=== PATIENT | female | born 1965 | race Caucasian/White ===

== ENCOUNTER → 2017-01-20 | Outpatient (CLI) | payer OTHER ==
--- NOTE | 2017-01-20 14:22 | XR ---
Limited cervical spine HISTORY: Neck pain 3 views of the cervical spine No comparisons Anterolisthesis grade 1 C3-4. Retrolisthesis grade 1 C4-5 and C5-6. There is multilevel spondylosis. Loss of disc height present at C4-5, C5-6 and C6-7 with associated endplate sclerosis. Prevertebral s oft tissues are normal. Cervical vertebral bodies show preserved height. IMPRESSION: Degenerative disc disease, consider cervical MRI
== END | disposition home or self-care (01) ==
LOC: RADXRMAIN 11:46
PROVIDERS: ATTEND Internal Medicine
DX: M50.321 Other cervical disc degeneration at C4-C5 level (principal)
CPT/HCPCS: 72040

== ENCOUNTER 2021-01-13 03:28 | Emergency (ER) | payer OTHER ==
[2021-01-13] MEDS ORDERED: MORPHINE SULFATE 4 MG/ML SYRINGE IV STA (03:30)
[2021-01-13] MEDS ORDERED: SODIUM CHLORIDE 0.9% 1,000 ML IV STA ×2 (03:30)
[2021-01-13] MEDS ORDERED: ONDANSETRON 4 MG/2 ML VIAL IVP STA (03:30)
[2021-01-13 03:34] VITALS: TEMP 98.2
--- NOTE | 2021-01-13 03:49 | ED ---
Abdominal Pain HPI - General Stated Complaint: Abdominal Pain Time Seen by Provider: 01/13/21 03:30 Source: patient, EMS Mode of arrival: EMS Limitations: no limitations - Related Data Home Medications Medication Instructions Recorded Confirmed Cholecalciferol [Vitamin D3 (10 400 unit PO DAILY 09/29/15 09/29/15 Mcg = 400 Iu)] Multivitamins, Thera [Multivitamin 1 tab PO DAILY 09/29/15 09/29/15 (formulary)] Pentazocine HCl/Naloxone HCl 1 tab PO BID 09/29/15 09/29/15 [Pentazocine-Naloxone Tablet] Topiramate 100 mg PO BID 09/29/15 09/29/15 Previous Rx's Medication Instructions Recorded Omeprazole [PriLOSEC] 20 mg PO AC-BRKFST #30 cap 09/30/15 Allergies Allergy/AdvReac Type Severity Reaction Status Date / Time acetaminophen [From [place]] AdvReac Itching Verified 01/13/21 03:34 hydrocodone [From [place]] AdvReac Itching Verified 01/13/21 03:34 Review of Systems ROS Statement: Those systems with pertinent positive or pertinent negative responses have been documented in the HPI. ROS Other: All systems not noted in ROS Statement are negative. Past Medical History Past Medical History: GERD/Reflux Additional Past Medical History / Comment(s): 09/29/15 Pt presented to [facility] ER with L sided chest pressure with some L arm tingling and associated SOB and diaphoresis. Symptoms began at 0900 today. She is being admitted with clinical impression of chest pain. Other HX: Gastric ulcer-currently being treated. History of Any Multi-Drug Resistant Organisms: None Reported Past Surgical History: Hernia Repair Additional Past Surgical History / Comment(s): gastric [id number] 1994, abdominal hernia with mesh and surgical site had to be drained 3 times post op. Past Anesthesia/Blood Transfusion Reactions: No Reported Reaction Additional Past Anesthesia/Blood Transfusion Reaction / Comment(s): Pt has never received blood. Past Psychological History: Bipolar Past Alcohol Use History: Occasional Past Drug Use History: Marijuana - Past Family History Father Family Medical History: Cancer Additional Family Medical History / Comment(s): Father of pancreatic cancer at age 65yrs. Mother Family Medical History: Cancer Additional Family Medical History / Comment(s): Mother of uterine cancer in her 60's. General Exam Limitations: no limitations Course Vital Signs 01/13/21 01/13/21 03:29 05:09 Temperature 98.2 F Pulse Rate 72 83 Respiratory 16 18 Rate Blood Pressure 144/95 146/84 O2 Sat by Pulse 100 99 Oximetry Medical Decision Making - Lab Data Result diagrams: 01/13/21 03:43 01/13/21 03:43 Lab Results 01/13/21 01/13/21 01/13/21 Range/Units 03:43 03:43 03:43 WBC 4.6 (3.8-10.6) k/uL RBC 4.66 (3.80-5.40) m/uL Hgb 13.8 (11.4-16.0) gm/dL Hct 43.8 (34.0-46.0) % MCV 94.1 (80.0-100.0) fL MCH 29.7 (25.0-35.0) pg MCHC 31.6 (31.0-37.0) g/dL RDW 14.9 (11.5-15.5) % Plt Count 326 (150-450) k/uL MPV 7.2 Neutrophils % 71 % Lymphocytes % 21 % Monocytes % 5 % Eosinophils % 1 % Basophils % 1 % Neutrophils # 3.3 (1.3-7.7) k/uL Lymphocytes # 1.0 (1.0-4.8) k/uL Monocytes # 0.2 (0-1.0) k/uL Eosinophils # 0.0 (0-0.7) k/uL Basophils # 0.0 (0-0.2) k/uL Sodium 137 (137-145) mmol/L Potassium 3.8 (3.5-5.1) mmol/L Chloride 100 (98-107) mmol/L Carbon Dioxide 21 L (22-30) mmol/L Anion Gap 16 mmol/L BUN 10 (7-17) mg/dL Creatinine 0.62 (0.52-1.04) mg/dL Est GFR (CKD-EPI)AfAm >90 (>60 ml/min/1.73 sqM) Est GFR (CKD-EPI)NonAf >90 (>60 ml/min/1.73 sqM) Glucose 107 H (74-99) mg/dL Plasma Lactic Acid Que 1.2 (0.7-2.0) mmol/L Calcium 9.9 (8.4-10.2) mg/dL Total Bilirubin 1.2 (0.2-1.3) mg/dL AST 42 H (14-36) U/L ALT 16 (4-34) U/L Alkaline Phosphatase 102 (38-126) U/L Creatine Kinase 214 H (30-135) U/L C-Reactive Protein 7.8 (<10.0) mg/L Total Protein 7.6 (6.3-8.2) g/dL Albumin 4.5 (3.5-5.0) g/dL Amylase 35 (30-110) U/L Lipase 75 (23-300) U/L Disposition Clinical Impression: Cecal bascule, Abdominal pain Disposition: HOME SELF-CARE Condition: Good Instructions (If sedation given, give patient instructions): Acute Abdominal Pain (ED) Is patient prescribed a controlled substance at d/c from ED?: No Referrals: Taran Davies MD [STAFF PHYSICIAN] - 1-2 days
[2021-01-13 04:26] LABS: Basophils % (A) 1 %; Eosinophils % (A) 1 %; HCT 43.8 % (34.0-46.0); HGB 13.8 gm/dL (11.4-16.0); Lymphocytes % (A) 21 %; MCH 29.7 pg (25.0-35.0); MCHC 31.6 g/dL (31.0-37.0); MCV 94.1 fL (80.0-100.0); Mean Platelet Volume 7.2; Monocytes # (A) 0.2 k/uL (0-1.0); Monocytes % (A) 5 %; Neutrophils # (A) 3.3 k/uL (1.3-7.7); Neutrophils % (A) 71 %; Platelet Count 326 k/uL (150-450); RBC 4.66 m/uL (3.80-5.40); RDW 14.9 % (11.5-15.5); WBC 4.6 k/uL (3.8-10.6)
[2021-01-13] MEDS ORDERED: HYDROmorphone 1 MG/ML 1 ML SYRINGE IVP STA (04:33)
[2021-01-13] MEDS ORDERED: HYDROmorphone 1 MG/ML 1 ML SYRINGE IVP PRN (04:33)
[2021-01-13 04:36] LABS: ALT 16 U/L (4-34); African American GFR (CKD) >90 (>60 ml/min/1.73 sqM); Albumin 4.5 g/dL (3.5-5.0); Amylase 35 U/L (30-110); Anion Gap 16 mmol/L; Blood Urea Nitrogen 10 mg/dL (7-17); C Reactive Protein 7.8 mg/L (<10.0); Calcium 9.9 mg/dL (8.4-10.2); Carbon Dioxide 21 mmol/L (22-30); Chloride 100 mmol/L (98-107); Creatine Kinase 214 U/L (30-135); Glucose 107 mg/dL (74-99); Lipase 75 U/L (23-300); Non-African American GFR(CKD) >90 (>60 ml/min/1.73 sqM); Sodium 137 mmol/L (137-145); Total Bilirubin 1.2 mg/dL (0.2-1.3); Total Protein 7.6 g/dL (6.3-8.2)
[2021-01-13 05:22] LABS: AST 42 U/L (14-36); Alkaline Phosphatase 102 U/L (38-126); Potassium 3.8 mmol/L (3.5-5.1)
--- NOTE | 2021-01-13 05:53 | CT ---
EXAM: CT Abdomen and Pelvis With Intravenous Contrast CLINICAL HISTORY: RUQ pain with epigastric pain. Previous hernia and gastric surgery. TECHNIQUE: Axial computed tomography images of the abdomen and pelvis with intravenous contrast. CTDI is 31.07 mGy and DLP is 1354.2 mGy-cm. This CT exam was performed using one or more of the following dose reduction techniques: automated exposure control, adjustment of the mA and/or kV according to patient size, and/or use of iterative reconstruction technique. Coronal and sagittal reconstructions are performed. COMPARISON: No relevant prior studies available. FINDINGS: Lung bases: Unremarkable. No mass. No consolidation. ABDOMEN: Liver: Unremarkable. No mass. Gallbladder and bile ducts: Unremarkable. No calcified stones. No ductal dilation. Pancreas: Unremarkable. No mass. No ductal dilation. Spleen: Unremarkable. No splenomegaly. Adrenals: Unremarkable. No mass. Kidneys and ureters: Unremarkable. No solid mass. No hydronephrosis. Stomach and bowel: Mild circumferential wall thickening of ascending and proximal transverse colon, measuring up to 5 mm, likely due to underdistention. Partial gastrectomy sutures, Harley-en-Y configuration. The cecum is mildly dilated to 7 cm in maximum diameter, located anteriorly in central upper abdomen, best seen on series 202 images 39 and 35, suggest cecal bascule. PELVIS: Appendix: No findings to suggest acute appendicitis. Bladder: Unremarkable. No mass. Reproductive: Unremarkable as visualized. ABDOMEN and PELVIS: Intraperitoneal space: Unremarkable. No free air. No significant fluid collection. Bones/joints: Osteopenia suspected. Moderate degenerative changes. Mild lower lumbar scoliosis convexed to the right. Soft tissues: Ventral hernia repair mesh. Midline abdominal scar Vasculature: Unremarkable. No abdominal aortic aneurysm. Lymph nodes: Unremarkable. No enlarged lymph nodes. IMPRESSION: The cecum is mildly dilated to 7 cm in maximum diameter, located anteriorly in central upper abdomen, suggest cecal bascule. Mild circumferential wall thickening of ascending and proximal transverse colon, measuring up to 5 mm, likely due to underdistention. Colitis is less likely but should also be considered. <MYCVCSECTION> Communications: 01/13/21 05:58 Verify Receipt Verified receipt with [facility] in ER for Dr. Reyez on 01/13 05:58 (-04:00)
[2021-01-13] MEDS ORDERED: ACET/COD 300 MG/30 MG STARTER PACK 6 TAB BTL PO STA (06:26)
[2021-01-13 06:31] VITALS: BP 116/61; PULSE 81; RESP 16
== END 2021-01-13 06:42 | disposition home or self-care (01) ==
LOC: EC 03:28
DX: K56.2 Volvulus (principal); Z79.899 Other long term (current) drug therapy; Z88.5 Allergy status to narcotic agent; Z88.6 Allergy status to analgesic agent; Z98.84 Bariatric surgery status
CPT/HCPCS: 36415; 80053; 82150; 82550; 83605; 83690; 85025; 86140; 74177; 99284; 96374; 96375 ×2; 96361 ×3; J2270; J2405; J1170; Q9967

== ENCOUNTER 2021-01-13 18:32 | Observation (INO) | payer OTHER ==
--- NOTE | 2021-01-13 18:46 | ED ---
General Adult HPI - General Source: patient Mode of arrival: wheelchair Limitations: no limitations <Elier Patterson - Last Filed: 01/13/21 18:44> <Evans Martines - Last Filed: 01/13/21 22:41> - General Stated complaint: abd pain-revisit Time Seen by Provider: 01/13/21 18:40 - History of Present Illness Initial comments: This a 54-year-old female presents emergency Department chief severe abdominal pain. Patient states that she was seen her earlier this morning and was diagnosed with a cecal bascule patient states that she was instructed to follow- up with Dr. Betancurania states that she was to follow clear liquid diet. She states that she felt okay until the pain has returned and 10 times worse. She states her severe pain. (Elier Patterson) - Related Data Home Medications Medication Instructions Recorded Confirmed No Known Home Medications 01/13/21 01/13/21 Allergies Allergy/AdvReac Type Severity Reaction Status Date / Time acetaminophen [From [place]] AdvReac Itching Verified 01/13/21 21:21 hydrocodone [From [place]] AdvReac Itching Verified 01/13/21 21:21 Review of Systems ROS Other: All systems not noted in ROS Statement are negative. <Elier Patterson - Last Filed: 01/13/21 18:44> ROS Other: All systems not noted in ROS Statement are negative. <Evans Martines - Last Filed: 01/13/21 22:41> ROS Statement: Those systems with pertinent positive or pertinent negative responses have been documented in the HPI. Past Medical History Past Medical History: GERD/Reflux Additional Past Medical History / Comment(s): 09/29/15 Pt presented to [facility] ER with L sided chest pressure with some L arm tingling and associated SOB and diaphoresis. Symptoms began at 0900 today. She is being admitted with clinical impression of chest pain. Other HX: Gastric ulcer-currently being treated. History of Any Multi-Drug Resistant Organisms: None Reported Past Surgical History: Hernia Repair Additional Past Surgical History / Comment(s): gastric [id number] 1994, abdominal hernia with mesh and surgical site had to be drained 3 times post op. Past Anesthesia/Blood Transfusion Reactions: No Reported Reaction Additional Past Anesthesia/Blood Transfusion Reaction / Comment(s): Pt has never received blood. Past Psychological History: Bipolar Smoking Status: Never smoker Past Alcohol Use History: Occasional Past Drug Use History: Marijuana - Past Family History Father Family Medical History: Cancer Additional Family Medical History / Comment(s): Father of pancreatic cancer at age 65yrs. Mother Family Medical History: Cancer Additional Family Medical History / Comment(s): Mother of uterine cancer in her 60's. <Elier Patterson M - Last Filed: 01/13/21 18:44> General Exam Limitations: no limitations <Elier Patterson - Last Filed: 01/13/21 18:44> General appearance: alert, in no apparent distress Head exam: Present: atraumatic, normocephalic, normal inspection Eye exam: Present: normal appearance, PERRL, EOMI. Absent: scleral icterus, conjunctival injection, periorbital swelling ENT exam: Present: normal exam, mucous membranes moist Neck exam: Present: normal inspection. Absent: tenderness, meningismus, lymphadenopathy Respiratory exam: Present: normal lung sounds bilaterally. Absent: respiratory distress, wheezes, rales, rhonchi, stridor Cardiovascular Exam: Present: regular rate, normal rhythm, normal heart sounds. Absent: systolic murmur, diastolic murmur, rubs, gallop, clicks GI/Abdominal exam: Present: soft, tenderness (Tenderness noted to suprapubic area as well as left upper quadrant without guarding or rebound), normal bowel sounds. Absent: distended, guarding, rebound, rigid <Evans Martines P - Last Filed: 01/13/21 22:41> Course Vital Signs 01/13/21 01/13/21 01/13/21 18:39 20:54 22:34 Temperature 97.6 F 98.0 F Pulse Rate 76 66 77 Respiratory 20 18 18 Rate Blood Pressure 110/70 123/97 126/60 O2 Sat by Pulse 100 99 97 Oximetry Medical Decision Making - Lab Data Result diagrams: 01/13/21 19:10 01/13/21 19:10 <Evans Martines P - Last Filed: 01/13/21 22:41> - Medical Decision Making This is a 54-year-old female with a past medical history of GERD, gastric bypass christina en Y in 1994, presents to the emergency room for chief: Of abdominal pain. Patient states she had abdominal pain starting yesterday. She is seen in the emergency room and cecal bascule was diagnosed. Outpatient follow-up was secured for patient tomorrow. However pain worsened today after patient ate a popsicle. States pain is severe. States it is already radiating to her upper abdomen. CT was reviewed from yesterday which shows a cecal bascule. CBC CMP unremarkable. X-ray does show evidence for intestinal ileus or possible thumbprinting and mucosal thickening of the descending colon. Dr Eugene discussed case with Dr. Clayton, does request admission to medicine with surgery consultation. Patient will be kept nothing by mouth on IV fluids. (Evans Martines) - Lab Data Lab Results 01/13/21 01/13/21 01/13/21 Range/Units 19:10 19:10 19:10 WBC 3.5 L (3.8-10.6) k/uL RBC 4.36 (3.80-5.40) m/uL Hgb 13.6 (11.4-16.0) gm/dL Hct 40.5 (34.0-46.0) % MCV 92.8 (80.0-100.0) fL MCH 31.1 (25.0-35.0) pg MCHC 33.5 (31.0-37.0) g/dL RDW 14.4 (11.5-15.5) % Plt Count 311 (150-450) k/uL MPV 7.2 Neutrophils % 58 % Lymphocytes % 30 % Monocytes % 8 % Eosinophils % 1 % Basophils % 1 % Neutrophils # 2.0 (1.3-7.7) k/uL Lymphocytes # 1.0 (1.0-4.8) k/uL Monocytes # 0.3 (0-1.0) k/uL Eosinophils # 0.0 (0-0.7) k/uL Basophils # 0.0 (0-0.2) k/uL PT 10.7 (9.0-12.0) sec INR 1.0 (<1.2) APTT 23.1 (22.0-30.0) sec Sodium 136 L (137-145) mmol/L Potassium 3.7 (3.5-5.1) mmol/L Chloride 100 (98-107) mmol/L Carbon Dioxide 26 (22-30) mmol/L Anion Gap 10 mmol/L BUN 5 L (7-17) mg/dL Creatinine 0.66 (0.52-1.04) mg/dL Est GFR (CKD-EPI)AfAm >90 (>60 ml/min/1.73 sqM) Est GFR (CKD-EPI)NonAf >90 (>60 ml/min/1.73 sqM) Glucose 111 H (74-99) mg/dL Plasma Lactic Acid Que (0.7-2.0) mmol/L Calcium 9.9 (8.4-10.2) mg/dL Total Bilirubin 1.2 (0.2-1.3) mg/dL AST 43 H (14-36) U/L ALT 18 (4-34) U/L Alkaline Phosphatase 81 (38-126) U/L Total Protein 7.1 (6.3-8.2) g/dL Albumin 4.2 (3.5-5.0) g/dL Lipase 48 (23-300) U/L 01/13/21 Range/Units 19:10 WBC (3.8-10.6) k/uL RBC (3.80-5.40) m/uL Hgb (11.4-16.0) gm/dL Hct (34.0-46.0) % MCV (80.0-100.0) fL MCH (25.0-35.0) pg MCHC (31.0-37.0) g/dL RDW (11.5-15.5) % Plt Count (150-450) k/uL MPV Neutrophils % % Lymphocytes % % Monocytes % % Eosinophils % % Basophils % % Neutrophils # (1.3-7.7) k/uL Lymphocytes # (1.0-4.8) k/uL Monocytes # (0-1.0) k/uL Eosinophils # (0-0.7) k/uL Basophils # (0-0.2) k/uL PT (9.0-12.0) sec INR (<1.2) APTT (22.0-30.0) sec Sodium (137-145) mmol/L Potassium (3.5-5.1) mmol/L Chloride (98-107) mmol/L Carbon Dioxide (22-30) mmol/L Anion Gap mmol/L BUN (7-17) mg/dL Creatinine (0.52-1.04) mg/dL Est GFR (CKD-EPI)AfAm (>60 ml/min/1.73 sqM) Est GFR (CKD-EPI)NonAf (>60 ml/min/1.73 sqM) Glucose (74-99) mg/dL Plasma Lactic Acid Que 0.7 (0.7-2.0) mmol/L Calcium (8.4-10.2) mg/dL Total Bilirubin (0.2-1.3) mg/dL AST (14-36) U/L ALT (4-34) U/L Alkaline Phosphatase (38-126) U/L Total Protein (6.3-8.2) g/dL Albumin (3.5-5.0) g/dL Lipase (23-300) U/L Disposition <Elier Patterson M - Last Filed: 01/13/21 18:44> Is patient prescribed a controlled substance at d/c from ED?: No Time of Disposition: 22:41 <Evans Martines P - Last Filed: 01/13/21 22:41> Clinical Impression: Cecal bascule, Abdominal pain Disposition: ADMITTED IP TO THIS HOSP Condition: Fair Referrals: None,Stated [Primary Care Provider] - 1-2 days
[2021-01-13 19:26] LABS: Basophils % (A) 1 %; Eosinophils % (A) 1 %; HCT 40.5 % (34.0-46.0); HGB 13.6 gm/dL (11.4-16.0); Lymphocytes % (A) 30 %; MCH 31.1 pg (25.0-35.0); MCHC 33.5 g/dL (31.0-37.0); MCV 92.8 fL (80.0-100.0); Mean Platelet Volume 7.2; Monocytes # (A) 0.3 k/uL (0-1.0); Monocytes % (A) 8 %; Neutrophils % (A) 58 %; Platelet Count 311 k/uL (150-450); RBC 4.36 m/uL (3.80-5.40); RDW 14.4 % (11.5-15.5); WBC 3.5 k/uL (3.8-10.6)
[2021-01-13 19:33] LABS: ALT 18 U/L (4-34); AST 43 U/L (14-36); African American GFR (CKD) >90 (>60 ml/min/1.73 sqM); Albumin 4.2 g/dL (3.5-5.0); Alkaline Phosphatase 81 U/L (38-126); Anion Gap 10 mmol/L; Blood Urea Nitrogen 5 mg/dL (7-17); Calcium 9.9 mg/dL (8.4-10.2); Carbon Dioxide 26 mmol/L (22-30); Chloride 100 mmol/L (98-107); Glucose 111 mg/dL (74-99); Lipase 48 U/L (23-300); Non-African American GFR(CKD) >90 (>60 ml/min/1.73 sqM); Potassium 3.7 mmol/L (3.5-5.1); Sodium 136 mmol/L (137-145); Total Bilirubin 1.2 mg/dL (0.2-1.3); Total Protein 7.1 g/dL (6.3-8.2)
[2021-01-13 19:37] LABS: Partial Thromboplastin Time 23.1 sec (22.0-30.0); Prothrombin Time 10.7 sec (9.0-12.0)
--- NOTE | 2021-01-13 20:24 | XR ---
EXAMINATION TYPE: XR KUB DATE OF EXAM: 01/13/2021 COMPARISON: NONE HISTORY: Abdominal pain TECHNIQUE: 2 views upright FINDINGS: Lung bases are clear. There is no pleural effusion. There are some gas-filled distended lar ge bowel loops in the left upper quadrant. There is no evidence of free air. There are no pathologic calcifications over the kidneys. There is possible thumbprinting of the descending colon. IMPRESSION: There is evidence for some intestinal ileus or possible thumbprinting and mucosal thicken ing of the descending colon. No free air.
[2021-01-13] MEDS ORDERED: MORPHINE SULFATE 4 MG/ML SYRINGE IM STA (20:28)
[2021-01-13] MEDS ORDERED: MORPHINE SULFATE 4 MG/ML SYRINGE IVP STA (20:38)
[2021-01-13] MEDS: SODIUM CHLORIDE 0.9% 1,000 ML IV SCH (22:34)
[2021-01-13] MEDS ORDERED: NALOXONE 0.4 MG/ML 1 ML VIAL IV PRN (22:41)
[2021-01-13] MEDS ORDERED: ONDANSETRON 4 MG/2 ML VIAL IVP PRN (22:41)
[2021-01-14] MEDS: HYDROmorphone 0.5 MG/0.5 ML SYRINGE IVP PRN ×5 (07:50→20:13)
--- NOTE | 2021-01-14 08:02 | US ---
EXAMINATION TYPE: US gallbladder DATE OF EXAM: 01/14/2021 COMPARISON: CT CLINICAL HISTORY: cholecystitis. Pelvic pain and cramping per patient EXAM MEASUREMENTS: Liver Length: 18.5 cm, underestimated as compared to CT Gallbladder Wall: 0.2 cm CBD: 0.3 cm Right Kidney: 11.1 x 5.9 x 4.7 cm Pancreas: mid and tail obscured by overlying bowel gas Liver: right posterior lobe attenuated posteriorly; enlarged as is greater than 18.0cm. The liver s hows a coarse echotexture, no focal mass Gallbladder: wnl Evidence for sonographic Bentley's sign: no CBD: wnl Right Kidney: lower pole cyst noted = 0.8 x 1.0 x 0.9cm; upper lateral cortical cyst seen = 0.8 x 0. 7 x 0.7cm IMPRESSION: Findings suggest hepatic steatosis. There is hepatomegaly. Small cysts right kidney.
--- NOTE | 2021-01-14 09:08 | P.GSHP ---
History of Present Illness H&P Date: 01/14/21 CHIEF COMPLAINT: Right upper quadrant abdominal pain HISTORY OF PRESENT ILLNESS: The patient is a 55-year-old female with pre- existing history of a gastric bypass over 30 years ago in 1994 who presents with right quadrant abdominal pain. At the time of her surgery, her highest weight was 310 pounds. She reports developing new lactose intolerance in the last 5-8 years. She also reports intermittent dysphagia along the epigastrium where she cannot tolerate breads or potatoes including kyrgy[place] fries. She has intolerance to fatty foods. She has a strong family history of gallbladder disease in her father, sister, multiple relatives requiring gallbladder removal. She reports her pain of her right upper quadrant started as crampy and pulling in nature over 1-2 days ago. She's had intermittent abdominal pain of similar type in the last several days. She reports her pain is 7 out of 10. 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 General surgery is consulted regarding right upper quadrant abdominal pain. Overall, patient reports she has been lost to bariatric follow-up in over 10+ years. Additionally, she has maintained 60 pound weight loss. She's never had a colonoscopy. She denies any current diarrhea. PAST MEDICAL HISTORY: See list and reviewed PAST SURGICAL HISTORY: See list and reviewed MEDICATIONS: See list and reviewed ALLERGIES: See list and reviewed SOCIAL HISTORY: See list and reviewed FAMILY HISTORY: See list and reviewed REVIEW OF ORGAN SYSTEMS: CONSTITUTIONAL: No fevers or chills. No recent weight loss. EYES: Denies any trouble with vision. No glasses. HEENT: No difficulties with hearing. No nosebleeds. Has difficulty swallowing. RESPIRATORY: Denies pneumonia. Denies any troubles with breathing or dyspnea on exertion. CARDIOVASCULAR: Denies any chest pain, palpitations, or recent heart attacks. GASTROINTESTINAL: Has change in bowel habits. His lactose intolerant. Reports dysphagia. Has food intolerance. GENITOURINARY: Denies any blood in urine or increased urinary frequency. NEUROLOGICAL: Denies any numbness or tingling along the distal extremities. No seizure disorders or headaches. MUSCULOSKELETAL: Has back pain, stiffness or joint arthritis. SKIN: No current skin cancer. Has panniculitis. PSYCHIATRIC: Denies current depression or suicidal thoughts. ENDOCRINE: Denies current thyroid disorders. Denies any blood sugar glucose intolerance. HEME/LYMPHATIC: Denies any lumps and bumps around the neck. No recent deep venous thrombosis. ALLERGY/IMMUNOLOGY: No immunoglobulin therapy. No immune deficiencies. BREAST: Denies current breast lumps, pain or nipple discharge. PHYSICAL EXAM: VITALS: Reviewed CONSTITUTIONAL: Well developed and in no acute distress. EYES: Conjuctivae without sclera icterus. Extraocular movements grossly intact. HEAD, EARS, NOSE, THROAT: Moist buccal mucosa. Head is atraumatic, normocephalic. Hears conversational speech. No nasal drainage. NECK: Supple. No JV distention. No thyroidomegaly. RESPIRATORY: Non-labored respirations and equal bilateral excursions. No gross wheezes. CARDIOVASCULAR: Extremities without moderate edema. Palpable 2+ radial pulses. ABDOMEN: Soft. Tender along the right upper quadrant. Moderate skin elastosis. LYMPH: No neck lymphadenopathy. MUSCULOSKELETAL: Range of motion bilateral upper extremities within normal limits. Nail and fingers with good capillary refill. SKIN: Warm and well perfused with good skin turgor. Has moderate pannus, grade 4. Has hyperpigmentation and erythema of the pannus with panniculitis NEUROLOGIC: Cranial nerves II through XII grossly intact. Sensation upper and extremities intact. No focal or lateralizing signs. PSYCH: Appropriate affect. Alert and oriented to person, place and time. Displays appropriate insight. CLINCAL LABS: Reviewed. WBC within normal limits. AST ALT within normal limits. IMAGING: Independently reviewed CT of the abdomen and pelvis demonstrated moderately dilated gallbladder with folding. No features of colitis identified. No features of internal hernia or bowel obstruction. This is my independent i nterpretation. RADIOLOGY: Report reviewed CT of the abdomen of questionable cecal bascule. RECORDS: previous old records reviewed EKG and echo from 2015 demonstrating bradycardia. Ultrasound of gallbladder 2015 without large gallstones. HIDA scan from 2015 imagings hypercontractile gallbladder over 83%. ASSESSMENT: 1. 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 Right upper quadrant abdominal pain 3. Strong family history of gallbladder disease 4. History of gastric bypass, maintaining 60 pound weight loss 5. Panniculitis PLAN: 1. I ordered immediate ultrasound of the right upper quadrant for further assessment of her gallbladder. Findings demonstrates no common bile duct dilation. 2. Immediate EKG was also ordered demonstrating sinus bradycardia. Echo with cardiac risk assessment advised 3. Recommend a full bariatric labs that she's been lost to follow-up for over 10 years with high risk of nutritional deficiencies. 4. Patient is elevated risk for surgery with history of gastric bypass, nutritional deficiencies, pre-existing peritoneal adhesions. Robotic cholecystectomy described with lysis of adhesions pending cardiac risk assessment. Past Medical History Past Medical History: GERD/Reflux Additional Past Medical History / Comment(s): 09/29/15 Pt presented to [facility] ER with L sided chest pressure with some L arm tingling and associated SOB and diaphoresis. Symptoms began at 0900 today. She is being admitted with clinical impression of chest pain. Other HX: Gastric ulcer-currently being treated. History of Any Multi-Drug Resistant Organisms: None Reported Past Surgical History: Hernia Repair Additional Past Surgical History / Comment(s): gastric [id number] 1994, abdominal hernia with mesh and surgical site had to be drained 3 times post op. Past Anesthesia/Blood Transfusion Reactions: No Reported Reaction Additional Past Anesthesia/Blood Transfusion Reaction / Comment(s): Pt has never received blood. Past Psychological History: Bipolar Additional Psychological History / Comment(s): Pt states she is looking to establish with a more local psychiatrist for her bipolar treatment. She lives [place] in an apt. She is independent. She uses no assistive device. She drives. Smoking Status: Current some day smoker Past Alcohol Use History: Occasional Past Drug Use History: Marijuana - Past Family History Father Family Medical History: Cancer Additional Family Medical History / Comment(s): Father of pancreatic cancer at age 65yrs. Mother Family Medical History: Cancer Additional Family Medical History / Comment(s): Mother of uterine cancer in her 60's. Medications and Allergies Home Medications Medication Instructions Recorded Confirmed Type No Known Home Medications 01/13/21 01/13/21 History Allergies Allergy/AdvReac Type Severity Reaction Status Date / Time acetaminophen [From [place]] AdvReac Itching Verified 01/13/21 21:21 hydrocodone [From [place]] AdvReac Itching Verified 01/13/21 21:21 Surgical - Exam Vital Signs Temp Pulse Resp BP Pulse Ox 97.6 F 76 20 110/70 100 01/13/21 18:39 01/13/21 18:39 01/13/21 18:39 01/13/21 18:39 01/13/21 18:39 Results - Labs 01/13/21 19:10 01/13/21 19:10 Abnormal Lab Results - Last 24 Hours (Table) 01/13/21 01/13/21 Range/Units 19:10 19:10 WBC 3.5 L (3.8-10.6) k/uL Sodium 136 L (137-145) mmol/L BUN 5 L (7-17) mg/dL Glucose 111 H (74-99) mg/dL AST 43 H (14-36) U/L Diabetes panel 01/13/21 Range/Units 19:10 Sodium 136 L (137-145) mmol/L Potassium 3.7 (3.5-5.1) mmol/L Chloride 100 (98-107) mmol/L Carbon Dioxide 26 (22-30) mmol/L BUN 5 L (7-17) mg/dL Creatinine 0.66 (0.52-1.04) mg/dL Glucose 111 H (74-99) mg/dL Calcium 9.9 (8.4-10.2) mg/dL AST 43 H (14-36) U/L ALT 18 (4-34) U/L Alkaline Phosphatase 81 (38-126) U/L Total Protein 7.1 (6.3-8.2) g/dL Albumin 4.2 (3.5-5.0) g/dL Calcium panel 01/13/21 Range/Units 19:10 Calcium 9.9 (8.4-10.2) mg/dL Albumin 4.2 (3.5-5.0) g/dL Pituitary panel 01/13/21 Range/Units 19:10 Sodium 136 L (137-145) mmol/L Potassium 3.7 (3.5-5.1) mmol/L Chloride 100 (98-107) mmol/L Carbon Dioxide 26 (22-30) mmol/L BUN 5 L (7-17) mg/dL Creatinine 0.66 (0.52-1.04) mg/dL Glucose 111 H (74-99) mg/dL Calcium 9.9 (8.4-10.2) mg/dL Adrenal panel 01/13/21 Range/Units 19:10 Sodium 136 L (137-145) mmol/L Potassium 3.7 (3.5-5.1) mmol/L Chloride 100 (98-107) mmol/L Carbon Dioxide 26 (22-30) mmol/L BUN 5 L (7-17) mg/dL Creatinine 0.66 (0.52-1.04) mg/dL Glucose 111 H (74-99) mg/dL Calcium 9.9 (8.4-10.2) mg/dL Total Bilirubin 1.2 (0.2-1.3) mg/dL AST 43 H (14-36) U/L ALT 18 (4-34) U/L Alkaline Phosphatase 81 (38-126) U/L Total Protein 7.1 (6.3-8.2) g/dL Albumin 4.2 (3.5-5.0) g/dL Assessment and Plan (1) Right upper quadrant abdominal pain Current Visit: Yes Status: Acute Code(s): R10.11 - RIGHT UPPER QUADRANT PAIN SNOMED Code(s): 766850671 (2) Cholecystitis Current Visit: Yes Status: Acute Code(s): K81.9 - CHOLECYSTITIS, UNSPECIFIED SNOMED Code(s): 17931387 (3) Family history of gallbladder disease Current Visit: Yes Status: Acute Code(s): Z83.79 - FAMILY HISTORY OF OTHER DISEASES OF THE DIGESTIVE SYSTEM SNOMED Code(s): 796780903 (4) Gastric bypass status for obesity Current Visit: Yes Status: Acute Code(s): Z98.84 - BARIATRIC SURGERY STATUS SNOMED Code(s): 760074479 (5) Dysphagia Current Visit: Yes Status: Acute Code(s): R13.10 - DYSPHAGIA, UNSPECIFIED SNOMED Code(s): 41900681 (6) Sinus bradycardia Current Visit: Yes Status: Acute Code(s): R00.1 - BRADYCARDIA, UNSPECIFIED SNOMED Code(s): 08291262
--- NOTE | 2021-01-14 10:41 | P.HPIM ---
History of Present Illness H&P Date: 01/14/21 Chief Complaint: Abdominal pain Patient is a 55-year-old female with a known history of GERD, history of gastric ulcer and history of gastric [id number] 1994, abdominal hernia with mesh repair, bipolar disorder presents to ER with complaints of severe abdominal pain. Patient says that her pain started on 01/10/2021 and since has been getting worse. Patient was seen in the ER yesterday morning and had CT of the abdomen pelvis with contrast showed cecum is mildly dilated to 7 cm in maximum diameter located anteriorly in the central upper abdomen increased cecal b ascule. Mild circumferential wall thickening of the ascending and proximal transverse colon measuring up to 5 likely due to under distention.: She is less likely but should be considered. Patient was given pain medications and improve symptomatically. Patient was sent home but patient has been having worsening symptoms and came back to the hospital within 12 hours. Patient states that pain started with abdominal cramps mainly in the right lower quadrant and midabdominal followed by pain under the right lower ribs with burning sensation. No complaints of fever or chills. Patient does have nausea and some vomiting. Patient does have chronic diarrhea and no change in bowel habits recently. No recent illnesses or sick contacts.. Gallbladder ultrasound showed findings suggest hepatic steatosis. There is hepatomegaly. Small cysts right kidney. CBD within normal limits. No sonographic evidence of Bentley's sign. Laboratory data showed WBC 3.5 hemoglobin 13.6 and platelets 311 Sodium 136 potassium 3.7 chloride 100, BUN 5 and 0.6 BG 111, AST 43 ALT 18 WAS 81 and bilirubin 1.2 Lipase 48 and COVID 19 nondetected. Review of Systems Constitutional: Patient denies any fever or chills . No generalized weakness or weight loss. Abdomen: Patient does complain of abdominal pain right side associated with nausea. No vomiting.. Cardiovascular: Patient denies any chest pain or short of breath no palpitations. Respiratory: patient denied any cough is from production. No shortness of breath Neurologic: Patient denied any numbness or tingling headache. Musculoskeletal: Patient denies any complaints of joint swelling or deformity. Skin: Negative Psychiatric: Negative Endocrine: No heat or cold intolerance. No recent weight gain. Genitourinary: No dysuria or hematuria. All other 14 point ROS negative except the above Past Medical History Past Medical History: GERD/Reflux Additional Past Medical History / Comment(s): 09/29/15 Pt presented to [facility] ER with L sided chest pressure with some L arm tingling and associated SOB and diaphoresis. Symptoms began at 0900 today. She is being admitted with clinical impression of chest pain. Other HX: Gastric ulcer-currently being treated. History of Any Multi-Drug Resistant Organisms: None Reported Past Surgical History: Hernia Repair Additional Past Surgical History / Comment(s): gastric [id number] 1994, abdominal hernia with mesh and surgical site had to be drained 3 times post op. Past Anesthesia/Blood Transfusion Reactions: No Reported Reaction Additional Past Anesthesia/Blood Transfusion Reaction / Comment(s): Pt has never received blood. Past Psychological History: Bipolar Additional Psychological History / Comment(s): Pt states she is looking to establish with a more local psychiatrist for her bipolar treatment. She lives [place] in an apt. She is independent. She uses no assistive device. She drives. Smoking Status: Current some day smoker Past Alcohol Use History: Occasional Past Drug Use History: Marijuana - Past Family History Father Family Medical History: Cancer Additional Family Medical History / Comment(s): Father of pancreatic cancer at age 65yrs. Mother Family Medical History: Cancer Additional Family Medical History / Comment(s): Mother of uterine cancer in her 60's. Medications and Allergies Home Medications Medication Instructions Recorded Confirmed Type No Known Home Medications 01/13/21 01/13/21 History Allergies Allergy/AdvReac Type Severity Reaction Status Date / Time acetaminophen [From [place]] AdvReac Itching Verified 01/13/21 21:21 hydrocodone [From [place]] AdvReac Itching Verified 01/13/21 21:21 Physical Exam Vitals: Vital Signs Temp Pulse Pulse Resp BP BP Pulse Ox 01/14/21 09:09 98.5 F 67 121/79 01/14/21 05:01 97.8 F 67 16 98/61 98 01/14/21 00:28 98.2 F 72 120/73 95 01/13/21 22:34 98.0 F 77 18 126/60 97 01/13/21 20:54 66 18 123/97 99 01/13/21 18:39 97.6 F 76 20 110/70 100 Intake and Output 01/13/21 01/14/21 01/14/21 22:59 06:59 14:59 Intake Total 600 Balance 600 Intake: IV 600 Sodium Chloride 0.9% 1, 600 000 ml @ 75 mls/hr IV . [id number] [facility] Rx#:[id number] Other: Voiding Method Toilet # Voids 1 Weight 113.398 kg PHYSICAL EXAMINATION: Patient is lying in the bed comfortably, no acute distress, awake alert and oriented.. HEENT: Normocephalic. Neck is supple. Pupils reactive. Nostrils clear. Oral cavity is moist. Ears reveal no drainage. Neck reveals no JVD, carotid bruits, or thyromegaly. CHEST EXAMINATION: Trachea is central. Symmetrical expansion. Lung pulido clear to auscultation and percussion. CARDIAC: Normal S1, S2 with no gallops. No murmurs ABDOMEN: Soft. Tenderness over the right lateral abdomen and upper quadrant. No guarding or rigidity. Bowel sounds normal. No organomegaly. No abdominal bruits. Extremities: reveal no edema. No clubbing or cyanosis Neurologically awake, alert, oriented x3 with well-coordinated movements. No focal deficits noted Skin: No rash or skin lesions. Psychiatric: Coperative. Nonsuicidal Musculoskeletal: No joint swelling or deformity. Normal range of motion. Results CBC & Chem 7: 01/13/21 19:10 01/13/21 19:10 Labs: Abnormal Lab Results - Last 24 Hours (Table) 01/13/21 01/13/21 Range/Units 19:10 19:10 WBC 3.5 L (3.8-10.6) k/uL Sodium 136 L (137-145) mmol/L BUN 5 L (7-17) mg/dL Glucose 111 H (74-99) mg/dL AST 43 H (14-36) U/L Thrombosis Risk Factor Assmnt - DVT/VTE Prophylaxis DVT/VTE Prophylaxis: Pharmacologic Prophylaxis ordered - Choose All That Apply Any of the Below Risk Factors Present?: Yes Each Factor Represents 1 point: Age 41-60 years Thrombosis Risk Factor Assessment Total Risk Factor Score: 1 Thrombosis Risk Factor Assessment Level: Low Risk Assessment and Plan Assessment: Right upper quadrant abdominal pain. with thickening of the ascending and transverse colon. 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 History of gastric bypass surgery [facility] Chronic diarrhea GERD and history of gastric ulcers Bipolar disorder Currently some day smoker Occasional marijuana Plan: patient will be continued on IV hydration and pain management with Dilaudid. Patient had gallbladder ultrasound suggestive of hepatic steatosis. Gallbladder within normal limits and no sonographic Bentley's sign. CBD not dilated. Patient does have right upper quadrant abdominal pain. AST ALT, alk phos and bilirubin levels within normal limits. General surgery is planning for cholecystectomy and lysis of adhesions. Cardiology was consulted for clearance and sinus bradycardia. The patient had stress echocardiogram done in September 2015 was normal. Continue with telemetry monitoring. Troponin 1 negative. Further recommendations based on the clinical course. Time with Patient: Greater than 30
--- NOTE | 2021-01-14 10:49 | ECHOF ---
Referral Reason:cardiac clearance abnormal EKG MEASUREMENTS -------- HEIGHT: 175.3 cm WEIGHT: 68.0 kg BP: 98/61 RVIDd: 3.5 cm (< 3.3) IVSd: 0.8 cm (0.6 - 1.1) LVIDd: 4.6 cm (3.9 - 5.3) LVPWd: 0.9 cm (0.6 - 1.1) IVSs: 1.1 cm LVIDs: 2.8 cm LVPWs: 1.8 cm LA Diam: 3.8 cm (2.7 - 3.8) LAESV Index (A-L): 39.63 ml/m Ao Diam: 2.8 cm (2.0 - 3.7) AV Cusp: 1.7 cm (1.5 - 2.6) LA Diam: 4.2 cm (2.7 - 3.8) MV EXCURSION: 19.848 mm (> 18.000) MV EF SLOPE: 116 mm/s (70 - 150) EPSS: 0.3 cm MV E Calin: 0.92 m/s MV DecT: 169 ms MV A Calin: 0.77 m/s MV E/A Ratio: 1.19 RAP: 5.00 mmHg RVSP: 33.46 mmHg FINDINGS -------- Sinus rhythm. This was a technically good study. LV size, wall thickness and systolic function are normal, with an EF greater than 55%. The left qiana tricular size is normal. The right ventricle is normal in size. LA is moderately dilated 34-39 ml/m2 The right atrial size is normal. Trace to mild aortic regurgitation. Mild mitral annular calcification present. Mild mitral regurgitation is present. Mild tricuspid regurgitation present. Right ventricular systolic pressure is normal at < 35 mmHg. There is no pulmonic regurgitation present. The aortic root size is normal. There is no pericardial effusion. CONCLUSIONS -------- 1. LV size, wall thickness and systolic function are normal, with an EF greater than 55%. 2. The left ventricular size is normal. 3. The right ventricle is normal in size. 4. LA is moderately dilated 34-39 ml/m2 5. The right atrial size is normal. 6. Trace to mild aortic regurgitation. 7. Mild mitral annular calcification present. 8. Mild mitral regurgitation is present. 9. Mild tricuspid regurgitation present. 10. There is no pulmonic regurgitation present. 11. The aortic root size is normal. 12. There is no pericardial effusion. TEAM GUIDE: Danni Smith RDCS
--- NOTE | 2021-01-14 11:51 | P.CRDCN ---
History of Present Illness Consult date: 01/14/21 History of present illness: HISTORY OF PRESENT ILLNESS: This is a 55-year-old female with a past medical history significant for bariatric surgery, GERD, and occasional marijuana use. 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 We have been asked to see the patient in consultation for cardiac clearance. Patient examined at the bedside. Patient is scheduled for robotic cholecystectomy today with Dr. Clayton. Patient denies chest pain or pressure. She denies shortness of breath. Patient states she is able to lay flat without any dyspnea. She states she is able to walk up a flight of stairs at home without any trouble breathing. She denies palpitations. Denies fever or cough. EKG reveals sinus bradycardia with no signs of acute ischemia Laboratory data: WBCs 3.5. Hemoglobin 13.6. Platelet count 311. Sodium 136. Potassium 3.7. BUN 5. Creatinine 0.66. Lactic acid 0.7 Current home cardiac medications include none Most recent echocardiogram obtained revealed ejection fraction greater than 55%, mild mitral regurgitation, and mild tricuspid regurgitation REVIEW OF SYSTEMS: At the time of my exam: CONSTITUTIONAL: Denies fever or chills. HEENT: Denies blurred vision, vision changes, or eye pain. Denies hemoptysis CARDIOVASCULAR: Denies chest pain. Denies orthopnea. Denies PND. Denies palpitations RESPIRATORY: Denies shortness of breath. GASTROINTESTINAL: Reports mild abdominal pain. HEMATOLOGIC: Denies bleeding disorders. GENITOURINARY: Denies any blood in urine. SKIN: Denies pruitis. Denies rash. PHYSICAL EXAM: VITAL SIGNS: Reviewed. GENERAL: Well-developed in no acute distress. HEENT: Head is normocephalic. Pupils are equal, round. Sclerae anicteric. Mucous membranes of the mouth are moist. Neck supple. No JVD or thyromegaly LUNGS: Respirations even and unlabored. Lungs essentially clear to auscultation bilaterally. HEART: Regular rate and rhythm. S1 and S2 heard. ABDOMEN: Soft. Nondistended. Positive bowel sounds. EXTREMITIES: Normal range of motion. No clubbing or cyanosis. Peripheral pulses intact. No lower extremity edema NEUROLOGIC: Awake and alert. Oriented x 3. ASSESSMENT: Right upper quadrant abdominal pain History of gastric bypass Sinus bradycardia per EKG, currently heart rate in the 60s PLAN: EKG and echo reviewed Patient has no complaints of chest pain and is not in heart failure There are no absolute contraindications to undergo surgery from a cardiac standpoint Nurse practitioner note has been reviewed by physician. Signing provider agrees with the documented findings, assessment, and plan of care. Past Medical History Past Medical History: GERD/Reflux Additional Past Medical History / Comment(s): 09/29/[address] [facility] ER with L sided chest pressure with some L arm tingling and associated SOB and diaphoresis. Symptoms began at 0900 today. She is being admitted with clinical impression of chest pain. Other HX: Gastric ulcer-currently being treated. History of Any Multi-Drug Resistant Organisms: None Reported Past Surgical History: Hernia Repair Additional Past Surgical History / Comment(s): gastric [id number] 1994, abdominal hernia with mesh and surgical site had to be drained 3 times post op. Past Anesthesia/Blood Transfusion Reactions: No Reported Reaction Additional Past Anesthesia/Blood Transfusion Reaction / Comment(s): Pt has never received blood. Past Psychological History: Bipolar Additional Psychological History / Comment(s): Pt states she is looking to establish with a more local psychiatrist for her bipolar treatment. She lives [place] in an apt. She is independent. She uses no assistive device. She drives. Smoking Status: Current some day smoker Past Alcohol Use History: Occasional Past Drug Use History: Marijuana - Past Family History Father Family Medical History: Cancer Additional Family Medical History / Comment(s): Father of pancreatic cancer at age 65yrs. Mother Family Medical History: Cancer Additional Family Medical History / Comment(s): Mother of uterine cancer in her 60's. Medications and Allergies Home Medications Medication Instructions Recorded Confirmed Type No Known Home Medications 01/13/21 01/13/21 History Allergies Allergy/AdvReac Type Severity Reaction Status Date / Time acetaminophen [From [place]] AdvReac Itching Verified 01/13/21 21:21 hydrocodone [From [place]] AdvReac Itching Verified 01/13/21 21:21 Physical Exam Vitals: Vital Signs Temp Pulse Pulse Resp BP BP Pulse Ox 01/14/21 09:09 98.5 F 67 121/79 01/14/21 05:01 97.8 F 67 16 98/61 98 01/14/21 00:28 98.2 F 72 120/73 95 01/13/21 22:34 98.0 F 77 18 126/60 97 01/13/21 20:54 66 18 123/97 99 01/13/21 18:39 97.6 F 76 20 110/70 100 Intake and Output 01/13/21 01/14/21 01/14/21 22:59 06:59 14:59 Intake Total 600 Balance 600 Intake: IV 600 Sodium Chloride 0.9% 1, 600 000 ml @ 75 mls/hr IV . [id number] [facility] Rx#:[id number] Other: Voiding Method Toilet # Voids 1 Weight 113.398 kg Results 01/13/21 19:10 01/13/21 19:10 Cardiac Enzymes 01/13/21 Range/Units 19:10 AST 43 H (14-36) U/L Coagulation 01/13/21 Range/Units 19:10 PT 10.7 (9.0-12.0) sec APTT 23.1 (22.0-30.0) sec CBC 01/13/21 Range/Units 19:10 WBC 3.5 L (3.8-10.6) k/uL RBC 4.36 (3.80-5.40) m/uL Hgb 13.6 (11.4-16.0) gm/dL Hct 40.5 (34.0-46.0) % Plt Count 311 (150-450) k/uL Comprehensive Metabolic Panel 01/13/21 Range/Units 19:10 Sodium 136 L (137-145) mmol/L Potassium 3.7 (3.5-5.1) mmol/L Chloride 100 (98-107) mmol/L Carbon Dioxide 26 (22-30) mmol/L BUN 5 L (7-17) mg/dL Creatinine 0.66 (0.52-1.04) mg/dL Glucose 111 H (74-99) mg/dL Calcium 9.9 (8.4-10.2) mg/dL AST 43 H (14-36) U/L ALT 18 (4-34) U/L Alkaline Phosphatase 81 (38-126) U/L Total Protein 7.1 (6.3-8.2) g/dL Albumin 4.2 (3.5-5.0) g/dL Current Medications Generic Name Dose Route Start Last Admin Trade Name Freq PRN Reason Stop Dose Admin Heparin Sodium (Porcine) 5,000 unit 01/14/21 21:00 Heparin Sodium,Porcine/Pf 5,000 Unit/0.5 Ml Syringe SQ Q12HR LEA Hydromorphone HCl 0.5 mg 01/13/21 22:41 01/14/21 07:50 Hydromorphone 0.5 Mg/0.5 Ml Syringe IVP 0.5 mg Q3HR PRN Administration Moderate Pain Sodium Chloride 1,000 mls @ 75 mls/hr 01/13/21 22:15 01/13/21 22:34 Saline 0.9% IV 75 mls/hr .[id number] LEA Administration Naloxone HCl 0.2 mg 01/13/21 22:41 Naloxone 0.4 Mg/Ml 1 Ml Vial IV Q2M PRN Opioid Reversal Ondansetron HCl 4 mg 01/13/21 22:41 Ondansetron 4 Mg/2 Ml Vial IVP Q8HR PRN Nausea And Vomiting Intake and Output 01/13/21 01/14/21 01/14/21 22:59 06:59 14:59 Intake Total 600 Balance 600 Intake: IV 600 Sodium Chloride 0.9% 1, 600 000 ml @ 75 mls/hr IV . [id number] [facility] Rx#:[id number] Other: Voiding Method Toilet # Voids 1 Weight 113.398 kg 01/13/21 19:10 01/13/21 19:10
[2021-01-14 13:25] VITALS: BMI 36.9
[2021-01-14] MEDS: SODIUM CHLORIDE 0.9% 1,000 ML IV SCH ×2 (13:53→17:57)
[2021-01-14 14:17] LABS: Glucose,Whole Blood 77 mg/dL (75-99)
[2021-01-14] MEDS ORDERED: IV FLUID CONTINUATION 900 ML IV ONE (14:18)
[2021-01-14] MEDS ORDERED: LIDOCAINE 1% (10MG/ML) FOR IV START INTRADERMA ONE (14:18)
[2021-01-14] MEDS ORDERED: ONDANSETRON 4 MG/2 ML VIAL IVP ONE (14:19)
[2021-01-14] MEDS ORDERED: DEXAMETHASONE SOD PHOSPHATE 4 MG/ML 1 ML VIAL IV ONE (14:19)
[2021-01-14] MEDS: HEPARIN SODIUM,PORCINE/PF 5,000 UNIT/0.5 ML SYRINGE SQ SCH (14:20)
[2021-01-14] MEDS ORDERED: INDOCYANINE GREEN 25 MG VIAL IV STA (14:50)
[2021-01-14] MEDS ORDERED: PROPOFOL 10 MG/ML 20 ML VIAL IV ONE (15:08)
[2021-01-14] MEDS ORDERED: HYDROmorphone (PF) 1 MG/ML ONE (15:08)
[2021-01-14] MEDS ORDERED: MIDAZOLAM 2 MG/2 ML VIAL ONE (15:08)
[2021-01-14] MEDS ORDERED: ROCURONIUM 10 MG/ML (5 ML VIAL) IV ONE (15:08)
[2021-01-14] MEDS ORDERED: fentaNYL (PF) 50 MCG/ML 2 ML AMP ONE (15:08)
[2021-01-14] MEDS ORDERED: ePHEDrine SULFATE/0.9% NACL/PF 50 MG/5 ML SYRINGE IV ONE (15:08)
[2021-01-14] MEDS ORDERED: SUCCINYLCHOLINE CHLORIDE 100 MG/5 ML SYR IV ONE (15:08)
[2021-01-14] MEDS ORDERED: NEOSTIGMINE 1 MG/ML 10 ML VIAL ONE (15:08)
[2021-01-14] MEDS ORDERED: GLYCOPYRROLATE 0.2 MG/ML 2 ML VIAL ONE (15:08)
[2021-01-14] MEDS ORDERED: LIDOCAINE 1% INJ 10MG/ML (20 ML MDV) ONE (15:08)
[2021-01-14] MEDS ORDERED: LIDOCAINE 1%-EPI 1:100,000 20 ML VIAL SQ ONE (15:32)
[2021-01-14] MEDS ORDERED: SODIUM CHLORIDE 0.9% 1,000 ML IV ONE (16:03)
--- NOTE | 2021-01-14 16:52 | P.OP ---
Date of Procedure: 01/14/21 Description of Procedure: SURGEON: JOHN STEWART MD PREOPERATIVE DIAGNOSES: 1. Right upper quadrant abdominal pain 2. Abnormal computed tomography scan for cecal bascule 3. Chronic cholecystitis 4. Family history gallbladder disease 5. History of gastric bypass 6. Morbid obesity due to excess calories, BMI 36.9. POSTOPERATIVE DIAGNOSES: 1. Right upper quadrant abdominal pain 2. Severe right upper quadrant epigastric peritoneal adhesions 3. Chronic cholecystitis 4. Family history gallbladder disease 5. History of gastric bypass 6. Morbid obesity due to excess calories, BMI 36.9. 7. Hydrops gallbladder OPERATION: 1. Robotic-assisted da Maddy Xi laparoscopic lysis of adhesions 30 minutes 2. Robotic-assisted da Maddy Xi laparoscopic cholecystectomy, multiport with FIREFLY ESTIMATED BLOOD LOSS: 5 mL. SPECIMENS REMOVED: Gallbladder. COMPLICATIONS: None. OPERATIVE FINDINGS: 1. No evidence for cecal bascule or colonic ischemia 2. Severe epigastric right upper quadrant and left upper quadrant adhesions from prior surgery 3. Hydrops gallbladder INDICATIONS: The patient is a 55 year-old female who presented with right upper quadrant abdominal pain and abnormal computed tomography scan for cecal bascule. Clinical history was consistent with cholecystitis. Prior to surgery, immediate cardiac assessment was obtained. Diagnostic laparoscopy with robotic cholecystectomy was described. Benefits and risks of the procedure including but not limited to bleeding, infection, injury to the biliary tree was reviewed. Informed consent was obtained. DESCRIPTION OF PROCEDURE: Patient was brought to the operating room, placed in supine position. After general induction, the abdomen had been prepped and draped in standard sterile fashion. The robotic da Maddy XI system was primed. After a timeout protocol was performed, the patient had been prepped and draped in standard sterile fashion. The patient was injected with indocyanine green. A 5 mm 0 degrees laparoscopic trocar entry was performed along the left upper quadrant. The abdomen insufflated to 15 mmHg pressure which was tolerated well. Diagnostic laparoscopy demonstrated no injury to bowel viscera or mesentery. The liver surface was unremarkable. A moderately distended gallbladder was identified adding complexity to the case. Severe epigastric including right upper quadrant and peritoneal adhesions were identified with the transverse colon involved. Next, two 8 mm robotic ports were placed along the right upper abdomen. The camera 8-mm port was maintained along the epigastrium. Another 8 mm port was placed along the left upper abdominal wall after exchanging the 5 mm port. Please note that the ports were placed at least 10 to 15 cm away from the target anatomy of the gallbladder. The robot was docked along the left lateral abdomen. The patient was repositioned in reverse Trendelenburg position with the right side up. Using a grasper for arm 3, a grasper for arm 4, including hook cautery for arm 1, the robotic system was docked and primed as described. Instruments were interchanged by the medical support assistant including hook cautery, Bovie cautery and clip appliers. I had sat at the console. Severe adhesions were addressed using vessel sealer of greater omentum to the abdominal wall including to the gallbladder. The gallbladder was hydropic. As a result of hydropic gallbladder dome down technique was proposed. Using a sponge, the liver was reflected towards the diaphragm and starting at the gallbladder fundus, hook cautery was used to find the avascular plane between the liver and the gallbladder. As the gallbladder was dissected from the hepatic fossa, hemostasis was checked using vessel sealer. Next, indocyanine green was used to confirm the common bile duct as well as cystic duct. The infundibulum was retracted laterally to expose the cystic duct away from the common bile duct. The cystic duct was dissected free from its surrounding tissue. FIREFLY was used to identify the cystic structures. A critical view of safety was obtained. Large PLASTIC clips were used throughout the entire case. Using a clip geodetic technician, a clip was placed at the junction of the infundibulum and cystic duct. The cystic duct was divided using vessel sealer. Next, the cystic artery was divided using vessel sealer. Electro-Bovie cautery and vessel sealer was used to remove the gallbladder without decompression. Hemostasis was checked and found to be adequate. The robot was undocked. I re-scrubbed into the case. A 10 mm Endo Catch bag was used to remove the gallbladder in total via the left upper quadrant incision after widening the incision. The specimen was removed from the abdominal cavity. The fascial defect was less than 8 mm in size. All pneumoperitoneum instruments were evacuated from the abdominal cavity. The incisions were cleansed using dilute hydrogen peroxide. The incisions were reapproximated using 4-0 Monocryl in an interrupted subcuticular fashion. Please note along the trocar sites, local anesthetic was placed as a field block prior to insertion of all instruments. Liquid glue was applied to the skin. At the end of the procedure needle, sponge, and instrument count had been verified correct by the surgical instrument mechanic. The patient was transferred to postanesthesia care unit in stable condition.
[2021-01-14 17:03] LABS: Glucose,Whole Blood 78 mg/dL (75-99)
[2021-01-14] MEDS ORDERED: ACETAMINOPHEN IV (For NPO) 1,000 MG in EMPTY BAG 1 BAG IVPB ONE (17:15)
[2021-01-14] MEDS: SIMETHICONE 40 MG/0.6 ML DROPS 2,000 MG/30 ML BOTTLE PO SCH ×2 (18:13→20:09)
[2021-01-14] MEDS: ACETAMINOPHEN IV (For NPO) 1,000 MG in EMPTY BAG 1 BAG IVPB SCH (23:23)
[2021-01-15] MEDS: ACETAMINOPHEN IV (For NPO) 1,000 MG in EMPTY BAG 1 BAG IVPB SCH ×2 (05:02→11:44)
[2021-01-15] MEDS: HYDROmorphone 0.5 MG/0.5 ML SYRINGE IVP PRN ×2 (05:08→09:17)
[2021-01-15 05:41] LABS: Basophils % (A) 0 %; Eosinophils % (A) 1 %; HCT 37.4 % (34.0-46.0); HGB 12.2 gm/dL (11.4-16.0); Hypochromasia Slight; Lymphocytes % (A) 21 %; MCH 31.2 pg (25.0-35.0); MCHC 32.7 g/dL (31.0-37.0); MCV 95.5 fL (80.0-100.0); Mean Platelet Volume 7.2; Monocytes # (A) 0.3 k/uL (0-1.0); Monocytes % (A) 6 %; Neutrophils # (A) 3.5 k/uL (1.3-7.7); Neutrophils % (A) 71 %; Platelet Count 276 k/uL (150-450); RBC 3.91 m/uL (3.80-5.40); RDW 14.3 % (11.5-15.5); WBC 4.9 k/uL (3.8-10.6)
[2021-01-15] MEDS: SODIUM CHLORIDE 0.9% 1,000 ML IV SCH (07:32)
[2021-01-15 07:46] VITALS: BP 113/70; PULSE 66; RESP 17; TEMP 98.2
[2021-01-15] MEDS: SIMETHICONE 40 MG/0.6 ML DROPS 2,000 MG/30 ML BOTTLE PO SCH (09:04)
[2021-01-15] MEDS: HEPARIN SODIUM,PORCINE/PF 5,000 UNIT/0.5 ML SYRINGE SQ SCH (09:05)
[2021-01-15 10:02] LABS: African American GFR (CKD) 118.9 (60.0-200.0); Albumin 3.8 g/dL (3.80-4.90); Albumin/Globulin Ratio 1.9 (1.60-3.17); Anion Gap 10.2 mmol/L (4.00-12.00); BUN/Creat Ratio 11.67 Ratio (12.00-20.00); Carbon Dioxide 25.8 mmol/L (21.6-31.8); Non-African American GFR(CKD) 102.6 (60.0-200.0); Potassium 4.3 mmol/L (3.5-5.5); Total Bilirubin 0.6 mg/dL (0.2-1.2); Total Protein 5.8 g/dL (6.2-8.2)
--- NOTE | 2021-01-15 10:32 | P.DS ---
Providers Date of admission: 01/13/21 22:08 Expected date of discharge: 01/15/21 Attending physician: Nancy Kevin Consults: 01/13/21 22:42 Consult Physician Routine Consulting Provider: Dariela Clayton Consult Reason/Comments: cecal bascule Do you want consulting provider notified?: Already Contacted Primary care physician: Stated None - Discharge Diagnosis(es) (1) Right upper quadrant abdominal pain Current Visit: Yes Status: Acute (2) Cholecystitis Current Visit: Yes Status: Acute (3) Family history of gallbladder disease Current Visit: Yes Status: Acute (4) Gastric bypass status for obesity Current Visit: Yes Status: Acute (5) Dysphagia Current Visit: Yes Status: Acute (6) Sinus bradycardia Current Visit: Yes Status: Acute (7) Peritoneal adhesions Current Visit: Yes Status: Acute Hospital Course: POSTOPERATIVE DIAGNOSES: 1. Right upper quadrant abdominal pain 2. Severe right upper quadrant epigastric peritoneal adhesions 3. Chronic cholecystitis 4. Family history gallbladder disease 5. History of gastric bypass 6. Morbid obesity due to excess calories, BMI 36.9. 7. Hydrops gallbladder 8. Sinus bradycardia COURSE: The patient is a 55 year-old female who presented with right upper quadrant abdominal pain and abnormal computed tomography scan for cecal bascule. Clinical history was consistent with cholecystitis. She also had bradycardia for which cardiac consultation was obtained. She underwent robotic lysis of adhesions including cholecystectomy. No evidence of cecal bascule or bowel ischemia or obstruction was identified. Postoperatively, she was tolerating diet. Her pre-existing right upper quadrant abdominal pain had resolved. Prior to discharge, she was stable. She was tolerating diet. Discharge instructions reviewed including dietary restrictions. Patient will follow-up in the office with referral to the bariatric center upon complete recovery. Vital Signs 01/13/21 01/13/21 01/13/21 18:39 20:54 22:34 Temperature 97.6 F 98.0 F Pulse Rate 76 66 77 Pulse Rate [ Pulse Oximetery ] Respiratory 20 18 18 Rate Blood Pressure 110/70 123/97 126/60 Blood Pressure [Right Arm] O2 Sat by Pulse 100 99 97 Oximetry 01/14/21 01/14/21 01/14/21 00:28 05:01 09:09 Temperature 98.2 F 97.8 F 98.5 F Pulse Rate Pulse Rate [ 72 67 67 Pulse Oximetery ] Respiratory 16 Rate Blood Pressure Blood Pressure 120/73 98/61 121/79 [Right Arm] O2 Sat by Pulse 95 98 Oximetry 01/14/21 01/14/21 01/14/21 12:52 13:05 14:15 Temperature 98.3 F 99.4 F Pulse Rate Pulse Rate [ 88 88 58 L Pulse Oximetery ] Respiratory 16 16 16 Rate Blood Pressure Blood Pressure 138/78 132/63 [Right Arm] O2 Sat by Pulse 96 Oximetry 01/14/21 01/14/21 01/14/21 16:35 16:50 17:05 Temperature 97.8 F Pulse Rate Pulse Rate [ 103 H 82 61 Pulse Oximetery ] Respiratory 14 16 16 Rate Blood Pressure Blood Pressure 149/80 141/72 113/56 [Right Arm] O2 Sat by Pulse 100 100 96 Oximetry 01/14/21 01/14/21 01/14/21 17:25 18:03 20:10 Temperature Pulse Rate Pulse Rate [ 62 66 78 Pulse Oximetery ] Respiratory 16 16 Rate Blood Pressure Blood Pressure 110/57 125/76 [Right Arm] O2 Sat by Pulse 94 L 95 Oximetry 01/14/21 01/15/21 01/15/21 20:17 05:00 07:45 Temperature 97.9 F 97.9 F 98.2 F Pulse Rate Pulse Rate [ 78 80 66 Pulse Oximetery ] Respiratory 16 16 17 Rate Blood Pressure Blood Pressure 112/71 128/77 113/70 [Right Arm] O2 Sat by Pulse 98 95 97 Oximetry Laboratory Last Values WBC 4.9 k/uL (3.8-10.6) 01/15/21 04:56 RBC 3.91 m/uL (3.80-5.40) 01/15/21 04:56 Hgb 12.2 gm/dL (11.4-16.0) 01/15/21 04:56 Hct 37.4 % (34.0-46.0) 01/15/21 04:56 MCV 95.5 fL (80.0-100.0) 01/15/21 04:56 MCH 31.2 pg (25.0-35.0) 01/15/21 04:56 MCHC 32.7 g/dL (31.0-37.0) 01/15/21 04:56 RDW 14.3 % (11.5-15.5) 01/15/21 04:56 Plt Count 276 k/uL (150-450) 01/15/21 04:56 MPV 7.2 01/15/21 04:56 Neutrophils % 71 % 01/15/21 04:56 Lymphocytes % 21 % 01/15/21 04:56 Monocytes % 6 % 01/15/21 04:56 Eosinophils % 1 % 01/15/21 04:56 Basophils % 0 % 01/15/21 04:56 Neutrophils # 3.5 k/uL (1.3-7.7) 01/15/21 04:56 Lymphocytes # 1.0 k/uL (1.0-4.8) 01/15/21 04:56 Monocytes # 0.3 k/uL (0-1.0) 01/15/21 04:56 Eosinophils # 0.0 k/uL (0-0.7) 01/15/21 04:56 Basophils # 0.0 k/uL (0-0.2) 01/15/21 04:56 Hypochromasia Slight 01/15/21 04:56 PT 10.7 sec (9.0-12.0) 01/13/21 19:10 INR 1.0 (<1.2) 01/13/21 19:10 APTT 23.1 sec (22.0-30.0) 01/13/21 19:10 Sodium 140 mmol/L (135-145) 01/15/21 04:56 Potassium 4.3 mmol/L (3.5-5.5) 01/15/21 04:56 Chloride 104 mmol/L (96-109) 01/15/21 04:56 Carbon Dioxide 25.8 mmol/L (21.6-31.8) 01/15/21 04:56 Anion Gap 10.20 mmol/L (4.00-12.00) 01/15/21 04:56 BUN 7.0 mg/dL (9.0-27.0) L 01/15/21 04:56 Creatinine 0.6 mg/dL (0.6-1.5) 01/15/21 04:56 Est GFR (CKD-EPI)AfAm 118.9 (60.0-200.0) 01/15/21 04:56 Est GFR (CKD-EPI)NonAf 102.6 (60.0-200.0) 01/15/21 04:56 BUN/Creatinine Ratio 11.67 Ratio (12.00-20.00) L 01/15/21 04:56 Glucose 84 mg/dL (70-110) 01/15/21 04:56 POC Glucose (mg/dL) 78 mg/dL (75-99) 01/14/21 17:01 POC Glu Bilingual [employer] Vivienne Ortiz 01/14/21 17:01 Plasma Lactic Acid Que 0.7 mmol/L (0.7-2.0) 01/13/21 19:10 Calcium 9.0 mg/dL (8.7-10.3) 01/15/21 04:56 Total Bilirubin 0.6 mg/dL (0.2-1.2) 01/15/21 04:56 AST 34 U/L (13-35) 01/15/21 04:56 ALT 21 U/L (8-44) 01/15/21 04:56 Alkaline Phosphatase 76 U/L (41-126) 01/15/21 04:56 Total Protein 5.8 g/dL (6.2-8.2) L 01/15/21 04:56 Albumin 3.80 g/dL (3.80-4.90) 01/15/21 04:56 Globulin 2.0 g/dL (1.6-3.3) 01/15/21 04:56 Albumin/Globulin Ratio 1.90 g/dL (1.60-3.17) 01/15/21 04:56 Lipase 48 U/L (23-300) 01/13/21 19:10 Coronavirus (PCR) Not Detected (Not Detectd) 01/13/21 22:35 Procedures: OPERATION: 1. Robotic-assisted da Maddy Xi laparoscopic lysis of adhesions 30 minutes 2. Robotic-assisted da Maddy Xi laparoscopic cholecystectomy, multiport with FIREFLY ESTIMATED BLOOD LOSS: 5 mL. SPECIMENS REMOVED: Gallbladder. COMPLICATIONS: None. OPERATIVE FINDINGS: 1. No evidence for cecal bascule or colonic ischemia 2. Severe epigastric right upper quadrant and left upper quadrant adhesions from prior surgery 3. Hydrops gallbladder Patient Condition at Discharge: Stable Plan - Discharge Summary New Discharge Prescriptions: New Acetaminophen Tab [Tylenol Tab] 1,000 mg PO Q6HR PRN #30 tablet PRN Reason: Pain Simethicone [Gas-X] 125 mg PO AC-TID PRN #20 capsule PRN Reason: Abdominal Distention Discharge Medication List Acetaminophen Tab [Tylenol Tab] 1,000 mg PO Q6HR PRN #30 tablet 01/15/21 [Rx] Simethicone [Gas-X] 125 mg PO AC-TID PRN #20 capsule 01/15/21 [Rx] Follow up Appointment(s)/Referral(s): None,Stated [Primary Care Provider] - 1-2 days Dariela Clayton MD [STAFF PHYSICIAN] - 01/19/21 Patient Instructions/Handouts: *Surgery [facility] - Laparoscopic Cholecystectomy Discharge Instructions, Low Fat Diet (DC) Activity/Diet/Wound Care/Special Instructions: Recommend low-fat diet for the next 2 days. No lifting over 10 pounds in 2 weeks until January 29. January shower. No bath tub soaks for two weeks until January 29 Diet as tolerated. Use simethicone, tylenol scheduled for the next 24-48 hours for best pain relief. Use ice along incisions for today to prevent swelling. Discharge Disposition: HOME SELF-CARE
[2021-01-15] MEDS ORDERED: SENNOSIDES 8.6 MG TAB PO STA (11:38)
== END 2021-01-15 13:21 | disposition home or self-care (01) ==
LOC: EC 18:32 → 5NMEDONC 22:08 → INTOOBSV 22:08 → UNDODISIN 01-15 13:21
PROVIDERS: ADMIT Hospitalist; ATTEND Hospitalist
DX: K81.1 Chronic cholecystitis (principal); K66.0 Peritoneal adhesions (postprocedural) (postinfection); E66.01 Morbid (severe) obesity due to excess calories; K82.1 Hydrops of gallbladder; R00.1 Bradycardia, unspecified; K21.9 Gastro-esophageal reflux disease without esophagitis; M79.3 Panniculitis, unspecified; K56.7 Ileus, unspecified; R13.10 Dysphagia, unspecified; F12.90 Cannabis use, unspecified, uncomplicated; F31.9 Bipolar disorder, unspecified; Z68.36 Body mass index [BMI] 36.0-36.9, adult; F17.200 Nicotine dependence, unspecified, uncomplicated; Z88.5 Allergy status to narcotic agent; Z87.11 Personal history of peptic ulcer disease; Z98.84 Bariatric surgery status; Z20.822 Contact with and (suspected) exposure to COVID-19; Z80.0 Family history of malignant neoplasm of digestive organs; Z80.49 Family history of malignant neoplasm of other genital organs
CPT/HCPCS: 47563; S2900; 36415; 74018; 76705; 80053; 83605; 83690; 85025; 85610; 85730; 87635; 88304; 93005; 93306; 96374; 99285

== ENCOUNTER → 2021-01-22 | Outpatient (CLI) | payer OTHER ==
[2021-01-22 14:17] LABS: INR 0.97 (0.90-1.11); Prothrombin Time 10.6 sec (9.9-11.9)
[2021-01-22 16:56] LABS: HCT 40.4 % (37.2-46.3); HGB 12.5 g/dL (12.0-15.0); MCHC 30.9 g/dL (32.0-37.0); MCV 97.1 fL (80.0-97.0); Mean Platelet Volume 10.5 fL (9.5-12.2); Platelet Count 351 X 10*3/uL (140-440); RBC 4.16 X 10*6/uL (4.10-5.20); RDW 15.9 % (11.5-14.5); WBC 4.58 X 10*3/uL (4.50-10.00)
[2021-01-22 18:53] LABS: Hemoglobin A1C 5.6 % (4.0-6.0)
[2021-01-23 01:34] LABS: Ferritin 20.1 ng/mL (10.0-291.0); Folate, Serum 6.6 ng/mL
[2021-01-23 01:50] LABS: % Iron Saturation 30.7 (12.00-45.00); African American GFR (CKD) 96.2 (60.0-200.0); Albumin 4.4 g/dL (3.80-4.90); Albumin/Globulin Ratio 1.91 (1.60-3.17); Anion Gap 14.1 mmol/L (4.00-12.00); Calcium 9.8 mg/dL (8.7-10.3); Carbon Dioxide 22.9 mmol/L (21.6-31.8); Chol/HDL Ratio 2.83; Globulin 2.3 g/dL (1.6-3.3); LDL Cholesterol,Calculated 100.6 mg/dL (0.0-131.0); Magnesium 1.8 mg/dL (1.5-2.4); Phosphorus 4.3 mg/dL (2.4-5.1); Potassium 4.4 mmol/L (3.5-5.5); Total Bilirubin 0.8 mg/dL (0.3-1.2); Total Protein 6.7 g/dL (6.2-8.2); VLDL Calculation 16.4 mg/dL (5.00-40.00)
[2021-01-25 14:40] LABS: Zinc, Serum 70 ug/dL (60-130)
[2021-01-26 16:22] LABS: Vitamin A 23 ug/dL (38-106)
[2021-01-27 07:36] LABS: Vit B1(Thiamine) 47 ug/L (38-122)
[2021-01-30 11:57] LABS: Selenium 97 mcg/L (63-160)
== END | disposition home or self-care (01) ==
LOC: LABWHC1 08:04
PROVIDERS: ATTEND Surgery Plastic and Reconstructive Surgery
DX: E66.01 Morbid (severe) obesity due to excess calories (principal); E21.1 Secondary hyperparathyroidism, not elsewhere classified; E89.1 Postprocedural hypoinsulinemia; D50.8 Other iron deficiency anemias; K90.89 Other intestinal malabsorption; E55.9 Vitamin D deficiency, unspecified; K74.1 Hepatic sclerosis; N19 Unspecified kidney failure; K50.90 Crohn's disease, unspecified, without complications; Z98.84 Bariatric surgery status
CPT/HCPCS: 36415; 80053; 80061; 82306; 82525; 82607; 82728; 82746; 83036; 83540; 83550; 83735; 83970; 84100; 84134; 84255; 84425; 84443; 84590; 84630; 85027; 85610; 85730

== ENCOUNTER 2021-01-25 06:37 | Day surgery (SDC) | payer OTHER ==
[2021-01-21 10:29] VITALS: BMI 33.4
[~2021-01-25 06:37] MED LIST: LACTATED RINGERS 1,000 ML IV SCH; LIDOCAINE 1% (10MG/ML) FOR IV START INTRADERMA PRN
[2021-01-25 07:15] VITALS: TEMP 98.1
[2021-01-25] MEDS ORDERED: fentaNYL (PF) 50 MCG/ML 2 ML AMP ONE (07:39)
[2021-01-25] MEDS ORDERED: LIDOCAINE 1% INJ 10MG/ML (20 ML MDV) ONE (07:39)
[2021-01-25] MEDS ORDERED: PROPOFOL 10 MG/ML 20 ML VIAL IV ONE (07:39)
[2021-01-25] MEDS ORDERED: MIDAZOLAM 2 MG/2 ML VIAL ONE (07:39)
--- NOTE | 2021-01-25 07:41 | P.GSHP ---
History of Present Illness H&P Date: 01/25/21 CHIEF COMPLAINT: GERD HISTORY OF PRESENT ILLNESS: The patient is a 55-year-old female who presents reports gastroesophageal reflux disease. Upper endoscopy was offered for further evaluation and management. PAST MEDICAL HISTORY: Please see list. PAST SURGICAL HISTORY: Please see list. MEDICATIONS: Please see list. ALLERGIES: Please see list. SOCIAL HISTORY: No illicit drug use FAMILY HISTORY: No reports of Crohn disease or ulcerative colitis. REVIEW OF ORGAN SYSTEMS: CONSTITUTIONAL: No reports of fevers or chills. GI: Denies any blood in stools or constipation. PHYSICAL EXAM: VITAL SIGNS: Stable GENERAL: Well-developed and pleasant in no acute distress. HEENT: No scleral icterus. Extraocular movements grossly intact. Moist buccal mucosa. NECK: Supple without lymphadenopathy. CHEST: Unlabored respirations. Equal bilateral excursions. CARDIOVASCULAR: Regular rate and rhythm. Distal 2+ pulses. ABDOMEN: Soft, nondistended. MUSCULOSKELETAL: No clubbing, cyanosis, or edema. ASSESSMENT: 1. Gastroesophageal reflux disease PLAN: 1. Recommend proceeding with an upper endoscopy Past Medical History Past Medical History: GERD/Reflux Additional Past Medical History / Comment(s): 09/29/15 Pt presented to [facility] ER with L sided chest pressure with some L arm tingling and associated SOB and diaphoresis. Symptoms began at 0900 today. She is being admitted with clinical impression of chest pain. Other HX: Gastric ulcer-currently being treated. History of Any Multi-Drug Resistant Organisms: None Reported Past Surgical History: Hernia Repair Additional Past Surgical History / Comment(s): gastric [id number] 1994, abdominal hernia with mesh and surgical site had to be drained 3 times post op. Past Anesthesia/Blood Transfusion Reactions: No Reported Reaction Additional Past Anesthesia/Blood Transfusion Reaction / Comment(s): Pt has never received blood. Past Psychological History: Bipolar Past Alcohol Use History: Occasional Past Drug Use History: Marijuana - Past Family History Father Family Medical History: Cancer Additional Family Medical History / Comment(s): Father of pancreatic cancer at age 65yrs. Mother Family Medical History: Cancer Additional Family Medical History / Comment(s): Mother of uterine cancer in her 60's. Medications and Allergies Home Medications Medication Instructions Recorded Confirmed Type Acetaminophen Tab [Tylenol Tab] 1,000 mg PO Q6HR PRN #30 tablet 01/15/21 01/25/21 Rx Simethicone [Gas-X] 125 mg PO AC-TID PRN #20 capsule 01/15/21 01/25/21 Rx Nystatin 100,000 Unit/gm Powd 1 applic TOPICAL BID #60 powder 01/19/21 01/25/21 Rx [Mycostatin Powder] Allergies Allergy/AdvReac Type Severity Reaction Status Date / Time hydrocodone [From [place]] AdvReac Itching Verified 01/25/21 07:13 Surgical - Exam Vital Signs Temp Pulse Resp BP Pulse Ox 98.1 F 71 17 125/68 98 01/25/21 07:13 01/25/21 07:13 01/25/21 07:13 01/25/21 07:13 01/25/21 07:13
--- NOTE | 2021-01-25 07:56 | P.PCN ---
Date of Procedure: 01/25/21 Description of Procedure: PREOPERATIVE DIAGNOSIS: Dysphagia. Epigastric abdominal pain Gastroesophageal reflux disease Nausea with vomiting. POSTOPERATIVE DIAGNOSIS: Dysphagia. Epigastric abdominal pain Gastroesophageal reflux disease Nausea with vomiting. Esophageal stricture Gastrojejunal stricture without chronic ulcer without perforation Presbyesophagus OPERATION: Esophagogastrojejunoscopy with balloon dilatation from 15 to 20 mm. SURGEON: Dariela Clayton MD ANESTHESIA: MAC. INDICATIONS: The patient is a 55-year-old female who presents with a history of dysphagia, gastroesophageal reflux disease. Benefits and risks of the procedure were described. Informed consent was obtained. DESCRIPTION: The patient was brought into the endoscopy suite and laid in the left lateral decubitus position. After a timeout was confirmed, the procedure was initiated. An Olympus gastroscope was passed along the posterior oropharynx down to the distal esophagus where the squamocolumnar junction was unremarkable. The gastric pouch was entered. A gastrojejunal stricture of 15 mm was found as the adult gastroscope was 9.5 mm in size. A Declara balloon dilator was placed through the scope. Presence of tertiary contractions consistent with presbyesophagus was found. Final insufflation up to 20 mm was performed with a total of 2 minutes to address esophageal distal stricture and anastomosis. The scope was advanced up to 60 cm from the incisors into the Harley limb. The mucosa of the gastrojejunal anastomosis was intact. No chronic gastrojejunal marginal ulcer was encountered. No full-thickness injury was encountered. The GI tract was desufflated. The patient tolerated the procedure well. FINDINGS: Squamocolumnar junction unremarkable at 38 cm. Stricture of approximately 15 mm encountered. No chronic gastrojejunal ulceration encountered. Successful balloon dilatation to 20 mm. Gastric pouch 2 cm. Tertiary contractions consistent with presbyesophagus RECOMMENDATIONS: May need rigid dilation in the future Plan - Discharge Summary Discharge Rx Participant: No New Discharge Prescriptions: Continue Simethicone [Gas-X] 125 mg PO AC-TID PRN #20 capsule PRN Reason: Abdominal Distention Nystatin 100,000 Unit/gm Powd [Mycostatin Powder] 1 applic TOPICAL BID #60 powder Discontinued Acetaminophen Tab [Tylenol Tab] 1,000 mg PO Q6HR PRN #30 tablet PRN Reason: Pain Discharge Medication List Simethicone [Gas-X] 125 mg PO AC-TID PRN #20 capsule 01/15/21 [Rx] Nystatin 100,000 Unit/gm Powd [Mycostatin Powder] 1 applic TOPICAL BID #60 powd er 01/19/21 [Rx] [place] [facility]ment[facility]Ref[place] [facility] [place] - [place] Patient Instructions/Handouts: Esophageal Dilation (DC) Activity/Diet/Wound Care/Special Instructions: Diet as tolerated. Discharge Disposition: HOME SELF-CARE
[2021-01-25 08:01] VITALS: PULSE 70; RESP 16
[2021-01-25 08:15] VITALS: BP 109/72
[2021-01-25] MEDS ORDERED: ONDANSETRON 4 MG/2 ML VIAL ONE (08:25)
[2021-01-25] MEDS ORDERED: ONDANSETRON 4 MG/2 ML VIAL IVP ONE (08:27)
== END 2021-01-25 08:52 | disposition home or self-care (01) ==
LOC: ORWHC2ENDO 06:37
PROVIDERS: ATTEND Surgery Plastic and Reconstructive Surgery
DX: K22.2 Esophageal obstruction (principal); K22.8 Other specified diseases of esophagus; K56.699 Other intestinal obstruction unspecified as to partial versus complete obstruction; K25.9 Gastric ulcer, unspecified as acute or chronic, without hemorrhage or perforation; K31.89 Other diseases of stomach and duodenum; K21.9 Gastro-esophageal reflux disease without esophagitis; F31.9 Bipolar disorder, unspecified; Z98.84 Bariatric surgery status; Z88.5 Allergy status to narcotic agent; Z98.890 Other specified postprocedural states; Z80.8 Family history of malignant neoplasm of other organs or systems
CPT/HCPCS: 43249; J2250; J2405; J2001; J3010; J2704; C1726

== ENCOUNTER → 2021-01-27 | Outpatient (CLI) | payer OTHER ==
[2021-01-27 13:47] VITALS: BP 120/83; PULSE 66; RESP 18; TEMP 98.1; BMI 33.7
--- NOTE | 2021-01-27 14:32 | P.HPBAR ---
Bariatric H&P - History & Physicial H&P Date: 01/27/21 History & Physicial: Visit/CC: initial visit Patient initial contact: Initial weight: Initial weight in pounds: Height: 5 ft 5 in Initial BMI: Last weight: Current weight: 92.079 kg Current weight in pounds: 203.00 Current BMI: 33.7 [place] body weight (based on NIH guidelines): 56.699 kg Excess body weight loss: The patient is a 55 year-old F who presents for Bariatric Assessment. DATE OF SERVICE: 01/27/2021 REASON FOR CONSULTATION: Panniculitis HISTORY OF PRESENT ILLNESS: Luz Brand is a 55-year-old female who comes with lifelong morbid obesity. She had a gastric bypass in 1994 where her highest weight was 297 pounds. She developed abdominal wall hernia with hernia repair and complications of seroma. Her lowest weight was 203 pounds. She reports moderate panniculitis. She has not completed a prior colonoscopy. She reports trouble with her lower back from her pannus. She has trouble with grooming. She reports troubles with her pannus including excess skin of the thighs. She has troubles with grooming, hygiene and wearing clothes from her pannus. She presents in consultation for management of her pannus. At height of 5 feet 5 inches, her ideal body weight is 149 pounds. Her highest weight was 297 pounds, BMI 49.5. She comes in 203 pounds, BMI 33.8. Lifetime weight loss is 94 pounds. She is 54 pounds overweight. PAST MEDICAL HISTORY: 1. Morbid obesity due to excess calories 2. Body mass index 49.5, initial 3. Gastroesophageal reflux disease 4. Gastric ulcers 5. Bipolar disorder 6. Panniculitis PAST SURGICAL HISTORY: 1. Gastric bypass, 1994 2. Ventral hernia repair with seroma 3. Cholecystectomy HOME MEDICATIONS: Home Medications Medication Instructions Recorded Confirmed Multivitamins, Thera [Multivitamin 1 tab PO DAILY 01/27/21 01/27/21 (formulary)] Previous Rx's Medication Instructions Recorded Simethicone [Gas-X] 125 mg PO AC-TID PRN #20 capsule 01/15/21 Nystatin 100,000 Unit/gm Powd 1 applic TOPICAL BID #60 powder 01/19/21 [Mycostatin Powder] Calcium Carbonate/Vitamin D3 2 each PO DAILY #60 tab.chew 01/27/21 [Calcium 500 mg Chewable Tablet] Cyanocobalamin (Vitamin B-12) 5,000 mcg PO DAILY #30 tab.rapdis 01/27/21 [Vitamin B12] Ergocalciferol [Vitamin D2 (1250 1,250 mcg PO WEEKLY #20 cap 01/27/21 Mcg = 34007 Iu)] Vitamin A 8,000 unit PO DAILY #30 capsule 01/27/21 ALLERGIES: Allergies Allergy/AdvReac Type Severity Reaction Status Date / Time hydrocodone [From [place]] AdvReac Itching Verified 01/27/21 13:40 SOCIAL HISTORY: Takes marijuana FAMILY HISTORY: No family history of ulcerative colitis disease or Crohn's disease. Family history of morbid obesity. No lupus in the family. No reports of stomach or esophageal cancer. Pancreatic and uterine cancer. REVIEW OF ORGAN SYSTEMS: CONSTITUTIONAL: At height of 5 feet 5 inches, her ideal body weight is 149 pounds. Her highest weight was 297 pounds, BMI 49.5. She comes in 203 pounds, BMI 33.8. Lifetime weight loss is 94 pounds. She is 54 pounds overweight. HEENT: Denies any active troubles with vision or hearing. ENDOCRINE: Denies diabetes. No hypothyroidism. CARDIOVASCULAR: Denies past reports of palpitations or heart attacks or chest pain. Denies hypertensive heart disease. RESPIRATORY: Denies daytime somnolence. Denies asthma. Denies chronic obstructive pulmonary disease. GASTROINTESTINAL: Denies any bright red blood per rectum. No diarrhea. No constipation. Denies gastroesophageal reflux disease. GENITOURINARY: Denies bladder urgency. No recent blood in urine MUSCULOSKELETAL: Has lower back pain and joint pain. NEURO: No headaches. No seizure disorders. Has neuropathy. PSYCH: Denies depression. No suicidal ideation. RHEUMATOLOGIC: No lupus. No rheumatoid arthritis. HEMATOLOGIC: Denies any abnormal bleeding or bruising. SKIN: Has rash. No skin cancer. PHYSICAL EXAM: VITAL SIGNS: Height 5 foot 5 inches, weight 203 pounds. BMI 33.8 Vital Signs Temp 98.1 F 01/27/21 13:39 Pulse 66 01/27/21 13:39 Resp 18 01/27/21 13:39 BP 120/83 01/27/21 13:39 Pulse Ox GENERAL: Well-developed in no acute distress. HEENT: No scleral icterus. Extraocular movements grossly intact. Hears conversational speech. No nasal drainage. NECK: Supple without lymphadenopathy. CHEST: Nonlabored respirations with equal bilateral excursions. CARDIOVASCULAR: Regular rate and regular rhythm. Distal 2+ pulses. ABDOMEN: Obese, soft, nontender, nondistended. Grade 3 panniculus. Pannus of 15 to 20 pounds with panniculitis MUSCULOSKELETAL: No clubbing, cyanosis. Redundant skin of the thighs. NEURO: No focal or lateralizing signs. Cranial nerves 2 through 12 grossly within normal limits. PSYCH: Appropriate affect. Alert and oriented to person, place and time. SKIN: Good skin turgor. Well perfused. LABS: Prealbumin is low, Vitamin A is low, Vitamin D is low, PTH is elevated EGD FINDINGS: Squamocolumnar junction unremarkable at 38 cm. Stricture of approximately 15 mm encountered. No chronic gastrojejunal ulceration encountered. Successful balloon dilatation to 20 mm. Gastric pouch 2 cm. Tertiary contractions consistent with presbyesophagus ASSESSMENT: 1. Morbid obesity due to excess calories 2. Body mass index 49.5, initial to 33.8 3. Gastroesophageal reflux disease 4. Gastric ulcers 5. Bipolar disorder 6. Panniculitis 7. Vitamin A deficiency 8. Vitamin D deficiency 9. Secondary hyperparathyroidism 10. Presbyesophagus 11. Colon screen PLAN: 1. Recommend panniculectomy for chronic panniculitis with concomittant severe lower back pain. Recommend prescription treatment with Nystatin powder. 2. Anticipated resection over 10+ pounds described. Panniculectomy should correct her functional deficits. 3. Recommend 2 week protein diet for optimal recovery 4. Risks of bleeding, needs for drains, flap failure, infection, need for further surgery were described. She is high risk for rachel-operative complications with anticipated 10+ skin resection. 5. DVT prophylaxis. 6 Antibiotic prophylaxis 7. Will need correction of all vitamin deficiencies prior to panniculectomy. 8. Strict nicotine avoidance including secondhand exposure perioperative including postoperative described to decrease risk of wound infection and complications. 9. Extended recovery more than 6-8 weeks described including placement of drains more than 2 weeks reviewed. 10. She has not completed a colonoscopy. Recommend colonoscopy. 11. Referral to finding fastener for panniculitis. 12. Will need pictures for panniculitis. 13. Panniculectomy folder given. Thank you for this consultation. Past Medical History Past Medical History: GERD/Reflux Additional Past Medical History / Comment(s): 09/29/15 Pt presented to [facility] ER with L sided chest pressure with some L arm tingling and associated SOB and diaphoresis. Symptoms began at 0900 today. She is being admitted with clinical impression of chest pain. Other HX: Gastric ulcer-currently being treated. History of Any Multi-Drug Resistant Organisms: None Reported Past Surgical History: Hernia Repair Additional Past Surgical History / Comment(s): gastric [id number] 1994, abdominal hernia with mesh and surgical site had to be drained 3 times post op. Past Anesthesia/Blood Transfusion Reactions: No Reported Reaction Additional Past Anesthesia/Blood Transfusion Reaction / Comm: Pt has never received blood. Past Psychological History: Bipolar Additional Psychological History / Comment(s): NO RX AT THIS TIME Smoking Status: Never smoker Past Alcohol Use History: Occasional Past Drug Use History: Marijuana Additional Drug Use History / Comment(s): VAPS [id number] TO REFRAIN FROM USE FOR AT LEAST 24 HOURS PRIOR TO PROCEDURE - Past Family History Father Family Medical History: Cancer Additional Family Medical History / Comment(s): Father of pancreatic cancer at age 65yrs. Mother Family Medical History: Cancer Additional Family Medical History / Comment(s): Mother of uterine cancer in her 60's. Surgical - Exam Vital Signs Temp Pulse Resp BP 98.1 F 66 18 120/83 01/27/21 13:39 01/27/21 13:39 01/27/21 13:39 01/27/21 13:39 Bariatric Checklist Checklist: Plan: Checklist: EGD: 1. Hiatal hernia: 2. H. Pylori: HgbA1c: Vitamin D: Smoking: Never smoker Primary care physician referral: Dr Hoyos Psychiatry clearance: Cardiology clearance: Sleep study: Diet journal: VTE risk score: VTE risk level: Rehab needs at discharge:
== END | disposition home or self-care (01) ==
LOC: BARWHC3 12:54
PROVIDERS: ATTEND Surgery Plastic and Reconstructive Surgery
DX: E66.01 Morbid (severe) obesity due to excess calories (principal); K21.9 Gastro-esophageal reflux disease without esophagitis; K25.9 Gastric ulcer, unspecified as acute or chronic, without hemorrhage or perforation; F31.9 Bipolar disorder, unspecified; M79.3 Panniculitis, unspecified; E50.9 Vitamin A deficiency, unspecified; E55.9 Vitamin D deficiency, unspecified; E21.1 Secondary hyperparathyroidism, not elsewhere classified; K22.8 Other specified diseases of esophagus; Z12.11 Encounter for screening for malignant neoplasm of colon; Z88.5 Allergy status to narcotic agent; Z68.33 Body mass index [BMI] 33.0-33.9, adult
CPT/HCPCS: 99211

== ENCOUNTER 2021-04-12 03:18 | Emergency (ER) | payer OTHER ==
[2021-04-12] MEDS ORDERED: SODIUM CHLORIDE 0.9% 1,000 ML IV STA ×2 (03:22→04:19)
[2021-04-12] MEDS ORDERED: KETOROLAC 15 MG/ML 1 ML VIAL IVP STA (03:22)
[2021-04-12] MEDS ORDERED: ONDANSETRON 4 MG/2 ML VIAL IVP STA (03:22)
[2021-04-12] MEDS ORDERED: MORPHINE SULFATE 4 MG/ML SYRINGE IV STA (03:22)
[2021-04-12 03:24] VITALS: TEMP 97
[2021-04-12] MEDS ORDERED: diphenhydrAMINE 50 MG/ML 1 ML VIAL IVP STA (03:25)
[2021-04-12] MEDS ORDERED: DICYCLOMINE 10 MG/ML 2 ML AMP IM STA (03:25)
[2021-04-12] MEDS ORDERED: METOCLOPRAMIDE 5 MG/ML 2 ML VIAL IVP STA (03:25)
--- NOTE | 2021-04-12 03:27 | ED ---
Abdominal Pain HPI - General Chief Complaint: Abdominal Pain Stated Complaint: Abd Pain Time Seen by Provider: 04/12/21 03:21 Source: patient, EMS, RN notes reviewed, old records reviewed Mode of arrival: EMS Limitations: no limitations - History of Present Illness Initial Comments: This is a 55-year-old female DF for evaluation she presents today for severe bowel pain severe nausea difficulty breathing. She feels that she can't catch her breath, pain is the main problem. Patient is going to a bowel prep for colonoscopy crapping she expected but the pain she did not MD Complaint: abdominal pain -: hour(s) Location: diffuse, epigastric, suprapubic Radiation: epigastric, suprapubic Migration to: no migration Severity: severe Severity scale (1-10): 10 Quality: stabbing, aching Consistency: constant Improves With: nothing Worsens With: nothing Associated Symptoms: nausea, diarrhea - Related Data Home Medications Medication Instructions Recorded Confirmed Multivitamins, Thera [Multivitamin 1 tab PO DAILY 01/27/21 04/08/21 (formulary)] Baclofen 10 mg PO TID PRN 04/08/21 04/08/21 Previous Rx's Medication Instructions Recorded Nystatin 100,000 Unit/gm Powd 1 applic TOPICAL BID #60 powder 01/19/21 [Mycostatin Powder] Calcium Carbonate/Vitamin D3 2 each PO DAILY #60 tab.chew 01/27/21 [Calcium 500 mg Chewable Tablet] Cyanocobalamin (Vitamin B-12) 5,000 mcg PO DAILY #30 tab.rapdis 01/27/21 [Vitamin B12] Vitamin A 8,000 unit PO DAILY #30 capsule 01/27/21 Allergies Allergy/AdvReac Type Severity Reaction Status Date / Time hydrocodone [From [place]] AdvReac Itching,hiv Verified 04/08/21 17:31 es Review of Systems ROS Statement: Those systems with pertinent positive or pertinent negative responses have been documented in the HPI. ROS Other: All systems not noted in ROS Statement are negative. Past Medical History Past Medical History: GERD/Reflux Additional Past Medical History / Comment(s): HX Gastric ulcer History of Any Multi-Drug Resistant Organisms: None Reported Past Surgical History: Hernia Repair Additional Past Surgical History / Comment(s): gastric [id number] 1994, abdominal hernia with mesh and surgical site had to be drained 3 times post op. Past Anesthesia/Blood Transfusion Reactions: No Reported Reaction, Motion Sickness Additional Past Anesthesia/Blood Transfusion Reaction / Comment(s): Pt has never received blood. Past Psychological History: Bipolar Smoking Status: Never smoker Past Alcohol Use History: Occasional Past Drug Use History: Marijuana - Past Family History Father Family Medical History: Cancer Additional Family Medical History / Comment(s): Father of pancreatic cancer at age 65yrs. Mother Family Medical History: Cancer Additional Family Medical History / Comment(s): Mother of uterine cancer in her 60's. General Exam Limitations: no limitations General appearance: alert, in no apparent distress, anxious Head exam: Present: atraumatic, normocephalic, normal inspection Eye exam: Present: normal appearance, PERRL, EOMI. Absent: scleral icterus, conjunctival injection, periorbital swelling ENT exam: Present: normal exam, mucous membranes moist Neck exam: Present: normal inspection. Absent: tenderness, meningismus, lymphadenopathy Respiratory exam: Present: normal lung sounds bilaterally. Absent: respiratory distress, wheezes, rales, rhonchi, stridor Cardiovascular Exam: Present: regular rate, normal rhythm, normal heart sounds. Absent: systolic murmur, diastolic murmur, rubs, gallop, clicks GI/Abdominal exam: Present: soft, normal bowel sounds. Absent: distended, tenderness, guarding, rebound, rigid Extremities exam: Present: normal inspection, full ROM, normal capillary refill. Absent: tenderness, pedal edema, joint swelling, calf tenderness Back exam: Present: normal inspection Neurological exam: Present: alert, oriented X3, CN II-XII intact Psychiatric exam: Present: normal affect, normal mood Skin exam: Present: warm, dry, intact, normal color. Absent: rash Course Vital Signs 04/12/21 04/12/21 03:19 04:28 Temperature 97 F L Pulse Rate 61 57 L Respiratory 20 16 Rate Blood Pressure 144/66 143/68 O2 Sat by Pulse 100 100 Oximetry - Reevaluation(s) Reevaluation #1: 04/12/21 03:27 Medical records reviewed Reevaluation #2: 04/12/21 04:46 Patient reevaluated feeling much better Reevaluation #3: 04/12/21 04:46 Patient explained that she probably not make colonoscopy this morning she will c all Dr. German Medical Decision Making - Medical Decision Making 55 female to the ER for evaluation patient presents today for evaluation of pe rsistent nausea vomiting and diarrhea. This is occurring with bowel prep for colonoscopy. Patient's pain became severe dehydration became great she was unable to complete the prep. She feels better here in the ER is rehydrated and can be discharged home - Lab Data Result diagrams: 04/12/21 03:28 04/12/21 03:28 Lab Results 04/12/21 04/12/21 04/12/21 Range/Units 03:28 03:28 03:28 WBC 4.8 (3.8-10.6) k/uL RBC 4.57 (3.80-5.40) m/uL Hgb 14.2 (11.4-16.0) gm/dL Hct 43.4 (34.0-46.0) % MCV 95.1 (80.0-100.0) fL MCH 31.0 (25.0-35.0) pg MCHC 32.6 (31.0-37.0) g/dL RDW 14.5 (11.5-15.5) % Plt Count 299 (150-450) k/uL MPV 7.5 Neutrophils % 79 % Lymphocytes % 16 % Monocytes % 3 % Eosinophils % 1 % Basophils % 0 % Neutrophils # 3.8 (1.3-7.7) k/uL Lymphocytes # 0.8 L (1.0-4.8) k/uL Monocytes # 0.1 (0-1.0) k/uL Eosinophils # 0.1 (0-0.7) k/uL Basophils # 0.0 (0-0.2) k/uL VBG pH (7.31-7.41) VBG pCO2 (37-51) mmHg VBG HCO3 (24-28) mmol/L Sodium 141 (137-145) mmol/L Potassium 4.2 (3.5-5.1) mmol/L Chloride 105 (98-107) mmol/L Carbon Dioxide 17 L (22-30) mmol/L Anion Gap 19 mmol/L BUN 11 (7-17) mg/dL Creatinine 0.51 L (0.52-1.04) mg/dL Est GFR (CKD-EPI)AfAm >90 (>60 ml/min/1.73 sqM) Est GFR (CKD-EPI)NonAf >90 (>60 ml/min/1.73 sqM) Glucose 124 H (74-99) mg/dL Plasma Lactic Acid Que 2.4 H* (0.7-2.0) mmol/L Calcium 10.3 H (8.4-10.2) mg/dL Phosphorus 2.4 L (2.5-4.5) mg/dL Magnesium 1.9 (1.6-2.3) mg/dL Total Bilirubin 1.6 H (0.2-1.3) mg/dL AST 47 H (14-36) U/L ALT 17 (4-34) U/L Alkaline Phosphatase 136 H (38-126) U/L Total Protein 8.2 (6.3-8.2) g/dL Albumin 5.1 H (3.5-5.0) g/dL Amylase 50 (30-110) U/L Lipase 61 (23-300) U/L 04/12/21 Range/Units 03:28 WBC (3.8-10.6) k/uL RBC (3.80-5.40) m/uL Hgb (11.4-16.0) gm/dL Hct (34.0-46.0) % MCV (80.0-100.0) fL MCH (25.0-35.0) pg MCHC (31.0-37.0) g/dL RDW (11.5-15.5) % Plt Count (150-450) k/uL MPV Neutrophils % % Lymphocytes % % Monocytes % % Eosinophils % % Basophils % % Neutrophils # (1.3-7.7) k/uL Lymphocytes # (1.0-4.8) k/uL Monocytes # (0-1.0) k/uL Eosinophils # (0-0.7) k/uL Basophils # (0-0.2) k/uL VBG pH 7.47 H (7.31-7.41) VBG pCO2 25 L (37-51) mmHg VBG HCO3 18 L (24-28) mmol/L Sodium (137-145) mmol/L Potassium (3.5-5.1) mmol/L Chloride (98-107) mmol/L Carbon Dioxide (22-30) mmol/L Anion Gap mmol/L BUN (7-17) mg/dL Creatinine (0.52-1.04) mg/dL Est GFR (CKD-EPI)AfAm (>60 ml/min/1.73 sqM) Est GFR (CKD-EPI)NonAf (>60 ml/min/1.73 sqM) Glucose (74-99) mg/dL Plasma Lactic Acid Que (0.7-2.0) mmol/L Calcium (8.4-10.2) mg/dL Phosphorus (2.5-4.5) mg/dL Magnesium (1.6-2.3) mg/dL Total Bilirubin (0.2-1.3) mg/dL AST (14-36) U/L ALT (4-34) U/L Alkaline Phosphatase (38-126) U/L Total Protein (6.3-8.2) g/dL Albumin (3.5-5.0) g/dL Amylase (30-110) U/L Lipase (23-300) U/L Disposition Clinical Impression: Dehydration Disposition: HOME SELF-CARE Condition: Good Instructions (If sedation given, give patient instructions): Dehydration (ED) Is patient prescribed a controlled substance at d/c from ED?: No Referrals: Nonstaff,Physician [REFERRING] - 1-2 days
[2021-04-12 03:48] LABS: Basophils % (A) 0 %; Eosinophils # (A) 0.1 k/uL (0-0.7); Eosinophils % (A) 1 %; HCT 43.4 % (34.0-46.0); HGB 14.2 gm/dL (11.4-16.0); Lymphocytes # (A) 0.8 k/uL (1.0-4.8); Lymphocytes % (A) 16 %; MCHC 32.6 g/dL (31.0-37.0); MCV 95.1 fL (80.0-100.0); Mean Platelet Volume 7.5; Monocytes # (A) 0.1 k/uL (0-1.0); Monocytes % (A) 3 %; Neutrophils # (A) 3.8 k/uL (1.3-7.7); Neutrophils % (A) 79 %; Platelet Count 299 k/uL (150-450); RBC 4.57 m/uL (3.80-5.40); RDW 14.5 % (11.5-15.5); WBC 4.8 k/uL (3.8-10.6)
[2021-04-12 03:49] LABS: VBG PH 7.47 (7.31-7.41)
[2021-04-12 04:11] LABS: ALT 17 U/L (4-34); African American GFR (CKD) >90 (>60 ml/min/1.73 sqM); Amylase 50 U/L (30-110); Anion Gap 19 mmol/L; Blood Urea Nitrogen 11 mg/dL (7-17); Calcium 10.3 mg/dL (8.4-10.2); Carbon Dioxide 17 mmol/L (22-30); Chloride 105 mmol/L (98-107); Glucose 124 mg/dL (74-99); Lipase 61 U/L (23-300); Non-African American GFR(CKD) >90 (>60 ml/min/1.73 sqM); Sodium 141 mmol/L (137-145); Total Bilirubin 1.6 mg/dL (0.2-1.3)
[2021-04-12 04:18] LABS: AST 47 U/L (14-36); Albumin 5.1 g/dL (3.5-5.0); Alkaline Phosphatase 136 U/L (38-126); Magnesium 1.9 mg/dL (1.6-2.3); Phosphorus 2.4 mg/dL (2.5-4.5); Potassium 4.2 mmol/L (3.5-5.1); Total Protein 8.2 g/dL (6.3-8.2)
[2021-04-12] MEDS ORDERED: SODIUM CHLORIDE 0.9% 500 ML 500 ML IV STA (04:19)
[2021-04-12 04:30] VITALS: RESP 16
[2021-04-12 06:21] VITALS: BP 126/77; PULSE 58
== END 2021-04-12 06:00 | disposition home or self-care (01) ==
LOC: EC 03:18
DX: E86.0 Dehydration (principal); K21.9 Gastro-esophageal reflux disease without esophagitis; F12.90 Cannabis use, unspecified, uncomplicated; Z98.84 Bariatric surgery status
CPT/HCPCS: 36415; 80053; 82150; 82803; 83605; 83690; 83735; 84100; 85025; 99284; 96374; 96375 ×4; 96372; 96361 ×2; J2270; J1200; J0500; J2765; J2405; J1885

== ENCOUNTER 2021-08-02 12:34 | Inpatient (IN) | payer OTHER ==
[2021-08-02] MEDS ORDERED: SODIUM CHLORIDE 0.9% 1,000 ML IV STA (14:19)
[2021-08-02] MEDS ORDERED: ONDANSETRON 4 MG/2 ML VIAL IVP STA (14:19)
[2021-08-02] MEDS ORDERED: MORPHINE SULFATE 4 MG/ML SYRINGE IV STA (14:19)
[2021-08-02 14:48] LABS: Basophils % (A) 0 %; Eosinophils % (A) 0 %; HCT 43.5 % (34.0-46.0); HGB 14.2 gm/dL (11.4-16.0); Lymphocytes # (A) 0.6 k/uL (1.0-4.8); Lymphocytes % (A) 11 %; MCH 31.4 pg (25.0-35.0); MCHC 32.7 g/dL (31.0-37.0); Mean Platelet Volume 7.7; Monocytes # (A) 0.5 k/uL (0-1.0); Monocytes % (A) 8 %; Neutrophils # (A) 4.9 k/uL (1.3-7.7); Neutrophils % (A) 80 %; Platelet Count 347 k/uL (150-450); RBC 4.53 m/uL (3.80-5.40); RDW 15.2 % (11.5-15.5); WBC 6.1 k/uL (3.8-10.6)
[2021-08-02 15:01] LABS: ALT 18 U/L (4-34); AST 29 U/L (14-36); African American GFR (CKD) >90 (>60 ml/min/1.73 sqM); Albumin 4.8 g/dL (3.5-5.0); Alkaline Phosphatase 104 U/L (38-126); Amylase 45 U/L (30-110); Anion Gap 14 mmol/L; Blood Urea Nitrogen 11 mg/dL (7-17); Calcium 10.2 mg/dL (8.4-10.2); Carbon Dioxide 20 mmol/L (22-30); Chloride 105 mmol/L (98-107); Glucose 148 mg/dL (74-99); Lipase 42 U/L (23-300); Non-African American GFR(CKD) >90 (>60 ml/min/1.73 sqM); Potassium 3.4 mmol/L (3.5-5.1); Sodium 139 mmol/L (137-145); Total Bilirubin 1.1 mg/dL (0.2-1.3); Total Protein 8.3 g/dL (6.3-8.2)
--- NOTE | 2021-08-02 15:42 | XR ---
EXAMINATION TYPE: XR chest 2V DATE OF EXAM: 08/02/2021 COMPARISON: 09/29/2015 TECHNIQUE: PA and lateral views submitted. HISTORY: Pain FINDINGS: The lungs are clear and there is no pneumothorax, pleural effusion, or focal pneumonia. Size normal . Hyperinflation COPD. Hypertrophic and degenerative changes by. Surgical clips in the epigastrium. D iffuse osteopenia. IMPRESSION: 1. No acute process.
--- NOTE | 2021-08-02 15:48 | CT ---
EXAMINATION TYPE: CT abdomen pelvis w con DATE OF EXAM: 08/02/2021 COMPARISON: 01/13/2021 HISTORY: 56-year-old female Abdominal cramping and pain. TECHNIQUE: Contiguous axial scanning of the abdomen and pelvis following administration of 100 ml Iso shannon 300 IV contrast. Delayed images through the kidneys and coronal/sagittal reconstructions perform ed. CT DLP: 1189.6 mGycm Automated exposure control for dose reduction was used. FINDINGS: Heart normal size without pericardial effusion. Lung bases clear without pleural effusion. Postsurgical change relating to Belen-en-Y gastric bypass. Mesh repair along the ventral supraumbilical midline. Redemonstrated abnormal positioning of the cecum at the upper abdomen towards the midline and to the left of midline. There is now dilatation up to 10.5 cm, coronal image 28 versus 6.1 cm, previously. N o abnormal wall thickening or pneumatosis is identified. No abnormal twisting of the mesentery is delmi ntified. No dilated small bowel, free fluid, or free air. However, some prominent fluid filled small bowel loo ps are present in the lower abdomen and pelvis. A short segment 3 cm long small bowel small bowel intussusception in the left lower quadrant, coronal image 42 and axial image 67 likely transient. No discrete mass is seen here. Bladder partially distended. Pelvic phleboliths. Suggestion of a small anteverted postmenopausal uter us. Clinically correlate. Suspect visualization of the bilateral ovaries. No abnormal fluid collectio n in the pelvis or pelvic lymphadenopathy. Bones: Mild degenerative changes at the hips. Moderate degenerative disc disease throughout the lumba r spine along with hypertrophic facet arthropathy. IMPRESSION: 1. REDEMONSTRATED CECAL BASCULE/WANDERING CECUM WITH THE CECUM LOCATED IN THE MIDLINE UPPER ABDOMEN A ND LEFT UPPER QUADRANT. WHILE THERE IS NO ABNORMAL TWISTING OF THE MESENTERY TO SUGGEST A CECAL VOLVU AMARIS, THE CECUM IS NOW DILATED UP TO 10.5 CM. FOLLOW-UP IS RECOMMENDED THIS PLACES THE PATIENT AT R ISK FOR CECAL PERFORATION. NO ABNORMAL WALL THICKENING OR PNEUMATOSIS IS SEEN. 2. SOME PROMINENT FLUID-FILLED SMALL BOWEL LOOPS IN THE LOWER ABDOMEN AND PELVIS COULD REPRESENT ENTE RITIS. INCIDENTAL TRANSIENT ENTEROENTERIC INTUSSUSCEPTION IN THE LEFT LOWER QUADRANT. 3. STATUS POST BELEN-EN-Y GASTRIC BYPASS. 4. PREVIOUS VENTRAL ABDOMINAL WALL MESH REPAIR.
[2021-08-02] MEDS ORDERED: MORPHINE SULFATE 4 MG/ML SYRINGE IVP STA (16:02)
--- NOTE | 2021-08-02 16:16 | ED ---
Abdominal Pain HPI - General Chief Complaint: Abdominal Pain Stated Complaint: ABD Pain Time Seen by Provider: 08/02/21 14:08 Source: patient, RN notes reviewed, old records reviewed Mode of arrival: ambulatory Limitations: no limitations - History of Present Illness Initial Comments: Patient is a 56-year-old female presenting to the emergency Department with complaints of abdominal pain over the past couple days. She states the pain has been intermittent it when it comes on it is very intense, currently she rates a 6/10 but it does shoot up to a 9/10. She does admit to mild nausea but that is okay right now. She has been having vomiting. She states the pain is mostly in the middle of her abdomen but it does go on the left and right side as well, she also shoots upwards towards her stomach and up in the middle of her chest. She states it feels like a burning sensation in middle of her chest. She does have history of GERD and a gastric ulcer. She has history of gastric bypass and abdominal hernia repair. No other abdominal surgeries. She denies any fevers or chills, no cough or congestion. She denies any shortness of breath. Patient has no further complaints. Her vitals are stable upon arrival. - Related Data Home Medications Medication Instructions Recorded Confirmed Multivitamins, Thera [Multivitamin 1 tab PO DAILY 01/27/21 04/08/21 (formulary)] Baclofen 10 mg PO TID PRN 04/08/21 04/08/21 Previous Rx's Medication Instructions Recorded Nystatin 100,000 Unit/gm Powd 1 applic TOPICAL BID #60 powder 01/19/21 [Mycostatin Powder] Calcium Carbonate/Vitamin D3 2 each PO DAILY #60 tab.chew 01/27/21 [Calcium 500 mg Chewable Tablet] Cyanocobalamin (Vitamin B-12) 5,000 mcg PO DAILY #30 tab.rapdis 01/27/21 [Vitamin B12] Vitamin A [Vitamin A (8,000 Units 8,000 unit PO DAILY #30 capsule 01/27/21 = 2,400 MCG)] Allergies Allergy/AdvReac Type Severity Reaction Status Date / Time hydrocodone [From [place]] AdvReac Itching,hiv Verified 08/02/21 13:34 es Review of Systems ROS Statement: Those systems with pertinent positive or pertinent negative responses have been documented in the HPI. ROS Other: All systems not noted in ROS Statement are negative. Past Medical History Past Medical History: GERD/Reflux Additional Past Medical History / Comment(s): HX Gastric ulcer History of Any Multi-Drug Resistant Organisms: None Reported Past Surgical History: Hernia Repair Additional Past Surgical History / Comment(s): gastric [id number] 1994, abdominal hernia with mesh and surgical site had to be drained 3 times post op. Past Anesthesia/Blood Transfusion Reactions: No Reported Reaction, Motion Sickness Additional Past Anesthesia/Blood Transfusion Reaction / Comment(s): Pt has never received blood. Past Psychological History: Bipolar Smoking Status: Never smoker Past Alcohol Use History: Occasional Past Drug Use History: Marijuana - Past Family History Father Family Medical History: Cancer Additional Family Medical History / Comment(s): Father of pancreatic cancer at age 65yrs. Mother Family Medical History: Cancer Additional Family Medical History / Comment(s): Mother of uterine cancer in her 60's. General Exam - General Exam Comments Initial Comments: GENERAL: Patient is well-developed and well-nourished. Patient is nontoxic and in mild distress. HEAD: Atraumatic, normocephalic. EYES: Pupils equal round and reactive to light, extraocular movements intact, sclera anicteric, conjunctiva are normal. Eyelids were unremarkable. ENT: Nares patent, oropharynx clear without exudates. Moist mucous membranes. NECK: Normal range of motion, supple without lymphadenopathy or JVD. LUNGS: Unlabored respirations. Breath sounds clear to auscultation bilaterally and equal. No wheezes rales or rhonchi. HEART: Regular rate and rhythm without murmurs, rubs or gallops. ABDOMEN: Soft, tender to palpation of the mid abdomen, lower right side as well as epigastric region, normoactive bowel sounds. No guarding, no rebound. No masses appreciated. MUSCULOSKELETAL: Normal extremities with adequate strength and normal range of motion, no pitting or edema. No clubbing or cyanosis. NEUROLOGICAL: Patient is alert and oriented x 3. Symmetrical smile. Normal speech, normal gait. PSYCH: Normal mood, normal affect. SKIN: Warm, Dry, normal turgor, no rashes or lesions noted. Limitations: no limitations Course Vital Signs 08/02/21 13:32 Temperature 98.9 F Pulse Rate 65 Respiratory 20 Rate Blood Pressure 129/74 O2 Sat by Pulse 100 Oximetry Medical Decision Making - Medical Decision Making Patient is a 56-year-old female here with abdominal pain started the past few days. She has history of gastric bypass, history of gastric ulcer as well. She did have some mild radiation of epigastric pain and burning sensation in middle of her chest. Her labs show no acute findings at this time. Urine shows 4+ ketones. Chest x-ray shows no acute findings. CT of the abdomen shows a read demonstrated cecal bascule with the cecum located in the midline upper abdomen and left upper quadrant. There is no abnormal twisting, the cecum is now dilat ed up to 10.5 cm from a 6.1cm in December. There is some prominent fluid-filled small bowel loops in the lower abdomen that could represent enteritis. Patient has been in significant pain here in the ER, 2 doses of morphine. She is still complaining of 4 out of 10 pain. I will continue her on pain management, fluids. She will be nothing by mouth. Patient has seen Dr. Clayton in the past, did speak with Dr. Davies who is covering for her, he is acceptable of the admission, we'll consult medicine for medical management. Case discussed with Dr. tyson. - Lab Data Result diagrams: 08/02/21 14:42 08/02/21 14:42 Lab Results 08/02/21 08/02/21 08/02/21 Range/Units 14:42 14:42 14:42 WBC 6.1 (3.8-10.6) k/uL RBC 4.53 (3.80-5.40) m/uL Hgb 14.2 (11.4-16.0) gm/dL Hct 43.5 (34.0-46.0) % MCV 96.0 (80.0-100.0) fL MCH 31.4 (25.0-35.0) pg MCHC 32.7 (31.0-37.0) g/dL RDW 15.2 (11.5-15.5) % Plt Count 347 (150-450) k/uL MPV 7.7 Neutrophils % 80 % Lymphocytes % 11 % Monocytes % 8 % Eosinophils % 0 % Basophils % 0 % Neutrophils # 4.9 (1.3-7.7) k/uL Lymphocytes # 0.6 L (1.0-4.8) k/uL Monocytes # 0.5 (0-1.0) k/uL Eosinophils # 0.0 (0-0.7) k/uL Basophils # 0.0 (0-0.2) k/uL PT 11.0 (9.0-12.0) sec INR 1.0 (<1.2) APTT 23.0 (22.0-30.0) sec Sodium 139 (137-145) mmol/L Potassium 3.4 L (3.5-5.1) mmol/L Chloride 105 (98-107) mmol/L Carbon Dioxide 20 L (22-30) mmol/L Anion Gap 14 mmol/L BUN 11 (7-17) mg/dL Creatinine 0.57 (0.52-1.04) mg/dL Est GFR (CKD-EPI)AfAm >90 (>60 ml/min/1.73 sqM) Est GFR (CKD-EPI)NonAf >90 (>60 ml/min/1.73 sqM) Glucose 148 H (74-99) mg/dL Plasma Lactic Acid Que (0.7-2.0) mmol/L Calcium 10.2 (8.4-10.2) mg/dL Total Bilirubin 1.1 (0.2-1.3) mg/dL AST 29 (14-36) U/L ALT 18 (4-34) U/L Alkaline Phosphatase 104 (38-126) U/L Troponin I (0.000-0.034) ng/mL Total Protein 8.3 H (6.3-8.2) g/dL Albumin 4.8 (3.5-5.0) g/dL Amylase 45 (30-110) U/L Lipase 42 (23-300) U/L Urine Color Urine Appearance (Clear) Urine pH (5.0-8.0) Ur Specific [place] (1.001-1.035) Urine Protein (Negative) Urine Glucose (UA) (Negative) Urine Ketones (Negative) Urine Blood (Negative) Urine Nitrite (Negative) Urine Bilirubin (Negative) Urine Urobilinogen (<2.0) mg/dL Ur Leukocyte Esterase (Negative) Urine RBC (0-5) /hpf Urine WBC (0-5) /hpf Ur Squamous Epith Cells (0-4) /hpf Urine Mucus (None) /hpf 08/02/21 08/02/21 08/02/21 Range/Units 14:42 14:42 17:07 WBC (3.8-10.6) k/uL RBC (3.80-5.40) m/uL Hgb (11.4-16.0) gm/dL Hct (34.0-46.0) % MCV (80.0-100.0) fL MCH (25.0-35.0) pg MCHC (31.0-37.0) g/dL RDW (11.5-15.5) % Plt Count (150-450) k/uL MPV Neutrophils % % Lymphocytes % % Monocytes % % Eosinophils % % Basophils % % Neutrophils # (1.3-7.7) k/uL Lymphocytes # (1.0-4.8) k/uL Monocytes # (0-1.0) k/uL Eosinophils # (0-0.7) k/uL Basophils # (0-0.2) k/uL PT (9.0-12.0) sec INR (<1.2) APTT (22.0-30.0) sec Sodium (137-145) mmol/L Potassium (3.5-5.1) mmol/L Chloride (98-107) mmol/L Carbon Dioxide (22-30) mmol/L Anion Gap mmol/L BUN (7-17) mg/dL Creatinine (0.52-1.04) mg/dL Est GFR (CKD-EPI)AfAm (>60 ml/min/1.73 sqM) Est GFR (CKD-EPI)NonAf (>60 ml/min/1.73 sqM) Glucose (74-99) mg/dL Plasma Lactic Acid Que 1.0 (0.7-2.0) mmol/L Calcium (8.4-10.2) mg/dL Total Bilirubin (0.2-1.3) mg/dL AST (14-36) U/L ALT (4-34) U/L Alkaline Phosphatase (38-126) U/L Troponin I <0.012 (0.000-0.034) ng/mL Total Protein (6.3-8.2) g/dL Albumin (3.5-5.0) g/dL Amylase (30-110) U/L Lipase (23-300) U/L Urine Color Yellow Urine Appearance Clear (Clear) Urine pH 6.5 (5.0-8.0) Ur Specific [place] >1.050 H (1.001-1.035) Urine Protein 1+ H (Negative) Urine Glucose (UA) Negative (Negative) Urine Ketones 4+ H (Negative) Urine Blood Negative (Negative) Urine Nitrite Negative (Negative) Urine Bilirubin Negative (Negative) Urine Urobilinogen 2.0 (<2.0) mg/dL Ur Leukocyte Esterase Negative (Negative) Urine RBC 1 (0-5) /hpf Urine WBC 1 (0-5) /hpf Ur Squamous Epith Cells 1 (0-4) /hpf Urine Mucus Rare H (None) /hpf - EKG Data EKG Comments: Sinus rhythm with occasional PVCs, ST and T-wave abnormalities, no signs of acute ST segment elevation. Ventricular rate 84, OR interval 136, QT 378. Disposition Clinical Impression: Cecal bascule, Dehydration, Intractable abdominal pain Disposition: ADMITTED IP TO THIS [facility] Condition: Stable Referrals: Dania Heard MD [Primary Care Provider] - 1-2 days Decision Date: 08/02/21 Decision Time: 17:56
[2021-08-02 17:29] LABS: Appearance,Urine Clear (Clear); Bilirubin,Urine Negative (Negative); Blood,Urine Negative (Negative); Color,Urine Yellow; Glucose,Urine (UA) Negative (Negative); Ketones,Urine 4+ (Negative); Leukocyte Esterase,Urine Negative (Negative); Mucus,Urine Rare /hpf; Nitrite,Urine Negative (Negative); PH, Urine 6.5 (5.0-8.0); Protein,Urine 1+ (Negative); RBC,Urine 1 /hpf (0-5); Squamous Epithelial Cell,Urine 1 /hpf (0-4); WBC,Urine 1 /hpf (0-5)
[2021-08-02 17:30] LABS: Specific Gravity,Urine >1.050 (1.001-1.035)
[2021-08-02] MEDS ORDERED: HYDROmorphone 1 MG/ML 1 ML SYRINGE IVP PRN (17:51)
[2021-08-02] MEDS ORDERED: NALOXONE 0.4 MG/ML 1 ML VIAL IV PRN (17:51)
[2021-08-02] MEDS ORDERED: Potassium Replacement Protocol 1 EACH MISC MISCELLANE PRN (21:33)
[2021-08-02] MEDS: SODIUM CHLORIDE 0.9% 1,000 ML IV SCH (21:57)
[2021-08-02] MEDS: POTASSIUM CHLORIDE 20 MEQ in WATER FOR INJECTION 1 100ML.BAG IVPB SCH (21:57)
[2021-08-03] MEDS: POTASSIUM CHLORIDE 20 MEQ in WATER FOR INJECTION 1 100ML.BAG IVPB SCH ×2 (00:18→02:24)
--- NOTE | 2021-08-03 01:27 | P.CONS ---
History of Present Illness - Reason for Consult Consult date: 08/02/21 - History of Present Illness The patient is a 56-year-old female with a PMH of bariatric surgery Har[place]-en-Y in 1994, GERD, and history of gastric ulcer who presented to the emergency room with abdominal pain. Patient reports that she has had multiple hospitalizations for this similar pain, which she describes an aching and sharp pain, 10 out of 10 on maximal intensity, radiating throughout, with no clear alleviating or exacerbating features. The patient reports that her pain at the time of interview had significantly improved, currently at a 1 out of 10. She denied any additional complaints. She reports taking some [id number] supplementation at home including multivitamins, calcium, and Tylenol. She also reports taking baclofen for chronic lower back pain and spasms. CT abdomen and pelvis in the emergency room revealed a distended cecum with findings consistent for risk of perforation along with fluid-filled small bowel loops consistent with possible intussusception. Laboratory evaluation was remarkable for potassium of 3.4, glucose 148, CO2 20, UA unremarkable. The patient denied fever, chills, cough, nausea, vomiting, diarrhea. Review of systems: Pertinent positives and negatives as discussed in HPI, a complete review of systems was performed and all other systems are negative. Physical examination: General: non toxic, no distress, appears at stated age, obese Derm: no unusual rashes/lesions no unusual ecchymoses, warm, dry Head: atraumatic, normocephalic, symmetric Eyes: EOMI, no lid lag, anicteric sclera, pupils equal round reactive to light ENT: Nose and ears atraumatic, no thrush, no pharyngeal erythema Neck: No thyromegaly, no cervical lymphadenopathy, trachea midline, supple Mouth: no lip lesion, mucus membranes moist Cardiovascular: S1S2 reg, no murmur, positive posterior tibial pulse bilateral, no edema, capillary refill less than 2 seconds Lungs: CTA bilateral, no rhonchi, no rales , no accessory muscle use Abdominal: soft, mild diffuse tenderness, mild guarding, no appreciable organomegaly, normal bowel sounds Ext: no gross muscle atrophy, muscle strength 5 out of 5 in all 4 extremities grossly, no contractures, Neuro: CN II-XI grossly intact, light touch intact all 4 extremities, finger to nose within normal limits, Psych: Alert, oriented, appropriate affect Assessment/plan Hypokalemia -IV replacement at this time as patient is NPO Cecal dilatation and possible intussusception -Defer management to the surgical service We appreciate this opportunity to be involved in this patient's care. We will follow the patient with you. For any further questions, please not hesitate to contact the [facility] inpatient team. Past Medical History Past Medical History: GERD/Reflux Additional Past Medical History / Comment(s): HX Gastric ulcer History of Any Multi-Drug Resistant Organisms: None Reported Past Surgical History: Hernia Repair Additional Past Surgical History / Comment(s): gastric [id number] 1994, abdominal hernia with mesh and surgical site had to be drained 3 times post op. Past Anesthesia/Blood Transfusion Reactions: No Reported Reaction, Motion Sickness Additional Past Anesthesia/Blood Transfusion Reaction / Comm: Pt has never received blood. Past Psychological History: Bipolar Additional Psychological History / Comment(s): NO RX AT THIS TIME Smoking Status: Never smoker Past Alcohol Use History: Occasional Past Drug Use History: Marijuana Additional Drug Use History / Comment(s): VAPS [id number] TO REFRAIN FROM USE FOR AT LEAST 24 HOURS PRIOR TO PROCEDURE - Past Family History Father Family Medical History: Cancer Additional Family Medical History / Comment(s): Father of pancreatic cancer at age 65yrs. Mother Family Medical History: Cancer Additional Family Medical History / Comment(s): Mother of uterine cancer in her 60's. Medications and Allergies Home Medications Medication Instructions Recorded Confirmed Type Multivitamins, Thera [Multivitamin 1 tab PO DAILY 01/27/21 08/02/21 History (formulary)] RX: Baclofen 10 mg PO TID PRN 04/08/21 08/02/21 History Acetaminophen Tab [Tylenol] 325 mg PO Q4-6H PRN 08/02/21 08/02/21 History Ibuprofen [Motrin Ib] 200 mg PO Q4-6H PRN 08/02/21 08/02/21 History RX: Calcium Carb/Vitamin D3/Vit K1 1 tab PO DAILY 08/02/21 08/02/21 History [Calcium-Vit D3-K1 650 mg Chew] Allergies Allergy/AdvReac Type Severity Reaction Status Date / Time hydrocodone [From [place]] AdvReac Itching,hiv Verified 08/02/21 18:45 es Physical Exam Vitals: Vital Signs Temp Pulse Pulse Resp BP BP Pulse Ox 08/02/21 22:11 98.2 F 90 19 125/75 97 08/02/21 19:34 65 18 124/78 99 08/02/21 13:32 98.9 F 65 20 129/74 100 Intake and Output 08/02/21 08/02/21 08/03/21 14:59 22:59 06:59 Other: Voiding Method Toilet Weight 85.275 kg 85.275 kg Results CBC & Chem 7: 08/02/21 14:42 08/02/21 14:42 Labs: Abnormal Lab Results - Last 24 Hours (Table) 08/02/21 08/02/21 08/02/21 Range/Units 14:42 14:42 17:07 Lymphocytes # 0.6 L (1.0-4.8) k/uL Potassium 3.4 L (3.5-5.1) mmol/L Carbon Dioxide 20 L (22-30) mmol/L Glucose 148 H (74-99) mg/dL Total Protein 8.3 H (6.3-8.2) g/dL Ur Specific [place] >1.050 H (1.001-1.035) Urine Protein 1+ H (Negative) Urine Ketones 4+ H (Negative) Urine Mucus Rare H (None) /hpf
[2021-08-03] MEDS: SODIUM CHLORIDE 0.9% 1,000 ML IV SCH ×3 (03:37→16:52)
[2021-08-03 06:14] LABS: African American GFR (CKD) >90 (>60 ml/min/1.73 sqM); Anion Gap 8 mmol/L; Blood Urea Nitrogen 13 mg/dL (7-17); Calcium 9.4 mg/dL (8.4-10.2); Carbon Dioxide 23 mmol/L (22-30); Chloride 109 mmol/L (98-107); Glucose 91 mg/dL (74-99); Non-African American GFR(CKD) >90 (>60 ml/min/1.73 sqM); Potassium 3.9 mmol/L (3.5-5.1); Sodium 140 mmol/L (137-145)
--- NOTE | 2021-08-03 09:23 | P.CRDCN ---
History of Present Illness History of present illness: This is a 56-year-old female with a past medical history significant for bariatric surgery, GERD, gastric ulcer and occasional marijuana use. Patient does not follow with a hiv nurse. We have been asked to see the patient in consultation for cardiac clearance. Patient examined at the bedside. Patient is scheduled for robotic right colectomy with Dr. Clayton. Patient presented to the emergency department with abdominal pain, 10 out of 10, radiating to epigastric region. Describes as aching and sharp. Patient denies chest pain or pressure. She denies shortness of breath. Patient states she is able to lay flat without any dyspnea. She states she is able to walk up 2 flight of stairs at home without any trouble breathing. She denies palpitations. Denies fever or cough. She denies any history of [place], coronary artery disease, stroke, diabetes, hypertension. She denies a family history of heart disease. CT abdomen and pelvis revealed cecal basucle/wandering cecum with cecum located in the midline upper abdomen and left upper quadrant. The cecum was not dilated up to 10.5 cm. Some prominent fluid-filled small bowel loops in the lower abdomen and pelvis could represent enteritis. DIAGNOSTICS EKG reveals sinus mechanism heart rate 84, T wave inversions in lead V2, V3, new from prior EKG, PVC Laboratory data: CBC unremarkable, sodium 140, potassium 3.9, BUN 13, serum creatinine 0.6, troponin negative 1, liver enzymes within normal limits, COVID- 19 PCR negative. Current home medications include ibuprofen PRN, Tylenol, vitamin D3, multivitamin, baclofen Most recent echocardiogram obtained 12/2020 revealed ejection fraction greater than 55%, mild mitral regurgitation, and mild tricuspid regurgitation REVIEW OF SYSTEMS: At the time of my exam: CONSTITUTIONAL: Denies fever or chills. HEENT: Denies blurred vision, vision changes, or eye pain. Denies hemoptysis CARDIOVASCULAR: Denies chest pain. Denies orthopnea. Denies PND. Denies palpitations RESPIRATORY: Denies shortness of breath. GASTROINTESTINAL: Reports mild abdominal pain. HEMATOLOGIC: Denies bleeding disorders. GENITOURINARY: Denies any blood in urine. SKIN: Denies pruitis. Denies rash. PHYSICAL EXAM: VITAL SIGNS: Reviewed. GENERAL: Well-developed in no acute distress. HEENT: Head is normocephalic. Pupils are equal, round. Sclerae anicteric. Mucous membranes of the mouth are moist. Neck supple. No JVD or thyromegaly LUNGS: Respirations even and unlabored. Lungs essentially clear to auscultation bilaterally. HEART: Regular rate and rhythm. S1 and S2 heard. ABDOMEN: Soft. Nondistended. Positive bowel sounds. EXTREMITIES: Normal range of motion. No clubbing or cyanosis. Peripheral pulses intact. No lower extremity edema NEUROLOGIC: Awake and alert. Oriented x 3. ASSESSMENT: Abdominal pain Cecal dilatation History of gastric bypass PLAN: EKG reviewed, echocardiogram ordered, will follow up on results Patient is hemodynamically stable. Patient is able to perform >4 METs levels of activity and does not have any acute cardiac conditions. Patient has no complaints of chest pain and is not in heart failure There are no absolute contraindications to undergo surgery from a cardiac standpoint Patient may undergo stress test as an outpatient, no need to perform prior to surgery at this time. Nurse practitioner note has been reviewed by physician. Signing provider agrees with the documented findings, assessment, and plan of care. Past Medical History Past Medical History: GERD/Reflux Additional Past Medical History / Comment(s): HX Gastric ulcer History of Any Multi-Drug Resistant Organisms: None Reported Past Surgical History: Hernia Repair Additional Past Surgical History / Comment(s): gastric [id number] 1994, abdominal hernia with mesh and surgical site had to be drained 3 times post op. Past Anesthesia/Blood Transfusion Reactions: No Reported Reaction, Motion Sickness Additional Past Anesthesia/Blood Transfusion Reaction / Comment(s): Pt has never received blood. Past Psychological History: Bipolar Additional Psychological History / Comment(s): NO RX AT THIS TIME Smoking Status: Never smoker Past Alcohol Use History: Occasional Past Drug Use History: Marijuana Additional Drug Use History / Comment(s): VAPS [id number] TO REFRAIN FROM USE FOR AT LEAST 24 HOURS PRIOR TO PROCEDURE - Past Family History Father Family Medical History: Cancer Additional Family Medical History / Comment(s): Father of pancreatic cancer at age 65yrs. Mother Family Medical History: Cancer Additional Family Medical History / Comment(s): Mother of uterine cancer in her 60's. Medications and Allergies Home Medications Medication Instructions Recorded Confirmed Type Multivitamins, Thera [Multivitamin 1 tab PO DAILY 01/27/21 08/02/21 History (formulary)] Baclofen 10 mg PO TID PRN 04/08/21 08/02/21 History Acetaminophen Tab [Tylenol] 325 mg PO Q4-6H PRN 08/02/21 08/02/21 History Calcium Carb/Vitamin D3/Vit K1 1 tab PO DAILY 08/02/21 08/02/21 History [Calcium-Vit D3-K1 650 mg Chew] Ibuprofen [Motrin Ib] 200 mg PO Q4-6H PRN 08/02/21 08/02/21 History Allergies Allergy/AdvReac Type Severity Reaction Status Date / Time hydrocodone [From [place]] AdvReac Itching,hiv Verified 08/02/21 18:45 es Physical Exam Vitals: Vital Signs Temp Pulse Pulse Resp BP BP Pulse Ox 08/03/21 02:24 98.2 F 76 16 117/68 95 08/02/21 22:11 98.2 F 90 19 125/75 97 08/02/21 19:34 65 18 124/78 99 08/02/21 13:32 98.9 F 65 20 129/74 100 Intake and Output 08/02/21 08/03/21 08/03/21 22:59 06:59 14:59 Other: Voiding Method Toilet # Voids 3 Weight 85.275 kg Results 08/02/21 14:42 08/03/21 05:14 Cardiac Enzymes 08/02/21 08/02/21 Range/Units 14:42 14:42 AST 29 (14-36) U/L Troponin I <0.012 (0.000-0.034) ng/mL Coagulation 08/02/21 Range/Units 14:42 PT 11.0 (9.0-12.0) sec APTT 23.0 (22.0-30.0) sec CBC 08/02/21 Range/Units 14:42 WBC 6.1 (3.8-10.6) k/uL RBC 4.53 (3.80-5.40) m/uL Hgb 14.2 (11.4-16.0) gm/dL Hct 43.5 (34.0-46.0) % Plt Count 347 (150-450) k/uL Comprehensive Metabolic Panel 08/02/21 08/03/21 Range/Units 14:42 05:14 Sodium 139 140 (137-145) mmol/L Potassium 3.4 L 3.9 (3.5-5.1) mmol/L Chloride 105 109 H (98-107) mmol/L Carbon Dioxide 20 L 23 (22-30) mmol/L BUN 11 13 (7-17) mg/dL Creatinine 0.57 0.61 (0.52-1.04) mg/dL Glucose 148 H 91 (74-99) mg/dL Calcium 10.2 9.4 (8.4-10.2) mg/dL AST 29 (14-36) U/L ALT 18 (4-34) U/L Alkaline Phosphatase 104 (38-126) U/L Total Protein 8.3 H (6.3-8.2) g/dL Albumin 4.8 (3.5-5.0) g/dL Current Medications Generic Name Dose Route Start Last Admin Trade Name Freq PRN Reason Stop Dose Admin Hydromorphone HCl 1 mg 08/02/21 17:51 Hydromorphone 1 Mg/Ml 1 Ml Syringe IVP Q3HR PRN Severe Pain Sodium Chloride 1,000 mls @ 130 mls/hr 08/02/21 18:00 08/03/21 03:37 Saline 0.9% IV Not Given .[id number] [facility] Miscellaneous Information 1 each 08/02/21 21:33 Potassium Replacement Protocol 1 Each Misc MISCELLANE DAILY PRN Per Protocol Protocol Morphine Sulfate 4 mg 08/02/21 17:51 Morphine Sulfate 4 Mg/Ml Syringe IV Q4HR PRN Moderate Pain Naloxone HCl 0.2 mg 08/02/21 17:51 Naloxone 0.4 Mg/Ml 1 Ml Vial IV Q2M PRN Opioid Reversal Ondansetron HCl 4 mg 08/02/21 17:51 Ondansetron 4 Mg/2 Ml Vial IVP Q8HR PRN Nausea And Vomiting Intake and Output 08/02/21 08/03/21 08/03/21 22:59 06:59 14:59 Other: Voiding Method Toilet # Voids 3 Weight 85.275 kg 08/02/21 14:42 08/03/21 05:14
--- NOTE | 2021-08-03 10:42 | ECHOF ---
Referral Reason:Abnormal EKG MEASUREMENTS -------- HEIGHT: 167.6 cm WEIGHT: 85.3 kg BP: 117/68 RVIDd: 3.1 cm (< 3.3) IVSd: 0.7 cm (0.6 - 1.1) LVIDd: 4.9 cm (3.9 - 5.3) LVPWd: 0.9 cm (0.6 - 1.1) IVSs: 1.3 cm LVIDs: 3.0 cm LVPWs: 1.5 cm LA Diam: 3.7 cm (2.7 - 3.8) LAESV Index (A-L): 35.17 ml/m Ao Diam: 2.6 cm (2.0 - 3.7) AV Cusp: 1.9 cm (1.5 - 2.6) MV EXCURSION: 17.918 mm (> 18.000) MV EF SLOPE: 129 mm/s (70 - 150) EPSS: 0.2 cm MV E Calin: 1.18 m/s MV DecT: 232 ms MV A Calin: 0.97 m/s MV E/A Ratio: 1.21 AV maxP.26 mmHg AV meanP.11 mmHg RAP: 5.00 mmHg RVSP: 29.49 mmHg FINDINGS -------- Sinus rhythm. This was a technically good study. The left ventricular size is normal. Left ventricular wall thickness is normal. Overall left vent ricular systolic function is normal with, an EF between 60 - 65 %. The right ventricle is normal in size. LA is moderately dilated 34-39 ml/m2 The right atrium is normal in size. Interatrial and interventricular septum intact. Trace amount of aortic regurgitation. There is trace to mild mitral regurgitation. Moderate tricuspid regurgitation present. Right ventricular systolic pressure is normal at < 35 mmH g. There is no pulmonic regurgitation present. The aortic root size is normal. Normal inferior vena cava with normal inspiratory collapse consistent with estimated right atrial pre ssure of 5 mmHg. There is no pericardial effusion. CONCLUSIONS -------- 1. The left ventricular size is normal. 2. Left ventricular wall thickness is normal. 3. Overall left ventricular systolic function is normal with, an EF between 60 - 65 %. 4. LA is moderately dilated 34-39 ml/m2 5. Trace amount of aortic regurgitation. 6. There is trace to mild mitral regurgitation. 7. Moderate tricuspid regurgitation present. 8. There is no pericardial effusion. SALES INTERN: Kate Broussard RDCS
--- NOTE | 2021-08-03 13:08 | P.GSHP ---
History of Present Illness H&P Date: 08/03/21 CHIEF COMPLAINT: Abdominal pain HISTORY OF PRESENT ILLNESS: This is a 56-year-old female who presented to the emergency room with complaints of intermittent lower abdominal tenderness 3 days. Patient was having nausea and dry heaves. She has had similar episodes in December. Patient reports that the pain was very severe and presented to the ER for further evaluation. She had a computed tomography scan completed showing redemonstrated cecal bascule, wandering cecum with the cecum located in the midline upper abdomen and left upper quadrant. While there is no abnormal twisting of the mesentery to suggest a cecal volvulus, the cecum was dilated up to 10.5 cm. Patient does report that her abdominal pain is better than on admission. She denies any fever, chills or sweats. Denies cardiac history. Does have a prior surgical history of a Harley-en-Y, cholecystectomy and abdominal hernia repair. PAST MEDICAL HISTORY: See list. PAST SURGICAL HISTORY: See list. MEDICATIONS: See list. ALLERGIES: See list. SOCIAL HISTORY: No illicit drug use. REVIEW OF SYSTEMS: CONSTITUTIONAL: Denies fever or chills. HEENT: Denies blurred vision, vision changes, or eye pain. Denies hemoptysis ENDOCRINE: Denies heat or cold intolerance. CARDIOVASCULAR: Denies chest pain or pressure. RESPIRATORY: No shortness of breath. GASTROINTESTINAL: Please refer to HPI NEURO: Denies history of seizures. PSYCH: No depression or suicidal ideation HEMATOLOGIC: Denies bleeding disorders. LYMPHATIC: The patient denies any lumps and bumps around the neck. GENITOURINARY: Denies any blood in urine or increased urinary frequency. MUSCULOSKELETAL: Denies myalgias. Denies joint swelling. Denies decreased range of motion beyond patients baseline. SKIN: Denies pruitis. Denies rash. PHYSICAL EXAM: VITAL SIGNS: Reviewed GENERAL: Well-developed in no acute distress. HEENT: No sclera icterus. Extraocular movements grossly intact. Moist buccal mucosa. Head is atraumatic, normocephalic. Hears conversational speech. No nasal drainage. NECK: Supple without lymphadenopathy. CHEST: Non-labored respirations and equal bilateral excursions. CARDIOVASCULAR: Palpable 2+ radial pulses. ABDOMEN: Soft. Nondistended. Tenderness with palpation of the lower abdomen and mid abdomen MUSCULOSKELETAL: No clubbing or cyanosis. NEUROLOGIC: No focal or lateralizing signs. Cranial nerves II through XII grossly intact. PSYCH: Appropriate affect. Alert and oriented to person, place and time. SKIN: Well perfused. Good skin turgor. LABORATORY DATA: WBC is 6.1 Hgb 14.2 platelets 347 INR 1.0 Sodium 140 potassium 3.9 BUN 13 creatinine 0.61 LFTs normal lipase normal UA negative for infection COVID-19 not detected IMAGING: Computed tomography scan abdomen and pelvis redemonstrated cecal bascule/ wandering cecum with the cecum located in the midline upper abdomen and left upper quadrant. Whether is no abnormal twisting of the mesentery to suggest a cecal volvulus, the cecum is now dilated up to 10.5 cm. Follow-up is recommended as this places the patient at risk for cecal perforation. No abnormal wall thickening or pneumatosis is seen. Some prominent fluid-filled small bowel loops in the lower abdomen and pelvis could represent enteritis. Incidental transient enteroenteric intussusception in the left lower quadrant. Status post Harley-en-Y gastric bypass. Previous ventral abdominal wall mesh repair Echo shows an EF of 60-65% trace amount of aortic regurgitation, trace to mild m itral regurgitation and moderate tricuspid regurgitation ASSESSMENT: 1. Abdominal pain 2. Cecal bascule 3. Hypokalemia resolved 4. Abnormal EKG evaluated by cardiology 5. History of Harley-en-Y gastric bypass PLAN: -Patient scheduled for robotic right colectomy tomorrow, 08/04/[address] Jam brownlee -Patient to undergo cardiac risk assessment prior to surgery -Patient can have clear liquid diet today -Nothing by mouth after midnight -Continue IV fluids -Continue pain medication as needed -Add scopolamine patch for nausea Physician Wire Roller note has been reviewed by physician. Signing provider agrees with the documented findings, assessment, and plan of care. Past Medical History Past Medical History: GERD/Reflux Additional Past Medical History / Comment(s): HX Gastric ulcer History of Any Multi-Drug Resistant Organisms: None Reported Past Surgical History: Hernia Repair Additional Past Surgical History / Comment(s): gastric [id number] 1994, abdominal hernia with mesh and surgical site had to be drained 3 times post op. Past Anesthesia/Blood Transfusion Reactions: No Reported Reaction, Motion Sickness Additional Past Anesthesia/Blood Transfusion Reaction / Comment(s): Pt has never received blood. Past Psychological History: Bipolar Additional Psychological History / Comment(s): NO RX AT THIS TIME Smoking Status: Never smoker Past Alcohol Use History: Occasional Past Drug Use History: Marijuana Additional Drug Use History / Comment(s): VAPS [id number] TO REFRAIN FROM USE FOR AT LEAST 24 HOURS PRIOR TO PROCEDURE - Past Family History Father Family Medical History: Cancer Additional Family Medical History / Comment(s): Father of pancreatic cancer at age 65yrs. Mother Family Medical History: Cancer Additional Family Medical History / Comment(s): Mother of uterine cancer in her 60's. Medications and Allergies Home Medications Medication Instructions Recorded Confirmed Type Multivitamins, Thera [Multivitamin 1 tab PO DAILY 01/27/21 08/02/21 History (formulary)] Baclofen 10 mg PO TID PRN 04/08/21 08/02/21 History Acetaminophen Tab [Tylenol] 325 mg PO Q4-6H PRN 08/02/21 08/02/21 History Calcium Carb/Vitamin D3/Vit K1 1 tab PO DAILY 08/02/21 08/02/21 History [Calcium-Vit D3-K1 650 mg Chew] Ibuprofen [Motrin Ib] 200 mg PO Q4-6H PRN 08/02/21 08/02/21 History Allergies Allergy/AdvReac Type Severity Reaction Status Date / Time hydrocodone [From [place]] AdvReac Itching,hiv Verified 08/02/21 18:45 es Surgical - Exam Vital Signs Temp Pulse Resp BP Pulse Ox 98.9 F 65 20 129/74 100 08/02/21 13:32 08/02/21 13:32 08/02/21 13:32 08/02/21 13:32 08/02/21 13:32 Results - Labs 08/02/21 14:42 08/03/21 05:14 Abnormal Lab Results - Last 24 Hours (Table) 08/02/21 08/02/21 08/02/21 Range/Units 14:42 14:42 17:07 Lymphocytes # 0.6 L (1.0-4.8) k/uL Potassium 3.4 L (3.5-5.1) mmol/L Chloride (98-107) mmol/L Carbon Dioxide 20 L (22-30) mmol/L Glucose 148 H (74-99) mg/dL Total Protein 8.3 H (6.3-8.2) g/dL Ur Specific [place] >1.050 H (1.001-1.035) Urine Protein 1+ H (Negative) Urine Ketones 4+ H (Negative) Urine Mucus Rare H (None) /hpf 08/03/21 Range/Units 05:14 Lymphocytes # (1.0-4.8) k/uL Potassium (3.5-5.1) mmol/L Chloride 109 H (98-107) mmol/L Carbon Dioxide (22-30) mmol/L Glucose (74-99) mg/dL Total Protein (6.3-8.2) g/dL Ur Specific [place] (1.001-1.035) Urine Protein (Negative) Urine Ketones (Negative) Urine Mucus (None) /hpf Diabetes panel 08/02/21 08/03/21 Range/Units 14:42 05:14 Sodium 139 140 (137-145) mmol/L Potassium 3.4 L 3.9 (3.5-5.1) mmol/L Chloride 105 109 H (98-107) mmol/L Carbon Dioxide 20 L 23 (22-30) mmol/L BUN 11 13 (7-17) mg/dL Creatinine 0.57 0.61 (0.52-1.04) mg/dL Glucose 148 H 91 (74-99) mg/dL Calcium 10.2 9.4 (8.4-10.2) mg/dL AST 29 (14-36) U/L ALT 18 (4-34) U/L Alkaline Phosphatase 104 (38-126) U/L Total Protein 8.3 H (6.3-8.2) g/dL Albumin 4.8 (3.5-5.0) g/dL Calcium panel 08/02/21 08/03/21 Range/Units 14:42 05:14 Calcium 10.2 9.4 (8.4-10.2) mg/dL Albumin 4.8 (3.5-5.0) g/dL Pituitary panel 08/02/21 08/03/21 Range/Units 14:42 05:14 Sodium 139 140 (137-145) mmol/L Potassium 3.4 L 3.9 (3.5-5.1) mmol/L Chloride 105 109 H (98-107) mmol/L Carbon Dioxide 20 L 23 (22-30) mmol/L BUN 11 13 (7-17) mg/dL Creatinine 0.57 0.61 (0.52-1.04) mg/dL Glucose 148 H 91 (74-99) mg/dL Calcium 10.2 9.4 (8.4-10.2) mg/dL Adrenal panel 08/02/21 08/03/21 Range/Units 14:42 05:14 Sodium 139 140 (137-145) mmol/L Potassium 3.4 L 3.9 (3.5-5.1) mmol/L Chloride 105 109 H (98-107) mmol/L Carbon Dioxide 20 L 23 (22-30) mmol/L BUN 11 13 (7-17) mg/dL Creatinine 0.57 0.61 (0.52-1.04) mg/dL Glucose 148 H 91 (74-99) mg/dL Calcium 10.2 9.4 (8.4-10.2) mg/dL Total Bilirubin 1.1 (0.2-1.3) mg/dL AST 29 (14-36) U/L ALT 18 (4-34) U/L Alkaline Phosphatase 104 (38-126) U/L Total Protein 8.3 H (6.3-8.2) g/dL Albumin 4.8 (3.5-5.0) g/dL
[2021-08-03] MEDS ORDERED: HEPARIN SODIUM,PORCINE/PF 5,000 UNIT/0.5 ML SYRINGE SQ STA (13:55)
[2021-08-03] MEDS ORDERED: POLYETHYLENE GLYCOL LYTES SOLN 4,000 ML SOLN.RECON PO ONE (13:55)
[2021-08-03] MEDS ORDERED: Antibiotics per Pharmacy 1 EACH MISC MISCELLANE PRN (13:55)
[2021-08-03] MEDS ORDERED: SCOPOLAMINE 1.5MG/72HR PATCH TRANSDERM SCH (14:00)
[2021-08-03] MEDS: NEOMYCIN 500 MG TAB PO SCH ×3 (14:31→22:13)
[2021-08-03] MEDS: metroNIDAZOLE 500 MG TAB PO SCH ×3 (14:44→22:13)
--- NOTE | 2021-08-03 16:07 | P.PN ---
Subjective Progress Note Date: 08/03/21 Hospital course: Patient is a 56-year-old female with a PMH of chronic back pain, bariatric surgery Harley-en-Y in 1994, GERD, and history of gastric ulcer who presented to the emergency room with abdominal pain. Patient reported that she has had multiple hospitalizations for this similar pain, which she describes an aching and sharp pain, 10 out of 10 on maximal intensity, radiating throughout, with no clear alleviating or exacerbating features. she was seen and fully evaluated in the emergency department. Vitals were unremarkable and labs unremarkable w ith the exception of mild hypokalemia with potassium of 3.4. Urinalysis was negative for blood or infection and Covid [address] abdomen and pelvis revealed a distended cecum with findings consistent for risk of perforation along with fluid-filled small bowel loops consistent with possible intussusception. patient was admitted under Gen. surgery team and we have been consulted to follow along for continued medical management throughout hospitalization. Cardiology was also consulted for cardiac clearance. echocardiogram revealing normal EF between 60 and 65% with moderate mitral and t ricuspid regurgitation.EKG showing normal sinus rhythm at 84 bpm with periodic PVCs and T-wave inversion in leads V3 through V6 with noted ST depression in lead V3. Physical exam: Patient was seen and fully evaluated at the bedside this morning. She reports currently a complete resolution of abdominal pain and denies any nausea or vomiting at this time. Patient's diet increased to clear liquids and to be placed back to NPO at midnight with general surgery plans for robotic right colectomy tomorrow afternoon with Dr. Clayton. Patient denies any other complaints or concerns at this time including headache, lightheadedness, dizziness, chest pain, palpitations, shortness of breath, or experiencing any nausea, vomiting, or numbness/tingling/weakness in her extremities. Vital signs reviewed and stable. General: Nontoxic, no distress and appears stated age. Derm: Skin warm and dry, normal coloration for ethnicity. Head: Atraumatic, normocephalic and symmetric. Eyes: EOMs intact, no lid lag, and anicteric sclera Mouth: no lip lesions, mucus membranes moist Cardiovascular: regular rate and rhythm with normal S1S2, no murmur, positive po sterior tibial pulses bilaterally, and cap refill < 2 seconds. Lungs: Respirations even, regular, and unlabored on room air. Lungs CTA bilaterally, no rhonchi, no rales, no wheezing, and no accessory muscle usage. Abdominal: Soft, nontender to palpation, no guarding, no appreciable organomegaly Ext: ROM intact. No gross muscle atrophy, no edema, no contractures Neuro: Speech clear, face symmetrical and CN II-XII grossly intact with no noted focal neuro deficits Psych: Alert and oriented to person, place, time, and situation. Appropriate and pleasant affect. Assessment and Plan of Care: Cecal dilatation and possible intussusception Abdominal pain with history of bariatric surgery -Management per primary admitting general surgery team. -Patient is scheduled to undergo robotic right colectomy tomorrow afternoon with Dr. Clayton. -Patient cleared from cardiology standpoint to undergo surgery at this time. -Patient is medically optimized for surgery at this time with no need for further testing. Hypokalemia, resolved -We will continue to monitor closely with repeat a.m. labs. GERD -GI prophylaxis with Protonix 40 mg IVP daily. Thank you for allowing us to participate in the care of this pleasant patient. Do not hesitate to contact us with questions. Someone can be reached from the [facility] hospitalist group all hours of the day at [phone] or via [employer]. Objective - Vital Signs Vital signs: Vital Signs Temp 98.7 F 08/03/21 07:46 Pulse 69 08/03/21 07:46 Resp 18 08/03/21 07:46 BP 117/68 08/03/21 07:46 Pulse Ox 99 08/03/21 07:46 Intake & Output 08/02/21 08/03/21 08/03/21 18:59 06:59 18:59 Weight 85.275 kg 85.275 kg Other: Voiding Method Toilet # Voids 3 - Labs CBC & Chem 7: 08/02/21 14:42 08/03/21 05:14 Labs: Abnormal Lab Results - Last 24 Hours (Table) 08/02/21 08/02/21 08/02/21 Range/Units 14:42 14:42 17:07 Lymphocytes # 0.6 L (1.0-4.8) k/uL Potassium 3.4 L (3.5-5.1) mmol/L Chloride (98-107) mmol/L Carbon Dioxide 20 L (22-30) mmol/L Glucose 148 H (74-99) mg/dL Total Protein 8.3 H (6.3-8.2) g/dL Ur Specific [place] >1.050 H (1.001-1.035) Urine Protein 1+ H (Negative) Urine Ketones 4+ H (Negative) Urine Mucus Rare H (None) /hpf 08/03/21 Range/Units 05:14 Lymphocytes # (1.0-4.8) k/uL Potassium (3.5-5.1) mmol/L Chloride 109 H (98-107) mmol/L Carbon Dioxide (22-30) mmol/L Glucose (74-99) mg/dL Total Protein (6.3-8.2) g/dL Ur Specific [place] (1.001-1.035) Urine Protein (Negative) Urine Ketones (Negative) Urine Mucus (None) /hpf
[2021-08-03] MEDS: PANTOPRAZOLE 40 MG/10 ML VIAL IVP SCH (16:11)
[2021-08-03] MEDS: ONDANSETRON 4 MG/2 ML VIAL IVP PRN (18:10)
[2021-08-03] MEDS ORDERED: METOCLOPRAMIDE 5 MG/ML 2 ML VIAL IVP STA (19:52)
[2021-08-03] MEDS ORDERED: TEMAZEPAM 15 MG CAP PO ONE (21:00)
[2021-08-03 21:59] LABS: Glucose,Whole Blood 117 mg/dL (75-99)
[2021-08-04 03:02] VITALS: RESP 16
[2021-08-04] MEDS: SODIUM CHLORIDE 0.9% 1,000 ML IV SCH ×4 (03:19→21:08)
[2021-08-04] MEDS ORDERED: metroNIDAZOLE-NS PMX 500 MG in SALINE 1 100ML.BAG IVPB PRN (05:00)
[2021-08-04] MEDS: MORPHINE SULFATE 4 MG/ML SYRINGE IV PRN ×2 (05:53→21:07)
[2021-08-04] MEDS ORDERED: ACETAMINOPHEN TAB 500 MG TAB PO PRN (07:00)
[2021-08-04] MEDS ORDERED: ALVIMOPAN 12 MG CAPSULE PO PRN (07:00)
[2021-08-04] MEDS: PANTOPRAZOLE 40 MG/10 ML VIAL IVP SCH (08:45)
[2021-08-04 09:40] LABS: HCT 37.3 % (37.2-46.3); MCH 30.9 pg (27.0-32.0); MCHC 32.2 g/dL (32.0-37.0); MCV 96.1 fL (80.0-97.0); Mean Platelet Volume 10.3 fL (9.5-12.2); Platelet Count 294 X 10*3/uL (140-440); RBC 3.88 X 10*6/uL (4.10-5.20); RDW 15.8 % (11.5-14.5); WBC 5.44 X 10*3/uL (4.50-10.00)
[2021-08-04 10:59] LABS: African American GFR (CKD) 118.1 (60.0-200.0); Anion Gap 11.1 mmol/L (4.00-12.00); BUN/Creat Ratio 12.83 Ratio (12.00-20.00); Blood Urea Nitrogen 7.7 mg/dL (9.0-27.0); Calcium 8.8 mg/dL (8.7-10.3); Carbon Dioxide 21.9 mmol/L (21.6-31.8); Magnesium 1.6 mg/dL (1.5-2.4); Non-African American GFR(CKD) 101.9 (60.0-200.0); Potassium 3.4 mmol/L (3.5-5.5)
[2021-08-04] MEDS ORDERED: HEPARIN SODIUM,PORCINE/PF 5,000 UNIT/0.5 ML SYRINGE SQ PRN (12:17)
[2021-08-04] MEDS ORDERED: HYDROmorphone 0.5 MG/0.5 ML SYRINGE IVP PRN (12:17)
[2021-08-04] MEDS ORDERED: ONDANSETRON 4 MG/2 ML VIAL IVP PRN (12:17)
[2021-08-04] MEDS ORDERED: LIDOCAINE 1% (10MG/ML) FOR IV START INTRADERMA PRN (12:17)
--- NOTE | 2021-08-04 13:13 | P.PN ---
Subjective Progress Note Date: 08/04/21 CHIEF COMPLAINT: Cecal volvulus HISTORY OF PRESENT ILLNESS: The patient is a 56-year-old female who comes in with epigastric abdominal pain and CT findings consistent with cecal dilation of cecal volvulus. She has completed a bowel prep. ROS:No fevers or chills. No new chest pain. No productive sputum PHYSICAL EXAM: VITAL SIGNS: Reviewed CONSTITUTIONAL: Well developed and in no acute distress. EYES: Conjuctivae without sclera icterus. Extraocular movements grossly intact. HEAD, EARS, NOSE, THROAT: Moist buccal mucosa. Head is atraumatic, normocephalic. Hears conversational speech. No nasal drainage. NECK: No gross thyroidomegaly. No jugular venous distention. RESPIRATORY: Non-labored respirations and equal bilateral excursions. CARDIOVASCULAR: Palpable 2+ radial pulses. Regular rate. Regular rhythm. ABDOMEN: Tender epigastrium. MUSCULOSKELETAL: No gross deformity of the lower extremities noted. No clubbing. No cyanosis. SKIN: Good skin turgor. Well perfused. NEUROLOGIC: Cranial nerves II through XII grossly intact. No focal or lateralizing signs. PSYCH: Appropriate affect. Alert and oriented to person, place and time. CLINICAL LABS: White blood cell count normal ASSESSMENT: 1. Large bowel obstruction due to cecal bascule/volvulus PLAN: 1. Robotic right colectomy described for recurrent cecal bascule/volvulus. 2. Benefits and risks including possible ostomy creation reviewed. Objective - Vital Signs Vital signs: Vital Signs Temp 98.2 F 08/04/21 07:44 Pulse 75 08/04/21 07:44 Resp 16 08/04/21 07:44 BP 108/68 08/04/21 07:44 Pulse Ox 95 08/04/21 07:44 Intake & Output 08/03/21 08/04/21 08/04/21 18:59 06:59 18:59 Other: Voiding Method Toilet Toilet # Voids 3 2 # Bowel Movements 4 - Labs CBC & Chem 7: 08/04/21 06:26 08/04/21 06:26 Labs: Abnormal Lab Results - Last 24 Hours (Table) 08/03/21 08/04/21 08/04/21 Range/Units 21:58 06:26 06:26 RBC 3.88 L (4.10-5.20) X 10*6/uL RDW 15.8 H (11.5-14.5) % Potassium 3.4 L (3.5-5.5) mmol/L BUN 7.7 L (9.0-27.0) mg/dL Glucose 116 H (70-110) mg/dL POC Glucose (mg/dL) 117 H (75-99) mg/dL
[2021-08-04] MEDS ORDERED: IV FLUID CONTINUATION 900 ML IV ONE (13:44)
[2021-08-04] MEDS ORDERED: DEXAMETHASONE SOD PHOSPHATE 4 MG/ML 1 ML VIAL IV ONE (14:00)
[2021-08-04] MEDS ORDERED: fentaNYL (PF) 50 MCG/ML 2 ML AMP IV ONE (14:11)
[2021-08-04] MEDS ORDERED: MIDAZOLAM 2 MG/2 ML VIAL IV ONE (14:11)
--- NOTE | 2021-08-04 14:30 | P.ANPRN ---
Procedure Note - Anesthesia - Nerve Block Performed Bilateral Erector Spinae Single Time Out Performed: Yes Date of Procedure: 08/04/21 Procedure Start Time: 14:10 Procedure Stop Time: 14:20 Location of Patient: PreOp Indication: Requested by Surgeon Specifically requested for management of pain by DrYaakov: Dariela Clayton Sedation Type: Sedate with meaningful contact maintained Preparation: Sterile Prep Position: Prone Needle Types: Pajunk Needle Gauge: 21 Ultrasound used to visualize needle placement: Yes Ultrasound used to observe medication spread: Yes Injectate: 0.5% Ropivacaine (see comment for volume) (15 ml +14 ml NS 0.9 % + 4 mg Dexamethasone per side) Blood Aspirated: No Pain Paresthesia on Injection Noted: No Resistance on Injection: Normal Image Stored and Saved: Yes Events: Uneventful and Well Tolerated
[2021-08-04] MEDS ORDERED: NEOSTIGMINE 1 MG/ML 10 ML VIAL ONE (16:07)
[2021-08-04] MEDS ORDERED: fentaNYL (PF) 50 MCG/ML 2 ML AMP ONE (16:07)
[2021-08-04] MEDS ORDERED: ROPIVACAINE 5 MG/ML 30 ML VIAL ONE (16:07)
[2021-08-04] MEDS ORDERED: LIDOCAINE 1% INJ 10MG/ML (20 ML MDV) ONE (16:07)
[2021-08-04] MEDS ORDERED: GLYCOPYRROLATE 0.2 MG/ML 2 ML VIAL ONE (16:07)
[2021-08-04] MEDS ORDERED: SODIUM CHLORIDE 0.9% (PF) 10 ML VIAL ONE (16:07)
[2021-08-04] MEDS ORDERED: PROPOFOL 10 MG/ML 20 ML VIAL IV ONE (16:07)
[2021-08-04] MEDS ORDERED: DEXAMETHASONE SOD PHOSPHATE 4 MG/ML 1 ML VIAL ONE (16:07)
[2021-08-04] MEDS ORDERED: ROCURONIUM 10 MG/ML (5 ML VIAL) IV ONE (16:07)
[2021-08-04] MEDS ORDERED: SUCCINYLCHOLINE CHLORIDE 100 MG/5 ML SYR IV ONE (16:07)
[2021-08-04] MEDS ORDERED: MIDAZOLAM 2 MG/2 ML VIAL ONE (16:07)
[2021-08-04] MEDS ORDERED: LACTATED RINGERS 1,000 ML IV ONE ×3 (16:39→18:22)
[2021-08-04] MEDS ORDERED: LIDOCAINE 1%-EPI 1:100,000 20 ML VIAL SQ ONE (16:45)
--- NOTE | 2021-08-04 18:18 | P.PN ---
<Mehul Floyd - Last Filed: 08/04/21 18:12> Subjective Progress Note Date: 08/04/21 Hospital course: Patient is a 56-year-old female with a PMH of chronic back pain, bariatric chapo barbara Harley-en-Y in 1994, GERD, and history of gastric ulcer who presented to the emergency room with abdominal pain. Patient reported that she has had multiple hospitalizations for this similar pain, which she describes an aching and sharp pain, 10 out of 10 on maximal intensity, radiating throughout, with no clear alleviating or exacerbating features. she was seen and fully evaluated in the emergency department. Vitals were unremarkable and labs unremarkable with the exception of mild hypokalemia with potassium of 3.4. Urinalysis was negative for blood or infection and Covid [address] abdomen and pelvis revealed a distended cecum with findings consistent for risk of perforation along with fluid-filled small bowel loops consistent with possible intussusception. patient was admitted under Gen. surgery team and we have been consulted to follow along for continued medical management throughout hospitalization. Cardiology was also consulted for cardiac clearance. echocardiogram revealing normal EF between 60 and 65% with moderate mitral and tricuspid regurgitation.EKG showing normal sinus rhythm at 84 bpm with periodic PVCs and T-wave inversion in leads V3 through V6 with noted ST depression in lead V3. Physical exam: Patient was seen and fully evaluated at the bedside this morning. She reports abdominal pain waxing and waning, reports having one episode earlier this morning that has now resolved after pain medication was administered. She is currently NPO and scheduled to undergo robotic right colectomy later this aft ernoon with Dr. Clayton. Morning labs pending. Patient denies any other complaints or concerns at this time including headache, lightheadedness, dizziness, chest pain, palpitations, shortness of breath, or experiencing any nausea, vomiting, or numbness/tingling/weakness in her extremities. Vital signs reviewed and stable. General: Nontoxic, no distress and appears stated age. Derm: Skin warm and dry, normal coloration for ethnicity. Head: Atraumatic, normocephalic and symmetric. Eyes: EOMs intact, no lid lag, and anicteric sclera Mouth: no lip lesions, mucus membranes moist Cardiovascular: regular rate and rhythm with normal S1S2, no murmur, positive posterior tibial pulses bilaterally, and cap refill < 2 seconds. Lungs: Respirations even, regular, and unlabored on room air. Lungs CTA bilaterally, no rhonchi, no rales, no wheezing, and no accessory muscle usage. Abdominal: Soft, nontender to palpation, no guarding, no appreciable organomegaly Ext: ROM intact. No gross muscle atrophy, no edema, no contractures Neuro: Speech clear, face symmetrical and CN II-XII grossly intact with no noted focal neuro deficits Psych: Alert and oriented to person, place, time, and situation. Appropriate and pleasant affect. Assessment and Plan of Care: Cecal dilatation and possible intussusception Abdominal pain with history of bariatric surgery -Management per primary admitting general surgery team. -Patient is scheduled to undergo robotic right colectomy this afternoon with Dr. Clayton. -Patient was cleared from cardiology standpoint to undergo surgery at this time. -Patient is medically optimized for surgery at this time with no need for further testing. Hypokalemia, replaced -We will continue to monitor closely with repeat a.m. labs. -Potassium replacement protocol to be followed. GERD -GI prophylaxis with Protonix 40 mg IVP daily. Thank you for allowing us to participate in the care of this pleasant patient. Do not hesitate to contact us with questions. Someone can be reached from the [facility] hospitalist group all hours of the day at [phone] or via [employer]. Objective - Vital Signs Vital signs: Vital Signs Temp 98.2 F 08/04/21 07:44 Pulse 75 08/04/21 07:44 Resp 16 08/04/21 07:44 BP 108/68 08/04/21 07:44 Pulse Ox 95 08/04/21 07:44 Intake & Output 08/03/21 08/04/21 08/04/21 18:59 06:59 18:59 Other: Voiding Method Toilet # Voids 3 2 # Bowel Movements 4 - Labs CBC & Chem 7: 08/04/21 06:26 08/04/21 06:26 Labs: Abnormal Lab Results - Last 24 Hours (Table) 08/03/21 Range/Units 21:58 POC Glucose (mg/dL) 117 H (75-99) mg/dL <Shruti Villegas - Last Filed: 08/04/21 22:36> Subjective Mehul Floyd NP rendered care for this patient independently, reviewed the findings and plan as documented in the note above. I did not physically speak with or examine the patient on this date. Objective - Vital Signs Vital signs: Vital Signs Temp 98.8 F 08/04/21 19:06 Pulse 60 08/04/21 20:00 Resp 16 08/04/21 20:00 BP 142/76 08/04/21 19:45 Pulse Ox 96 08/04/21 19:45 Intake & Output 08/04/21 08/04/21 08/05/21 06:59 18:59 06:59 Intake Total 3350 150 Output Total 810 550 Balance 2540 -400 Intake: IV 3350 150 Output: Urine 800 550 Estimated Blood Loss 10 Other: Voiding Method Toilet Toilet # Voids 2 # Bowel Movements 4 - Labs CBC & Chem 7: 08/04/21 06:26 08/04/21 06:26 Labs: Abnormal Lab Results - Last 24 Hours (Table) 08/04/21 08/04/21 Range/Units 06:26 06:26 RBC 3.88 L (4.10-5.20) X 10*6/uL RDW 15.8 H (11.5-14.5) % Potassium 3.4 L (3.5-5.5) mmol/L BUN 7.7 L (9.0-27.0) mg/dL Glucose 116 H (70-110) mg/dL
[2021-08-04] MEDS ORDERED: METOCLOPRAMIDE 5 MG/ML 2 ML VIAL IVP PRN (19:05)
[2021-08-04] MEDS ORDERED: BACLOFEN 10 MG TAB PO PRN (19:05)
--- NOTE | 2021-08-04 19:21 | P.OP ---
Date of Procedure: 08/04/21 Description of Procedure: SURGEON: JOHN STEWART MD Preoperative Diagnosis: 1. Cecal volvulus with obstruction 2. Epigastric and right upper quadrant abdominal pain 3. History of gastric bypass Postoperative Diagnosis: 1. Cecal volvulus with obstruction 2. Epigastric and right upper quadrant abdominal pain 3. History of gastric bypass 4. Epigastric peritoneal adhesions from prior incisional hernia repair with mesh Procedure(s) Performed: 1. Robot-assisted daVinci Xi laparoscopic lysis of adhesions 2. Robot-assisted daVinci Xi laparoscopic ileocolectomy with right hemicolectomy Anesthesia: GETA, local Estimated Blood Loss (ml): 10 Pathology: other (Right colon) Condition: stable SPECIMENS REMOVED: terminal ileum, appendix, and right colon en bloc. COMPLICATIONS: None. Disposition: floor Operative Findings: 1. Cecal volvulus with cecal distention without perforation 2. Severe epigastric right omentum to abdominal wall adhesions from Davenport-Varinder mesh surgery 3. Transverse colon omentum adherent to epigastric abdominal wall from mesh surgery INDICATIONS: The patient is a 56-year-old female who presents with recurrent epigastric abdominal pain due to cecal volvulus. She presents with large bowel obstruction. Surgical intervention with colon resection was described in detail. Benefits and risks, including infection, open surgery possibility for additional surgery was discussed at length. Informed consent was obtained. All questions of the patient were answered. DESCRIPTION: Earlier the patient had undergone a bowel prep using the enhanced colon recovery program. The patient was transferred to the operating room and placed in supine position. After general anesthetic, a darden catheter was placed. The abdomen was then prepped and draped in standard sterile fashion as Ioban was placed along the abdomen to minimize any contamination of skin floor. After a timeout protocol was performed, attention was then brought to the left upper quadrant whereby a 0 degree 5 mm laparoscopic trocar entry was performed. The abdominal cavity was entered and insufflated to 15 mmHg pressure, which was tolerated well. Diagnostic laparoscopy demonstrated no injury to bowel, viscera or mesentery. Moderate adhesions greater omentum to abdominal wall was found incorporating the upper, left and right abdomen. Ports were placed along the left lateral abdominal wall. Two robotic 8-mm trocars were placed along the left lower lateral abdominal wall. A 12 mm port wa s placed along the left upper quadrant. Ports were placed 8 cm apart from each other including 15-20 cm away from the target anatomy of the right pelvis. The 5-mm port was exchanged for a 12 mm robotic port. The patient was then placed in Trendelenburg position, at least 7. The robotic da Maddy XI system was primed and docked from the left side of the patient. Using atraumatic graspers and vessel sealer, the robotic system was docked and primed as described. Instruments were interchanged by the assistant sales center manager including scissors, needle belly dump driver, robotic stapler and vessel sealer. Next, attention was brought to identify the cecum. An active cecal volvulus was identified with the cecum at the left upper quadrant. The cecum was detorsed. No large bowel perforation was identified. A stay suture using 3-0 silk was placed along the anterior serosa of the ascending colon including along the terminal ileum. The appendix was identified and used as a handle during the case. The terminal ileum and ascending colon mesentery was mobilized using a vessel sealer whereby the colon was marked and tagged. Using robot stapler 45 mm blue load, the distal ileum was divided 5 cm proximal to the ileocecal valve. The mesentery of the ascending colon was mobilized towards the midline using a vessel sealer. Next, the ascending colon was divided using the robotic stapler 45 mm blue loads. The rest of the colon mesentery was mobilized using vessel sealer including using blunt dissection. The vascular pedicle of the ileocolic artery was controlled usingvessel sealer. The proximal colon and distal ileum was brought in a side to side anastomotic fashion after placing interrupted sutures along the proposed curtis-lumen using 3-0 silk. A colotomy and enterotomy was prepared along both limbs along the antimesenteric border. Next, 45 mm blue stapler loads were fired to create the curtis-lumen. The curtis-lumen was reapproximated using 3-0 silk followed by 45 mm green and blue loads for closure of the enterostomy. All needles were removed from the abdominal cavity. The robot was undocked. I re-scrubbed into the case. Via the 12 mm port of the left upper quadrant, the right colon was removed using a 15-mm Endo Catch bag after widening the skin incision to 3-cm. All sponges were removed from the abdominal cavity. No contamination had occurred throughout this portion of the case. The fascial defect was oversewn using 0 Vicryl and Blayne Angelo. Next all pneumoperitoneum was evacuated from the abdominal cavity. The 8-mm trocar sites were reapproximated using 4-0 Monocryl in an interrupted subcuticular fashion. Local anesthetic was infiltrated to all wounds for postop analgesia. All incisions were also cleansed with diluted hydrogen peroxide. An Optifoam surgical dressing was placed over the left upper quadrant incision of the colon extraction site. Exofin was applied to the rest of the skin incisions. The patient had tolerated the procedure well. The patient was extubated successfully.
[2021-08-04] MEDS: LACTATED RINGERS 1,000 ML IV SCH (20:25)
[2021-08-04] MEDS: ALVIMOPAN 12 MG CAPSULE PO SCH (21:08)
[2021-08-04] MEDS: ONDANSETRON 4 MG/2 ML VIAL IVP PRN (21:09)
[2021-08-05] MEDS: MORPHINE SULFATE 4 MG/ML SYRINGE IV PRN (07:14)
[2021-08-05] MEDS: PANTOPRAZOLE 40 MG/10 ML VIAL IVP SCH (07:14)
[2021-08-05] MEDS: ALVIMOPAN 12 MG CAPSULE PO SCH (07:15)
[2021-08-05 08:10] LABS: Basophils % (A) 0 %; Eosinophils % (A) 0 %; HCT 38.7 % (34.0-46.0); HGB 12.7 gm/dL (11.4-16.0); Lymphocytes # (A) 2.2 k/uL (1.0-4.8); Lymphocytes % (A) 31 %; MCH 31.9 pg (25.0-35.0); MCHC 32.8 g/dL (31.0-37.0); MCV 97.4 fL (80.0-100.0); Mean Platelet Volume 7.6; Monocytes # (A) 0.4 k/uL (0-1.0); Monocytes % (A) 6 %; Neutrophils # (A) 4.3 k/uL (1.3-7.7); Neutrophils % (A) 61 %; Platelet Count 262 k/uL (150-450); RBC 3.97 m/uL (3.80-5.40); RDW 14.9 % (11.5-15.5); WBC 7.2 k/uL (3.8-10.6)
[2021-08-05 08:31] VITALS: BP 138/81; PULSE 68; TEMP 98.8
[2021-08-05 08:31] LABS: African American GFR (CKD) >90 (>60 ml/min/1.73 sqM); Anion Gap 4 mmol/L; Blood Urea Nitrogen 8 mg/dL (7-17); Carbon Dioxide 29 mmol/L (22-30); Chloride 106 mmol/L (98-107); Glucose 84 mg/dL (74-99); Magnesium 1.5 mg/dL (1.6-2.3); Non-African American GFR(CKD) >90 (>60 ml/min/1.73 sqM); Potassium 3.7 mmol/L (3.5-5.1); Sodium 139 mmol/L (137-145)
[2021-08-05] MEDS ORDERED: ENOXAPARIN 30 MG/0.3 ML SYRINGE SQ SCH (09:00)
[2021-08-05] MEDS: MAGNESIUM SULFATE-D5W PMX 1 GM in DEXTROSE/WATER 1 100ML.BAG IVPB SCH ×2 (12:09→14:42)
[2021-08-05] MEDS ORDERED: ACETAMINOPHEN TAB 500 MG TAB PO SCH (12:45)
--- NOTE | 2021-08-05 14:23 | P.PN ---
Subjective Progress Note Date: 08/05/21 CHIEF COMPLAINT: Abdominal pain HISTORY OF PRESENT ILLNESS: The patient is a 56-year-old female who presents with recurrent epigastric abdominal pain due to cecal volvulus. She presents with large bowel obstruction. Patient is status post Robot-assisted daVinci Xi laparoscopic lysis of adhesions and Robot-assisted daVinci Xi laparoscopic ileocolectomy with right hemicolectomy. Postop day #1. Her pain is controlled. Denies any nausea or vomiting. She is tolerating a clear liquid diet. Denies any flatus or BM. Afebrile. WBC 7.2 hemoglobin 12.7 platelets 262 sodium 139 potassium is 3.7 creatinine 0.58 magnesium 1.5 PHYSICAL EXAM: VITAL SIGNS: Reviewed GENERAL: Well-developed in no acute distress. HEENT: No sclera icterus. Extraocular movements grossly intact. Moist buccal mucosa. Head is atraumatic, normocephalic. Hears conversational speech. No nasal drainage. NECK: Supple without lymphadenopathy. CHEST: Non-labored respirations and equal bilateral excursions. CARDIOVASCULAR: Palpable 2+ radial pulses. ABDOMEN: Soft. Nondistended. MUSCULOSKELETAL: No clubbing or cyanosis. NEUROLOGIC: No focal or lateralizing signs. Cranial nerves II through XII grossly intact. PSYCH: Appropriate affect. Alert and oriented to person, place and time. SKIN: Well perfused. Good skin turgor. ASSESSMENT: 1. Cecal volvulus with obstruction 2. Epigastric and right upper quadrant abdominal pain 3. History of gastric bypass 4. Epigastric peritoneal adhesions from prior incisional hernia repair with mesh 5. Hypokalemia improved 6. Hypomagnesemia PLAN: -Add oral Tylenol scheduled for pain -Replace magnesium -Encourage patient to ambulate -Encourage patient to use incentive spirometer -Further recommendations forthcoming per surgeon Physician Wall Scraper note has been reviewed by physician. Signing provider agrees with the documented findings, assessment, and plan of care. Objective - Vital Signs Vital signs: Vital Signs Temp 98.8 F 08/05/21 08:30 Pulse 68 08/05/21 08:30 Resp 16 08/05/21 08:30 BP 138/81 08/05/21 08:30 Pulse Ox 98 08/05/21 08:30 Intake & Output 08/04/21 08/05/21 08/05/21 18:59 06:59 18:59 Intake Total 3350 150 Output Total 810 1750 250 Balance 2540 -1600 -250 Intake: IV 3350 150 Output: Urine 800 1750 250 Uretheral (Angel) 250 Estimated Blood Loss 10 Other: Voiding Method Toilet Toilet Indwelling Catheter - Labs CBC & Chem 7: 08/05/21 06:51 08/05/21 06:51 Labs: Abnormal Lab Results - Last 24 Hours (Table) 08/05/21 Range/Units 06:51 Magnesium 1.5 L (1.6-2.3) mg/dL
[2021-08-05] MEDS: LACTATED RINGERS 1,000 ML IV SCH (14:28)
--- NOTE | 2021-08-05 15:17 | P.DS ---
Providers Date of admission: 08/04/21 08:27 Expected date of discharge: 08/05/21 Attending physician: Dariela Clayton Consults: 08/02/21 17:52 Consult Physician Urgent Consulting Provider: Jennifer Nguyen Consult Reason/Comments: medical management Do you want consulting provider notified?: Yes 08/02/21 19:37 Consult Physician Routine Consulting Provider: Kelton John Consult Reason/Comments: Cardiac clearance, new abnormal EKG Do you want consulting provider notified?: Yes, Notify in am Primary care physician: Dania Heard MD Hospital Course: Discharge diagnosis 1. Cecal volvulus with obstruction 2. Epigastric and right upper quadrant abdominal pain 3. History of gastric bypass 4. Epigastric peritoneal adhesions from prior incisional hernia repair with mesh 5. Hypokalemia improved 6. Hypomagnesemia received supplement prior to discharge Hospital course This is a 56-year-old female who presents with recurrent epigastric abdominal pain due to cecal volvulus. She presents with large bowel obstruction. Patient is status post Robot-assisted daVinci Xi laparoscopic lysis of adhesions and Robot-assisted daVinci Xi laparoscopic ileocolectomy with right hemicolectomy. Patient tolerated surgery well. Her pain is controlled. She is tolerating a clear liquid diet. She is having flatus. She is urinating without difficulty. She is afebrile. She is up and ambulating. She is stable for discharge. Physician Bottle Washer note has been reviewed by physician. Signing provider agrees with the documented findings, assessment, and plan of care. Patient Condition at Discharge: Stable Plan - Discharge Summary Discharge Rx Participant: Yes New Discharge Prescriptions: New Acetaminophen [Tylenol Extra Strength] 1,000 mg PO Q6HR PRN #30 tablet PRN Reason: Pain Continue Baclofen 10 mg PO TID PRN PRN Reason: Pain Multivitamins, Thera [Multivitamin (formulary)] 1 tab PO DAILY Calcium Carb/Vitamin D3/Vit K1 [Calcium-Vit D3-K1 650 mg Chew] 1 tab PO DAILY Discontinued Acetaminophen Tab [Tylenol] 325 mg PO Q4-6H PRN PRN Reason: Pain Ibuprofen [Motrin Ib] 200 mg PO Q4-6H PRN PRN Reason: Pain Discharge Medication List Multivitamins, Thera [Multivitamin (formulary)] 1 tab PO DAILY 01/27/21 [History] Baclofen 10 mg PO TID PRN 04/08/21 [History] Calcium Carb/Vitamin D3/Vit K1 [Calcium-Vit D3-K1 650 mg Chew] 1 tab PO DAILY 08/02/21 [History] Acetaminophen [Tylenol Extra Strength] 1,000 mg PO Q6HR PRN #30 tablet 08/05/21 [Rx] Follow up Appointment(s)/Referral(s): William Parker MD [STAFF PHYSICIAN] - 3 Weeks Dania Heard MD [Primary Care Provider] - 1-2 days Dariela Clayton MD [STAFF PHYSICIAN] - 08/10/21 Activity/Diet/Wound Care/Special Instructions: Wear abdominal binder at all times for comfort. No lifting over 4 pounds in 4 weeks until Sep 01. You may shower. No bath tub soaks for two weeks until Aug 18 Use Tylenol scheduled for the next 24-48 hours for best pain relief. Use ice along incisions for the today to prevent swelling. Continue a full liquid diet over the next 24 hours and then advance as tolerated to a low fiber diet Discharge Disposition: HOME SELF-CARE
--- NOTE | 2021-08-05 18:16 | P.PN ---
<Mehul Floyd - Last Filed: 08/05/21 18:07> Subjective Progress Note Date: 08/05/21 Hospital course: Patient is a 56-year-old female with a PMH of chronic back pain, bariatric chapo barbara Harley-en-Y in 1994, GERD, and history of gastric ulcer who presented to the emergency room with abdominal pain. Patient reported that she has had multiple hospitalizations for this similar pain, which she describes an aching and sharp pain, 10 out of 10 on maximal intensity, radiating throughout, with no clear alleviating or exacerbating features. she was seen and fully evaluated in the emergency department. Vitals were unremarkable and labs unremarkable with the exception of mild hypokalemia with potassium of 3.4. Urinalysis was negative for blood or infection and Covid [address] abdomen and pelvis revealed a distended cecum with findings consistent for risk of perforation along with fluid-filled small bowel loops consistent with possible intussusception. patient was admitted under Gen. surgery team and we have been consulted to follow along for continued medical management throughout hospitalization. Cardiology was also consulted for cardiac clearance. echocardiogram revealing normal EF between 60 and 65% with moderate mitral and tricuspid regurgitation. EKG showing normal sinus rhythm at 84 bpm with periodic PVCs and T-wave inversion in leads V3 through V6 with noted ST depression in lead V3. Physical exam: Patient was seen and fully evaluated at the bedside this morning. She is postoperative day 1 status post ileocolectomy with right hemicolectomy. Patient reports she is doing well, tolerating clear liquid diet and denies any nausea, vomiting, or any other complaints. Morning labs reveal hypomagnesemia and replacement has been ordered. Hemoglobin stable. Vital signs stable. Patient denies passing flatus or having a bowel movement since surgery. Patient denies any other complaints or concerns at this time including headache, lightheadedness, dizziness, chest pain, palpitations, shortness of breath, or experiencing any nausea, vomiting, or numbness/tingling/weakness in her extremities. Vital signs reviewed and stable. General: Nontoxic, no distress and appears stated age. Derm: Skin warm and dry, normal coloration for ethnicity. Laparoscopic Surgical incisions to left lower quadrant intact with no surrounding erythema or drainage. Postsurgical dressing left upper quadrant is clean dry and intact. Head: Atraumatic, normocephalic and symmetric. Eyes: EOMs intact, no lid lag, and anicteric sclera Mouth: no lip lesions, mucus membranes moist Cardiovascular: regular rate and rhythm with normal S1S2, no murmur, positive posterior tibial pulses bilaterally, and cap refill < 2 seconds. Lungs: Respirations even, regular, and unlabored on room air. Lungs CTA bilaterally, no rhonchi, no rales, no wheezing, and no accessory muscle usage. Abdominal: Soft, nontender to palpation, no guarding, no appreciable organomegaly Ext: ROM intact. No gross muscle atrophy, no edema, no contractures Neuro: Speech clear, face symmetrical and CN II-XII grossly intact with no noted focal neuro deficits Psych: Alert and oriented to person, place, time, and situation. Appropriate and pleasant affect. Assessment and Plan of Care: Cecal dilatation and possible intussusception Abdominal pain with history of bariatric surgery -Management per primary admitting general surgery team. -Patient is postoperative day 1 status post ileocolectomy with right hemicolectomy completed by Dr. Clayton. -Pain management, DVT prophylaxis, PT/OT to be managed by primary admitting general surgery team. Hypomagnesemia, replaced -We will continue to monitor closely with repeat a.m. labs. Hypokalemia, resolved -We will continue to monitor closely with repeat a.m. labs. -Potassium replacement protocol to be followed. GERD -GI prophylaxis with Protonix 40 mg IVP daily. Thank you for allowing us to participate in the care of this pleasant patient. Do not hesitate to contact us with questions. Someone can be reached from the [facility] hospitalist group all hours of the day at [phone] or via perfect serve. Objective - Vital Signs Vital signs: Vital Signs Temp 98.8 F 08/05/21 08:30 Pulse 68 08/05/21 08:30 Resp 16 08/05/21 08:30 BP 138/81 08/05/21 08:30 Pulse Ox 98 08/05/21 08:30 Intake & Output 08/04/21 08/05/21 08/05/21 18:59 06:59 18:59 Intake Total 3350 150 472 Output Total 810 1750 250 Balance 2540 -1600 222 Intake: IV 3350 150 Oral 472 Output: Urine 800 1750 250 Uretheral (Angel) 250 Estimated Blood Loss 10 Other: Voiding Method Toilet Toilet Indwelling Catheter - Labs CBC & Chem 7: 08/05/21 06:51 08/05/21 06:51 Labs: Abnormal Lab Results - Last 24 Hours (Table) 08/05/21 Range/Units 06:51 Magnesium 1.5 L (1.6-2.3) mg/dL <NellyShruti Dalia - Last Filed: 08/05/21 21:54> Subjective Mehul Floyd NP rendered care for this patient independently, reviewed the findings and plan as documented in the note above. I did not physically speak with or examine the patient on this date. Objective - Vital Signs Vital signs: Vital Signs Temp 98.8 F 08/05/21 08:30 Pulse 68 08/05/21 08:30 Resp 16 08/05/21 08:30 BP 138/81 08/05/21 08:30 Pulse Ox 98 08/05/21 08:30 Intake & Output 08/05/21 08/05/21 08/06/21 06:59 18:59 06:59 Intake Total 150 472 Output Total 1750 250 Balance -1600 222 Intake: IV 150 Oral 472 Output: Urine 1750 250 Uretheral (Angel) 250 Other: Voiding Method Toilet Indwelling Catheter - Labs CBC & Chem 7: 08/05/21 06:51 08/05/21 06:51 Labs: Abnormal Lab Results - Last 24 Hours (Table) 08/05/21 Range/Units 06:51 Magnesium 1.5 L (1.6-2.3) mg/dL
== END 2021-08-05 17:27 | disposition home or self-care (01) | DRG 331 ==
LOC: EC 12:34 → 4SSUR 17:51 → OBSVTOIN 08-04 08:27
PROVIDERS: ADMIT Surgery Plastic and Reconstructive Surgery; ATTEND Surgery Plastic and Reconstructive Surgery
PROC: 3E0T3BZ Introduction of Anesthetic Agent into Peripheral Nerves and Plexi, Percutaneous Approach (ICD-10-PCS; 2021-08-04)
PROC: 8E0W4CZ Robotic Assisted Procedure of Trunk Region, Percutaneous Endoscopic Approach (ICD-10-PCS; principal; 2021-08-04 14:25)
PROC: 0DNU4ZZ Release Omentum, Percutaneous Endoscopic Approach (ICD-10-PCS; principal; 2021-08-04 14:25)
PROC: 0DTH0ZZ Resection of Cecum, Open Approach (ICD-10-PCS; principal; 2021-08-04 14:25)
PROC: 0DTF0ZZ Resection of Right Large Intestine, Open Approach (ICD-10-PCS; principal; 2021-08-04 14:25)
DX: K56.2 Volvulus (principal); E83.42 Hypomagnesemia; E86.0 Dehydration; E87.6 Hypokalemia; G89.29 Other chronic pain; I08.1 Rheumatic disorders of both mitral and tricuspid valves; U07.0 Vaping-related disorder; F12.90 Cannabis use, unspecified, uncomplicated; K21.9 Gastro-esophageal reflux disease without esophagitis; M54.5 Low back pain; Z98.84 Bariatric surgery status; Z87.11 Personal history of peptic ulcer disease; Z80.0 Family history of malignant neoplasm of digestive organs; Z80.49 Family history of malignant neoplasm of other genital organs; T85.898A Other specified complication of other internal prosthetic devices, implants and grafts, initial encounter; K66.0 Peritoneal adhesions (postprocedural) (postinfection); I49.3 Ventricular premature depolarization
CPT/HCPCS: 36415; 64999; 71046; 74177; 80048; 80053; 81001; 82150; 83605; 83690; 83735; 84484; 85025; 85027; 85610; 85730; 86850; 86900; 86901; 87635; 93005; 93306; 96374; 96375; 96376; 99285

== ENCOUNTER 2021-08-15 16:17 | Emergency (ER) | payer OTHER ==
[2021-08-15 16:36] VITALS: TEMP 97.8
[2021-08-15] MEDS ORDERED: ONDANSETRON 4 MG/2 ML VIAL IVP STA (16:45)
[2021-08-15] MEDS ORDERED: SODIUM CHLORIDE 0.9% 1,000 ML IV STA (16:45)
[2021-08-15] MEDS ORDERED: MORPHINE SULFATE 4 MG/ML SYRINGE IV STA (16:45)
--- NOTE | 2021-08-15 16:48 | ED ---
General Adult HPI - General Chief complaint: Abdominal Pain Stated complaint: abd pain Time Seen by Provider: 08/15/21 16:19 Source: patient, EMS Mode of arrival: EMS Limitations: no limitations - History of Present Illness Initial comments: Dictation was produced using [employer] dictation software. please excuse any grammatical, word or spelling errors. Chief Complaint: 56-year-old female presents with abdominal pain, belching nausea and vomiting 1 day. Patient is postop day 11 status post lysis of adhesions and ileocolectomy. 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 She had robotic-assisted laparoscopic lysis of adhesions, ileocolectomy with right hemicolectomy. Patient's surgery was on 08/04/2021. Patient was doing fine postoperatively until today she started having belching, abdominal pain nausea and vomiting. Patient states her vomit is nonbilious not bloody. No diarrhea. She had a bowel movement yesterday. She states her pain is diffuse. Denies any fevers. The ROS documented in this emergency department record has been reviewed and confirmed by me. Those systems with pertinent positive or negative responses have been documented in the HPI. All other systems are other negative and/or noncontributory. PHYSICAL EXAM: General Impression: Alert and oriented x3, acute distress secondary to pain HEENT: Normocephalic atraumatic, extra-ocular movements intact, pupils equal and reactive to light bilaterally, mucous membranes moist. Cardiovascular: Heart regular rate and rhythm Chest: Able to complete full sentences, no retractions, no tachypnea Abdomen: Diffusely tender, voluntary guarding, mildly rigid, non-distended, no organomegaly Musculoskeletal: Pulses present and equal in all extremities, no peripheral edema Motor: no focal deficits noted Neurological: CN II-XII grossly intact, no focal motor or sensory deficits noted Skin: Intact with no visualized rashes Psych: Normal affect and mood ED course: 56-year-old female presents with postoperative abdominal pain. Patient is almost 2 weeks postop from laparoscopic abdominal surgery. Vital signs upon arrival are within acceptable limits. Laboratory evaluation obtained. No leukocytosis. Hemoglobin stable. Coag panel is unremarkable. Metabolic panel is unremarkable. Mild lactic acidosis of 2.4. Computed tomography scan abdomen and pelvis shows previous surgery with no evidence of bowel obstruction. No other intraoral abdominal processes noted to explain patient's symptoms. She reevaluated at bedside at 6:30 PM found to be stable medical condition. Patient is agreeable for discharge. Patient has a follow-up appointment. She is given prescription for by mouth analgesics. - Related Data Home Medications Medication Instructions Recorded Confirmed Multivitamins, Thera [Multivitamin 1 tab PO DAILY 01/27/21 08/02/21 (formulary)] Baclofen 10 mg PO TID PRN 04/08/21 08/02/21 Calcium Carb/Vitamin D3/Vit K1 1 tab PO DAILY 08/02/21 08/02/21 [Calcium-Vit D3-K1 650 mg Chew] Previous Rx's Medication Instructions Recorded Acetaminophen [Tylenol Extra 1,000 mg PO Q6HR PRN #30 tablet 08/05/21 Strength] Simethicone 40 mg/0.6 ml Drops 40 mg PO PCHS PRN #30 ml 08/05/21 [Mylicon Drops] Acetaminophen-Codeine 300-30mg 1 tab PO Q6H PRN 3 Days #12 tablet 08/15/21 [Tylenol w/codeine #3] Allergies Allergy/AdvReac Type Severity Reaction Status Date / Time hydrocodone [From [place]] AdvReac Itching,hiv Verified 08/15/21 16:36 es Review of Systems ROS Statement: Those systems with pertinent positive or pertinent negative responses have been documented in the HPI. ROS Other: All systems not noted in ROS Statement are negative. Past Medical History Past Medical History: GERD/Reflux Additional Past Medical History / Comment(s): HX Gastric ulcer History of Any Multi-Drug Resistant Organisms: None Reported Past Surgical History: Hernia Repair Additional Past Surgical History / Comment(s): gastric [id number]-y 1994, abdominal hernia with mesh and surgical site had to be drained 3 times post op. Past Anesthesia/Blood Transfusion Reactions: No Reported Reaction, Motion Sickness Additional Past Anesthesia/Blood Transfusion Reaction / Comment(s): Pt has never received blood. Past Psychological History: Bipolar Smoking Status: Never smoker Past Alcohol Use History: Occasional Past Drug Use History: Marijuana - Past Family History Father Family Medical History: Cancer Additional Family Medical History / Comment(s): Father of pancreatic cancer at age 65yrs. Mother Family Medical History: Cancer Additional Family Medical History / Comment(s): Mother of uterine cancer in her 60's. General Exam Limitations: no limitations Course Vital Signs 08/15/21 16:31 Temperature 97.8 F Pulse Rate 71 Respiratory 20 Rate Blood Pressure 104/65 O2 Sat by Pulse 100 Oximetry Medical Decision Making - Lab Data Result diagrams: 08/15/21 17:06 08/15/21 17:06 Lab Results 08/15/21 08/15/21 08/15/21 Range/Units 17:06 17:06 17:06 WBC 5.4 (3.8-10.6) k/uL RBC 4.48 (3.80-5.40) m/uL Hgb 14.9 (11.4-16.0) gm/dL Hct 43.2 (34.0-46.0) % MCV 96.5 (80.0-100.0) fL MCH 33.2 (25.0-35.0) pg MCHC 34.4 (31.0-37.0) g/dL RDW 15.2 (11.5-15.5) % Plt Count 282 (150-450) k/uL MPV 8.0 Neutrophils % 84 % Lymphocytes % 11 % Monocytes % 4 % Eosinophils % 1 % Basophils % 0 % Neutrophils # 4.5 (1.3-7.7) k/uL Lymphocytes # 0.6 L (1.0-4.8) k/uL Monocytes # 0.2 (0-1.0) k/uL Eosinophils # 0.1 (0-0.7) k/uL Basophils # 0.0 (0-0.2) k/uL PT 10.2 (9.0-12.0) sec INR 0.9 (<1.2) APTT 18.7 L (22.0-30.0) sec Sodium 134 L (137-145) mmol/L Potassium 5.1 (3.5-5.1) mmol/L Chloride 102 (98-107) mmol/L Carbon Dioxide 22 (22-30) mmol/L Anion Gap 10 mmol/L BUN 18 H (7-17) mg/dL Creatinine 0.64 (0.52-1.04) mg/dL Est GFR (CKD-EPI)AfAm >90 (>60 ml/min/1.73 sqM) Est GFR (CKD-EPI)NonAf >90 (>60 ml/min/1.73 sqM) Glucose 150 H (74-99) mg/dL Plasma Lactic Acid Que (0.7-2.0) mmol/L Calcium 9.7 (8.4-10.2) mg/dL Total Bilirubin 1.1 (0.2-1.3) mg/dL AST 41 H (14-36) U/L ALT 18 (4-34) U/L Alkaline Phosphatase 94 (38-126) U/L Total Protein 8.2 (6.3-8.2) g/dL Albumin 4.5 (3.5-5.0) g/dL 08/15/21 Range/Units 17:06 WBC (3.8-10.6) k/uL RBC (3.80-5.40) m/uL Hgb (11.4-16.0) gm/dL Hct (34.0-46.0) % MCV (80.0-100.0) fL MCH (25.0-35.0) pg MCHC (31.0-37.0) g/dL RDW (11.5-15.5) % Plt Count (150-450) k/uL MPV Neutrophils % % Lymphocytes % % Monocytes % % Eosinophils % % Basophils % % Neutrophils # (1.3-7.7) k/uL Lymphocytes # (1.0-4.8) k/uL Monocytes # (0-1.0) k/uL Eosinophils # (0-0.7) k/uL Basophils # (0-0.2) k/uL PT (9.0-12.0) sec INR (<1.2) APTT (22.0-30.0) sec Sodium (137-145) mmol/L Potassium (3.5-5.1) mmol/L Chloride (98-107) mmol/L Carbon Dioxide (22-30) mmol/L Anion Gap mmol/L BUN (7-17) mg/dL Creatinine (0.52-1.04) mg/dL Est GFR (CKD-EPI)AfAm (>60 ml/min/1.73 sqM) Est GFR (CKD-EPI)NonAf (>60 ml/min/1.73 sqM) Glucose (74-99) mg/dL Plasma Lactic Acid Que 2.4 H* (0.7-2.0) mmol/L Calcium (8.4-10.2) mg/dL Total Bilirubin (0.2-1.3) mg/dL AST (14-36) U/L ALT (4-34) U/L Alkaline Phosphatase (38-126) U/L Total Protein (6.3-8.2) g/dL Albumin (3.5-5.0) g/dL Disposition Clinical Impression: Postoperative abdominal pain Disposition: HOME SELF-CARE Condition: Good Instructions (If sedation given, give patient instructions): Abdominal Pain (ED) Prescriptions: Acetaminophen-Codeine 300-30mg [Tylenol w/codeine #3] 1 tab PO Q6H PRN 3 Days #12 tablet PRN Reason: Pain Is patient prescribed a controlled substance at d/c from ED?: Yes If prescribed controlled substance>3 days was MAPS reviewed?: Prescribed <3 Days Referrals: Dariela Clayton MD [STAFF PHYSICIAN] - 1-2 days
[2021-08-15 17:38] LABS: ALT 18 U/L (4-34); AST 41 U/L (14-36); African American GFR (CKD) >90 (>60 ml/min/1.73 sqM); Albumin 4.5 g/dL (3.5-5.0); Alkaline Phosphatase 94 U/L (38-126); Anion Gap 10 mmol/L; Blood Urea Nitrogen 18 mg/dL (7-17); Calcium 9.7 mg/dL (8.4-10.2); Carbon Dioxide 22 mmol/L (22-30); Chloride 102 mmol/L (98-107); Glucose 150 mg/dL (74-99); Non-African American GFR(CKD) >90 (>60 ml/min/1.73 sqM); Sodium 134 mmol/L (137-145); Total Bilirubin 1.1 mg/dL (0.2-1.3); Total Protein 8.2 g/dL (6.3-8.2)
[2021-08-15 17:43] LABS: Potassium 5.1 mmol/L (3.5-5.1)
[2021-08-15 17:45] LABS: INR 0.9 (<1.2); Prothrombin Time 10.2 sec (9.0-12.0)
[2021-08-15 18:04] LABS: Basophils % (A) 0 %; Eosinophils # (A) 0.1 k/uL (0-0.7); Eosinophils % (A) 1 %; HCT 43.2 % (34.0-46.0); HGB 14.9 gm/dL (11.4-16.0); Lymphocytes # (A) 0.6 k/uL (1.0-4.8); Lymphocytes % (A) 11 %; MCH 33.2 pg (25.0-35.0); MCHC 34.4 g/dL (31.0-37.0); MCV 96.5 fL (80.0-100.0); Monocytes # (A) 0.2 k/uL (0-1.0); Monocytes % (A) 4 %; Neutrophils # (A) 4.5 k/uL (1.3-7.7); Neutrophils % (A) 84 %; Platelet Count 282 k/uL (150-450); RBC 4.48 m/uL (3.80-5.40); RDW 15.2 % (11.5-15.5); WBC 5.4 k/uL (3.8-10.6)
[2021-08-15 18:20] LABS: Partial Thromboplastin Time 18.7 sec (22.0-30.0)
--- NOTE | 2021-08-15 18:22 | CT ---
EXAMINATION TYPE: CT abdomen pelvis w con DATE OF EXAM: 08/15/2021 COMPARISON: 08/02/2021 HISTORY: Generalized pain and cramping with nausea. CT DLP: 1289.4 mGycm Automated exposure control for dose reduction was used. CONTRAST: Performed with IV Contrast, patient injected with 100 mL of Isovue 300. Images obtained from the diaphragm to the floor the pelvis with IV contrast. Lung bases are clear. There is no pleural effusion. Heart size is normal. There is no pericardial eff usion. There are numerous surgical clips from apparent gastric bariatric surgery. Liver and spleen ar e intact. The bile ducts are nondilated. Gallbladder appears absent. There is some density along the anterior abdominal wall related to hernia surgery. There is no adrenal mass. Kidneys show satisfactory contrast opacification. There is no hydronephrosi s. Delayed images show normal renal excretion. There is no retroperitoneal adenopathy. Bladder disten ds smoothly. There is no inguinal hernia. There is no free fluid in the pelvis. There are surgical cl ips in the right lower quadrant. There is no ascites or free air. There is no bowel obstruction. Ther e is no mesenteric edema. Appendix is not seen. Lumbar spine is intact. There are some spondylotic ch anges in the lumbar spine with disc space narrowing and spur formation. The hip joints are intact. Redd ny pelvis is intact. IMPRESSION: Previous surgery. No evidence of a bowel obstruction. There is clearing of the apparent intussuscepti on in the left lower quadrant compared to old exam. No evidence of a bowel obstruction.
[2021-08-15] MEDS ORDERED: ACET/COD 300 MG/30 MG STARTER PACK 6 TAB BTL PO STA (18:32)
[2021-08-15] MEDS ORDERED: MORPHINE SULFATE 2 MG/ML SYRINGE IV STA (18:32)
[2021-08-15 19:12] VITALS: BP 128/83; PULSE 72; RESP 16
== END 2021-08-15 19:15 | disposition home or self-care (01) ==
LOC: EC 16:17
DX: R10.84 Generalized abdominal pain (principal); G89.18 Other acute postprocedural pain; K21.9 Gastro-esophageal reflux disease without esophagitis; F31.9 Bipolar disorder, unspecified; F12.90 Cannabis use, unspecified, uncomplicated; Z88.5 Allergy status to narcotic agent
CPT/HCPCS: 99284; 96374; 96375; 96376; 96361; 36415; 80053; 83605; 85025; 85610; 85730; 74177; J2270 ×2; J2405; Q9967

== ENCOUNTER 2021-08-16 13:39 | Emergency (ER) | payer OTHER ==
[2021-08-16] MEDS ORDERED: SODIUM CHLORIDE 0.9% 1,000 ML IV STA (19:38)
[2021-08-16] MEDS ORDERED: diphenhydrAMINE 50 MG/ML 1 ML VIAL IVP STA (19:38)
[2021-08-16] MEDS ORDERED: ONDANSETRON 4 MG/2 ML VIAL IVP STA (19:38)
[2021-08-16] MEDS ORDERED: MORPHINE SULFATE 4 MG/ML SYRINGE IV STA (19:38)
--- NOTE | 2021-08-16 19:58 | XR ---
EXAMINATION TYPE: XR KUB DATE OF EXAM: 08/16/2021 COMPARISON: NONE HISTORY: Abdominal pain TECHNIQUE: 2 views upright FINDINGS: There is multiple fluid levels in the upper abdomen. It is not clear if this is large or sm all bowel. Lung bases are clear of infiltrate. There are no calcifications over the kidneys. There is gas down to the rectum. IMPRESSION: There are some intestinal fluid levels that could relate to ileus. No free air.
[2021-08-16 20:44] LABS: Basophils % (A) 0 %; Eosinophils % (A) 0 %; HCT 44.6 % (34.0-46.0); HGB 14.4 gm/dL (11.4-16.0); Lymphocytes # (A) 0.3 k/uL (1.0-4.8); Lymphocytes % (A) 2 %; MCH 31.7 pg (25.0-35.0); MCHC 32.4 g/dL (31.0-37.0); MCV 97.9 fL (80.0-100.0); Mean Platelet Volume 8.1; Monocytes # (A) 0.4 k/uL (0-1.0); Monocytes % (A) 3 %; Neutrophils % (A) 94 %; Platelet Count 422 k/uL (150-450); RBC 4.55 m/uL (3.80-5.40); RDW 14.7 % (11.5-15.5); WBC 13.8 k/uL (3.8-10.6)
[2021-08-16 20:45] LABS: Appearance,Urine Clear (Clear); Bacteria,Urine Rare /hpf; Bilirubin,Urine Negative (Negative); Blood,Urine Negative (Negative); Color,Urine Yellow; Glucose,Urine (UA) Trace (Negative); Ketones,Urine 4+ (Negative); Leukocyte Esterase,Urine Negative (Negative); Mucus,Urine Few /hpf; Nitrite,Urine Negative (Negative); PH, Urine 5.5 (5.0-8.0); Protein,Urine 1+ (Negative); RBC,Urine 1 /hpf (0-5); Specific Gravity,Urine 1.037 (1.001-1.035); Squamous Epithelial Cell,Urine <1 /hpf (0-4); WBC,Urine 6 /hpf (0-5)
[2021-08-16] MEDS ORDERED: SODIUM CHLORIDE 0.9% 500 ML 500 ML IV STA (20:55)
[2021-08-16] MEDS ORDERED: HYDROmorphone 0.5 MG/0.5 ML SYRINGE IVP STA (20:55)
[2021-08-16 20:56] LABS: ALT 34 U/L (4-34); AST 70 U/L (14-36); African American GFR (CKD) >90 (>60 ml/min/1.73 sqM); Albumin 4.4 g/dL (3.5-5.0); Alkaline Phosphatase 82 U/L (38-126); Amylase 57 U/L (30-110); Anion Gap 11 mmol/L; Blood Urea Nitrogen 18 mg/dL (7-17); Calcium 9.7 mg/dL (8.4-10.2); Carbon Dioxide 23 mmol/L (22-30); Chloride 101 mmol/L (98-107); Glucose 174 mg/dL (74-99); Lipase 42 U/L (23-300); Non-African American GFR(CKD) >90 (>60 ml/min/1.73 sqM); Sodium 135 mmol/L (137-145); Total Bilirubin 1.5 mg/dL (0.2-1.3)
[2021-08-16 21:00] LABS: Potassium 5.2 mmol/L (3.5-5.1)
--- NOTE | 2021-08-16 21:59 | CT ---
EXAMINATION TYPE: CT abdomen pelvis w con DATE OF EXAM: 08/16/2021 COMPARISON: None HISTORY: abdominal pain and cramping. recent abdominal sx. CT DLP: 1130.2 mGycm Automated exposure control for dose reduction was used. CONTRAST: Performed with IV Contrast, patient injected with 100 mL of Isovue 300. Images obtained from the diaphragm to the floor the pelvis with IV contrast. Lung bases are clear. There is no pleural effusion. Heart size is normal. There is no pericardial eff usion. Liver spleen appear intact. The bile ducts are not dilated. There are numerous surgical clips at the stomach. There is no evidence of pancreatic mass. There is no adrenal mass. Kidneys show satisfactory contrast opacification. There is no hydronephrosi s. Ureters are not dilated. Bladder distends smoothly. The lumbar vertebra have normal alignment. Posterior elements are intact. There is no compression fra cture. The bony pelvis is intact. Hip joints are intact. There is narrowing at L4-5 with spurring and vacuum disc. There is no mesenteric edema. There is no ascites or free air. There is no sign of a bowel obstructio n. There is distended right colon with fluid level. There is gaseous distention of the transverse col on. There are numerous surgical clips in the right knee abdomen. There is some mesh on the anterior a bdomen apparently from hernia surgery. IMPRESSION: Previous gastric and bowel surgery. No evidence of bowel obstruction. There is increased fluid and ga s distention of the right colon compared to yesterday. I do not see evidence for bowel obstruction. A ppearance more consistent with ileus.
--- NOTE | 2021-08-16 23:23 | ED ---
Abdominal Pain HPI - General Chief Complaint: Abdominal Pain Stated Complaint: Cramping, Nausea Time Seen by Provider: 08/16/21 19:13 Source: patient, RN notes reviewed, old records reviewed Mode of arrival: wheelchair Limitations: no limitations - History of Present Illness Initial Comments: Patient is a 56-year-old female with history of GERD, presenting to the emergency Department with complaints of nausea, lower abdominal cramping for the past 24 hours. Patient was seen and evaluated yesterday for similar complaint. On 08/04/2021, patient had a portion of her large bowel removed by Dr. Clayton. Patient states she has been doing well until the past 2 days. She states that she's been having a lot of bloating, a lot of cramping and nausea. She was evaluated yesterday, no acute findings, sent home on Tylenol 3's and recommended gas drops as well as a stool softener. She states she tried those this morning without improvement in her pain so she came back in for evaluation. She does admit to some mild nausea, lower abdominal discomfort and intermittent pressure feeling. She denies any chest pain or short of breath, no fevers or c hills. She has no further complaints. Upon arrival to the ER, her vital signs are stable. - Related Data Home Medications Medication Instructions Recorded Confirmed Multivitamins, Thera [Multivitamin 1 tab PO DAILY 01/27/21 08/02/21 (formulary)] Baclofen 10 mg PO TID PRN 04/08/21 08/02/21 Calcium Carb/Vitamin D3/Vit K1 1 tab PO DAILY 08/02/21 08/02/21 [Calcium-Vit D3-K1 650 mg Chew] Previous Rx's Medication Instructions Recorded Acetaminophen [Tylenol Extra 1,000 mg PO Q6HR PRN #30 tablet 08/05/21 Strength] Simethicone 40 mg/0.6 ml Drops 40 mg PO PCHS PRN #30 ml 08/05/21 [Mylicon Drops] Acetaminophen-Codeine 300-30mg 1 tab PO Q6H PRN 3 Days #12 tablet 08/15/21 [Tylenol w/codeine #3] Allergies Allergy/AdvReac Type Severity Reaction Status Date / Time hydrocodone [From [place]] AdvReac Itching,hiv Verified 08/16/21 15:27 es Review of Systems ROS Statement: Those systems with pertinent positive or pertinent negative responses have been documented in the HPI. ROS Other: All systems not noted in ROS Statement are negative. Past Medical History Past Medical History: GERD/Reflux Additional Past Medical History / Comment(s): HX Gastric ulcer History of Any Multi-Drug Resistant Organisms: None Reported Past Surgical History: Hernia Repair Additional Past Surgical History / Comment(s): gastric [id number]-y 1994, abdominal hernia with mesh and surgical site had to be drained 3 times post op. Past Anesthesia/Blood Transfusion Reactions: No Reported Reaction, Motion Sickness Additional Past Anesthesia/Blood Transfusion Reaction / Comment(s): Pt has never received blood. Past Psychological History: Bipolar Smoking Status: Never smoker Past Alcohol Use History: Occasional Past Drug Use History: Marijuana - Past Family History Father Family Medical History: Cancer Additional Family Medical History / Comment(s): Father of pancreatic cancer at age 65yrs. Mother Family Medical History: Cancer Additional Family Medical History / Comment(s): Mother of uterine cancer in her 60's. General Exam - General Exam Comments Initial Comments: GENERAL: Patient is well-developed and well-nourished. Patient is nontoxic and in mild distress. HEAD: Atraumatic, normocephalic. EYES: Pupils equal round and reactive to light, extraocular movements intact, sclera anicteric, conjunctiva are normal. Eyelids were unremarkable. ENT: Nares patent, oropharynx clear without exudates. Moist mucous membranes. NECK: Normal range of motion, supple without lymphadenopathy or JVD. LUNGS: Unlabored respirations. Breath sounds clear to auscultation bilaterally and equal. No wheezes rales or rhonchi. HEART: Regular rate and rhythm without murmurs, rubs or gallops. ABDOMEN: Soft, tender to palpation of the lower abdomen, normoactive bowel sounds. No guarding, no rebound. No masses appreciated. : Deferred MUSCULOSKELETAL: Normal extremities with adequate strength and normal range of motion, no pitting or edema. No clubbing or cyanosis. NEUROLOGICAL: Patient is alert and oriented x 3. Symmetrical smile. Normal speech, normal gait. PSYCH: Normal mood, normal affect. SKIN: Warm, Dry, normal turgor, no rashes or lesions noted. Limitations: no limitations Course Vital Signs 08/16/21 08/16/21 08/16/21 15:27 18:22 20:14 Temperature 97.9 F Pulse Rate 83 64 74 Respiratory 20 18 18 Rate Blood Pressure 142/75 149/72 149/80 O2 Sat by Pulse 100 100 100 Oximetry 08/16/21 08/16/21 21:00 23:45 Temperature 97.8 F Pulse Rate 92 80 Respiratory 178 H 18 Rate Blood Pressure 114/65 106/64 O2 Sat by Pulse 99 96 Oximetry Medical Decision Making - Medical Decision Making Patient is a 56-year-old female here with lower abdominal pain, nausea and cramping for the past 24 hours. She was seen and evaluated yesterday for same complaint, had normal labs, normal CT. They were concerned for possible small bowel ileus. Patient's vital signs are stable upon arrival. Labs show a very slight white count 13.8, did not think this is infectious, most likely reactive. Rest of labs are within normal limits. Urine does show 4+ ketones, no signs of infection. X-ray shows some intestinal fluid levels that could relate to an ileus, no free air. Given patient's the skin pain and possible obstruction, I did redo her CT, there is no evidence for bowel obstruction, most likely an ileus. Patient received a liter and half of fluids, pain control and she has been resting comfortably. I discussed these findings with her. Her pain is most likely secondary to gas. I recommended increasing her walking, trial of a stool softener and Gas-X drops. She is agreeable to this plan of care. She will call Dr. Clayton's office tomorrow for follow-up. Return parameters were discussed with her and she verbalized understanding. Case discussed with Dr. Archer. - Lab Data Result diagrams: 08/16/21 20:22 08/16/21 20:22 Lab Results 08/16/21 08/16/21 08/16/21 Range/Units 20:22 20:22 20:22 WBC 13.8 H (3.8-10.6) k/uL RBC 4.55 (3.80-5.40) m/uL Hgb 14.4 (11.4-16.0) gm/dL Hct 44.6 (34.0-46.0) % MCV 97.9 (80.0-100.0) fL MCH 31.7 (25.0-35.0) pg MCHC 32.4 (31.0-37.0) g/dL RDW 14.7 (11.5-15.5) % Plt Count 422 (150-450) k/uL MPV 8.1 Neutrophils % 94 % Lymphocytes % 2 % Monocytes % 3 % Eosinophils % 0 % Basophils % 0 % Neutrophils # 13.0 H (1.3-7.7) k/uL Lymphocytes # 0.3 L (1.0-4.8) k/uL Monocytes # 0.4 (0-1.0) k/uL Eosinophils # 0.0 (0-0.7) k/uL Basophils # 0.0 (0-0.2) k/uL Sodium 135 L (137-145) mmol/L Potassium 5.2 H (3.5-5.1) mmol/L Chloride 101 (98-107) mmol/L Carbon Dioxide 23 (22-30) mmol/L Anion Gap 11 mmol/L BUN 18 H (7-17) mg/dL Creatinine 0.52 (0.52-1.04) mg/dL Est GFR (CKD-EPI)AfAm >90 (>60 ml/min/1.73 sqM) Est GFR (CKD-EPI)NonAf >90 (>60 ml/min/1.73 sqM) Glucose 174 H (74-99) mg/dL Plasma Lactic Acid Que (0.7-2.0) mmol/L Calcium 9.7 (8.4-10.2) mg/dL Total Bilirubin 1.5 H (0.2-1.3) mg/dL AST 70 H (14-36) U/L ALT 34 (4-34) U/L Alkaline Phosphatase 82 (38-126) U/L Total Protein 8.0 (6.3-8.2) g/dL Albumin 4.4 (3.5-5.0) g/dL Amylase 57 (30-110) U/L Lipase 42 (23-300) U/L Urine Color Yellow Urine Appearance Clear (Clear) Urine pH 5.5 (5.0-8.0) Ur Specific [place] 1.037 H (1.001-1.035) Urine Protein 1+ H (Negative) Urine Glucose (UA) Trace H (Negative) Urine Ketones 4+ H (Negative) Urine Blood Negative (Negative) Urine Nitrite Negative (Negative) Urine Bilirubin Negative (Negative) Urine Urobilinogen 3.0 (<2.0) mg/dL Ur Leukocyte Esterase Negative (Negative) Urine RBC 1 (0-5) /hpf Urine WBC 6 H (0-5) /hpf Ur Squamous Epith Cells <1 (0-4) /hpf Urine Bacteria Rare H (None) /hpf Urine Mucus Few H (None) /hpf 08/16/ Range/Units 20:22 WBC (3.8-10.6) k/uL RBC (3.80-5.40) m/uL Hgb (11.4-16.0) gm/dL Hct (34.0-46.0) % MCV (80.0-100.0) fL MCH (25.0-35.0) pg MCHC (31.0-37.0) g/dL RDW (11.5-15.5) % Plt Count (150-450) k/uL MPV Neutrophils % % Lymphocytes % % Monocytes % % Eosinophils % % Basophils % % Neutrophils # (1.3-7.7) k/uL Lymphocytes # (1.0-4.8) k/uL Monocytes # (0-1.0) k/uL Eosinophils # (0-0.7) k/uL Basophils # (0-0.2) k/uL Sodium (137-145) mmol/L Potassium (3.5-5.1) mmol/L Chloride (98-107) mmol/L Carbon Dioxide (22-30) mmol/L Anion Gap mmol/L BUN (7-17) mg/dL Creatinine (0.52-1.04) mg/dL Est GFR (CKD-EPI)AfAm (>60 ml/min/1.73 sqM) Est GFR (CKD-EPI)NonAf (>60 ml/min/1.73 sqM) Glucose (74-99) mg/dL Plasma Lactic Acid Que 1.8 (0.7-2.0) mmol/L Calcium (8.4-10.2) mg/dL Total Bilirubin (0.2-1.3) mg/dL AST (14-36) U/L ALT (4-34) U/L Alkaline Phosphatase (38-126) U/L Total Protein (6.3-8.2) g/dL Albumin (3.5-5.0) g/dL Amylase (30-110) U/L Lipase (23-300) U/L Urine Color Urine Appearance (Clear) Urine pH (5.0-8.0) Ur Specific [place] (1.001-1.035) Urine Protein (Negative) Urine Glucose (UA) (Negative) Urine Ketones (Negative) Urine Blood (Negative) Urine Nitrite (Negative) Urine Bilirubin (Negative) Urine Urobilinogen (<2.0) mg/dL Ur Leukocyte Esterase (Negative) Urine RBC (0-5) /hpf Urine WBC (0-5) /hpf Ur Squamous Epith Cells (0-4) /hpf Urine Bacteria (None) /hpf Urine Mucus (None) /hpf Disposition Clinical Impression: Dehydration, Abdominal pain Disposition: HOME SELF-CARE Condition: Stable Instructions (If sedation given, give patient instructions): Abdominal Pain (ED) Additional Instructions: Please return to the Emergency Department if symptoms worsen or any other concerns. Increase your walking, add gas drops, stool softener as already discussed. May use pain medication that is already prescribed. Please follow up with your surgeon tomorrow. Is patient prescribed a controlled substance at d/c from ED?: No Referrals: Dania Heard MD [Primary Care Provider] - 1-2 days Dariela Clayton MD [STAFF PHYSICIAN] - 1-2 days Time of Disposition: 23:23
[2021-08-16 23:47] VITALS: BP 106/64; PULSE 80; RESP 18; TEMP 97.8
== END 2021-08-16 23:46 | disposition home or self-care (01) ==
LOC: EC 13:39
DX: E86.0 Dehydration (principal); R10.30 Lower abdominal pain, unspecified; K21.9 Gastro-esophageal reflux disease without esophagitis; F12.90 Cannabis use, unspecified, uncomplicated
CPT/HCPCS: 36415; 80053; 82150; 83605; 83690; 85025; 81001; 74018; 74177; 99284; 96374; 96375 ×3; 96361; J2270; J1200; J2405; J1170; Q9967

== ENCOUNTER 2021-08-20 10:07 | Inpatient (IN) | payer OTHER ==
[2021-08-20] MEDS ORDERED: ONDANSETRON 4 MG/2 ML VIAL IVP STA (10:46)
[2021-08-20] MEDS ORDERED: SODIUM CHLORIDE 0.9% 1,000 ML IV STA (10:46)
[2021-08-20] MEDS ORDERED: MORPHINE SULFATE 4 MG/ML SYRINGE IV STA (10:46)
--- NOTE | 2021-08-20 11:44 | XR ---
EXAMINATION TYPE: XR KUB DATE OF EXAM: 08/20/2021 Comparison: 08/16/2021 Clinical History: 56-year-old female generalized abdominal pain Findings: Lung bases are clear. Surgical clips at the GE junction. No evidence for free intraperitoneal air. Surgical material from wire bowel surgery in the left mid abdomen. There are some colonic air-fluid l evels on the left side of the abdomen and some distended small bowel loops mid and lower abdomen karoline uring up to 3.4 cm also with air-fluid levels. Levoconvex scoliosis along the upper lumbar spine. Impression: 1. Air-fluid levels throughout left-sided colon and also within lower abdominal small bowel loops. So me small bowel loops are dilated up to 3.4 cm. The overall pattern suggests a generalized ileus or en teritis rather than small bowel obstruction at this time. 2. Status post Harley-en-Y gastric bypass. No free air.
[2021-08-20 11:45] LABS: ALT 19 U/L (4-34); AST 24 U/L (14-36); African American GFR (CKD) >90 (>60 ml/min/1.73 sqM); Albumin 4.2 g/dL (3.5-5.0); Alkaline Phosphatase 109 U/L (38-126); Anion Gap 17 mmol/L; Blood Urea Nitrogen 13 mg/dL (7-17); Calcium 9.9 mg/dL (8.4-10.2); Carbon Dioxide 19 mmol/L (22-30); Chloride 101 mmol/L (98-107); Glucose 119 mg/dL (74-99); Non-African American GFR(CKD) >90 (>60 ml/min/1.73 sqM); Potassium 3.5 mmol/L (3.5-5.1); Sodium 137 mmol/L (137-145); Total Protein 7.5 g/dL (6.3-8.2)
[2021-08-20 11:55] LABS: Basophils % (A) 0 %; Eosinophils % (A) 0 %; HCT 41.3 % (34.0-46.0); HGB 14.1 gm/dL (11.4-16.0); Lymphocytes # (A) 1.1 k/uL (1.0-4.8); Lymphocytes % (A) 19 %; MCH 32.7 pg (25.0-35.0); MCHC 34.3 g/dL (31.0-37.0); MCV 95.3 fL (80.0-100.0); Mean Platelet Volume 7.6; Monocytes # (A) 0.4 k/uL (0-1.0); Monocytes % (A) 7 %; Neutrophils % (A) 71 %; Platelet Count 516 k/uL (150-450); RBC 4.33 m/uL (3.80-5.40); RDW 14.9 % (11.5-15.5); WBC 5.6 k/uL (3.8-10.6)
[2021-08-20] MEDS ORDERED: HYDROmorphone 0.5 MG/0.5 ML SYRINGE IVP PRN (12:51)
[2021-08-20] MEDS ORDERED: HEPARIN SODIUM,PORCINE/PF 5,000 UNIT/0.5 ML SYRINGE SQ PRN (12:51)
--- NOTE | 2021-08-20 12:57 | ED ---
Abdominal Pain HPI - General Chief Complaint: Abdominal Pain Stated Complaint: post op abd pain Time Seen by Provider: 08/20/21 10:36 Source: patient, RN notes reviewed Mode of arrival: wheelchair Limitations: physical limitation - History of Present Illness Initial Comments: Patient is a 56-year-old female that presents to the emergency department comp laining of continuing abdominal cramping and pain. She notes she was seen several times over the last week for the same issue. She notes that she recently had abdominal surgery with Dr. Clayton. Patient notes that she was sent home with Tylenol 3's and Gas-X the last several times with no relief. She notes that she said a warm bathtub last night which helped alleviate the pain. She notes that she actually fell sleep in the bath tub and had a bowel movement while in there. Patient denied any issues or complaints. She denied chest pain shortness of breath headache nausea vomiting diarrhea constipation. - Related Data Home Medications Medication Instructions Recorded Confirmed Multivitamins, Thera [Multivitamin 1 tab PO DAILY 01/27/21 08/20/21 (formulary)] Baclofen 10 mg PO TID PRN 04/08/21 08/20/21 Calcium Carb/Vitamin D3/Vit K1 1 tab PO DAILY 08/02/21 08/20/21 [Calcium-Vit D3-K1 650 mg Chew] Acetaminophen [Tylenol Extra 1,000 mg PO Q6H PRN 08/20/21 08/20/21 Strength] Simethicone [Gas-X] 125 mg PO ACHS PRN 08/20/21 08/20/21 Previous Rx's Medication Instructions Recorded Acetaminophen-Codeine 300-30mg 1 tab PO Q6H PRN 3 Days #12 tablet 08/15/21 [Tylenol w/codeine #3] Allergies Allergy/AdvReac Type Severity Reaction Status Date / Time hydrocodone [From [place]] AdvReac Itching,hiv Verified 08/20/21 11:14 es Review of Systems ROS Statement: Those systems with pertinent positive or pertinent negative responses have been documented in the HPI. ROS Other: All systems not noted in ROS Statement are negative. Past Medical History Past Medical History: GERD/Reflux Additional Past Medical History / Comment(s): HX Gastric ulcer History of Any Multi-Drug Resistant Organisms: None Reported Past Surgical History: Hernia Repair Additional Past Surgical History / Comment(s): gastric [id number] 1994, abdominal hernia with mesh and surgical site had to be drained 3 times post op, BOWEL RESENTION AUG 2021 Past Anesthesia/Blood Transfusion Reactions: No Reported Reaction, Motion Sickness Additional Past Anesthesia/Blood Transfusion Reaction / Comment(s): Pt has never received blood. Past Psychological History: Bipolar Smoking Status: Never smoker Past Alcohol Use History: Occasional Past Drug Use History: Marijuana - Past Family History Father Family Medical History: Cancer Additional Family Medical History / Comment(s): Father of pancreatic cancer at age 65yrs. Mother Family Medical History: Cancer Additional Family Medical History / Comment(s): Mother of uterine cancer in her 60's. General Exam Limitations: no limitations, physical limitation General appearance: alert, in no apparent distress Head exam: Present: atraumatic, normocephalic, normal inspection Eye exam: Present: normal appearance, PERRL, EOMI. Absent: scleral icterus, conjunctival injection, periorbital swelling ENT exam: Present: normal exam, mucous membranes moist Neck exam: Present: normal inspection Respiratory exam: Present: normal lung sounds bilaterally. Absent: respiratory distress, wheezes, rales, rhonchi, stridor Cardiovascular Exam: Present: regular rate, normal rhythm, normal heart sounds. Absent: systolic murmur, diastolic murmur, rubs, gallop, clicks GI/Abdominal exam: Present: soft, tenderness (Mild generalized throughout), normal bowel sounds. Absent: distended, guarding, rebound, rigid Extremities exam: Present: normal inspection, full ROM, normal capillary refill. Absent: tenderness, pedal edema, joint swelling, calf tenderness Neurological exam: Present: alert, oriented X3 Psychiatric exam: Present: normal affect, normal mood Skin exam: Present: warm, dry, intact, normal color. Absent: rash Course Vital Signs 08/20/21 08/20/21 10:13 11:32 Temperature 97.5 F L Pulse Rate 96 78 Respiratory 18 18 Rate Blood Pressure 124/84 154/89 O2 Sat by Pulse 100 99 Oximetry Medical Decision Making - Medical Decision Making 56 she'll female complaining of abdominal discomfort and pain. Labs, KUB, 1 L normal saline, 4 mg of morphine ordered. Labs unremarkable. KUB shows ileus Dr. Clayton was contacted and evaluated the patient herself and wants patient admitted to her. Case discussed with Dr. Linton, patient will be admitted. - Lab Data Result diagrams: 08/20/21 10:59 08/20/21 10:59 Lab Results 08/20/21 08/20/21 Range/Units 10:59 10:59 WBC 5.6 (3.8-10.6) k/uL RBC 4.33 (3.80-5.40) m/uL Hgb 14.1 (11.4-16.0) gm/dL Hct 41.3 (34.0-46.0) % MCV 95.3 (80.0-100.0) fL MCH 32.7 (25.0-35.0) pg MCHC 34.3 (31.0-37.0) g/dL RDW 14.9 (11.5-15.5) % Plt Count 516 H (150-450) k/uL MPV 7.6 Neutrophils % 71 % Lymphocytes % 19 % Monocytes % 7 % Eosinophils % 0 % Basophils % 0 % Neutrophils # 4.0 (1.3-7.7) k/uL Lymphocytes # 1.1 (1.0-4.8) k/uL Monocytes # 0.4 (0-1.0) k/uL Eosinophils # 0.0 (0-0.7) k/uL Basophils # 0.0 (0-0.2) k/uL Sodium 137 (137-145) mmol/L Potassium 3.5 (3.5-5.1) mmol/L Chloride 101 (98-107) mmol/L Carbon Dioxide 19 L (22-30) mmol/L Anion Gap 17 mmol/L BUN 13 (7-17) mg/dL Creatinine 0.63 (0.52-1.04) mg/dL Est GFR (CKD-EPI)AfAm >90 (>60 ml/min/1.73 sqM) Est GFR (CKD-EPI)NonAf >90 (>60 ml/min/1.73 sqM) Glucose 119 H (74-99) mg/dL Calcium 9.9 (8.4-10.2) mg/dL Total Bilirubin 1.0 (0.2-1.3) mg/dL AST 24 (14-36) U/L ALT 19 (4-34) U/L Alkaline Phosphatase 109 (38-126) U/L Total Protein 7.5 (6.3-8.2) g/dL Albumin 4.2 (3.5-5.0) g/dL - Radiology Data Radiology results: report reviewed, image reviewed KUB: Air-fluid levels dropped left-sided: Also within lower abdominal small bowel loops. Some small bowel loops of dilated up to 3.4 cm. The overall pattern suggested generalized ileus or enteritis rather than small bowel obstruction at this time. Disposition Clinical Impression: Abdominal pain Disposition: ADMITTED IP TO THIS HOSP Condition: Stable Referrals: Dania Heard MD [Primary Care Provider] - 1-2 days Time of Disposition: 12:57
--- NOTE | 2021-08-20 12:59 | P.GSHP ---
History of Present Illness H&P Date: 08/20/21 CHIEF COMPLAINT: Small bowel obstruction with abdominal pain HISTORY OF PRESENT ILLNESS: Luz Brand is a 56-year-old female 2 weeks out from robotic right colectomy for cecal volvulus. She reports intense 10/10 lower abdominal including right lower quadrant abdominal pain. She reports inability to pass flatus. She reports abdominal distention. She was doing well from her surgery up until the last 3-4 days ago. She reported eructation. She reports her pain is so severe she is unable to move or walk. Her history is also significant for gastric bypass. She presents to the emergency room due to severe abdominal pain. PAST MEDICAL HISTORY: 1. Morbid obesity due to excess calories 2. Body mass index 49.5, initial 3. Gastroesophageal reflux disease 4. Gastric ulcers 5. Bipolar disorder 6. Panniculitis PAST SURGICAL HISTORY: 1. Gastric bypass, 1994 2. Ventral hernia repair with seroma 3. Cholecystectomy 4. Colectomy HOME MEDICATIONS: Home Medications Medication Instructions Recorded Confirmed Multivitamins, Thera [Multivitamin 1 tab PO DAILY 01/27/21 01/27/21 (formulary)] Previous Rx's Medication Instructions Recorded Simethicone [Gas-X] 125 mg PO AC-TID PRN #20 capsule 01/15/21 Nystatin 100,000 Unit/gm Powd 1 applic TOPICAL BID #60 powder 01/19/21 [Mycostatin Powder] Calcium Carbonate/Vitamin D3 2 each PO DAILY #60 tab.chew 01/27/21 [Calcium 500 mg Chewable Tablet] Cyanocobalamin (Vitamin B-12) 5,000 mcg PO DAILY #30 tab.rapdis 01/27/21 [Vitamin B12] Ergocalciferol [Vitamin D2 (1250 1,250 mcg PO WEEKLY #20 cap 01/27/21 Mcg = 63656 Iu)] Vitamin A 8,000 unit PO DAILY #30 capsule 01/27/21 ALLERGIES: Allergies Allergy/AdvReac Type Severity Reaction Status Date / Time hydrocodone [From [place]] AdvReac Itching Verified 01/27/21 13:40 SOCIAL HISTORY: Takes marijuana FAMILY HISTORY: No family history of ulcerative colitis disease or Crohn's disease. Family history of morbid obesity. No lupus in the family. No reports of stomach or esophageal cancer. Pancreatic and uterine cancer. REVIEW OF ORGAN SYSTEMS: CONSTITUTIONAL: At height of 5 feet 5 inches, her ideal body weight is 149 poun ds. Her highest weight was 297 pounds, BMI 49.5. She comes in 203 pounds, BMI 33.8. Lifetime weight loss is 94 pounds. She is 54 pounds overweight. HEENT: Denies any active troubles with vision or hearing. ENDOCRINE: Denies diabetes. No hypothyroidism. CARDIOVASCULAR: Denies past reports of palpitations or heart attacks or chest pain. Denies hypertensive heart disease. RESPIRATORY: Denies daytime somnolence. Denies asthma. Denies chronic obstructive pulmonary disease. GASTROINTESTINAL: Change in bowel habits. GENITOURINARY: Denies bladder urgency. No recent blood in urine MUSCULOSKELETAL: Has lower back pain and joint pain. NEURO: No headaches. No seizure disorders. Has neuropathy. PSYCH: Denies depression. No suicidal ideation. RHEUMATOLOGIC: No lupus. No rheumatoid arthritis. HEMATOLOGIC: Denies any abnormal bleeding or bruising. SKIN: Has rash. No skin cancer. PHYSICAL EXAM: VITAL SIGNS: Reviewed GENERAL: Well-developed in no acute distress. HEENT: No scleral icterus. Extraocular movements grossly intact. Hears conversational speech. No nasal drainage. NECK: Supple without lymphadenopathy. CHEST: Nonlabored respirations with equal bilateral excursions. CARDIOVASCULAR: Regular rate and regular rhythm. Distal 2+ pulses. ABDOMEN: Tender lower abdomen including right lower quadrant with peritonitis. MUSCULOSKELETAL: No clubbing, cyanosis. Redundant skin of the thighs. NEURO: No focal or lateralizing signs. Cranial nerves 2 through 12 grossly within normal limits. PSYCH: Appropriate affect. Alert and oriented to person, place and time. SKIN: Good skin turgor. Well perfused. LABS: Reviewed STUDIES: Abdominal x-ray revealed without air. Multiple air fluid levels identified. This is my independent interpretation. ASSESSMENT: 1. Peritonitis with small bowel obstruction 2. History of gastric bypass 3. Dehydration PLAN: 1. Urgent exploratory laparotomy with robotic lysis of adhesions possible open 2. Admission inpatient >2 nights described. 3. IV fluid hydration 4. DVT prophylaxis Past Medical History Past Medical History: GERD/Reflux Additional Past Medical History / Comment(s): HX Gastric ulcer History of Any Multi-Drug Resistant Organisms: None Reported Past Surgical History: Hernia Repair Additional Past Surgical History / Comment(s): gastric [id number] 1994, abdominal hernia with mesh and surgical site had to be drained 3 times post op, BOWEL RESENTION AUG 2021 Past Anesthesia/Blood Transfusion Reactions: No Reported Reaction, Motion Sickness Additional Past Anesthesia/Blood Transfusion Reaction / Comment(s): Pt has never received blood. Past Psychological History: Bipolar Smoking Status: Never smoker Past Alcohol Use History: Occasional Past Drug Use History: Marijuana - Past Family History Father Family Medical History: Cancer Additional Family Medical History / Comment(s): Father of pancreatic cancer at age 65yrs. Mother Family Medical History: Cancer Additional Family Medical History / Comment(s): Mother of uterine cancer in her 60's. Medications and Allergies Home Medications Medication Instructions Recorded Confirmed Type Multivitamins, Thera [Multivitamin 1 tab PO DAILY 01/27/21 08/20/21 History (formulary)] Baclofen 10 mg PO TID PRN 04/08/21 08/20/21 History Calcium Carb/Vitamin D3/Vit K1 1 tab PO DAILY 08/02/21 08/20/21 History [Calcium-Vit D3-K1 650 mg Chew] Acetaminophen-Codeine 300-30mg 1 tab PO Q6H PRN 3 Days #12 tablet 08/15/21 08/20/21 Rx [Tylenol w/codeine #3] Acetaminophen [Tylenol Extra 1,000 mg PO Q6H PRN 08/20/21 08/20/21 History Strength] Simethicone [Gas-X] 125 mg PO ACHS PRN 08/20/21 08/20/21 History Allergies Allergy/AdvReac Type Severity Reaction Status Date / Time hydrocodone [From [place]] AdvReac Itching,hiv Verified 08/20/21 11:14 es Surgical - Exam Vital Signs Temp Pulse Resp BP Pulse Ox 97.5 F L 96 18 124/84 100 08/20/21 10:13 08/20/21 10:13 08/20/21 10:13 08/20/21 10:13 08/20/21 10:13 Results - Labs 08/20/21 10:59 08/20/21 10:59 Abnormal Lab Results - Last 24 Hours (Table) 08/20/21 08/20/21 Range/Units 10:59 10:59 Plt Count 516 H (150-450) k/uL Carbon Dioxide 19 L (22-30) mmol/L Glucose 119 H (74-99) mg/dL Diabetes panel 08/20/21 Range/Units 10:59 Sodium 137 (137-145) mmol/L Potassium 3.5 (3.5-5.1) mmol/L Chloride 101 (98-107) mmol/L Carbon Dioxide 19 L (22-30) mmol/L BUN 13 (7-17) mg/dL Creatinine 0.63 (0.52-1.04) mg/dL Glucose 119 H (74-99) mg/dL Calcium 9.9 (8.4-10.2) mg/dL AST 24 (14-36) U/L ALT 19 (4-34) U/L Alkaline Phosphatase 109 (38-126) U/L Total Protein 7.5 (6.3-8.2) g/dL Albumin 4.2 (3.5-5.0) g/dL Calcium panel 08/20/21 Range/Units 10:59 Calcium 9.9 (8.4-10.2) mg/dL Albumin 4.2 (3.5-5.0) g/dL Pituitary panel 08/20/21 Range/Units 10:59 Sodium 137 (137-145) mmol/L Potassium 3.5 (3.5-5.1) mmol/L Chloride 101 (98-107) mmol/L Carbon Dioxide 19 L (22-30) mmol/L BUN 13 (7-17) mg/dL Creatinine 0.63 (0.52-1.04) mg/dL Glucose 119 H (74-99) mg/dL Calcium 9.9 (8.4-10.2) mg/dL Adrenal panel 08/20/21 Range/Units 10:59 Sodium 137 (137-145) mmol/L Potassium 3.5 (3.5-5.1) mmol/L Chloride 101 (98-107) mmol/L Carbon Dioxide 19 L (22-30) mmol/L BUN 13 (7-17) mg/dL Creatinine 0.63 (0.52-1.04) mg/dL Glucose 119 H (74-99) mg/dL Calcium 9.9 (8.4-10.2) mg/dL Total Bilirubin 1.0 (0.2-1.3) mg/dL AST 24 (14-36) U/L ALT 19 (4-34) U/L Alkaline Phosphatase 109 (38-126) U/L Total Protein 7.5 (6.3-8.2) g/dL Albumin 4.2 (3.5-5.0) g/dL Assessment and Plan (1) Small bowel obstruction due to adhesions Current Visit: Yes Status: Acute Code(s): K56.50 - INTESTNL ADHESIONS, UNSP TO PARTIAL VERSUS COMPLETE OBST SNOMED Code(s): 266906627 (2) Small bowel obstruction Current Visit: Yes Status: Acute Code(s): K56.609 - UNSP INTESTNL OBST, UNSP TO PARTIAL VERSUS COMPLETE OBST SNOMED Code(s): 978762523
[2021-08-20] MEDS ORDERED: SCOPOLAMINE 1.5MG/72HR PATCH TRANSDERM ONE (13:15)
[2021-08-20] MEDS ORDERED: LACTATED RINGERS 1,000 ML IV ONE ×4 (15:14→19:33)
[2021-08-20] MEDS ORDERED: LIDOCAINE 1% INJ 10MG/ML (20 ML MDV) SQ ONE (15:50)
[2021-08-20] MEDS ORDERED: NALOXONE 0.4 MG/ML 1 ML VIAL IV PRN (17:32)
[2021-08-20] MEDS ORDERED: METOCLOPRAMIDE 5 MG/ML 2 ML VIAL IVP PRN (17:32)
[2021-08-20] MEDS ORDERED: HYDROmorphone 0.5 MG/0.5 ML SYRINGE IVP ONE ×2 (17:56→18:35)
[2021-08-20] MEDS ORDERED: ACETAMINOPHEN IV (For NPO) 1,000 MG/100 ML VIAL IVPB ONE (18:00)
[2021-08-20] MEDS: ACETAMINOPHEN IV (For NPO) 1,000 MG in EMPTY BAG 1 BAG IVPB SCH (18:01)
--- NOTE | 2021-08-20 18:06 | P.OP ---
Date of Procedure: 08/20/21 Description of Procedure: SURGEON: JOHN STEWART MD PREOPERATIVE DIAGNOSES: 1. Peritonitis 2. History of bowel obstruction 3. Status post colectomy for cecal volvulus 4. History of gastric bypass 5. Obesity, BMI 30.4 POSTOPERATIVE DIAGNOSES: 1. Peritonitis 2. History of bowel obstruction 3. Status post colectomy for cecal volvulus 4. History of gastric bypass 5. Obesity, BMI 30.4 6. Severe peritoneal adhesions OPERATION: 1. Robotic-assisted da Maddy Xi laparoscopic with extensive lysis of adhesions over 1 hr 2. Repair of small bowel defect ESTIMATED BLOOD LOSS: 5 mL. SPECIMENS REMOVED: None. COMPLICATIONS: None. OPERATIVE FINDINGS: 1. Severe peritoneal adhesions involving the right lower quadrant, right upper quadrant and epigastrium 2. No internal hernias identified. 3. Long mesentery of the small bowel 4. Localized interloop fibrinous exudate at ileocecal anastomosis with small bowel defect 3 mm oversewn INDICATIONS: The patient is a 56-year-old female who presented to the emergency room after developing right upper quadrant, lower quadrant abdominal pain last 3-4 days after emergent colectomy for cecal volvulus over 2 weeks ago. She presented with severe acute abdominal pain. Emergent surgical intervention was described. Informed consent was obtained. Robotic assisted laparoscopic approach was described. Benefits and risks of the procedure including but not limited to bleeding, infection, injury to the small bowel was described. I nformed consent was obtained. DESCRIPTION OF PROCEDURE: Patient was brought to the operating room, placed in supine position. After general induction, the abdomen had been prepped and draped in standard sterile fashion. The robotic da Maddy XI system was primed. After a timeout protocol was performed, the patient had been prepped and draped in standard sterile fashion. The robot was docked along the right lateral abdomen. The patient was repositioned in with right side up. Please note prior to docking of the robot; however, a 5 mm 0 degrees laparoscopic trocar entry was performed along the left upper quadrant. The abdomen was insufflated to 15 mmHg pressure which she tolerated well. Diagnostic laparoscopy was performed. Severe lower abdominal, right lower quadrant, epigastric adhesions were identified involving small bowel to the abdominal wall consistent with patient's location of pain. Next, three 8 mm robotic ports were placed along the left lateral abdominal wall along her prior incisions. The camera 8-mm port was maintained along mid-lateral abdomen. Please note that the ports were placed at least 10 to 15 cm away from the target anatomy. Instruments including graspers and vessel sealer were interchanged by the assistant general manager. I had sat at the console. Previous old ventral hernia of the epigastrium was confirmed with [place]-Varinder mesh with moderate adhesions involving the transverse colon undisturbed. Adhesions along the lower abdomen including right lower quadrant were bluntly dissected consistent applications upper pain. No sigmoid volvulus was identified. No recurrent cecal volvulus was found. Adhesions were carefully dissected free including interloop adhesions. At the seat of her ileocecal anastomosis, fibrinous exudate was identified. A small 3 mm defect of the small bowel was identified and oversewn using 3-0 silk. The abdomen was irrigated with normal saline. Hemostasis was checked. The small bowel from the ileocecal anastomosis was investigated to the jejunojejunostomy which was retrocolic. The mesentery was long with risk of small bowel volvulus. The small bowel was viable. All adhesions were addressed. No internal hernias were identified. Extensive lysis of adhesions over 1 hour was performed. The robot was undocked. A round #19 LNADON drain was placed at the anastomosis and small bowel repair and brought out through the left upper quadrant trocar. 2-0 nylon drain stitch was placed. The drains attached to bulb suction. Aerobic and anaerobic cultures of peritoneal fluid was obtained. All pneumoperitoneum instruments were evacuated from the abdominal cavity. The incisions were reapproximated using 4-0 Monocryl in an interrupted subcuticular fashion. Please note along the trocar sites, local anesthetic was placed as a field block prior to insertion of all instruments. Exofin was applied to the skin. At the end of the procedure needle, sponge, and instrument count had been verified correct by the maintenance department technician. The patient was transferred to postanesthesia care unit in stable condition. Intraoperative findings were discussed with the patient including her sister Valentina over the phone.
[2021-08-20] MEDS ORDERED: KETOROLAC 15 MG/ML 1 ML VIAL IVP ONE (18:40)
[2021-08-20] MEDS: D5-0.45% NACL WITH KCL 20MEQ/L 1,000 ML IV SCH (22:02)
[2021-08-20] MEDS: KETOROLAC 30 MG/ML 1 ML VIAL IVP SCH (22:02)
[2021-08-21] MEDS: D5-0.45% NACL WITH KCL 20MEQ/L 1,000 ML IV SCH ×3 (01:15→21:21)
[2021-08-21] MEDS: ACETAMINOPHEN IV (For NPO) 1,000 MG in EMPTY BAG 1 BAG IVPB SCH ×3 (01:15→12:26)
[2021-08-21] MEDS: KETOROLAC 30 MG/ML 1 ML VIAL IVP SCH ×4 (01:16→18:27)
[2021-08-21] MEDS: ONDANSETRON 4 MG/2 ML VIAL IVP PRN ×2 (01:28→10:40)
[2021-08-21] MEDS: ENOXAPARIN 30 MG/0.3 ML SYRINGE SQ SCH (09:38)
[2021-08-21] MEDS: PANTOPRAZOLE 40 MG/10 ML VIAL IV SCH (09:38)
[2021-08-21] MEDS: HYDROmorphone 1 MG/ML 1 ML SYRINGE IVP PRN ×2 (10:38→21:27)
--- NOTE | 2021-08-21 11:02 | P.PN ---
Progress Note - Text Progress Note Date: 08/21/21 Patient states she feels well. She did have nausea this morning with her clear liquids. She had limited amounts. On exam vital signs are stable. Abdomen soft. Incision is clean dry intact. Status post laparoscopic lysis of adhesions. Patient will remain on clear liquid diet.
[2021-08-21 11:31] LABS: Basophils # (A) 0.01 X 10*3/uL (0.00-0.10); Basophils % (A) 0.1 %; Eosinophils # (A) 0 X 10*3/uL (0.04-0.35); Eosinophils % (A) 0 %; HCT 33.9 % (37.2-46.3); HGB 11.1 g/dL (12.0-15.0); Lymphocytes # (A) 1.32 X 10*3/uL (0.90-5.00); Lymphocytes % (A) 15.4 %; MCH 30.5 pg (27.0-32.0); MCHC 32.7 g/dL (32.0-37.0); MCV 93.1 fL (80.0-97.0); Mean Platelet Volume 9.7 fL (9.5-12.2); Monocytes # (A) 0.87 X 10*3/uL (0.20-1.00); Monocytes % (A) 10.2 %; Neutrophils # (A) 6.34 X 10*3/uL (1.80-7.70); Neutrophils % (A) 73.9 %; Platelet Count 432 X 10*3/uL (140-440); RBC 3.64 X 10*6/uL (4.10-5.20); RDW 14.4 % (11.5-14.5); WBC 8.57 X 10*3/uL (4.50-10.00)
[2021-08-22] MEDS: KETOROLAC 30 MG/ML 1 ML VIAL IVP SCH ×3 (00:57→12:58)
[2021-08-22] MEDS: HYDROmorphone 1 MG/ML 1 ML SYRINGE IVP PRN ×2 (04:51→09:31)
[2021-08-22] MEDS: D5-0.45% NACL WITH KCL 20MEQ/L 1,000 ML IV SCH ×2 (04:52→16:20)
[2021-08-22] MEDS: ENOXAPARIN 30 MG/0.3 ML SYRINGE SQ SCH (09:31)
[2021-08-22] MEDS: PANTOPRAZOLE 40 MG/10 ML VIAL IV SCH (09:31)
[2021-08-22] MEDS: ONDANSETRON 4 MG/2 ML VIAL IVP PRN (09:31)
--- NOTE | 2021-08-22 12:47 | P.PN ---
Progress Note - Text Progress Note Date: 08/22/21 Patient's complaints of severe nausea when drinking. She states she only tolerated a few sips she feels that she has to throw up. On exam vital signs are stable. Abdomen soft. His incisions are clean and intact. Status post lysis of adhesions. Patient may have ileus or continue obstruction. She was instructed to only drinks small sips of water today. She'll be reevaluated by Dr. German in the morning.
[2021-08-23] MEDS: HYDROmorphone 1 MG/ML 1 ML SYRINGE IVP PRN ×4 (00:45→18:10)
[2021-08-23] MEDS: D5-0.45% NACL WITH KCL 20MEQ/L 1,000 ML IV SCH (00:46)
[2021-08-23 08:13] LABS: Basophils % (A) 0 %; Eosinophils # (A) 0.3 k/uL (0-0.7); Eosinophils % (A) 5 %; HCT 38.4 % (34.0-46.0); HGB 12.7 gm/dL (11.4-16.0); Lymphocytes % (A) 17 %; MCH 31.7 pg (25.0-35.0); MCV 95.9 fL (80.0-100.0); Monocytes # (A) 0.4 k/uL (0-1.0); Monocytes % (A) 6 %; Neutrophils # (A) 4.4 k/uL (1.3-7.7); Neutrophils % (A) 70 %; Platelet Count 420 k/uL (150-450); RDW 14.9 % (11.5-15.5); WBC 6.3 k/uL (3.8-10.6)
[2021-08-23 08:27] LABS: ALT 13 U/L (4-34); AST 21 U/L (14-36); African American GFR (CKD) >90 (>60 ml/min/1.73 sqM); Alkaline Phosphatase 74 U/L (38-126); Anion Gap 5 mmol/L; Blood Urea Nitrogen 8 mg/dL (7-17); Calcium 8.7 mg/dL (8.4-10.2); Carbon Dioxide 29 mmol/L (22-30); Chloride 101 mmol/L (98-107); Globulin 3.1 g/dL; Glucose 132 mg/dL (74-99); Non-African American GFR(CKD) >90 (>60 ml/min/1.73 sqM); Potassium 4.2 mmol/L (3.5-5.1); Sodium 135 mmol/L (137-145); Total Bilirubin 0.8 mg/dL (0.2-1.3); Total Protein 6.1 g/dL (6.3-8.2)
[2021-08-23] MEDS: ONDANSETRON 4 MG/2 ML VIAL IVP PRN ×2 (08:28→13:57)
[2021-08-23] MEDS: ENOXAPARIN 30 MG/0.3 ML SYRINGE SQ SCH (08:29)
[2021-08-23] MEDS: PANTOPRAZOLE 40 MG/10 ML VIAL IV SCH (08:29)
[2021-08-23] MEDS ORDERED: SCOPOLAMINE 1.5MG/72HR PATCH TRANSDERM STA (09:02)
--- NOTE | 2021-08-23 09:06 | P.PN ---
Subjective Progress Note Date: 08/23/21 CHIEF COMPLAINT: Small bowel obstruction with abdominal pain HISTORY OF PRESENT ILLNESS: Luz Brand is a 56-year-old female status post right hemicolectomy 3 weeks ago for cecal volvulus who presents to the hospital 3 days ago for new onset lower abdominal pain. She is status post lysis of adhesions. She reports her initial lower abdominal and right lower quadrant abdominal pain is now resolved. Her discomfort is primarily of the epigastrium. "I feel like gas is to come up.". She has intolerance to flavored beverages. She has history of gastric bypass. She still reports place of 9-10 out of 10 pain. REVIEW OF ORGAN SYSTEMS: No fevers or chills. No chest pain. PHYSICAL EXAM: VITAL SIGNS: Reviewed GENERAL: Well-developed in no acute distress. HEENT: No scleral icterus. Extraocular movements grossly intact. Hears conversational speech. No nasal drainage. NECK: Supple without lymphadenopathy. CHEST: Nonlabored respirations with equal bilateral excursions. CARDIOVASCULAR: Regular rate and regular rhythm. Distal 2+ pulses. ABDOMEN: No peritonitis. LANDON serosanguineous. MUSCULOSKELETAL: No clubbing, cyanosis. Redundant skin of the thighs. NEURO: No focal or lateralizing signs. Cranial nerves 2 through 12 grossly within normal limits. PSYCH: Appropriate affect. Alert and oriented to person, place and time. SKIN: Good skin turgor. Well perfused. LABS: Reviewed. WBC normal. ASSESSMENT: 1. Small bowel obstruction due to adhesions. PLAN: 1. Recommend small bowel follow through for history of bowel obstruction. 2. Dietitian consult for history of gastric bypass a limited food palate. Objective - Vital Signs Vital signs: Vital Signs Temp 98.5 F 08/23/21 08:00 Pulse 71 08/23/21 08:00 Resp 17 08/23/21 08:00 BP 144/85 08/23/21 08:00 Pulse Ox 98 08/23/21 08:00 Intake & Output 08/22/21 08/23/21 08/23/21 18:59 06:59 18:59 Output Total 70 110 Balance -70 -110 Output: Drainage 70 110 Left Lower Abdomen 70 110 Other: # Voids 3 - Labs CBC & Chem 7: 08/23/21 07:46 08/23/21 07:46 Labs: Abnormal Lab Results - Last 24 Hours (Table) 08/23/21 Range/Units 07:46 Sodium 135 L (137-145) mmol/L Creatinine 0.49 L (0.52-1.04) mg/dL Glucose 132 H (74-99) mg/dL Total Protein 6.1 L (6.3-8.2) g/dL Albumin 3.0 L (3.5-5.0) g/dL Microbiology - Last 24 Hours (Table) 08/20/21 17:11 Gram Stain - Preliminary Abdomen Wound Culture - Preliminary Gram Neg Bacilli Assessment and Plan (1) Small bowel obstruction due to adhesions Current Visit: Yes Status: Acute Code(s): K56.50 - INTESTNL ADHESIONS, UNSP TO PARTIAL VERSUS COMPLETE OBST SNOMED Code(s): 882689083 (2) Small bowel obstruction Current Visit: Yes Status: Acute Code(s): K56.609 - UNSP INTESTNL OBST, UNSP TO PARTIAL VERSUS COMPLETE OBST SNOMED Code(s): 827477842
[2021-08-23] MEDS: METOCLOPRAMIDE 5 MG/ML 2 ML VIAL IVP SCH ×2 (11:33→18:07)
[2021-08-23 11:50] VITALS: BMI 30.4
--- NOTE | 2021-08-23 16:08 | FL ---
EXAMINATION TYPE: FL small bowel follow through DATE OF EXAM: 08/23/2021 CLINICAL HISTORY: Recent lysis of adhesions 3 days ago with persistent pain TECHNIQUE: A single contrast small bowel follow through is performed utilizing barium. 16 seconds of fluoro time and 10 images obtained. COMPARISON: CT abdomen pelvis 1 week ago. Abdominal x-ray 7 days ago. FINDINGS: Developer Advocate image of the abdomen shows persistent nonspecific bowel gas pattern. There is new pe rcutaneous drainage catheter terminating in right pelvis. Surgical sutures right lower quadrant and p quiana redemonstrated. Surgical sutures left mid abdomen redemonstrated. The small bowel study shows mild delay transit to the colon in less than 240 minutes. There are some prominent small bowel loops scattered throughout the abdomen and pelvis. The new anastomosis small b owel to colon right lower quadrant appears patent. Additional surgical clips epigastric region from g astric bypass redemonstrated. Underlying scoliotic curvature with multilevel spurring and disc space narrowing in the spine. IMPRESSION: Mild delay in transit to colon. No recurrent obstruction.
[2021-08-24] MEDS: ACETAMINOPHEN IV (For NPO) 1,000 MG in EMPTY BAG 1 BAG IVPB SCH ×3 (00:08→12:44)
[2021-08-24] MEDS: KETOROLAC 30 MG/ML 1 ML VIAL IVP SCH ×3 (00:08→12:49)
[2021-08-24] MEDS: METOCLOPRAMIDE 5 MG/ML 2 ML VIAL IVP SCH ×3 (00:08→12:48)
[2021-08-24 03:35] VITALS: TEMP 98.9
[2021-08-24 07:20] VITALS: BP 145/78; PULSE 72; RESP 18
[2021-08-24] MEDS: PANTOPRAZOLE 40 MG/10 ML VIAL IV SCH (09:21)
[2021-08-24] MEDS: SIMETHICONE 40 MG/0.6 ML DROPS 2,000 MG/30 ML BOTTLE PO SCH ×2 (09:21→12:49)
[2021-08-24] MEDS: ENOXAPARIN 30 MG/0.3 ML SYRINGE SQ SCH (09:21)
[2021-08-24] MEDS: HYDROmorphone 1 MG/ML 1 ML SYRINGE IVP PRN (09:29)
--- NOTE | 2021-08-24 09:38 | P.DS ---
Providers Date of admission: 08/20/21 12:49 Expected date of discharge: 08/24/21 Attending physician: Dariela Clayton Primary care physician: Dania Heard MD Hospital Course: Postoperative Diagnosis: 1. Small bowel obstruction due to adhesions 2. 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 Patient is status post lysis of adhesions and repair of a small bowel defect. The patient reports she is feeling better. She is tolerating her clear liquids. She underwent small bowel follow-through that shows mild delay in transit to colon however no recurrent obstruction seen. Today patient is passing gas and small amount of liquid stool. Patient being increased to a low fiber diet for lunch. She's been afebrile. Procedures: Procedure performed: 1. Robotic-assisted da Maddy Xi laparoscopic with extensive lysis of adhesions over 1 hr 2. Repair of small bowel defect ESTIMATED BLOOD LOSS: 5 mL. SPECIMENS REMOVED: None. COMPLICATIONS: None. OPERATIVE FINDINGS: 1. Severe peritoneal adhesions involving the right lower quadrant, right upper quadrant and epigastrium 2. No internal hernias identified. 3. Long mesentery of the small bowel 4. Localized interloop fibrinous exudate at ileocecal anastomosis with small bowel defect 3 mm oversewn Patient Condition at Discharge: Good Plan - Discharge Summary Discharge Rx Participant: No New Discharge Prescriptions: No Action Baclofen 10 mg PO TID PRN PRN Reason: Pain Multivitamins, Thera [Multivitamin (formulary)] 1 tab PO DAILY Calcium Carb/Vitamin D3/Vit K1 [Calcium-Vit D3-K1 650 mg Chew] 1 tab PO DAILY Acetaminophen-Codeine 300-30mg [Tylenol w/codeine #3] 1 tab PO Q6H PRN 3 Days #12 tablet PRN Reason: Pain Acetaminophen [Tylenol Extra Strength] 1,000 mg PO Q6H PRN PRN Reason: Pain Simethicone [Gas-X] 125 mg PO ACHS PRN PRN Reason: Indigestion Discharge Medication List Multivitamins, Thera [Multivitamin (formulary)] 1 tab PO DAILY 01/27/21 [History] Baclofen 10 mg PO TID PRN 04/08/21 [History] Calcium Carb/Vitamin D3/Vit K1 [Calcium-Vit D3-K1 650 mg Chew] 1 tab PO DAILY 08/02/21 [History] Acetaminophen-Codeine 300-30mg [Tylenol w/codeine #3] 1 tab PO Q6H PRN 3 Days #12 tablet 08/15/21 [Rx] Acetaminophen [Tylenol Extra Strength] 1,000 mg PO Q6H PRN 08/20/21 [History] Simethicone [Gas-X] 125 mg PO ACHS PRN 08/20/21 [History] Follow up Appointment(s)/Referral(s): Dania Heard MD [Primary Care Provider] - 1-2 days Dariela Clayton MD [STAFF PHYSICIAN] - 08/31/21 Patient Instructions/Handouts: Lysis of Abdominal Adhesions (DC), Bowel Obstruction (DC) Activity/Diet/Wound Care/Special Instructions: NO LIFTING OVER 10 POUNDS FOR 2 WEEKS. May shower. NO TUB BATHS for at least two weeks. Continue Low Fiber Diet Discharge Disposition: HOME SELF-CARE
== END 2021-08-24 13:17 | disposition home or self-care (01) | DRG 329 ==
LOC: EC 10:07 → 4SSUR 12:49
PROVIDERS: ADMIT Surgery Plastic and Reconstructive Surgery; ATTEND Surgery Plastic and Reconstructive Surgery
PROC: 0DQ84ZZ Repair Small Intestine, Percutaneous Endoscopic Approach (ICD-10-PCS; 2021-08-20)
PROC: 8E0W4CZ Robotic Assisted Procedure of Trunk Region, Percutaneous Endoscopic Approach (ICD-10-PCS; 2021-08-20)
PROC: 0DNW4ZZ Release Peritoneum, Percutaneous Endoscopic Approach (ICD-10-PCS; principal; 2021-08-20 13:15)
DX: K56.50 Intestinal adhesions [bands], unspecified as to partial versus complete obstruction (principal); K65.9 Peritonitis, unspecified; E66.9 Obesity, unspecified; Z20.822 Contact with and (suspected) exposure to COVID-19; E86.0 Dehydration; K21.9 Gastro-esophageal reflux disease without esophagitis; R11.0 Nausea; F31.9 Bipolar disorder, unspecified; K56.7 Ileus, unspecified; Z68.30 Body mass index [BMI] 30.0-30.9, adult; Z87.11 Personal history of peptic ulcer disease; Z90.49 Acquired absence of other specified parts of digestive tract; Z98.84 Bariatric surgery status; Z88.5 Allergy status to narcotic agent; Z87.19 Personal history of other diseases of the digestive system
CPT/HCPCS: 36415; 74018; 74250; 80053; 85025; 87070; 87075; 87077; 87186; 87205; 87635; 96361; 96374; 96375; 99285

== ENCOUNTER 2021-08-29 14:38 | Observation (INO) | payer OTHER ==
[2021-08-29] MEDS ORDERED: HYDROmorphone 0.5 MG/0.5 ML SYRINGE IVP STA ×2 (16:46→20:45)
[2021-08-29] MEDS ORDERED: SODIUM CHLORIDE 0.9% 1,000 ML IV STA ×2 (16:46→18:04)
[2021-08-29] MEDS ORDERED: ONDANSETRON 4 MG/2 ML VIAL IVP STA (16:46)
--- NOTE | 2021-08-29 16:48 | ED ---
General Adult HPI - General Chief complaint: Abdominal Pain Stated complaint: Stomach pain and nausea Time Seen by Provider: 08/29/21 16:20 Source: patient, RN notes reviewed Mode of arrival: wheelchair Limitations: no limitations - History of Present Illness Initial comments: 56-year-old female presents to the emergency Department with complaints of poor oral intake and abdominal pain. Patient states she has had 2 abdominal surgeries in the last 3 weeks and currently has a drain in. States she is unable to force herself to eat though is currently attempting to drink a ramirez slushy. Patient complains of generalized weakness and fatigue. States her abdomen is tender to the touch and has a tight feeling with position change. Reports taking a hot shower 3-4 times per day to help alleviate the discomfort. Did not take anything for pain prior to arrival. Denies fever, chills, headache, chest pain, vomiting, diarrhea, dysuria, or hematuria. - Related Data Home Medications Medication Instructions Recorded Confirmed Multivitamins, Thera [Multivitamin 1 tab PO DAILY 01/27/21 08/29/21 (formulary)] Baclofen 10 mg PO TID PRN 04/08/21 08/29/21 Calcium Carb/Vitamin D3/Vit K1 1 tab PO DAILY 08/02/21 08/29/21 [Calcium-Vit D3-K1 650 mg Chew] Acetaminophen [Tylenol Extra 1,000 mg PO Q6H PRN 08/20/21 08/29/21 Strength] Simethicone [Gas-X] 125 mg PO ACHS PRN 08/20/21 08/29/21 Bismuth Subsalicylate 262 mg PO DAILY PRN 08/29/21 08/29/21 [Pepto-Bismol] Previous Rx's Medication Instructions Recorded Acetaminophen-Codeine 300-30mg 1 tab PO Q6H PRN 3 Days #12 tablet 08/15/21 [Tylenol w/codeine #3] Allergies Allergy/AdvReac Type Severity Reaction Status Date / Time hydrocodone [From [place]] AdvReac Itching,hiv Verified 08/29/21 18:01 es Review of Systems ROS Statement: Those systems with pertinent positive or pertinent negative responses have been documented in the HPI. ROS Other: All systems not noted in ROS Statement are negative. Past Medical History Past Medical History: GERD/Reflux Additional Past Medical History / Comment(s): HX Gastric ulcer History of Any Multi-Drug Resistant Organisms: None Reported Past Surgical History: Hernia Repair Additional Past Surgical History / Comment(s): gastric [id number] 1994, abdominal hernia with mesh and surgical site had to be drained 3 times post op, BOWEL RESENTION AUG 2021 Past Anesthesia/Blood Transfusion Reactions: No Reported Reaction, Motion Sickness Additional Past Anesthesia/Blood Transfusion Reaction / Comment(s): Pt has never received blood. Past Psychological History: Bipolar Smoking Status: Never smoker Past Alcohol Use History: Occasional Past Drug Use History: Marijuana - Past Family History Father Family Medical History: Cancer Additional Family Medical History / Comment(s): Father of pancreatic cancer at age 65yrs. Mother Family Medical History: Cancer Additional Family Medical History / Comment(s): Mother of uterine cancer in her 60's. General Exam Limitations: no limitations (This is a well-developed female who is ill- appearing. Initial temperature 98.7, pulse 122, respirations 18, blood pressure 105/70, pulse ox 97% on room air.) General appearance: alert, in no apparent distress ENT exam: Present: mucous membranes dry Neck exam: Present: normal inspection. Absent: tenderness, meningismus, lymphadenopathy Respiratory exam: Present: normal lung sounds bilaterally. Absent: respiratory distress, wheezes, rales, rhonchi, stridor Cardiovascular Exam: Present: normal rhythm, tachycardia, normal heart sounds. Absent: systolic murmur, diastolic murmur, rubs, gallop, clicks Course Vital Signs 08/29/21 08/29/21 16:03 19:50 Temperature 98.7 F 98.5 F Pulse Rate 122 H 91 Respiratory 18 16 Rate Blood Pressure 105/70 113/71 O2 Sat by Pulse 97 96 Oximetry - Reevaluation(s) Reevaluation #1: Patient appears improved after 1 L of IV fluids and medications. PO challenge with Sprite and sherbet. Will replace potassium orally. Recheck vitals temperature 98.6, heart rate 85, respirations 18, SpO2 100% on room air. 08/29/21 18:22 08/29/21 19:30 Patient able to tolerate Sprite and sherbet without difficulty. Awaiting oral potassium. 08/29/21 20:45 Upon reassessment, patient is sitting up at the bedside hunched over complaining of abdominal pain. Requesting heat packs or warm blankets, which were provided. Pain medication was ordered. Patient is awaiting additional fluids and oral potassium. X-ray ordered as well. Medical Decision Making - Medical Decision Making 56-year-old female with a past medical history of extensive abdominal surgeries presents to the emergency department this evening for evaluation of poor oral intake and abdominal pain. Upon exam, patient is ill-appearing with dry mucous membranes and generalized weakness. Patient demonstrates moderate abdominal discomfort with position change. Surgical wound drain remains patent; incision sites appear well healed. Abdomen is soft. Patient is afebrile, but tachycardic upon arrival. She was given 2 L of IV fluids, pain medicine, and nausea medicine with modest improvement. Oral intake was strongly encouraged. Laboratory studies show patient is mildly dehydrated, urinalysis with 3+ ketones , and hypokalemic,potassium 3.1. Patient was able to tolerate oral supplementation. KUB X-ray is unremarkable. Results were reviewed with patient discussed admission versus discharge, patient prefers to stay overnight in the hospital. This patient's care was discussed with my attending Dr. Archer. Also spoke with Dr. Clayton who agrees to accept this admission. - Lab Data Result diagrams: 08/29/21 17:25 08/29/21 17:25 Lab Results 08/29/21 08/29/21 08/29/21 Range/Units 17:25 17:25 19:49 WBC 10.6 (3.8-10.6) k/uL RBC 4.38 (3.80-5.40) m/uL Hgb 13.5 (11.4-16.0) gm/dL Hct 40.8 (34.0-46.0) % MCV 93.1 (80.0-100.0) fL MCH 30.8 (25.0-35.0) pg MCHC 33.1 (31.0-37.0) g/dL RDW 14.1 (11.5-15.5) % Plt Count 489 H (150-450) k/uL MPV 7.1 Neutrophils % 75 % Lymphocytes % 15 % Monocytes % 6 % Eosinophils % 3 % Basophils % 0 % Neutrophils # 7.9 H (1.3-7.7) k/uL Lymphocytes # 1.6 (1.0-4.8) k/uL Monocytes # 0.6 (0-1.0) k/uL Eosinophils # 0.3 (0-0.7) k/uL Basophils # 0.0 (0-0.2) k/uL Sodium 135 L (137-145) mmol/L Potassium 3.1 L (3.5-5.1) mmol/L Chloride 99 (98-107) mmol/L Carbon Dioxide 27 (22-30) mmol/L Anion Gap 9 mmol/L BUN 11 (7-17) mg/dL Creatinine 0.55 (0.52-1.04) mg/dL Est GFR (CKD-EPI)AfAm >90 (>60 ml/min/1.73 sqM) Est GFR (CKD-EPI)NonAf >90 (>60 ml/min/1.73 sqM) Glucose 109 H (74-99) mg/dL Calcium 9.3 (8.4-10.2) mg/dL Total Bilirubin 0.5 (0.2-1.3) mg/dL AST 28 (14-36) U/L ALT 15 (4-34) U/L Alkaline Phosphatase 86 (38-126) U/L Total Protein 6.6 (6.3-8.2) g/dL Albumin 3.4 L (3.5-5.0) g/dL Urine Color Yellow Urine Appearance Cloudy H (Clear) Urine pH 6.0 (5.0-8.0) Ur Specific [place] 1.034 (1.001-1.035) Urine Protein 1+ H (Negative) Urine Glucose (UA) Negative (Negative) Urine Ketones 3+ H (Negative) Urine Blood Negative (Negative) Urine Nitrite Negative (Negative) Urine Bilirubin 1+ H (Negative) Urine Urobilinogen 4.0 (<2.0) mg/dL Ur Leukocyte Esterase Negative (Negative) Urine RBC 3 (0-5) /hpf Urine WBC 7 H (0-5) /hpf Ur Squamous Epith Cells <1 (0-4) /hpf Calcium Oxalate Crystal Many H (None) /hpf Urine Bacteria Rare H (None) /hpf Urine Mucus Few H (None) /hpf - Radiology Data Radiology results: report reviewed, image reviewed KUB x-ray was obtained. Report was reviewed in its entirety. Impression per Dr. Jarquin is nonacute abdomen. Disposition Clinical Impression: Hypokalemia, Dehydration, Abdominal pain Disposition: ADMITTED IP TO THIS [facility] Condition: Serious Decision Date: 08/29/21 Decision Time: 23:27
[2021-08-29 17:34] LABS: Basophils % (A) 0 %; Eosinophils # (A) 0.3 k/uL (0-0.7); Eosinophils % (A) 3 %; HCT 40.8 % (34.0-46.0); HGB 13.5 gm/dL (11.4-16.0); Lymphocytes # (A) 1.6 k/uL (1.0-4.8); Lymphocytes % (A) 15 %; MCH 30.8 pg (25.0-35.0); MCHC 33.1 g/dL (31.0-37.0); MCV 93.1 fL (80.0-100.0); Mean Platelet Volume 7.1; Monocytes # (A) 0.6 k/uL (0-1.0); Monocytes % (A) 6 %; Neutrophils # (A) 7.9 k/uL (1.3-7.7); Neutrophils % (A) 75 %; Platelet Count 489 k/uL (150-450); RBC 4.38 m/uL (3.80-5.40); RDW 14.1 % (11.5-15.5); WBC 10.6 k/uL (3.8-10.6)
[2021-08-29 17:44] LABS: ALT 15 U/L (4-34); AST 28 U/L (14-36); African American GFR (CKD) >90 (>60 ml/min/1.73 sqM); Albumin 3.4 g/dL (3.5-5.0); Alkaline Phosphatase 86 U/L (38-126); Anion Gap 9 mmol/L; Blood Urea Nitrogen 11 mg/dL (7-17); Calcium 9.3 mg/dL (8.4-10.2); Carbon Dioxide 27 mmol/L (22-30); Chloride 99 mmol/L (98-107); Glucose 109 mg/dL (74-99); Non-African American GFR(CKD) >90 (>60 ml/min/1.73 sqM); Potassium 3.1 mmol/L (3.5-5.1); Sodium 135 mmol/L (137-145); Total Bilirubin 0.5 mg/dL (0.2-1.3); Total Protein 6.6 g/dL (6.3-8.2)
[2021-08-29] MEDS ORDERED: POTASSIUM CHLORIDE ER 20 MEQ TAB.ER PO STA (18:24)
[2021-08-29 20:28] LABS: Appearance,Urine Cloudy (Clear); Bacteria,Urine Rare /hpf; Bilirubin,Urine 1+ (Negative); Blood,Urine Negative (Negative); Calcium Oxalate Crystals,Urine Many /hpf; Color,Urine Yellow; Glucose,Urine (UA) Negative (Negative); Ketones,Urine 3+ (Negative); Leukocyte Esterase,Urine Negative (Negative); Mucus,Urine Few /hpf; Nitrite,Urine Negative (Negative); Protein,Urine 1+ (Negative); RBC,Urine 3 /hpf (0-5); Specific Gravity,Urine 1.034 (1.001-1.035); Squamous Epithelial Cell,Urine <1 /hpf (0-4); WBC,Urine 7 /hpf (0-5)
--- NOTE | 2021-08-29 21:46 | XR ---
EXAMINATION TYPE: XR KUB DATE OF EXAM: 08/29/2021 COMPARISON: 08/20/2021 HISTORY: Abdominal pain TECHNIQUE: 2 views upright FINDINGS: There is no sign of intestinal obstruction or pneumoperitoneum. There is apparent ileostomy tube. There is no evidence of abdominal mass. There are surgical clips at the gastroesophageal junct ion. Lung bases are clear. There is some contrast material in the bowel in the right mid abdomen that is probably in small bowel. IMPRESSION: Nonacute abdomen.
[2021-08-29] MEDS ORDERED: KETOROLAC 30 MG/ML 1 ML VIAL IVP PRN (23:14)
[2021-08-29] MEDS ORDERED: ACETAMINOPHEN TAB 325 MG TAB PO PRN (23:14)
[2021-08-29] MEDS ORDERED: NALOXONE 0.4 MG/ML 1 ML VIAL IV PRN (23:14)
[2021-08-30] MEDS: HYDROmorphone 0.5 MG/0.5 ML SYRINGE IVP PRN ×4 (02:49→17:21)
[2021-08-30] MEDS: ONDANSETRON 4 MG/2 ML VIAL IVP PRN ×2 (02:56→11:16)
[2021-08-30] MEDS: SODIUM CHLORIDE 0.9% 1,000 ML IV SCH ×3 (02:58→16:04)
--- NOTE | 2021-08-30 04:42 | P.CONS ---
History of Present Illness - Reason for Consult Consult date: 08/29/21 Medical management and hypokalemia Requesting physician: Dariela Clayton - Chief Complaint Abdominal pain - History of Present Illness 56-year-old female with fibromyalgia Patient history of gastric bypass. Over the past few weeks she started having complaints of abdominal pain and discomfort eventually he was found to have twisted bowel then she came in for follow-up and found to have an abscess collection about the week ago where with surgically drained. Now she presented with increased abdominal discomfort colicky abdominal pain decreased appetite feeling rashes denies any vomiting she claims that since her surgery 1994 she is unable to throw up. She denies any fevers or chills however she's been getting progressively weak and tired over the past 4 days with decreased by mouth intake almost in no with colicky abdominal pain at times severe sharp 8 out of 10 in severity. GI bleeding she reports very small tiny prasanna of stool she was still passing gas up until yesterday when she is feeling bloated. She still has a history. Again denies any fevers chills coughing chest pain or trouble breathing. Denies any GI bleeding Getting progressively weak and tired pain slightly improves with hot showers. Blood work showed hypokalemia otherwise unremarkable Abdominal x-ray showed no acute findings Lactic acid was negative Review of Systems Pertinent positives as noted in HPI. All other systems were reviewed and are negative Past Medical History Past Medical History: GERD/Reflux Additional Past Medical History / Comment(s): HX Gastric ulcer History of Any Multi-Drug Resistant Organisms: None Reported Past Surgical History: Hernia Repair Additional Past Surgical History / Comment(s): gastric [id number] 1994, abdominal hernia with mesh and surgical site had to be drained 3 times post op, BOWEL RESENTION AUG 2021 Past Anesthesia/Blood Transfusion Reactions: No Reported Reaction, Motion Sickness Additional Past Anesthesia/Blood Transfusion Reaction / Comm: Pt has never received blood. Past Psychological History: Bipolar Smoking Status: Never smoker Past Alcohol Use History: Occasional Past Drug Use History: Marijuana - Past Family History Father Family Medical History: Cancer Additional Family Medical History / Comment(s): Father of pancreatic cancer at age 65yrs. Mother Family Medical History: Cancer Additional Family Medical History / Comment(s): Mother of uterine cancer in her 60's. Medications and Allergies Home Medications Medication Instructions Recorded Confirmed Type Multivitamins, Thera [Multivitamin 1 tab PO DAILY 01/27/21 08/29/21 History (formulary)] Baclofen 10 mg PO TID PRN 04/08/21 08/29/21 History Calcium Carb/Vitamin D3/Vit K1 1 tab PO DAILY 08/02/21 08/29/21 History [Calcium-Vit D3-K1 650 mg Chew] Acetaminophen-Codeine 300-30mg 1 tab PO Q6H PRN 3 Days #12 tablet 08/15/21 08/29/21 Rx [Tylenol w/codeine #3] Acetaminophen [Tylenol Extra 1,000 mg PO Q6H PRN 08/20/21 08/29/21 History Strength] Simethicone [Gas-X] 125 mg PO ACHS PRN 08/20/21 08/29/21 History Bismuth Subsalicylate 262 mg PO DAILY PRN 08/29/21 08/29/21 History [Pepto-Bismol] Allergies Allergy/AdvReac Type Severity Reaction Status Date / Time hydrocodone [From [place]] AdvReac Itching,hiv Verified 08/29/21 18:01 es Physical Exam Vitals: Vital Signs Temp Pulse Resp BP Pulse Ox 08/29/21 19:50 98.5 F 91 16 113/71 96 08/29/21 16:03 98.7 F 122 H 18 105/70 97 Intake and Output 08/29/21 08/29/21 08/30/21 14:59 22:59 06:59 Other: Weight 85.275 kg Constitutional: No acute distress, conversant, pleasant Eyes: Anicteric sclerae, moist conjunctiva, Pupils equal round reactive to light ENMT: NC/AT Oropharynx clear, no erythema, or exudates Neck: Supple, FROM, no masses, or JVD No carotid bruits No thyromegaly Lungs: Clear to auscultation Clear to percussion Normal respiratory effort, no accessory muscle use Cardiovascular: Heart regular in rate and rhythm, No murmurs, gallops, or rubs No peripheral edema Abdominal: Soft, drain in place Diffuse tenderness to deep palpation with voluntary guarding and no rebound or rigidity Abdomen moving with respiration Normoactive bowel sounds No hepatomegaly, No splenomegaly No palpable mass No abdominal wall hernia noted Skin: Normal temperature, tone, texture, turgor No induration No subcutaneous nodules No rash, lesions No ulcers Extremities: No digital cyanosis No clubbing Pedal pulses intact and symmetrical Radial pulses intact and symmetrical No calf tenderness Psychiatric: Alert and oriented to person, place and time Appropriate affect fair judgement Neuro Muscles Strength 5/5 in all 4 extremities Sensation to light touch grossly present throughout Cranial nerves II-XII grossly intact No focal sensory deficits Lymphatics: no palpable cervical or supraclavicular , or inguinal lymph nodes Results CBC & Chem 7: 08/29/21 17:25 08/29/21 17:25 Labs: Abnormal Lab Results - Last 24 Hours (Table) 08/29/21 08/29/21 08/29/21 Range/Units 17:25 17:25 19:49 Plt Count 489 H (150-450) k/uL Neutrophils # 7.9 H (1.3-7.7) k/uL Sodium 135 L (137-145) mmol/L Potassium 3.1 L (3.5-5.1) mmol/L Glucose 109 H (74-99) mg/dL Albumin 3.4 L (3.5-5.0) g/dL Urine Appearance Cloudy H (Clear) Urine Protein 1+ H (Negative) Urine Ketones 3+ H (Negative) Urine Bilirubin 1+ H (Negative) Urine WBC 7 H (0-5) /hpf Calcium Oxalate Crystal Many H (None) /hpf Urine Bacteria Rare H (None) /hpf Urine Mucus Few H (None) /hpf Assessment and Plan Assessment: Abdominal pain with constipation rule out bowel obstruction Follow-up general surgery recommendations Hypokalemia Replace and follow-up levels in the morning Check magnesium level Lactic acid within normal limits Starvation ketosis Continue with IV fluid hydration and supportive care DVT prophylaxis subcu heparin 3 times a day Patient is full code Thank you for allowing us to participate in the care of this patient. Do not hesitate to contact us with questions. Someone can be reached from the [facility] hospitalist group at all hours of the day at [phone].
[2021-08-30 06:48] LABS: Basophils % (A) 0 %; Eosinophils # (A) 0.2 k/uL (0-0.7); Eosinophils % (A) 2 %; HCT 34.7 % (34.0-46.0); HGB 11.9 gm/dL (11.4-16.0); Lymphocytes # (A) 1.5 k/uL (1.0-4.8); Lymphocytes % (A) 15 %; MCH 32.3 pg (25.0-35.0); MCHC 34.2 g/dL (31.0-37.0); MCV 94.6 fL (80.0-100.0); Mean Platelet Volume 7.1; Monocytes # (A) 0.8 k/uL (0-1.0); Monocytes % (A) 8 %; Neutrophils # (A) 7.2 k/uL (1.3-7.7); Neutrophils % (A) 74 %; Platelet Count 401 k/uL (150-450); RBC 3.67 m/uL (3.80-5.40); RDW 14.1 % (11.5-15.5); WBC 9.8 k/uL (3.8-10.6)
[2021-08-30 07:13] LABS: African American GFR (CKD) >90 (>60 ml/min/1.73 sqM); Anion Gap 7 mmol/L; Blood Urea Nitrogen 9 mg/dL (7-17); Calcium 8.3 mg/dL (8.4-10.2); Carbon Dioxide 24 mmol/L (22-30); Chloride 105 mmol/L (98-107); Glucose 100 mg/dL (74-99); Non-African American GFR(CKD) >90 (>60 ml/min/1.73 sqM); Potassium 3.3 mmol/L (3.5-5.1); Sodium 136 mmol/L (137-145)
[2021-08-30] MEDS ORDERED: POTASSIUM CHLORIDE ER 20 MEQ TAB.ER PO STA (08:37)
[2021-08-30] MEDS: HEPARIN SODIUM,PORCINE/PF 5,000 UNIT/0.5 ML SYRINGE SQ SCH ×2 (10:45→17:20)
[2021-08-30] MEDS: PIPERACILLIN-TAZOBACTAM 3.375 GM in SODIUM CHLORIDE 0.9% 100 ML IVPB SCH ×2 (10:45→17:16)
[2021-08-30 11:12] LABS: Magnesium 1.4 mg/dL (1.5-2.4)
[2021-08-30] MEDS ORDERED: ONDANSETRON 4 MG/2 ML VIAL IVP PRN (11:43)
[2021-08-30] MEDS ORDERED: SCOPOLAMINE 1.5MG/72HR PATCH TRANSDERM SCH (12:00)
[2021-08-30] MEDS: METOCLOPRAMIDE 5 MG/ML 2 ML VIAL IVP SCH ×2 (13:12→17:20)
--- NOTE | 2021-08-30 13:43 | P.GSHP ---
History of Present Illness H&P Date: 08/30/21 CHIEF COMPLAINT: Abdominal pain with severe nausea HISTORY OF PRESENT ILLNESS: This is a 56-year-old female who is status post lysis of adhesions and repair of small bowel defect on 08/20/2021. 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 Patient reports that after being discharged home she has had a poor appetite. She has felt very nauseated and is unable to eat. She is having flatus. Did have a small bowel movement. She has felt dehydrated and has been lightheaded. She reports lower abdominal pain. She has had some mild irritation redness at incision sites but no drainage. She denies any fever chills or sweats. Patient does use marijuana on a regular basis through they being and edibles. She reports that since her discharge from the hospital she has not been using the marijuana. She also reports occasional alcohol use. Patient did have small amount of emesis this morning. PAST MEDICAL HISTORY: See list. PAST SURGICAL HISTORY: See list. MEDICATIONS: See list. ALLERGIES: See list. SOCIAL HISTORY: No illicit drug use. REVIEW OF SYSTEMS: CONSTITUTIONAL: Denies fever or chills. HEENT: Denies blurred vision, vision changes, or eye pain. Denies hemoptysis ENDOCRINE: Denies heat or cold intolerance. CARDIOVASCULAR: Denies chest pain or pressure. RESPIRATORY: No shortness of breath. GASTROINTESTINAL: Please refer to HPI NEURO: Denies history of seizures. PSYCH: No depression or suicidal ideation HEMATOLOGIC: Denies bleeding disorders. LYMPHATIC: The patient denies any lumps and bumps around the neck. GENITOURINARY: Denies any blood in urine or increased urinary frequency. MUSCULOSKELETAL: Denies myalgias. Denies joint swelling. Denies decreased range of motion beyond patients baseline. SKIN: Denies pruitis. Denies rash. PHYSICAL EXAM: VITAL SIGNS: Reviewed GENERAL: Well-developed in no acute distress. HEENT: No sclera icterus. Extraocular movements grossly intact. Moist buccal mucosa. Head is atraumatic, normocephalic. Hears conversational speech. No nasal drainage. NECK: Supple without lymphadenopathy. CHEST: Non-labored respirations and equal bilateral excursions. CARDIOVASCULAR: Palpable 2+ radial pulses. ABDOMEN: Soft. Nondistended. Minimal tenderness with palpation of the lower abdomen. Abdominal incisions are red with a contact irritation. No drainage. LANDON drain with serosanguineous output MUSCULOSKELETAL: No clubbing or cyanosis. NEUROLOGIC: No focal or lateralizing signs. Cranial nerves II through XII grossly intact. PSYCH: Appropriate affect. Alert and oriented to person, place and time. SKIN: Well perfused. Good skin turgor. LABORATORY DATA: WBC 9.8 Hgb 11.9 platelets 401 Sodium 136 potassium 3.1-3.3 creatinine 0.49 Lactic acid 0.7 magnesium 1.4 LFTs normal Urinalysis minimal WBCs of 7, rare bacteria COVID-19 not detected IMAGING: KUB x-ray nonacute abdomen ASSESSMENT: 1. Severe nausea with minimal abdominal pain 2. Daily marijuana use with severe nausea possibly from marijuana use 3. Contact irritation at abdominal incision sites 2. Hypokalemia 3. Hypomagnesemia 3. Dehydration 4. Status post recent lysis of adhesions and repair of small bowel defect on 08/20/2021 5. 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 6. History of Harley-en-Y PLAN: -Add IV Zosyn -Continue IV fluids -Continue antiemetics including scopolamine patch, Zofran as needed and scheduled Reglan -Place patient on full liquid diet -Optifoam dressing ordered to go around LANDON drain -Patient educated to abstain from all marijuana products including vaping and edibles -Replace potassium and magnesium. Repeat labs in a.m. -GI prophylaxis Protonix and DVT prophylaxis subcu heparin Physician Proced Tech note has been reviewed by physician. Signing provider agrees with the documented findings, assessment, and plan of care. Past Medical History Past Medical History: GERD/Reflux Additional Past Medical History / Comment(s): HX Gastric ulcer History of Any Multi-Drug Resistant Organisms: None Reported Past Surgical History: Hernia Repair Additional Past Surgical History / Comment(s): gastric [id number] 1994, abdominal hernia with mesh and surgical site had to be drained 3 times post op, BOWEL RESENTION AUG 2021 Past Anesthesia/Blood Transfusion Reactions: No Reported Reaction, Motion Sickness Additional Past Anesthesia/Blood Transfusion Reaction / Comment(s): Pt has never received blood. Past Psychological History: Bipolar Smoking Status: Never smoker Past Alcohol Use History: Occasional Past Drug Use History: Marijuana - Past Family History Father Family Medical History: Cancer Additional Family Medical History / Comment(s): Father of pancreatic cancer at age 65yrs. Mother Family Medical History: Cancer Additional Family Medical History / Comment(s): Mother of uterine cancer in her 60's. Medications and Allergies Home Medications Medication Instructions Recorded Confirmed Type Multivitamins, Thera [Multivitamin 1 tab PO DAILY 01/27/21 08/29/21 History (formulary)] Baclofen 10 mg PO TID PRN 04/08/21 08/29/21 History Calcium Carb/Vitamin D3/Vit K1 1 tab PO DAILY 08/02/21 08/29/21 History [Calcium-Vit D3-K1 650 mg Chew] Acetaminophen-Codeine 300-30mg 1 tab PO Q6H PRN 3 Days #12 tablet 08/15/21 08/29/21 Rx [Tylenol w/codeine #3] Acetaminophen [Tylenol Extra 1,000 mg PO Q6H PRN 08/20/21 08/29/21 History Strength] Simethicone [Gas-X] 125 mg PO ACHS PRN 08/20/21 08/29/21 History Bismuth Subsalicylate 262 mg PO DAILY PRN 08/29/21 08/29/21 History [Pepto-Bismol] Allergies Allergy/AdvReac Type Severity Reaction Status Date / Time hydrocodone [From [facility]] AdvReac Itching,hiv Verified 08/29/21 18:01 es Surgical - Exam Vital Signs Temp Pulse Resp BP Pulse Ox 98.7 F 122 H 18 105/70 97 08/29/21 16:03 08/29/21 16:03 08/29/21 16:03 08/29/21 16:03 08/29/21 16:03 Results - Labs 08/30/21 06:05 08/30/21 06:05 Abnormal Lab Results - Last 24 Hours (Table) 08/29/21 08/29/21 08/29/21 Range/Units 17:25 17:25 19:49 RBC (3.80-5.40) m/uL Plt Count 489 H (150-450) k/uL Neutrophils # 7.9 H (1.3-7.7) k/uL Sodium 135 L (137-145) mmol/L Potassium 3.1 L (3.5-5.1) mmol/L Creatinine (0.52-1.04) mg/dL Glucose 109 H (74-99) mg/dL Calcium (8.4-10.2) mg/dL Magnesium (1.5-2.4) mg/dL Albumin 3.4 L (3.5-5.0) g/dL Urine Appearance Cloudy H (Clear) Urine Protein 1+ H (Negative) Urine Ketones 3+ H (Negative) Urine Bilirubin 1+ H (Negative) Urine WBC 7 H (0-5) /hpf Calcium Oxalate Crystal Many H (None) /hpf Urine Bacteria Rare H (None) /hpf Urine Mucus Few H (None) /hpf 08/30/21 08/30/21 Range/Units 06:05 06:05 RBC 3.67 L (3.80-5.40) m/uL Plt Count (150-450) k/uL Neutrophils # (1.3-7.7) k/uL Sodium 136 L (137-145) mmol/L Potassium 3.3 L (3.5-5.1) mmol/L Creatinine 0.49 L (0.52-1.04) mg/dL Glucose 100 H (74-99) mg/dL Calcium 8.3 L (8.4-10.2) mg/dL Magnesium 1.4 L (1.5-2.4) mg/dL Albumin (3.5-5.0) g/dL Urine Appearance (Clear) Urine Protein (Negative) Urine Ketones (Negative) Urine Bilirubin (Negative) Urine WBC (0-5) /hpf Calcium Oxalate Crystal (None) /hpf Urine Bacteria (None) /hpf Urine Mucus (None) /hpf Diabetes panel 08/29/21 08/30/21 Range/Units 17:25 06:05 Sodium 135 L 136 L (137-145) mmol/L Potassium 3.1 L 3.3 L (3.5-5.1) mmol/L Chloride 99 105 (98-107) mmol/L Carbon Dioxide 27 24 (22-30) mmol/L BUN 11 9 (7-17) mg/dL Creatinine 0.55 0.49 L (0.52-1.04) mg/dL Glucose 109 H 100 H (74-99) mg/dL Calcium 9.3 8.3 L (8.4-10.2) mg/dL AST 28 (14-36) U/L ALT 15 (4-34) U/L Alkaline Phosphatase 86 (38-126) U/L Total Protein 6.6 (6.3-8.2) g/dL Albumin 3.4 L (3.5-5.0) g/dL Calcium panel 08/29/21 08/30/21 Range/Units 17:25 06:05 Calcium 9.3 8.3 L (8.4-10.2) mg/dL Albumin 3.4 L (3.5-5.0) g/dL Pituitary panel 08/29/21 08/30/21 Range/Units 17:25 06:05 Sodium 135 L 136 L (137-145) mmol/L Potassium 3.1 L 3.3 L (3.5-5.1) mmol/L Chloride 99 105 (98-107) mmol/L Carbon Dioxide 27 24 (22-30) mmol/L BUN 11 9 (7-17) mg/dL Creatinine 0.55 0.49 L (0.52-1.04) mg/dL Glucose 109 H 100 H (74-99) mg/dL Calcium 9.3 8.3 L (8.4-10.2) mg/dL Adrenal panel 08/29/21 08/30/21 Range/Units 17:25 06:05 Sodium 135 L 136 L (137-145) mmol/L Potassium 3.1 L 3.3 L (3.5-5.1) mmol/L Chloride 99 105 (98-107) mmol/L Carbon Dioxide 27 24 (22-30) mmol/L BUN 11 9 (7-17) mg/dL Creatinine 0.55 0.49 L (0.52-1.04) mg/dL Glucose 109 H 100 H (74-99) mg/dL Calcium 9.3 8.3 L (8.4-10.2) mg/dL Total Bilirubin 0.5 (0.2-1.3) mg/dL AST 28 (14-36) U/L ALT 15 (4-34) U/L Alkaline Phosphatase 86 (38-126) U/L Total Protein 6.6 (6.3-8.2) g/dL Albumin 3.4 L (3.5-5.0) g/dL
[2021-08-30] MEDS: PANTOPRAZOLE 40 MG TABLET PO SCH (15:07)
[2021-08-30] MEDS: MAGNESIUM SULFATE-D5W PMX 1 GM in DEXTROSE/WATER 1 100ML.BAG IVPB SCH ×2 (15:08→16:09)
--- NOTE | 2021-08-30 16:10 | P.PN ---
<Mehul Floyd - Last Filed: 08/30/21 15:51> Subjective Progress Note Date: 08/30/21 Hospital course: Patient is a 56-year-old female with a past medical history of fibromyalgia, p revious Harley-en-Y gastric bypass in 1994, GERD, gastric ulcer, and recent laparoscopic robotic right colectomy completed by Dr. Clayton on 08/04/21. She presented to the hospital on 08/29/21 with a chief complaint of abdominal pain. KUB was completed and negative for acute intra-abdominal process showing no evidence of abdominal mass, obstruction, or pneumoperitoneum. Patient was admitted under general surgery team and we have been consulted for continued medical management throughout hospitalization. Physical exam: Patient seen and fully evaluated at bedside this morning. With hypokalemia with potassium of 3.3, orders for replacement and IPO magnesium anemia with magnesium of 1.4 also replaced. Patient reports continued inability to tolerate oral intake states she is able to drink fluids but unable to eat solid foods. Patient reports she was able to take 2 bites of her pancakes this morning and only one bite of her banana before gagging and becoming very nauseous with flareup of left upper and lower quadrant abdominal pain. Patient currently reports pain has been waxing and waning it is almost a colicky feeling in her left upper mid and lower quadrant. She reports passing flatus without difficulties and states small bowel movement yesterday. Patient reports persistent nausea along with one episode of vomiting this morning. She denies having any chest pain, palpitations, shortness of breath, belching, heartburn, diarrhea, constipation, or experiencing any changes in urinary function. Vital signs reviewed and stable. General: Nontoxic, no distress and appears stated age. Derm: Skin warm and dry, normal coloration for ethnicity. Postsurgical incisions appear to be healing well with no noted signs of infection. Head: Atraumatic, normocephalic and symmetric. Eyes: EOMs intact, no lid lag, and anicteric sclera Mouth: no lip lesions, mucus membranes moist Cardiovascular: regular rate and rhythm with normal S1S2, no murmur, positive posterior tibial pulses bilaterally, and cap refill < 2 seconds. Lungs: Respirations even, regular, and unlabored on room air. Lungs CTA bilaterally, no rhonchi, no rales, no wheezing, and no accessory muscle usage. Abdominal: soft, nontender to palpation, no guarding, no appreciable organomegaly Ext: ROM intact. No gross muscle atrophy, no edema, no contractures Neuro: Speech clear, face symmetrical and CN II-XII grossly intact with no noted focal neuro deficits Psych: Alert and oriented to person, place, time, and situation. Appropriate and pleasant affect. Assessment and Plan of Care: Abdominal pain status post recent robotic right colectomy on 08/04/21 Intractable Nausea and loss of appetite, unclear etiology possibly multifactorial from recent surgery and sudden cessation of previous daily ca nnabinoid use -Management per primary admitting general surgery team. -Continuou symptomatic care and pain management. -Antiemetics -Continue hydration with IV fluids -Surgery team placed patient on IV antibiotics Zosyn -Close monitoring of I's and O's -DVT prophylaxis with heparin 5000 units subcutaneously every 8 hours Hypokalemia -Replaced -We will continue to monitor with repeat a.m. labs. Hypomagnesemia -Replaced -We will continue to monitor with repeat a.m. labs. GERD -Continue Protonix 40 mg twice daily. Starvation ketosis Lactic acid within normal limits -Continue with IV fluid hydration and supportive care Thank you for allowing us to participate in the care of this pleasant patient. Do not hesitate to contact us with questions. Someone can be reached from the [facility] hospitalist group all hours of the day at [phone] or via [email or web address]. Objective - Vital Signs Vital signs: Vital Signs Temp 98.6 F 08/30/21 08:38 Pulse 82 08/30/21 08:38 Resp 16 08/30/21 08:38 BP 111/77 08/30/21 08:38 Pulse Ox 98 08/30/21 08:38 Intake & Output 08/29/21 08/30/21 08/30/21 18:59 06:59 18:59 Weight 85.275 kg - Labs CBC & Chem 7: 08/30/21 06:05 08/30/21 06:05 Labs: Abnormal Lab Results - Last 24 Hours (Table) 08/29/21 08/29/21 08/29/21 Range/Units 17:25 17:25 19:49 RBC (3.80-5.40) m/uL Plt Count 489 H (150-450) k/uL Neutrophils # 7.9 H (1.3-7.7) k/uL Sodium 135 L (137-145) mmol/L Potassium 3.1 L (3.5-5.1) mmol/L Creatinine (0.52-1.04) mg/dL Glucose 109 H (74-99) mg/dL Calcium (8.4-10.2) mg/dL Magnesium (1.5-2.4) mg/dL Albumin 3.4 L (3.5-5.0) g/dL Urine Appearance Cloudy H (Clear) Urine Protein 1+ H (Negative) Urine Ketones 3+ H (Negative) Urine Bilirubin 1+ H (Negative) Urine WBC 7 H (0-5) /hpf Calcium Oxalate Crystal Many H (None) /hpf Urine Bacteria Rare H (None) /hpf Urine Mucus Few H (None) /hpf 08/30/21 08/30/21 Range/Units 06:05 06:05 RBC 3.67 L (3.80-5.40) m/uL Plt Count (150-450) k/uL Neutrophils # (1.3-7.7) k/uL Sodium 136 L (137-145) mmol/L Potassium 3.3 L (3.5-5.1) mmol/L Creatinine 0.49 L (0.52-1.04) mg/dL Glucose 100 H (74-99) mg/dL Calcium 8.3 L (8.4-10.2) mg/dL Magnesium 1.4 L (1.5-2.4) mg/dL Albumin (3.5-5.0) g/dL Urine Appearance (Clear) Urine Protein (Negative) Urine Ketones (Negative) Urine Bilirubin (Negative) Urine WBC (0-5) /hpf Calcium Oxalate Crystal (None) /hpf Urine Bacteria (None) /hpf Urine Mucus (None) /hpf <Bárbara Hoang - Last Filed: 08/30/21 18:04> Subjective I reviewed the documentation as provided by the GABINO above, who is the original author of this note. I agree with the documented assessment and plan, with the following changes: None Objective - Vital Signs Vital signs: Vital Signs Temp 98.4 F 08/30/21 16:06 Pulse 77 08/30/21 16:06 Resp 16 08/30/21 16:06 BP 99/55 08/30/21 16:06 Pulse Ox 97 08/30/21 16:06 Intake & Output 08/29/21 08/30/21 08/30/21 18:59 06:59 18:59 Intake Total 2510 Balance 2510 Weight 85.275 kg 85.275 kg Intake: Intake, IV Titration 1750 Amount Magnesium Sulfate-D5w Pmx 200 1 gm In Dextrose/Water 1 100ml.bag @ 100 mls/hr IVPB Q1H [facility] Rx#: [id number] Piperacillin-Tazobactam 3 200 .375 gm In Sodium Chloride 0.9% 100 ml @ 25 mls/hr IVPB Q8HR [facility] Rx# :[id number] Sodium Chloride 0.9% 1, 1350 000 ml @ 130 mls/hr IV . Q7H42M [facility] Rx#:[id number] Oral 760 Other: Voiding Method Toilet # Voids 3 - Labs CBC & Chem 7: 08/30/21 06:05 08/30/21 06:05 Labs: Abnormal Lab Results - Last 24 Hours (Table) 08/29/21 08/30/21 08/30/21 Range/Units 19:49 06:05 06:05 RBC 3.67 L (3.80-5.40) m/uL Sodium 136 L (137-145) mmol/L Potassium 3.3 L (3.5-5.1) mmol/L Creatinine 0.49 L (0.52-1.04) mg/dL Glucose 100 H (74-99) mg/dL Calcium 8.3 L (8.4-10.2) mg/dL Magnesium 1.4 L (1.5-2.4) mg/dL Urine Appearance Cloudy H (Clear) Urine Protein 1+ H (Negative) Urine Ketones 3+ H (Negative) Urine Bilirubin 1+ H (Negative) Urine WBC 7 H (0-5) /hpf Calcium Oxalate Crystal Many H (None) /hpf Urine Bacteria Rare H (None) /hpf Urine Mucus Few H (None) /hpf
[2021-08-31] MEDS: METOCLOPRAMIDE 5 MG/ML 2 ML VIAL IVP SCH ×3 (00:04→16:07)
[2021-08-31] MEDS: PIPERACILLIN-TAZOBACTAM 3.375 GM in SODIUM CHLORIDE 0.9% 100 ML IVPB SCH ×3 (00:05→16:08)
[2021-08-31] MEDS: HEPARIN SODIUM,PORCINE/PF 5,000 UNIT/0.5 ML SYRINGE SQ SCH ×3 (00:05→16:07)
[2021-08-31] MEDS: SODIUM CHLORIDE 0.9% 1,000 ML IV SCH (04:31)
[2021-08-31 05:34] LABS: African American GFR (CKD) >90 (>60 ml/min/1.73 sqM); Anion Gap 3 mmol/L; Blood Urea Nitrogen 11 mg/dL (7-17); Calcium 8.5 mg/dL (8.4-10.2); Carbon Dioxide 29 mmol/L (22-30); Chloride 102 mmol/L (98-107); Glucose 87 mg/dL (74-99); Non-African American GFR(CKD) >90 (>60 ml/min/1.73 sqM); Potassium 4.2 mmol/L (3.5-5.1); Sodium 134 mmol/L (137-145)
[2021-08-31 06:24] VITALS: RESP 18; TEMP 98.6
[2021-08-31] MEDS: PANTOPRAZOLE 40 MG TABLET PO SCH (09:42)
--- NOTE | 2021-08-31 11:16 | P.PN ---
<Mehul Floyd - Last Filed: 08/31/21 10:58> Subjective Progress Note Date: 08/31/21 Hospital course: Patient is a 56-year-old female with a past medical history of fibromyalgia, p revious Harley-en-Y gastric bypass in 1994, GERD, gastric ulcer, and recent laparoscopic robotic right colectomy completed by Dr. Clayton on 08/04/21. She presented to the hospital on 08/29/21 with a chief complaint of abdominal pain. KUB was completed and negative for acute intra-abdominal process showing no evidence of abdominal mass, obstruction, or pneumoperitoneum. Patient was admitted under general surgery team and we have been consulted for continued medical management throughout hospitalization. Physical exam: Patient seen and fully evaluated at bedside this morning. She reports feeling better and having a much easier time tolerating oral intake and states abdominal pain has subsided with the exception of very minimal tenderness around LANDON drain insertion site. Patient denies having any nausea or vomiting and reports that she is passing flatus and had bowel movement this morning. She continues to deny having any chest pain, palpitations, shortness of breath, belching, heartburn, diarrhea, constipation, or experiencing any changes in urinary function. Hypomagnesemia and hypokalemia have resolved. Patient medically stable at this time. Vital signs reviewed and stable. General: Nontoxic, no distress and appears stated age. Derm: Skin warm and dry, normal coloration for ethnicity. Postsurgical incisions appear to be healing well with very small area of bruising but no noted signs of infection. Head: Atraumatic, normocephalic and symmetric. Eyes: EOMs intact, no lid lag, and anicteric sclera Mouth: no lip lesions, mucus membranes moist Cardiovascular: regular rate and rhythm with normal S1S2, no murmur, positive posterior tibial pulses bilaterally, and cap refill < 2 seconds. Lungs: Respirations even, regular, and unlabored on room air. Lungs CTA bilaterally, no rhonchi, no rales, no wheezing, and no accessory muscle usage. Abdominal: soft, nontender to palpation, no guarding, no appreciable organomegaly. LANDON drain in place to left lower quadrant Ext: ROM intact. No gross muscle atrophy, no edema, no contractures Neuro: Speech clear, face symmetrical and CN II-XII grossly intact with no noted focal neuro deficits Psych: Alert and oriented to person, place, time, and situation. Appropriate and pleasant affect. Assessment and Plan of Care: Abdominal pain status post recent robotic right colectomy on 08/04/21 Intractable Nausea and loss of appetite, unclear etiology possibly multifactorial from recent surgery and sudden cessation of previous daily cannabinoid use -Management per primary admitting general surgery team. -Continue symptomatic care and pain management. -Antiemetics -Continue hydration with IV fluids -Surgery team placed patient on IV antibiotics Zosyn -Close monitoring of I's and O's -DVT prophylaxis with heparin 5000 units subcutaneously every 8 hours Hypokalemia, resolved -We will continue to monitor with repeat a.m. labs. Hypomagnesemia, resolved -We will continue to monitor with repeat a.m. labs. GERD -Continue Protonix 40 mg twice daily. Starvation ketosis, resolved Lactic acid within normal limits -Continue with IV fluid hydration and supportive care Thank you for allowing us to participate in the care of this pleasant patient. Do not hesitate to contact us with questions. Someone can be reached from the [facility] hospitalist group all hours of the day at [phone] or via [email or web address]. Objective - Vital Signs Vital signs: Vital Signs Temp 98.6 F 08/31/21 06:23 Pulse 61 08/31/21 06:23 Resp 18 08/31/21 06:23 BP 92/54 08/31/21 06:23 Pulse Ox 97 08/31/21 06:23 Intake & Output 08/30/21 08/31/21 08/31/21 18:59 06:59 18:59 Intake Total 2510 200 Output Total 30 Balance 2510 170 Weight 85.275 kg Intake: Intake, IV Titration 1750 Amount Magnesium Sulfate-D5w Pmx 200 1 gm In Dextrose/Water 1 100ml.bag @ 100 mls/hr IVPB Q1H [facility] Rx#: [id number] Piperacillin-Tazobactam 3 200 .375 gm In Sodium Chloride 0.9% 100 ml @ 25 mls/hr IVPB Q8HR [facility] Rx# :[id number] Sodium Chloride 0.9% 1, 1350 000 ml @ 130 mls/hr IV . Q7H42M [facility] Rx#:[id number] Oral 760 200 Output: Drainage 30 Abdomen 30 Other: Voiding Method Toilet Toilet # Voids 3 - Labs CBC & Chem 7: 11/29/21 06:05 08/31/21 03:34 Labs: Abnormal Lab Results - Last 24 Hours (Table) 08/30/21 08/31/21 Range/Units 06:05 03:34 Sodium 134 L (137-145) mmol/L Magnesium 1.4 L (1.5-2.4) mg/dL <Bárbara Hoang - Last Filed: 08/31/21 18:42> Subjective I reviewed the documentation as provided by the GABINO above, who is the original author of this note. I agree with the documented assessment and plan, with the following changes: None Objective - Vital Signs Vital signs: Vital Signs Temp 98.6 F 08/31/21 06:23 Pulse 65 08/31/21 16:11 Resp 18 08/31/21 06:23 BP 112/57 08/31/21 16:11 Pulse Ox 98 08/31/21 16:11 Intake & Output 08/30/21 08/31/21 08/31/21 18:59 06:59 18:59 Intake Total 2510 200 Output Total 30 Balance 2510 170 Weight 85.275 kg 85.275 kg Intake: Intake, IV Titration 1750 Amount Magnesium Sulfate-D5w Pmx 200 1 gm In Dextrose/Water 1 100ml.bag @ 100 mls/hr IVPB Q1H [facility] Rx#: [id number] Piperacillin-Tazobactam 3 200 .375 gm In Sodium Chloride 0.9% 100 ml @ 25 mls/hr IVPB Q8HR [facility] Rx# :[id number] Sodium Chloride 0.9% 1, 1350 000 ml @ 130 mls/hr IV . Q7H42M [facility] Rx#:[id number] Oral 760 200 Output: Drainage 30 Abdomen 30 Other: Voiding Method Toilet Toilet # Voids 3 - Labs CBC & Chem 7: 08/30/21 06:05 08/31/21 03:34 Labs: Abnormal Lab Results - Last 24 Hours (Table) 08/31/21 Range/Units 03:34 Sodium 134 L (137-145) mmol/L
[2021-08-31 12:56] VITALS: BMI 30.3
--- NOTE | 2021-08-31 13:35 | P.DS ---
Providers Date of admission: 08/29/21 23:23 Expected date of discharge: 08/31/21 Attending physician: Dariela Clayton Consults: 08/29/21 23:15 Consult Physician Urgent Consulting Provider: Carlos Arciniega Consult Reason/Comments: medical management Do you want consulting provider notified?: Yes, Notify in am Primary care physician: Dania Heard MD Hospital Course: Discharge diagnosis 1. Severe nausea with minimal abdominal pain 2. Daily marijuana use with severe nausea possibly from marijuana use 3. Contact irritation at abdominal incision sites 2. Hypokalemia resolved 3. Hypomagnesemia resolved 3. Dehydration 4. Status post recent lysis of adhesions and repair of small bowel defect on 08/20/2021 5. 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 6. History of Harlye-en-Y Hospital course This is a 56-year-old female who is status post lysis of adhesions and repair of small bowel defect on 08/20/2021. 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 Patient reports that after being discharged home she has had a poor appetite. She has felt very nauseated and is unable to eat. She is having flatus. Did have a small bowel movement. She has felt dehydrated and has been lightheaded. She reports lower abdominal pain. She has had some mild irritation redness at incision sites but no drainage. She denies any fever chills or sweats. Patient does use marijuana on a regular basis through they being and edibles. She reports that since her discharge from the hospital she has not been using the marijuana. She also reports occasional alcohol use. Patient was given multiple antiemetics including Zofran, scopolamine patch and Zofran to help with her severe nausea. Her symptoms are likely related to her marijuana use. Patient has been educated to with frame from using marijuana of any form. Patient's electrolytes replaced during this admission. Patient is tolerating diet. She has been up and ambulating. She is having bowel movements. She is afebrile. She is stable for discharge. Physician Math Teacher note has been reviewed by physician. Signing provider agrees with the documented findings, assessment, and plan of care. Patient Condition at Discharge: Stable Plan - Discharge Summary Discharge Rx Participant: No New Discharge Prescriptions: New Metoclopramide HCl [Reglan] 10 mg PO TID #21 tablet Scopolamine 1.5MG/72Hr Patch [TransDerm Scop] 1 patch TRANSDERM Q72H #3 patch Ondansetron Odt [Zofran Odt] 4 mg PO Q8HR PRN #21 tab PRN Reason: Nausea Continue Baclofen 10 mg PO TID PRN PRN Reason: Pain Multivitamins, Thera [Multivitamin (formulary)] 1 tab PO DAILY Calcium Carb/Vitamin D3/Vit K1 [Calcium-Vit D3-K1 650 mg Chew] 1 tab PO DAILY Acetaminophen-Codeine 300-30mg [Tylenol w/codeine #3] 1 tab PO Q6H PRN 3 Days #12 tablet PRN Reason: Pain Acetaminophen [Tylenol Extra Strength] 1,000 mg PO Q6H PRN PRN Reason: Pain Simethicone [Gas-X] 125 mg PO ACHS PRN PRN Reason: Indigestion Bismuth Subsalicylate [Pepto-Bismol] 262 mg PO DAILY PRN PRN Reason: UPSET STOMACH/DIARRHEA Discharge Medication List Multivitamins, Thera [Multivitamin (formulary)] 1 tab PO DAILY 01/27/21 [History] Baclofen 10 mg PO TID PRN 04/08/21 [History] Calcium Carb/Vitamin D3/Vit K1 [Calcium-Vit D3-K1 650 mg Chew] 1 tab PO DAILY 08/02/21 [History] Acetaminophen-Codeine 300-30mg [Tylenol w/codeine #3] 1 tab PO Q6H PRN 3 Days #12 tablet 08/15/21 [Rx] Acetaminophen [Tylenol Extra Strength] 1,000 mg PO Q6H PRN 08/20/21 [History] Simethicone [Gas-X] 125 mg PO ACHS PRN 08/20/21 [History] Bismuth Subsalicylate [Pepto-Bismol] 262 mg PO DAILY PRN 08/29/21 [History] Metoclopramide HCl [Reglan] 10 mg PO TID #21 tablet 08/31/21 [Rx] Ondansetron Odt [Zofran Odt] 4 mg PO Q8HR PRN #21 tab 08/31/21 [Rx] Scopolamine 1.5MG/72Hr Patch [TransDerm Scop] 1 patch TRANSDERM Q72H #3 patch 08/31/21 [Rx] Follow up Appointment(s)/Referral(s): Dania Heard MD [Primary Care Provider] - 1-2 days Dariela Clayton MD [STAFF PHYSICIAN] - 09/07/21 Discharge Disposition: HOME SELF-CARE
[2021-08-31 16:11] VITALS: BP 112/57; PULSE 65
== END 2021-08-31 18:53 | disposition home or self-care (01) ==
LOC: EC 14:38 → 6NMEDSUR 23:23 → 1SOBS 08-30 09:13
PROVIDERS: ADMIT Surgery Plastic and Reconstructive Surgery; ATTEND Surgery Plastic and Reconstructive Surgery
DX: R10.30 Lower abdominal pain, unspecified (principal); E86.0 Dehydration; R11.0 Nausea; E87.6 Hypokalemia; E83.42 Hypomagnesemia; M79.7 Fibromyalgia; E88.89 Other specified metabolic disorders; T73.0XXA Starvation, initial encounter; R14.0 Abdominal distension (gaseous); K59.00 Constipation, unspecified; K21.9 Gastro-esophageal reflux disease without esophagitis; R63.8 Other symptoms and signs concerning food and fluid intake; R63.0 Anorexia; F12.90 Cannabis use, unspecified, uncomplicated; F31.9 Bipolar disorder, unspecified; Z20.822 Contact with and (suspected) exposure to COVID-19; Z88.5 Allergy status to narcotic agent; Z87.11 Personal history of peptic ulcer disease; Z98.84 Bariatric surgery status; Z90.49 Acquired absence of other specified parts of digestive tract; Z93.2 Ileostomy status; Z87.19 Personal history of other diseases of the digestive system; Z98.890 Other specified postprocedural states; Z80.0 Family history of malignant neoplasm of digestive organs; Z80.49 Family history of malignant neoplasm of other genital organs
CPT/HCPCS: 96365; 96366 ×2; 96367; 96372 ×2; 96375 ×2; 96376 ×4; 96361 ×2; 99285; 36415; 80053; 80048 ×2; 83605; 83735 ×2; 85025 ×2; 81001; 84145; 87635; 74018; G0378 ×4; J2543 ×2; J2765 ×2; J2405 ×2; J1885; J3475; J1170 ×2; J1644 ×2

== ENCOUNTER 2022-04-01 06:58 | Emergency (ER) | payer OTHER ==
[2022-04-01] MEDS ORDERED: HYDROmorphone 0.5 MG/0.5 ML SYRINGE IVP STA (07:34)
[2022-04-01] MEDS ORDERED: SODIUM CHLORIDE 0.9% 500 ML 500 ML IV STA (07:34)
--- NOTE | 2022-04-01 07:42 | ED ---
General Adult HPI - General Chief complaint: Abdominal Pain Stated complaint: Abdominal pain Time Seen by Provider: 04/01/22 07:10 Source: patient, RN notes reviewed, old records reviewed Mode of arrival: ambulatory - History of Present Illness Initial comments: This is a 56-year-old female who presents emergency Department complaining of abdominal pain. Patient describes the pain as cramping. Patient states that occurred Monday and today. Patient states she has had gastric bypass cholecystectomy appendectomy and bowel resection. Patient states his pain started on Monday was better on Monday was on Monday again and she felt good. Patient states she woke up this morning again with the pain should she decided to come to the emergency department. Patient denies any vomiting or diarrhea. Patient states since her gastric bypass she has not had the ability to vomit. Patient denies any recent fever chills . Patient states she's not had a bowel obstruction that she knows of. Patient states this was the same feeling she had when she had her bowel resection. - Related Data Home Medications Medication Instructions Recorded Confirmed Dicyclomine [Bentyl] 20 mg PO QID PRN 01/15/22 01/15/22 Docusate [Colace] 100 mg PO DAILY 01/15/22 01/15/22 Previous Rx's Medication Instructions Recorded Famotidine [Pepcid] 20 mg PO BID #30 tablet 01/15/22 Ondansetron Odt [Zofran Odt] 4 mg PO Q8HR PRN #10 tab 01/15/22 Allergies Allergy/AdvReac Type Severity Reaction Status Date / Time hydrocodone [From Grady] AdvReac Itching,hiv Verified 01/15/22 12:37 es Review of Systems ROS Statement: Those systems with pertinent positive or pertinent negative responses have been documented in the HPI. ROS Other: All systems not noted in ROS Statement are negative. Past Medical History Past Medical History: GERD/Reflux Additional Past Medical History / Comment(s): HX Gastric ulcer History of Any Multi-Drug Resistant Organisms: None Reported Past Surgical History: Hernia Repair Additional Past Surgical History / Comment(s): gastric [id number] 1994, abdominal hernia with mesh and surgical site had to be drained 3 times post op, BOWEL RESENTION AUG 2021 Past Anesthesia/Blood Transfusion Reactions: No Reported Reaction, Motion Sickness Additional Past Anesthesia/Blood Transfusion Reaction / Comment(s): Pt has never received blood. Past Psychological History: Bipolar Smoking Status: Vaper Past Alcohol Use History: Occasional Past Drug Use History: Marijuana - Past Family History Father Family Medical History: Cancer Additional Family Medical History / Comment(s): Father of pancreatic cancer at age 65yrs. Mother Family Medical History: Cancer Additional Family Medical History / Comment(s): Mother of uterine cancer in her 60's. General Exam - General Exam Comments Initial Comments: GENERAL: Patient is well-developed and well-nourished. Patient is nontoxic and well- hydrated and is in mild distress. ENT: Neck is soft and supple. No significant lymphadenopathy is noted. Oropharynx is clear. Moist mucous membranes. Neck has full range of motion without eliciting any pain. EYES: The sclera were anicteric and conjunctiva were pink and moist. Extraocular movements were intact and pupils were equal round and reactive to light. Eyelids were unremarkable. PULMONARY: Unlabored respirations. Good breath sounds bilaterally. No audible rales rhonchi or wheezing was noted. CARDIOVASCULAR: There is a regular rate and rhythm without any murmurs gallops or rubs. ABDOMEN: Soft and nontender with normal bowel sounds. SKIN: Skin is clear with no lesions or rashes and otherwise unremarkable. NEUROLOGIC: Patient is alert and oriented x3. Cranial nerves II through XII are grossly intact. Motor and sensory are also intact. Normal speech, volume and content. Symmetrical smile. MUSCULOSKELETAL: Normal extremities with adequate strength and full range of motion. LYMPHATICS: No significant lymphadenopathy is noted PSYCHIATRIC: Normal psychiatric evaluation. Course Vital Signs 04/01/22 04/01/22 04/01/22 06:59 08:39 11:10 Temperature 98.8 F 98.5 F Pulse Rate 79 72 85 Respiratory 20 18 16 Rate Blood Pressure 152/92 160/79 121/62 O2 Sat by Pulse 100 99 96 Oximetry Medical Decision Making - Medical Decision Making Patient's CAT scan shows an internal hernia with a closed loop bowel obstruction. I spoke with Dr. Mccurdy and she stated that she could not take the patient go are today. No I spoke with [facility] [address] and he agreed to accept the patient - Lab Data Result diagrams: 04/01/22 07:37 04/01/22 07:37 Lab Results 04/01/22 04/01/22 04/01/22 Range/Units 07:37 07:37 07:37 WBC 3.7 L (3.8-10.6) k/uL RBC 4.42 (3.80-5.40) m/uL Hgb 15.3 (11.4-16.0) gm/dL Hct 45.4 (34.0-46.0) % MCV 102.7 H (80.0-100.0) fL MCH 34.6 (25.0-35.0) pg MCHC 33.7 (31.0-37.0) g/dL RDW 13.7 (11.5-15.5) % Plt Count 357 (150-450) k/uL MPV 7.3 Neutrophils % 79 % Lymphocytes % 15 % Monocytes % 4 % Eosinophils % 1 % Basophils % 1 % Neutrophils # 2.9 (1.3-7.7) k/uL Lymphocytes # 0.6 L (1.0-4.8) k/uL Monocytes # 0.1 (0-1.0) k/uL Eosinophils # 0.0 (0-0.7) k/uL Basophils # 0.0 (0-0.2) k/uL Macrocytosis Slight Sodium 141 (137-145) mmol/L Potassium 4.1 (3.5-5.1) mmol/L Chloride 100 (98-107) mmol/L Carbon Dioxide 26 (22-30) mmol/L Anion Gap 15 mmol/L BUN 24 H (7-17) mg/dL Creatinine 0.64 (0.52-1.04) mg/dL Est GFR (CKD-EPI)AfAm >90 (>60 ml/min/1.73 sqM) Est GFR (CKD-EPI)NonAf >90 (>60 ml/min/1.73 sqM) Glucose 156 H (74-99) mg/dL Plasma Lactic Acid Que (0.7-2.0) mmol/L Calcium 10.0 (8.4-10.2) mg/dL Total Bilirubin 0.9 (0.2-1.3) mg/dL AST 37 H (14-36) U/L ALT 21 (4-34) U/L Alkaline Phosphatase 116 (38-126) U/L Total Protein 8.7 H (6.3-8.2) g/dL Albumin 5.2 H (3.5-5.0) g/dL Amylase 49 (30-110) U/L Lipase 58 (23-300) U/L Urine Color Yellow Urine Appearance Clear (Clear) Urine pH 6.0 (5.0-8.0) Ur Specific [place] >1.050 H (1.001-1.035) Urine Protein 1+ H (Negative) Urine Glucose (UA) Negative (Negative) Urine Ketones 4+ H (Negative) Urine Blood Negative (Negative) Urine Nitrite Negative (Negative) Urine Bilirubin Negative (Negative) Urine Urobilinogen 2.0 (<2.0) mg/dL Ur Leukocyte Esterase Negative (Negative) Urine RBC <1 (0-5) /hpf Urine WBC 1 (0-5) /hpf Ur Squamous Epith Cells 1 (0-4) /hpf Urine Mucus Occasional H (None) /hpf 04/01/22 Range/Units 07:37 WBC (3.8-10.6) k/uL RBC (3.80-5.40) m/uL Hgb (11.4-16.0) gm/dL Hct (34.0-46.0) % MCV (80.0-100.0) fL MCH (25.0-35.0) pg MCHC (31.0-37.0) g/dL RDW (11.5-15.5) % Plt Count (150-450) k/uL MPV Neutrophils % % Lymphocytes % % Monocytes % % Eosinophils % % Basophils % % Neutrophils # (1.3-7.7) k/uL Lymphocytes # (1.0-4.8) k/uL Monocytes # (0-1.0) k/uL Eosinophils # (0-0.7) k/uL Basophils # (0-0.2) k/uL Macrocytosis Sodium (137-145) mmol/L Potassium (3.5-5.1) mmol/L Chloride (98-107) mmol/L Carbon Dioxide (22-30) mmol/L Anion Gap mmol/L BUN (7-17) mg/dL Creatinine (0.52-1.04) mg/dL Est GFR (CKD-EPI)AfAm (>60 ml/min/1.73 sqM) Est GFR (CKD-EPI)NonAf (>60 ml/min/1.73 sqM) Glucose (74-99) mg/dL Plasma Lactic Acid Que 1.0 (0.7-2.0) mmol/L Calcium (8.4-10.2) mg/dL Total Bilirubin (0.2-1.3) mg/dL AST (14-36) U/L ALT (4-34) U/L Alkaline Phosphatase (38-126) U/L Total Protein (6.3-8.2) g/dL Albumin (3.5-5.0) g/dL Amylase (30-110) U/L Lipase (23-300) U/L Urine Color Urine Appearance (Clear) Urine pH (5.0-8.0) Ur Specific [place] (1.001-1.035) Urine Protein (Negative) Urine Glucose (UA) (Negative) Urine Ketones (Negative) Urine Blood (Negative) Urine Nitrite (Negative) Urine Bilirubin (Negative) Urine Urobilinogen (<2.0) mg/dL Ur Leukocyte Esterase (Negative) Urine RBC (0-5) /hpf Urine WBC (0-5) /hpf Ur Squamous Epith Cells (0-4) /hpf Urine Mucus (None) /hpf Disposition Clinical Impression: Internal hernia, Bowel obstruction Disposition: OTHER INSTITUTION NOT DEFINED Referrals: None,Stated [Primary Care Provider] - 1-2 days Time of Disposition: 11:41 - Out of Hospital Transfer - Req. Specs Out of Hospital Transfer - Requested Specifics: Other Emergency Center ([facility])
[2022-04-01 07:47] LABS: Basophils % (A) 1 %; Eosinophils % (A) 1 %; HCT 45.4 % (34.0-46.0); HGB 15.3 gm/dL (11.4-16.0); Lymphocytes # (A) 0.6 k/uL (1.0-4.8); Lymphocytes % (A) 15 %; MCH 34.6 pg (25.0-35.0); MCHC 33.7 g/dL (31.0-37.0); MCV 102.7 fL (80.0-100.0); Macrocytosis Slight; Mean Platelet Volume 7.3; Monocytes # (A) 0.1 k/uL (0-1.0); Monocytes % (A) 4 %; Neutrophils # (A) 2.9 k/uL (1.3-7.7); Neutrophils % (A) 79 %; Platelet Count 357 k/uL (150-450); RBC 4.42 m/uL (3.80-5.40); RDW 13.7 % (11.5-15.5); WBC 3.7 k/uL (3.8-10.6)
[2022-04-01 07:57] LABS: ALT 21 U/L (4-34); AST 37 U/L (14-36); African American GFR (CKD) >90 (>60 ml/min/1.73 sqM); Albumin 5.2 g/dL (3.5-5.0); Alkaline Phosphatase 116 U/L (38-126); Amylase 49 U/L (30-110); Anion Gap 15 mmol/L; Blood Urea Nitrogen 24 mg/dL (7-17); Carbon Dioxide 26 mmol/L (22-30); Chloride 100 mmol/L (98-107); Glucose 156 mg/dL (74-99); Lipase 58 U/L (23-300); Non-African American GFR(CKD) >90 (>60 ml/min/1.73 sqM); Potassium 4.1 mmol/L (3.5-5.1); Sodium 141 mmol/L (137-145); Total Bilirubin 0.9 mg/dL (0.2-1.3); Total Protein 8.7 g/dL (6.3-8.2)
--- NOTE | 2022-04-01 08:30 | CT ---
EXAMINATION TYPE: CT abdomen pelvis w con DATE OF EXAM: 04/01/2022 COMPARISON: 01/14/2022 HISTORY: 56-year-old female cramping, LLQ and RLQ pain, history of colon resection TECHNIQUE: Contiguous axial scanning of the abdomen and pelvis following administration of 100 ml Iso shannon 300 IV contrast. Delayed images through the kidneys and coronal/sagittal reconstructions perform ed. CT DLP: 960.1 mGycm Automated exposure control for dose reduction was used. FINDINGS: Heart normal size without pericardial effusion. Tiny hiatal hernia. Post surgical changes o f Harley-en-Y gastric bypass. The lower anastomosis shows fold thickening, new from 01/14/2022, axial im age 23. No focal liver lesion. Prominence of the bile duct measuring up to 6 mm is unchanged likely postchole cystectomy related changes. Portal venous system is patent. Adrenal glands, left kidney, spleen, and pancreas within normal limits. Subcentimeter cortical cyst l ower pole right kidney. Distended small bowel loops in the right lower quadrant dilated up to 3.8 cm. There is swirling of th e mesentery in transition point noted, refer to 48 and 44 abnormal dilatation of more proximal small bowel loops. There is additional postsurgical change along the right side of the colon likely partial colon resection and ileocolonic anastomosis at the ascending colon. No mesenteric or retroperitoneal lymphadenopathy. There appears to be prior ventral abdominal wall mesh repair. No free fluid or free air is seen. Bladder under distended. Numerous pelvic phlebolith. Uterus not well delineated from adjacent bowel l oops. No abnormal fluid collection in the pelvis or pelvic lymphadenopathy. Moderate to advanced degenerative disc disease L4-L5 and L5-S1 with hypertrophic facet arthropathy. IMPRESSION: 1. PRIOR SURGERY ALONG THE RIGHT SIDE OF THE COLON, SUSPECT PRIOR PARTIAL RIGHT HEMICOLECTOMY WITH IL EOCOLONIC ANASTOMOSIS. THERE IS SWIRLING OF THE MESENTERY IN THE RIGHT LOWER QUADRANT WITH DILATED SM ALL BOWEL LOOPS UP TO 3.8 CM. FINDINGS SUGGEST INTERNAL HERNIA AND SECONDARY CLOSED LOOP OBSTRUCTION. NO FREE FLUID OR FREE AIR. 2. STATUS POST HARLEY-EN-Y GASTRIC BYPASS. THE LOWER ANASTOMOSIS SHOWS WALL/FOLD THICKENING, NEW FROM . A REGIONAL ILEITIS IS NOT EXCLUDED.
[2022-04-01 09:20] LABS: Appearance,Urine Clear (Clear); Bilirubin,Urine Negative (Negative); Blood,Urine Negative (Negative); Color,Urine Yellow; Glucose,Urine (UA) Negative (Negative); Ketones,Urine 4+ (Negative); Leukocyte Esterase,Urine Negative (Negative); Mucus,Urine Occasional /hpf; Nitrite,Urine Negative (Negative); Protein,Urine 1+ (Negative); RBC,Urine <1 /hpf (0-5); Squamous Epithelial Cell,Urine 1 /hpf (0-4); WBC,Urine 1 /hpf (0-5)
[2022-04-01 09:22] LABS: Specific Gravity,Urine >1.050 (1.001-1.035)
[2022-04-01 11:13] VITALS: PULSE 85; TEMP 98.5
[2022-04-01 13:12] VITALS: BP 124/84; RESP 18
== END 2022-04-01 13:12 | disposition other institution (70) ==
LOC: EC 06:58
DX: K40.90 Unilateral inguinal hernia, without obstruction or gangrene, not specified as recurrent (principal); K56.609 Unspecified intestinal obstruction, unspecified as to partial versus complete obstruction; F17.290 Nicotine dependence, other tobacco product, uncomplicated; Z90.49 Acquired absence of other specified parts of digestive tract
CPT/HCPCS: 36415; 80053; 82150; 83605; 83690; 85025; 81001; 74177; 99284; 96374; 96361; J1170; Q9967

== ENCOUNTER 2022-04-08 09:39 | Emergency (ER) | payer OTHER ==
[2022-04-08 09:44] VITALS: RESP 16; TEMP 98.2
[2022-04-08] MEDS ORDERED: SODIUM CHLORIDE 0.9% 1,000 ML IV STA (09:59)
[2022-04-08] MEDS ORDERED: HYDROmorphone 0.5 MG/0.5 ML SYRINGE IVP STA ×2 (10:01→12:28)
--- NOTE | 2022-04-08 10:13 | ED ---
Abdominal Pain HPI - General Chief Complaint: Abdominal Pain Stated Complaint: post op abd pain Time Seen by Provider: 04/08/22 09:44 Source: patient, RN notes reviewed Mode of arrival: ambulatory Limitations: no limitations - History of Present Illness Initial Comments: This is a 56-year-old female who presents to the emergency department for abdominal pain. Patient had laparoscopic surgery at [facility] on 04/[address] Abdullahi. She had a complication of prior Harley-en-Y bypass surgery and following the surgery she was told that she had a "a hole", and this was repaired. The "hole" was not visualized on the CT scan she had done at this facility prior to transfer. She had mild postop pain afterwards that improved with heat, however 2 days ago, the pain became very severe and was not relieved by heat. This is also noted to be in the upper and mid abdomen, and when she had abdominal pain on 04/01, the pain was in the lower abdomen. Denies any fevers, chills, sore throat, cough, dyspnea, chest pain, palpitations, diarrhea, back pain, or headaches. MD Complaint: abdominal pain Onset/Timin -: days(s) Location: LUQ, RUQ, epigastric - Related Data Home Medications Medication Instructions Recorded Confirmed Acetaminophen Tab [Tylenol Tab] 500 mg PO Q6H PRN 04/08/22 04/08/22 Baclofen 10 mg PO TID PRN 04/08/22 04/08/22 Allergies Allergy/AdvReac Type Severity Reaction Status Date / Time hydrocodone [From Lillian] Allergy Itching,hiv Verified 04/08/22 11:05 es Review of Systems ROS Statement: Those systems with pertinent positive or pertinent negative responses have been documented in the HPI. ROS Other: All systems not noted in ROS Statement are negative. Past Medical History Past Medical History: GERD/Reflux Additional Past Medical History / Comment(s): HX Gastric ulcer History of Any Multi-Drug Resistant Organisms: None Reported Past Surgical History: Hernia Repair Additional Past Surgical History / Comment(s): gastric [id number] 1994, abdominal hernia with mesh and surgical site had to be drained 3 times post op, BOWEL RESENTION AUG 2021 Past Anesthesia/Blood Transfusion Reactions: No Reported Reaction, Motion Sickness Additional Past Anesthesia/Blood Transfusion Reaction / Comment(s): Pt has never received blood. Past Psychological History: Bipolar Smoking Status: Vaper Past Alcohol Use History: Occasional Past Drug Use History: Marijuana - Past Family History Father Family Medical History: Cancer Additional Family Medical History / Comment(s): Father of pancreatic cancer at age 65yrs. Mother Family Medical History: Cancer Additional Family Medical History / Comment(s): Mother of uterine cancer in her 60's. General Exam Limitations: no limitations General appearance: alert, in distress Head exam: Present: atraumatic, normocephalic, normal inspection Respiratory exam: Present: normal lung sounds bilaterally. Absent: respiratory distress, wheezes, rales, rhonchi, stridor Cardiovascular Exam: Present: regular rate, normal rhythm, normal heart sounds. Absent: systolic murmur, diastolic murmur, rubs, gallop, clicks GI/Abdominal exam: Present: soft, tenderness (RUQ and LUQ), guarding, normal bowel sounds. Absent: distended, rebound, rigid Neurological exam: Present: alert, oriented X3, CN II-XII intact Psychiatric exam: Present: normal affect, normal mood Skin exam: Present: warm, dry, intact, normal color. Absent: rash Course Vital Signs 04/08/22 09:41 Temperature 98.2 F Pulse Rate 84 Respiratory 16 Rate Blood Pressure 142/84 O2 Sat by Pulse 100 Oximetry Medical Decision Making - Medical Decision Making This is a 56-year-old female who presents to the emergency department for abdominal pain. Lab work and CT of the abd/pelvis obtained revealing mild free air scattered throughout the peritoneal space, the lower anastomosis from the Harley-en-Y gastric bypass shows questionable pneumatosis versus adjacent peritoneal air. There is also poorly defined fluid in the anterior abdominal wall superior to the left of the umbilicus with foci of air, unable to exclude infectious fluid. There is also a mild small bowel ileus. Based on the patient's symptoms and CT findings, will plan to transfer the patient back to [facility] where the previous surgery took place. Dr. Sepulveda accepted the patient. This case was discussed in detail with the attending ED physician. Presentation, findings, and treatment plan discussed in detail as well. - Lab Data Result diagrams: 04/08/22 10:40 04/08/22 10:40 Lab Results 04/08/22 04/08/22 04/08/22 Range/Units 10:40 10:40 10:40 WBC 4.6 (3.8-10.6) k/uL RBC 3.87 (3.80-5.40) m/uL Hgb 13.3 (11.4-16.0) gm/dL Hct 39.1 (34.0-46.0) % MCV 101.1 H (80.0-100.0) fL MCH 34.5 (25.0-35.0) pg MCHC 34.1 (31.0-37.0) g/dL RDW 13.4 (11.5-15.5) % Plt Count 301 (150-450) k/uL MPV 7.6 Neutrophils % 62 % Lymphocytes % 27 % Monocytes % 7 % Eosinophils % 1 % Basophils % 1 % Neutrophils # 2.9 (1.3-7.7) k/uL Lymphocytes # 1.3 (1.0-4.8) k/uL Monocytes # 0.3 (0-1.0) k/uL Eosinophils # 0.0 (0-0.7) k/uL Basophils # 0.0 (0-0.2) k/uL Macrocytosis Slight Sodium 135 L (137-145) mmol/L Potassium 3.7 (3.5-5.1) mmol/L Chloride 101 (98-107) mmol/L Carbon Dioxide 28 (22-30) mmol/L Anion Gap 6 mmol/L BUN 14 (7-17) mg/dL Creatinine 0.52 (0.52-1.04) mg/dL Est GFR (CKD-EPI)AfAm >90 (>60 ml/min/1.73 sqM) Est GFR (CKD-EPI)NonAf >90 (>60 ml/min/1.73 sqM) Glucose 104 H (74-99) mg/dL Plasma Lactic Acid Que (0.7-2.0) mmol/L Calcium 9.1 (8.4-10.2) mg/dL Total Bilirubin 0.5 (0.2-1.3) mg/dL AST 23 (14-36) U/L ALT 12 (4-34) U/L Alkaline Phosphatase 89 (38-126) U/L Total Protein 6.7 (6.3-8.2) g/dL Albumin 4.0 (3.5-5.0) g/dL Amylase 38 (30-110) U/L Lipase 49 (23-300) U/L Urine Color Yellow Urine Appearance Clear (Clear) Urine pH 6.0 (5.0-8.0) Ur Specific [place] 1.037 H (1.001-1.035) Urine Protein 1+ H (Negative) Urine Glucose (UA) Negative (Negative) Urine Ketones 4+ H (Negative) Urine Blood Negative (Negative) Urine Nitrite Negative (Negative) Urine Bilirubin Negative (Negative) Urine Urobilinogen 3.0 (<2.0) mg/dL Ur Leukocyte Esterase Trace H (Negative) Urine RBC 3 (0-5) /hpf Urine WBC 6 H (0-5) /hpf Ur Squamous Epith Cells 1 (0-4) /hpf Hyaline Casts 3 H (0-2) /lpf Urine Mucus Many H (None) /hpf 04/08/22 Range/Units 10:40 WBC (3.8-10.6) k/uL RBC (3.80-5.40) m/uL Hgb (11.4-16.0) gm/dL Hct (34.0-46.0) % MCV (80.0-100.0) fL MCH (25.0-35.0) pg MCHC (31.0-37.0) g/dL RDW (11.5-15.5) % Plt Count (150-450) k/uL MPV Neutrophils % % Lymphocytes % % Monocytes % % Eosinophils % % Basophils % % Neutrophils # (1.3-7.7) k/uL Lymphocytes # (1.0-4.8) k/uL Monocytes # (0-1.0) k/uL Eosinophils # (0-0.7) k/uL Basophils # (0-0.2) k/uL Macrocytosis Sodium (137-145) mmol/L Potassium (3.5-5.1) mmol/L Chloride (98-107) mmol/L Carbon Dioxide (22-30) mmol/L Anion Gap mmol/L BUN (7-17) mg/dL Creatinine (0.52-1.04) mg/dL Est GFR (CKD-EPI)AfAm (>60 ml/min/1.73 sqM) Est GFR (CKD-EPI)NonAf (>60 ml/min/1.73 sqM) Glucose (74-99) mg/dL Plasma Lactic Acid Que 0.9 (0.7-2.0) mmol/L Calcium (8.4-10.2) mg/dL Total Bilirubin (0.2-1.3) mg/dL AST (14-36) U/L ALT (4-34) U/L Alkaline Phosphatase (38-126) U/L Total Protein (6.3-8.2) g/dL Albumin (3.5-5.0) g/dL Amylase (30-110) U/L Lipase (23-300) U/L Urine Color Urine Appearance (Clear) Urine pH (5.0-8.0) Ur Specific [place] (1.001-1.035) Urine Protein (Negative) Urine Glucose (UA) (Negative) Urine Ketones (Negative) Urine Blood (Negative) Urine Nitrite (Negative) Urine Bilirubin (Negative) Urine Urobilinogen (<2.0) mg/dL Ur Leukocyte Esterase (Negative) Urine RBC (0-5) /hpf Urine WBC (0-5) /hpf Ur Squamous Epith Cells (0-4) /hpf Hyaline Casts (0-2) /lpf Urine Mucus (None) /hpf - EKG Data EKG Comments: Normal sinus rhythm. Ventricular rate 72 bpm, TN interval 135 ms, QRS duration 84 ms, QTC 406 ms. - Radiology Data Radiology results: report reviewed, image reviewed Disposition Clinical Impression: Post-operative complication, Postoperative pain Disposition: OTHER INSTITUTION NOT DEFINED Referrals: None,Stated [Primary Care Provider] - 1-2 days - Out of Hospital Transfer - Req. Specs Out of Hospital Transfer - Requested Specifics: Other Emergency Center ([facility])
[2022-04-08 11:10] LABS: ALT 12 U/L (4-34); AST 23 U/L (14-36); African American GFR (CKD) >90 (>60 ml/min/1.73 sqM); Alkaline Phosphatase 89 U/L (38-126); Amylase 38 U/L (30-110); Anion Gap 6 mmol/L; Blood Urea Nitrogen 14 mg/dL (7-17); Calcium 9.1 mg/dL (8.4-10.2); Carbon Dioxide 28 mmol/L (22-30); Chloride 101 mmol/L (98-107); Glucose 104 mg/dL (74-99); Lipase 49 U/L (23-300); Non-African American GFR(CKD) >90 (>60 ml/min/1.73 sqM); Potassium 3.7 mmol/L (3.5-5.1); Sodium 135 mmol/L (137-145); Total Bilirubin 0.5 mg/dL (0.2-1.3); Total Protein 6.7 g/dL (6.3-8.2)
[2022-04-08 11:19] LABS: Appearance,Urine Clear (Clear); Bilirubin,Urine Negative (Negative); Blood,Urine Negative (Negative); Color,Urine Yellow; Glucose,Urine (UA) Negative (Negative); Hyaline Casts,Urine 3 /lpf (0-2); Ketones,Urine 4+ (Negative); Leukocyte Esterase,Urine Trace (Negative); Mucus,Urine Many /hpf; Nitrite,Urine Negative (Negative); Protein,Urine 1+ (Negative); RBC,Urine 3 /hpf (0-5); Specific Gravity,Urine 1.037 (1.001-1.035); Squamous Epithelial Cell,Urine 1 /hpf (0-4); WBC,Urine 6 /hpf (0-5)
[2022-04-08 11:38] LABS: Basophils % (A) 1 %; Eosinophils % (A) 1 %; HCT 39.1 % (34.0-46.0); HGB 13.3 gm/dL (11.4-16.0); Lymphocytes # (A) 1.3 k/uL (1.0-4.8); Lymphocytes % (A) 27 %; MCH 34.5 pg (25.0-35.0); MCHC 34.1 g/dL (31.0-37.0); MCV 101.1 fL (80.0-100.0); Macrocytosis Slight; Mean Platelet Volume 7.6; Monocytes # (A) 0.3 k/uL (0-1.0); Monocytes % (A) 7 %; Neutrophils # (A) 2.9 k/uL (1.3-7.7); Neutrophils % (A) 62 %; Platelet Count 301 k/uL (150-450); RBC 3.87 m/uL (3.80-5.40); RDW 13.4 % (11.5-15.5); WBC 4.6 k/uL (3.8-10.6)
--- NOTE | 2022-04-08 11:51 | CT ---
EXAMINATION TYPE: CT abdomen pelvis w con DATE OF EXAM: 04/08/2022 COMPARISON: 04/01/2022 HISTORY: 56-year-old female abdominal pain post-op hernia repair. Surgery on 04/01/2022. TECHNIQUE: Contiguous axial scanning of the abdomen and pelvis following administration of 100 ml Iso shannon 370 IV contrast. Delayed images through the kidneys and coronal/sagittal reconstructions perform ed. CT DLP: 899.9 mGycm Automated exposure control for dose reduction was used. FINDINGS: Mild generalized anasarca change has developed. Heart normal size with trace pericardial fluid. Post surgical change at the GE junction appears to relate to a Belen-en-Y gastric bypass. Ventral abdominal wall mesh repair is noted. Within the anterior left mid abdominal subcutaneous adip ose layer, there is some poorly defined fluid and soft tissue thickening measuring up to 4.7 cm wide, 9 mm thick, and 2.1 cm craniocaudal. This contains a couple foci of air. Additional edema extends do wn to contact the superficial fascia along supraumbilical midline. There is some soft tissue strandin g deep to the ventral abdominal wall mesh repair as well and a few tiny foci of intraperitoneal air, for example, axial image 26 and 27. Additional small air along the hepatorenal recess and foreign hepat is. Some questionable pneumatosis or adjacent intraperitoneal air along the inferior margin of the lower anastomosis which is patulous measuring up to 3.8 cm. Refer to coronal image 35 There is a 2.7 cm long small bowel to small bowel intussusception in the left mid abdomen, axial imag e 46 and coronal image 44 probably transient. Mildly dilated small bowel loop in the midabdomen anteriorly measuring up to 3.6 cm in caliber. No di screte transition point is seen. Additional post surgical change along the right side of the abdomen could relate to partial right col on resection. Mild pelvic free fluid. No mesenteric or retroperitoneal lymphadenopathy. No focal liver lesion. Mildly dilated bile duct to 9 mm is unchanged. Gallbladder surgically absent. Adrenal glands, kidneys, spleen, and pancreas show no gross abnormality. Bladder collapsed. Pelvic phleboliths. Uterus is anteverted. Again, mild generalized anasarca changes new. Bones: Mild degenerative change at the hips. Moderate degenerative disc disease scattered throughout the lumbar spine. Facet arthropathy mid to lower lumbar spine. IMPRESSION: 1. MILD FREE AIR REMAIN SCATTERED THROUGHOUT THE PERITONEAL SPACE. THIS MAY BE MORE THAN EXPECTED ONE WEEK OUT FROM SURGERY. CLINICALLY CORRELATE. 2. PATIENT HAS HAD PRIOR BELEN-EN-Y GASTRIC BYPASS. THE LOWER ANASTOMOSIS IS PATULOUS AT 3.8 CM WIDE A ND SHOWS QUESTIONABLE PNEUMATOSIS VERSUS ADJACENT INTRAPERITONEAL AIR. CORRELATE WITH LACTIC ACID LEV ELS. 3. THERE IS PREVIOUS VENTRAL ABDOMINAL WALL MESH REPAIR. Poorly defined fluid in the anterior abdomin al wall superior and to the left of the umbilicus measuring up to 4.7 cm and containing a few foci of air. Phlegmon/infective fluid not excluded. 4. GENERALIZED ANASARCA CHANGE IS NEW. MILD PELVIC FREE FLUID . 5. MILD SMALL BOWEL ILEUS. INCIDENTAL ENTEROENTERIC INTUSSUSCEPTION LEFT MID ABDOMEN, LIKELY TRANSIEN T. PREVIOUS PARTIAL RIGHT COLON RESECTION.
[2022-04-08 12:59] VITALS: BP 119/81; PULSE 71
== END 2022-04-08 14:06 | disposition other institution (70) ==
LOC: EC 09:39
DX: G89.18 Other acute postprocedural pain (principal); K21.9 Gastro-esophageal reflux disease without esophagitis; Z79.83 Long term (current) use of bisphosphonates; F17.209 Nicotine dependence, unspecified, with unspecified nicotine-induced disorders; Z88.5 Allergy status to narcotic agent
CPT/HCPCS: 36415; 93005; 80053; 82150; 83605; 83690; 85025; 81001; 74177; 99284; 96374; 96361; 96376; J1170; Q9967

== ENCOUNTER 2022-07-02 09:42 | Emergency (ER) | payer OTHER ==
[2022-07-02] MEDS ORDERED: KETOROLAC 15 MG/ML 1 ML VIAL IVP STA (09:59)
[2022-07-02] MEDS ORDERED: SODIUM CHLORIDE 0.9% 1,000 ML IV STA (09:59)
[2022-07-02] MEDS ORDERED: ONDANSETRON 4 MG/2 ML VIAL IVP STA (09:59)
[2022-07-02] MEDS ORDERED: diphenhydrAMINE 50 MG/ML 1 ML VIAL IVP STA (09:59)
--- NOTE | 2022-07-02 10:07 | ED ---
Abdominal Pain HPI - General Chief Complaint: Abdominal Pain Stated Complaint: Abd Pain Time Seen by Provider: 07/02/22 09:49 Source: patient, RN notes reviewed Mode of arrival: ambulatory Limitations: no limitations - History of Present Illness Initial Comments: This is a 57-year-old female who presents to the emergency department for abdominal pain, nausea, and vomiting. Symptoms began 2 days ago, and she has been unable to keep anything down. She did have laparoscopic surgery at [facility] on 04/01 to repair a complication of her prior Harley-en-Y gastric bypass. She then came to our emergency department on 04/08 for worsening abdominal pain, and was f ound to have postoperative complications and was subsequently transferred to [facility]. That was the last time she saw Dr. Magaña, her surgeon. Per the patient, he believes that she may have dumping syndrome contributing to her symptoms. Denies any fevers, chills, sore throat, cough, dyspnea, chest pain, palpitations, diarrhea, back pain, or headaches. MD Complaint: abdominal pain Onset/Timin -: days(s) Associated Symptoms: nausea, vomiting - Related Data Home Medications Medication Instructions Recorded Confirmed Acetaminophen Tab [Tylenol Tab] 500 mg PO Q6H PRN 04/08/22 07/02/22 Baclofen 10 mg PO TID PRN 04/08/22 07/02/22 Previous Rx's Medication Instructions Recorded Metoclopramide [Reglan] 10 mg PO Q6H PRN #25 tab 07/02/22 Ondansetron Odt [Zofran Odt] 4 mg PO Q8HR PRN #25 tab 07/02/22 Allergies Allergy/AdvReac Type Severity Reaction Status Date / Time hydrocodone [From [place]] Allergy Itching,hiv Verified 07/02/22 09:46 es Review of Systems ROS Statement: Those systems with pertinent positive or pertinent negative responses have been documented in the HPI. ROS Other: All systems not noted in ROS Statement are negative. Past Medical History Past Medical History: GERD/Reflux Additional Past Medical History / Comment(s): HX Gastric ulcer History of Any Multi-Drug Resistant Organisms: None Reported Past Surgical History: Hernia Repair Additional Past Surgical History / Comment(s): gastric [id number] 1994, abdominal hernia with mesh and surgical site had to be drained 3 times post op, BOWEL RESENTION AUG 2021 Past Anesthesia/Blood Transfusion Reactions: No Reported Reaction, Motion Sickness Additional Past Anesthesia/Blood Transfusion Reaction / Comment(s): Pt has never received blood. Past Psychological History: Bipolar Smoking Status: Vaper Past Alcohol Use History: Occasional Past Drug Use History: Marijuana - Past Family History Father Family Medical History: Cancer Additional Family Medical History / Comment(s): Father of pancreatic cancer at age 65yrs. Mother Family Medical History: Cancer Additional Family Medical History / Comment(s): Mother of uterine cancer in her 60's. General Exam Limitations: no limitations General appearance: alert, in distress Head exam: Present: atraumatic, normocephalic, normal inspection Respiratory exam: Present: normal lung sounds bilaterally. Absent: respiratory distress, wheezes, rales, rhonchi, stridor Cardiovascular Exam: Present: regular rate, normal rhythm, normal heart sounds. Absent: systolic murmur, diastolic murmur, rubs, gallop, clicks GI/Abdominal exam: Present: soft, tenderness (diffuse), hyperactive bowel sounds. Absent: distended Neurological exam: Present: alert, oriented X3, CN II-XII intact Psychiatric exam: Present: normal affect, normal mood Skin exam: Present: warm, dry, intact, normal color. Absent: rash Course Vital Signs 07/02/22 07/02/22 07/02/22 09:44 10:31 11:30 Temperature 98.3 F Pulse Rate 60 63 76 Respiratory 20 22 18 Rate Blood Pressure 171/92 156/89 150/82 O2 Sat by Pulse 100 100 99 Oximetry 07/02/22 14:46 Temperature Pulse Rate 76 Respiratory 18 Rate Blood Pressure 144/92 O2 Sat by Pulse 98 Oximetry Medical Decision Making - Medical Decision Making This is a 57-year-old female who presents to the emergency department for sandy sea, vomiting, and abdominal pain. Patient's lab work was consistent with dehydration and urinalysis consistent with repetitive vomiting due to the ketones. She was given IV fluids and her symptoms were well-managed initially. She then tried to drink water, however this caused her to have a recurrence of stomach cramping after just two sips. We discussed obtaining imaging, as the last time she was here 3 months ago, she had no substantial irregularities on her lab work but had multiple acute changes on her computed tomography scan. Computed tomography scan of the abdomen and pelvis was subsequently obtained. This revealed a possible jejunal intussusception with partial mechanical obstr uction in the proximal small bowel. I spoke with on-call general surgery, Dr. Rojas, who states that due to the patient's history of gastric bypass, he is not comfortable taking her case and requests she be transferred back [facility] accepted the transfer, Dr. Martinez is the accepting physician. This case was discussed in detail with the attending ED physician. Presentation, findings, and treatment plan discussed in detail as well. - Lab Data Result diagrams: 07/02/22 10:24 07/02/22 12:34 Lab Results 07/02/22 07/02/22 07/02/22 Range/Units 10:24 10:24 12:00 WBC 5.7 (3.8-10.6) k/uL RBC 4.18 (3.80-5.40) m/uL Hgb 13.5 (11.4-16.0) gm/dL Hct 41.2 (34.0-46.0) % MCV 98.5 (80.0-100.0) fL MCH 32.3 (25.0-35.0) pg MCHC 32.8 (31.0-37.0) g/dL RDW 13.3 (11.5-15.5) % Plt Count 295 (150-450) k/uL MPV 7.8 Neutrophils % 71 % Lymphocytes % 19 % Monocytes % 8 % Eosinophils % 0 % Basophils % 0 % Neutrophils # 4.0 (1.3-7.7) k/uL Lymphocytes # 1.1 (1.0-4.8) k/uL Monocytes # 0.4 (0-1.0) k/uL Eosinophils # 0.0 (0-0.7) k/uL Basophils # 0.0 (0-0.2) k/uL Sodium (137-145) mmol/L Potassium (3.5-5.1) mmol/L Chloride (98-107) mmol/L Carbon Dioxide (22-30) mmol/L Anion Gap mmol/L BUN (7-17) mg/dL Creatinine (0.52-1.04) mg/dL Est GFR (CKD-EPI)AfAm (>60 ml/min/1.73 sqM) Est GFR (CKD-EPI)NonAf (>60 ml/min/1.73 sqM) Glucose (74-99) mg/dL Calcium (8.4-10.2) mg/dL Total Bilirubin (0.2-1.3) mg/dL AST (14-36) U/L ALT (4-34) U/L Alkaline Phosphatase (38-126) U/L Total Protein (6.3-8.2) g/dL Albumin (3.5-5.0) g/dL Amylase (30-110) U/L Lipase (23-300) U/L Urine Color Yellow Urine Appearance Cloudy H (Clear) Urine pH 5.5 (5.0-8.0) Ur Specific [place] 1.034 (1.001-1.035) Urine Protein 1+ H (Negative) Urine Glucose (UA) Negative (Negative) Urine Ketones 4+ H (Negative) Urine Blood Negative (Negative) Urine Nitrite Negative (Negative) Urine Bilirubin Negative (Negative) Urine Urobilinogen 3.0 (<2.0) mg/dL Ur Leukocyte Esterase Moderate H (Negative) Urine RBC 1 (0-5) /hpf Urine WBC 4 (0-5) /hpf Ur Squamous Epith Cells 1 (0-4) /hpf Calcium Oxalate Crystal Moderate H (None) /hpf Hyaline Casts 1 (0-2) /lpf Urine Mucus Many H (None) /hpf Coronavirus (PCR) Not Detected (Not Detectd) 07/02/22 Range/Units 12:34 WBC (3.8-10.6) k/uL RBC (3.80-5.40) m/uL Hgb (11.4-16.0) gm/dL Hct (34.0-46.0) % MCV (80.0-100.0) fL MCH (25.0-35.0) pg MCHC (31.0-37.0) g/dL RDW (11.5-15.5) % Plt Count (150-450) k/uL MPV Neutrophils % % Lymphocytes % % Monocytes % % Eosinophils % % Basophils % % Neutrophils # (1.3-7.7) k/uL Lymphocytes # (1.0-4.8) k/uL Monocytes # (0-1.0) k/uL Eosinophils # (0-0.7) k/uL Basophils # (0-0.2) k/uL Sodium 138 (137-145) mmol/L Potassium 3.3 L (3.5-5.1) mmol/L Chloride 105 (98-107) mmol/L Carbon Dioxide 22 (22-30) mmol/L Anion Gap 11 mmol/L BUN 24 H (7-17) mg/dL Creatinine 0.53 (0.52-1.04) mg/dL Est GFR (CKD-EPI)AfAm >90 (>60 ml/min/1.73 sqM) Est GFR (CKD-EPI)NonAf >90 (>60 ml/min/1.73 sqM) Glucose 106 H (74-99) mg/dL Calcium 8.9 (8.4-10.2) mg/dL Total Bilirubin 1.0 (0.2-1.3) mg/dL AST 30 (14-36) U/L ALT 16 (4-34) U/L Alkaline Phosphatase 80 (38-126) U/L Total Protein 6.3 (6.3-8.2) g/dL Albumin 3.8 (3.5-5.0) g/dL Amylase 42 (30-110) U/L Lipase 40 (23-300) U/L Urine Color Urine Appearance (Clear) Urine pH (5.0-8.0) Ur Specific [place] (1.001-1.035) Urine Protein (Negative) Urine Glucose (UA) (Negative) Urine Ketones (Negative) Urine Blood (Negative) Urine Nitrite (Negative) Urine Bilirubin (Negative) Urine Urobilinogen (<2.0) mg/dL Ur Leukocyte Esterase (Negative) Urine RBC (0-5) /hpf Urine WBC (0-5) /hpf Ur Squamous Epith Cells (0-4) /hpf Calcium Oxalate Crystal (None) /hpf Hyaline Casts (0-2) /lpf Urine Mucus (None) /hpf Coronavirus (PCR) (Not Detectd) - Radiology Data Radiology results: report reviewed, image reviewed Disposition Clinical Impression: Jejunal intussusception, Partial small bowel obstruction Disposition: OTHER INSTITUTION NOT DEFINED Prescriptions: Metoclopramide [Reglan] 10 mg PO Q6H PRN #25 tab PRN Reason: Nausea And Vomiting Ondansetron Odt [Zofran Odt] 4 mg PO Q8HR PRN #25 tab PRN Reason: Nausea And Vomiting Referrals: None,Stated [Primary Care Provider] - 1-2 days - Out of Hospital Transfer - Req. Specs Out of Hospital Transfer - Requested Specifics: Other Emergency Center ([facility])
[2022-07-02 10:52] LABS: Basophils % (A) 0 %; Eosinophils % (A) 0 %; HCT 41.2 % (34.0-46.0); HGB 13.5 gm/dL (11.4-16.0); Lymphocytes # (A) 1.1 k/uL (1.0-4.8); Lymphocytes % (A) 19 %; MCH 32.3 pg (25.0-35.0); MCHC 32.8 g/dL (31.0-37.0); MCV 98.5 fL (80.0-100.0); Mean Platelet Volume 7.8; Monocytes # (A) 0.4 k/uL (0-1.0); Monocytes % (A) 8 %; Neutrophils % (A) 71 %; Platelet Count 295 k/uL (150-450); RBC 4.18 m/uL (3.80-5.40); RDW 13.3 % (11.5-15.5); WBC 5.7 k/uL (3.8-10.6)
[2022-07-02] MEDS ORDERED: HYDROmorphone 0.5 MG/0.5 ML SYRINGE IVP STA (11:29)
[2022-07-02] MEDS ORDERED: METOCLOPRAMIDE 5 MG/ML 2 ML VIAL IVP STA (11:29)
[2022-07-02] MEDS ORDERED: HALOPERIDOL LACTATE 5 MG/ML 1 ML VIAL IVP ONE (11:30)
[2022-07-02 11:44] VITALS: RESP 18
[2022-07-02 13:00] LABS: Appearance,Urine Cloudy (Clear); Bilirubin,Urine Negative (Negative); Blood,Urine Negative (Negative); Calcium Oxalate Crystals,Urine Moderate /hpf; Color,Urine Yellow; Glucose,Urine (UA) Negative (Negative); Hyaline Casts,Urine 1 /lpf (0-2); Ketones,Urine 4+ (Negative); Leukocyte Esterase,Urine Moderate (Negative); Mucus,Urine Many /hpf; Nitrite,Urine Negative (Negative); PH, Urine 5.5 (5.0-8.0); Protein,Urine 1+ (Negative); RBC,Urine 1 /hpf (0-5); Specific Gravity,Urine 1.034 (1.001-1.035); Squamous Epithelial Cell,Urine 1 /hpf (0-4); WBC,Urine 4 /hpf (0-5)
[2022-07-02 13:20] LABS: ALT 16 U/L (4-34); AST 30 U/L (14-36); African American GFR (CKD) >90 (>60 ml/min/1.73 sqM); Albumin 3.8 g/dL (3.5-5.0); Alkaline Phosphatase 80 U/L (38-126); Amylase 42 U/L (30-110); Anion Gap 11 mmol/L; Blood Urea Nitrogen 24 mg/dL (7-17); Calcium 8.9 mg/dL (8.4-10.2); Carbon Dioxide 22 mmol/L (22-30); Chloride 105 mmol/L (98-107); Glucose 106 mg/dL (74-99); Lipase 40 U/L (23-300); Non-African American GFR(CKD) >90 (>60 ml/min/1.73 sqM); Potassium 3.3 mmol/L (3.5-5.1); Sodium 138 mmol/L (137-145); Total Protein 6.3 g/dL (6.3-8.2)
[2022-07-02] MEDS ORDERED: MAG HYDROX/AL HYDROX/SIMETH 30 ML, HYOSCYAMINE ELIXIR 10 ML PO STA ×2 (13:52)
--- NOTE | 2022-07-02 15:08 | CT ---
EXAMINATION TYPE: CT abdomen pelvis w con DATE OF EXAM: 07/02/2022 COMPARISON: 04/08/2022 HISTORY: nausea, abd pain x3 days CT DLP: 1015 mGycm Automated exposure control for dose reduction was used. CONTRAST: Performed with IV Contrast, patient injected with 100 mL of Isovue 300. Images obtained from the diaphragm to the floor of the pelvis with the IV contrast. Lung bases are clear of consolidation. No pleural effusion. Heart size is normal. No pericardial effu maynor. Liver spleen appear intact. There is gastric bariatric surgery. There is no pancreatic mass. Ga llbladder appears absent. There is hernia surgery on the anterior abdominal wall with mesh. There is no adrenal mass. Kidneys show satisfactory contrast opacification. There is no hydronephrosi s. Delayed images show normal renal excretion. No retroperitoneal adenopathy. The lumbar vertebrae bay ve normal alignment. There is multilevel degenerative spur formation. There is moderate narrowing at L4-5 disc. No compression fracture. The bony pelvis appears intact. The hip joints are intact. Bladde r distends smoothly. No evidence of a pelvic mass. No free fluid in the pelvis. No mesenteric edema. There is some distended loops of small bowel in the upper abdomen. There is possible intussusception jejunum in the left upper quadrant. Small bowel measures up to 4.3 cm. No free air. No evidence of as cites. IMPRESSION: Possible jejunal intussusception with partial mechanical obstruction proximal Small bowel. Dilated proximal small bowel also present on old exam
[2022-07-02 19:03] VITALS: BP 148/82; PULSE 74; TEMP 98.2
== END 2022-07-02 18:48 | disposition other institution (70) ==
LOC: EC 09:42
DX: K56.600 Partial intestinal obstruction, unspecified as to cause (principal); Z88.5 Allergy status to narcotic agent; Z20.822 Contact with and (suspected) exposure to COVID-19
CPT/HCPCS: 36415; 80053; 82150; 83690; 85025; 81001; 87635; 74177; 99285; 96374; 96375; 96361; J1200; J1630; J2765; J2405; J1885; J1170; Q9967

== ENCOUNTER 2023-03-16 11:22 | Emergency (ER) | payer OTHER ==
[2023-03-16] MEDS ORDERED: SODIUM CHLORIDE 0.9% 500 ML 500 ML IV STA (12:05)
[2023-03-16] MEDS ORDERED: ONDANSETRON 4 MG/2 ML VIAL IVP STA (12:05)
[2023-03-16] MEDS ORDERED: MORPHINE SULFATE 4 MG/ML SYRINGE IVP STA (12:06)
[2023-03-16] MEDS ORDERED: PANTOPRAZOLE 40 MG/10 ML VIAL IVP STA (12:09)
--- NOTE | 2023-03-16 12:11 | ED ---
Abdominal Pain HPI - General Chief Complaint: Abdominal Pain Stated Complaint: Abd Pain Time Seen by Provider: 03/16/23 11:41 Source: patient, RN notes reviewed, old records reviewed Mode of arrival: wheelchair Limitations: no limitations - History of Present Illness Initial Comments: Nontoxic-appearing 57-year-old female presents with complaints of abdominal cramping since Monday. States had cramping and pain all day Monday, Monday she was better and then pain returned Monday and today. States that she has consistent belching. Is passing gas. Has nausea but no vomiting. Denies any fevers. Last bowel movement couple of days ago. Has had history of constipation issues. This pain is similar to when she's had episodes of dumping syndrome in the past. States has been watching her sugar intake. Is taking [id number] pancreatic enzymes. She does have a history of gastric bypass in 1994 with Harley-en-Y, bowel resection in 2020, GERD. MD Complaint: abdominal pain -: days(s) (4) Location: diffuse Radiation: none Severity scale (1-10): 8 Quality: cramping Consistency: constant Improves With: nothing Context: other (History of dumping syndrome) Associated Symptoms: constipation - Related Data Home Medications Medication Instructions Recorded Confirmed Hanny العلي Digestive Enzyme 1 tab PO TID 03/16/23 03/16/23 Supplement Multivitamins, Thera [Multivitamin 1 tab PO DAILY 03/16/23 03/16/23 (formulary)] Allergies Allergy/AdvReac Type Severity Reaction Status Date / Time hydrocodone [From [place]] Allergy Itching,hiv Verified 03/16/23 11:36 es Review of Systems ROS Statement: Those systems with pertinent positive or pertinent negative responses have been documented in the HPI. ROS Other: All systems not noted in ROS Statement are negative. Past Medical History Past Medical History: GERD/Reflux Additional Past Medical History / Comment(s): HX Gastric ulcer, dumping syndrome, Harley-en-Y History of Any Multi-Drug Resistant Organisms: None Reported Past Surgical History: Hernia Repair Additional Past Surgical History / Comment(s): gastric [id number] 1994, abdominal hernia with mesh and surgical site had to be drained 3 times post op, BOWEL RESENTION AUG 2021 Past Anesthesia/Blood Transfusion Reactions: No Reported Reaction, Motion Sickness Additional Past Anesthesia/Blood Transfusion Reaction / Comment(s): Pt has never received blood. Past Psychological History: Bipolar Smoking Status: Current every day smoker, Vaper Past Alcohol Use History: Occasional Past Drug Use History: Marijuana - Past Family History Father Family Medical History: Cancer Additional Family Medical History / Comment(s): Father of pancreatic cancer at age 65yrs. Mother Family Medical History: Cancer Additional Family Medical History / Comment(s): Mother of uterine cancer in her 60's. General Exam Limitations: no limitations General appearance: alert, in no apparent distress Head exam: Present: atraumatic Eye exam: Present: normal appearance. Absent: scleral icterus, conjunctival injection, periorbital swelling, periorbital tenderness Neck exam: Absent: meningismus Respiratory exam: Absent: respiratory distress, accessory muscle use Cardiovascular Exam: Present: regular rate GI/Abdominal exam: Present: soft, tenderness (diffuse). Absent: distended, guarding, rebound, rigid, mass Extremities exam: Present: normal capillary refill. Absent: pedal edema Neurological exam: Present: alert, oriented X3 Psychiatric exam: Present: normal affect, normal mood Skin exam: Present: warm, dry, normal color. Absent: cyanosis, diaphoretic, petechiae, pallor Course Vital Signs 03/16/23 03/16/23 11:31 15:05 Temperature 98.9 F 99.8 F H Pulse Rate 69 78 Respiratory 18 20 Rate Blood Pressure 137/71 147/74 O2 Sat by Pulse 98 98 Oximetry Medical Decision Making - Medical Decision Making Was pt. sent in by a medical professional or institution (, PA, DINKEY LOCOMOTIVE OPERATOR, urgent care, hospital, or fpc...) When possible be specific @ -No Did you speak to anyone other than the patient for history (EMS, parent, family, police, friend...)? What history was obtained from this source @ -No Did you review nursing and triage notes (agree or disagree)? Why? @ -I reviewed and agree with nursing and triage notes Were old charts reviewed (outside hosp., previous admission, EMS record, old EKG, old radiological studies, urgent care reports/EKG's, fpc records)? Report findings @ -yes EKG and previous x-ray and last ER visit Differential Diagnosis (chest pain, altered mental status, abdominal pain women, abdominal pain men, vaginal bleeding, weakness, fever, dyspnea, syncope, headache, dizziness, GI bleed, back pain, seizure, CVA, palpatations, mental health, musculoskeletal)? @ -Differential Abdominal Pain Women: Appendicitis, Cholecystitis, diverticulosis, ischemic bowel, pancreatitis, hepatitis, UTI, gastroenteritis, AAA, incarcerated hernia, bowel obstruction, constipation, inflammatory bowel, hepatitis, peptic ulcer disease, splenic infarction, perforated viscus, vulvitis, ovarian torsion, PID, kidney stone, placenta abruption, this is not meant to be an all-inclusive list EKG interpreted by me (3pts min.). @ -yes EKG ordered in triage and interpreted by me shows sinus rhythm with a ventricular rate of 65, IA interval 0.135, QRS 0.84, QTC 0.380, normal axis. No concerning changes compared to old 04/08/2022. X-rays interpreted by me (1pt min.). @ -X-ray and interpreted by me shows no evidence of obstruction. Surgical clips noted. No evidence of free air. CT interpreted by me (1pt min.). @ -None done U/S interpreted by me (1pt. min.). @ -None done What testing was considered but not performed or refused? (CT, X-rays, U/S, labs)? Why? @ -None What meds were considered but not given or refused? Why? @ -None Did you discuss the management of the patient with other professionals (professionals i.e. , PA, DINKEY LOCOMOTIVE OPERATOR, lab, RT, psych nurse, social sciences lecturer, cone classifier tender, teacher, chief green officer, rifle case repairer)? Give summary @ -No Was smoking cessation discussed for >3mins.? @ -No Was critical care preformed (if so, how long)? @ -No Were there social determinants of health that impacted care today? How? (Homelessness, low income, unemployed, alcoholism, drug addiction, transportation, low edu. Level, literacy, decrease access to med. care, senior care, rehab)? @ -No Was there de-escalation of care discussed even if they declined (Discuss DNR or withdrawal of care, Hospice)? DNR status @ -No What co-morbidities impacted this encounter? (DM, HTN, Smoking, COPD, CAD, Cancer, CVA, ARF, Chemo, Hep., AIDS, mental health diagnosis, sleep apnea, morbid obesity)? @ -She does have a history of gastric bypass in 1994 with Harley-en-Y, bowel resection in 2020, GERD, smoker Was patient admitted / discharged? Hospital course, mention meds given and route, prescriptions, significant lab abnormalities, going to OR and other pertinent info. @ -Discharged. Nontoxic-appearing 57-year-old female presents with abdominal cramping since Monday. States Monday she was better and then pain returned Monday and today. States that she has consistent belching. Is passing gas. Has nausea but no vomiting. Denies any fevers. Last bowel movement couple of days ago. Has had history of constipation issues. States this pain is similar to when she's had episodes of dumping syndrome in the past. EKG ordered in triage and interpreted by me shows sinus rhythm with a ventricular rate of 65, IA interval 0.135, QRS 0.84, QTC 0.380, normal axis. No concerning changes compared to old 04/08/2022. CBC and electrolytes are unremarkable. Troponin negative at 0.013. Medical records were reviewed from when patient was seen in the emergency room [facility] and transferred related to possible ileus. X-ray interpreted by radiologist nonspecific abdomen. Multiple dilated bowel loops. Ileus versus partial obstruction. XR compared to old 11/15/2022 when impression was small prominent bowel loops that could represent a localized ileus or enteritis. Partial obstruction not excluded. Patient reassessed and states feeling much better after the morphine. No nausea or vomiting. Vital signs stable. She will be prescribed Zofran as needed for any nausea and given a zofran starter pack. She was directed to follow up with her primary care doctor and her GI doctor next week. Strict return parameters were discussed and she is agreeable to this plan of care. Case discussed with Dr. Murphy Undiagnosed new problem with uncertain prognosis? @ -No Drug Therapy requiring intensive monitoring for toxicity (Heparin, Nitro, Insulin, Cardizem)? @ -No Were any procedures done? @ -No Diagnosis/symptom? @ -Abdominal pain Acute, or Chronic, or Acute on Chronic? @ -Acute and chronic Uncomplicated (without systemic symptoms) or Complicated (systemic symptoms)? @ -Uncomplicated Side effects of treatment? @ -No Exacerbation, Progression, or Severe Exacerbation? @ -No Poses a threat to life or bodily function? How? (Chest pain, [place], [place], pneumonia, PE, COPD, DKA, ARF, appy, cholecystitis, CVA, Diverticulitis, Homicidal, Antonella cidal, threat to staff... and all critical care pts) @ -No - Lab Data Result diagrams: 03/16/23 12:33 03/16/23 12:33 Lab Results 03/16/23 03/16/23 03/16/23 Range/Units 12:33 12:33 12:33 WBC 6.8 (3.8-10.6) k/uL RBC 4.12 (3.80-5.40) m/uL Hgb 12.9 (11.4-16.0) gm/dL Hct 40.3 (34.0-46.0) % MCV 97.8 (80.0-100.0) fL MCH 31.2 (25.0-35.0) pg MCHC 31.9 (31.0-37.0) g/dL RDW 14.6 (11.5-15.5) % Plt Count 292 (150-450) k/uL MPV 7.6 Neutrophils % 83 % Lymphocytes % 8 % Monocytes % 6 % Eosinophils % 1 % Basophils % 0 % Neutrophils # 5.7 (1.3-7.7) k/uL Lymphocytes # 0.6 L (1.0-4.8) k/uL Monocytes # 0.4 (0-1.0) k/uL Eosinophils # 0.1 (0-0.7) k/uL Basophils # 0.0 (0-0.2) k/uL PT 10.7 (9.0-12.0) sec INR 1.0 (<1.2) APTT 22.1 (22.0-30.0) sec Sodium (137-145) mmol/L Potassium (3.5-5.1) mmol/L Chloride (98-107) mmol/L Carbon Dioxide (22-30) mmol/L Anion Gap mmol/L BUN (7-17) mg/dL Creatinine (0.52-1.04) mg/dL Est GFR (CKD-EPI)AfAm (>60 ml/min/1.73 sqM) Est GFR (CKD-EPI)NonAf (>60 ml/min/1.73 sqM) Glucose (74-99) mg/dL Plasma Lactic Acid Que (0.7-2.0) mmol/L Calcium (8.4-10.2) mg/dL Total Bilirubin (0.2-1.3) mg/dL AST (14-36) U/L ALT (4-34) U/L Alkaline Phosphatase (38-126) U/L Troponin I (0.000-0.034) ng/mL Total Protein (6.3-8.2) g/dL Albumin (3.5-5.0) g/dL Amylase (30-110) U/L Lipase (23-300) U/L Urine Color Yellow Urine Appearance Clear (Clear) Urine pH 5.5 (5.0-8.0) Ur Specific [place] 1.037 H (1.001-1.035) Urine Protein 1+ H (Negative) Urine Glucose (UA) Negative (Negative) Urine Ketones 3+ H (Negative) Urine Blood Negative (Negative) Urine Nitrite Negative (Negative) Urine Bilirubin Negative (Negative) Urine Urobilinogen 2.0 (<2.0) mg/dL Ur Leukocyte Esterase Negative (Negative) Urine RBC 1 (0-5) /hpf Urine WBC 6 H (0-5) /hpf Ur Squamous Epith Cells 1 (0-4) /hpf Urine Mucus Occasional H (None) /hpf 03/16/23 03/16/23 03/16/23 Range/Units 12:33 12:33 12:33 WBC (3.8-10.6) k/uL RBC (3.80-5.40) m/uL Hgb (11.4-16.0) gm/dL Hct (34.0-46.0) % MCV (80.0-100.0) fL MCH (25.0-35.0) pg MCHC (31.0-37.0) g/dL RDW (11.5-15.5) % Plt Count (150-450) k/uL MPV Neutrophils % % Lymphocytes % % Monocytes % % Eosinophils % % Basophils % % Neutrophils # (1.3-7.7) k/uL Lymphocytes # (1.0-4.8) k/uL Monocytes # (0-1.0) k/uL Eosinophils # (0-0.7) k/uL Basophils # (0-0.2) k/uL PT (9.0-12.0) sec INR (<1.2) APTT (22.0-30.0) sec Sodium 141 (137-145) mmol/L Potassium 4.1 (3.5-5.1) mmol/L Chloride 106 (98-107) mmol/L Carbon Dioxide 25 (22-30) mmol/L Anion Gap 10 mmol/L BUN 17 (7-17) mg/dL Creatinine 0.55 (0.52-1.04) mg/dL Est GFR (CKD-EPI)AfAm >90 (>60 ml/min/1.73 sqM) Est GFR (CKD-EPI)NonAf >90 (>60 ml/min/1.73 sqM) Glucose 130 H (74-99) mg/dL Plasma Lactic Acid Que 1.1 (0.7-2.0) mmol/L Calcium 10.1 (8.4-10.2) mg/dL Total Bilirubin 0.9 (0.2-1.3) mg/dL AST 31 (14-36) U/L ALT 26 (4-34) U/L Alkaline Phosphatase 106 (38-126) U/L Troponin I 0.013 (0.000-0.034) ng/mL Total Protein 8.0 (6.3-8.2) g/dL Albumin 4.9 (3.5-5.0) g/dL Amylase 54 (30-110) U/L Lipase 46 (23-300) U/L Urine Color Urine Appearance (Clear) Urine pH (5.0-8.0) Ur Specific [place] (1.001-1.035) Urine Protein (Negative) Urine Glucose (UA) (Negative) Urine Ketones (Negative) Urine Blood (Negative) Urine Nitrite (Negative) Urine Bilirubin (Negative) Urine Urobilinogen (<2.0) mg/dL Ur Leukocyte Esterase (Negative) Urine RBC (0-5) /hpf Urine WBC (0-5) /hpf Ur Squamous Epith Cells (0-4) /hpf Urine Mucus (None) /hpf - EKG Data -: EKG Interpreted by Co EKG shows normal: sinus rhythm (EKG interpreted by me shows sinus rhythm with a ventricular rate of 65, IA interval 0.135, QRS 0.84, QTC 0.380, normal axis) Disposition Clinical Impression: Abdominal pain Disposition: HOME SELF-CARE Condition: Good Instructions (If sedation given, give patient instructions): Abdominal Pain (ED) Additional Instructions: Take Zofran as needed for any nausea. I also recommend taking Pepcid 20 mg daily for any heartburn or GERD symptoms. Follow-up with your primary care doctor next week. Return to the emergency room with any new or concerning symptoms. Is patient prescribed a controlled substance at d/c from ED?: No Referrals: Kane Holliday MD [Primary Care Provider] - 1-2 days Time of Disposition: 14:29
--- NOTE | 2023-03-16 13:10 | XR ---
EXAMINATION TYPE: XR KUB DATE OF EXAM: 03/16/2023 COMPARISON: 01/16/2020 [place] HISTORY: Pain TECHNIQUE: One view abdominal series FINDINGS: The osseous structures are intact. The bowel gas pattern is nonspecific. Multiple dilated bowel loop s are seen. Air is seen within the colon. Phlebolith in the pelvis.. IMPRESSION: 1. Nonspecific abdomen. Multiple dilated bowel loops. Ileus versus partial obstruction.
[2023-03-16 13:13] LABS: Basophils % (A) 0 %; Eosinophils # (A) 0.1 k/uL (0-0.7); Eosinophils % (A) 1 %; HCT 40.3 % (34.0-46.0); HGB 12.9 gm/dL (11.4-16.0); Lymphocytes # (A) 0.6 k/uL (1.0-4.8); Lymphocytes % (A) 8 %; MCH 31.2 pg (25.0-35.0); MCHC 31.9 g/dL (31.0-37.0); MCV 97.8 fL (80.0-100.0); Mean Platelet Volume 7.6; Monocytes # (A) 0.4 k/uL (0-1.0); Monocytes % (A) 6 %; Neutrophils # (A) 5.7 k/uL (1.3-7.7); Neutrophils % (A) 83 %; Platelet Count 292 k/uL (150-450); RBC 4.12 m/uL (3.80-5.40); RDW 14.6 % (11.5-15.5); WBC 6.8 k/uL (3.8-10.6)
[2023-03-16 13:33] LABS: ALT 26 U/L (4-34); AST 31 U/L (14-36); African American GFR (CKD) >90 (>60 ml/min/1.73 sqM); Albumin 4.9 g/dL (3.5-5.0); Alkaline Phosphatase 106 U/L (38-126); Amylase 54 U/L (30-110); Anion Gap 10 mmol/L; Blood Urea Nitrogen 17 mg/dL (7-17); Calcium 10.1 mg/dL (8.4-10.2); Carbon Dioxide 25 mmol/L (22-30); Chloride 106 mmol/L (98-107); Glucose 130 mg/dL (74-99); Lipase 46 U/L (23-300); Non-African American GFR(CKD) >90 (>60 ml/min/1.73 sqM); Potassium 4.1 mmol/L (3.5-5.1); Sodium 141 mmol/L (137-145); Total Bilirubin 0.9 mg/dL (0.2-1.3)
[2023-03-16 13:40] LABS: Appearance,Urine Clear (Clear); Bilirubin,Urine Negative (Negative); Blood,Urine Negative (Negative); Color,Urine Yellow; Glucose,Urine (UA) Negative (Negative); Ketones,Urine 3+ (Negative); Leukocyte Esterase,Urine Negative (Negative); Mucus,Urine Occasional /hpf; Nitrite,Urine Negative (Negative); PH, Urine 5.5 (5.0-8.0); Protein,Urine 1+ (Negative); RBC,Urine 1 /hpf (0-5); Specific Gravity,Urine 1.037 (1.001-1.035); Squamous Epithelial Cell,Urine 1 /hpf (0-4); WBC,Urine 6 /hpf (0-5)
[2023-03-16 13:41] LABS: Partial Thromboplastin Time 22.1 sec (22.0-30.0); Prothrombin Time 10.7 sec (9.0-12.0)
[2023-03-16] MEDS ORDERED: ONDANSETRON 4 MG ODT STARTER PACK 2 TAB BTL PO STA (14:29)
[2023-03-16 15:07] VITALS: BP 147/74; PULSE 78; RESP 20; TEMP 99.8
== END 2023-03-16 15:10 | disposition home or self-care (01) ==
LOC: EC 11:22
DX: R10.9 Unspecified abdominal pain (principal); F31.9 Bipolar disorder, unspecified; F17.290 Nicotine dependence, other tobacco product, uncomplicated; F12.90 Cannabis use, unspecified, uncomplicated; Z79.899 Other long term (current) drug therapy; Z88.5 Allergy status to narcotic agent
CPT/HCPCS: 99285 ×2; 96374 ×2; 96375 ×3; 96361 ×2; 36415; 93005; 80053; 82150; 83605; 83690; 84484; 85025; 85610; 85730; 81001; 74018; J2270; J2405; S0119; C9113

== ENCOUNTER 2023-04-14 14:25 | Emergency (ER) | payer OTHER ==
[2023-04-14 15:05] VITALS: TEMP 98.6
[2023-04-14 15:17] VITALS: RESP 18
[2023-04-14] MEDS ORDERED: SODIUM CHLORIDE 0.9% 1,000 ML IV STA (15:30)
[2023-04-14 15:55] LABS: Basophils % (A) 1 %; Eosinophils # (A) 0.1 k/uL (0-0.7); Eosinophils % (A) 3 %; HCT 39.1 % (34.0-46.0); HGB 13.4 gm/dL (11.4-16.0); Lymphocytes # (A) 2.2 k/uL (1.0-4.8); Lymphocytes % (A) 56 %; MCH 33.1 pg (25.0-35.0); MCHC 34.2 g/dL (31.0-37.0); MCV 96.9 fL (80.0-100.0); Mean Platelet Volume 7.5; Monocytes # (A) 0.3 k/uL (0-1.0); Monocytes % (A) 7 %; Neutrophils # (A) 1.2 k/uL (1.3-7.7); Neutrophils % (A) 31 %; Platelet Count 240 k/uL (150-450); RBC 4.04 m/uL (3.80-5.40); RDW 14.7 % (11.5-15.5); WBC 3.9 k/uL (3.8-10.6)
[2023-04-14] MEDS ORDERED: KETOROLAC 15 MG/ML 1 ML VIAL IVP STA (16:05)
[2023-04-14] MEDS ORDERED: MAG HYDROX/AL HYDROX/SIMETH 30 ML, HYOSCYAMINE ELIXIR 10 ML, LIDOCAINE 2% GLYDO JELLY 1... PO STA ×3 (16:05)
[2023-04-14] MEDS ORDERED: ONDANSETRON 4 MG/2 ML VIAL IVP STA (16:06)
[2023-04-14 16:07] LABS: Potassium 4.2 mmol/L (3.5-5.1)
[2023-04-14 16:08] LABS: ALT 21 U/L (4-34); AST 34 U/L (14-36); African American GFR (CKD) >90 (>60 ml/min/1.73 sqM); Albumin 4.4 g/dL (3.5-5.0); Alkaline Phosphatase 81 U/L (38-126); Anion Gap 10 mmol/L; Blood Urea Nitrogen 22 mg/dL (7-17); Calcium 9.4 mg/dL (8.4-10.2); Carbon Dioxide 30 mmol/L (22-30); Chloride 96 mmol/L (98-107); Glucose 88 mg/dL (74-99); Lipase 82 U/L (23-300); Non-African American GFR(CKD) >90 (>60 ml/min/1.73 sqM); Sodium 136 mmol/L (137-145); Total Bilirubin 0.9 mg/dL (0.2-1.3); Total Protein 7.2 g/dL (6.3-8.2)
[2023-04-14 16:19] LABS: Appearance,Urine Clear (Clear); Bilirubin,Urine 1+ (Negative); Blood,Urine Negative (Negative); Calcium Oxalate Crystals,Urine Few /hpf; Color,Urine Dark Yellow; Glucose,Urine (UA) Negative (Negative); Leukocyte Esterase,Urine Negative (Negative); Mucus,Urine Moderate /hpf; Nitrite,Urine Negative (Negative); Protein,Urine 1+ (Negative); RBC,Urine <1 /hpf (0-5); Specific Gravity,Urine 1.039 (1.001-1.035); Squamous Epithelial Cell,Urine 1 /hpf (0-4); WBC,Urine 1 /hpf (0-5)
--- NOTE | 2023-04-14 16:29 | XR ---
EXAMINATION TYPE: XR KUB DATE OF EXAM: 04/14/2023 Comparison: 03/16/2023 Clinical History: 57-year-old female pain Findings: Lung bases are clear. Levoconvex scoliosis centered along the thoracic lumbar junction. Surgical material below the GE junc tion. Small air-fluid levels in the central abdomen no dilated small bowel. Scattered air is present throug hout the colon extending distally to the rectum. Additional surgical material right lower quadrant and left midabdomen. No significant stool burden. Pelvic phlebolith. Impression: Evidence of prior bowel surgery. Nonobstructive bowel gas pattern. No free air. A few scattered small air-fluid levels could reflect an ileus or enteritis.
[2023-04-14 16:51] LABS: Ketones,Urine 2+ (Negative)
--- NOTE | 2023-04-14 17:10 | ED ---
General Adult HPI - General Chief complaint: Abdominal Pain Stated complaint: Abd pain Time Seen by Provider: 04/14/23 15:30 Source: patient Mode of arrival: ambulatory Limitations: no limitations - History of Present Illness Initial comments: Patient is a 57-year-old female presents emergency department for abdominal pain. Patient has history of IBS. She has generalized cramping for the past 5 days. Patient feels constipated she hasn't had a bowel movement 2 days. She went to urgent care and they had concern for bowel instruction. Patient does h ave history. She reports nausea no vomiting. She is passing gas. No fever or chills. No blood in stool. No urinary symptoms. - Related Data Home Medications Medication Instructions Recorded Confirmed Hanny العلي Digestive Enzyme 1 tab PO TID 03/16/23 03/16/23 Supplement Multivitamins, Thera [Multivitamin 1 tab PO DAILY 03/16/23 03/16/23 (formulary)] Previous Rx's Medication Instructions Recorded Acetaminophen Tab [Tylenol] 650 mg PO Q4H PRN #30 tab 04/14/23 Dicyclomine [Bentyl] 20 mg PO TID PRN #9 tablet 04/14/23 Ondansetron Odt [Zofran Odt] 4 mg PO Q8HR PRN #10 tab 04/14/23 polyethylene glycoL 3350 [Miralax] 17 gm PO DAILY #3 packet 04/14/23 Allergies Allergy/AdvReac Type Severity Reaction Status Date / Time hydrocodone [From [place]] Allergy Itching,hiv Verified 04/14/23 15:05 es Review of Systems ROS Statement: Those systems with pertinent positive or pertinent negative responses have been documented in the HPI. ROS Other: All systems not noted in ROS Statement are negative. Past Medical History Past Medical History: GERD/Reflux Additional Past Medical History / Comment(s): HX Gastric ulcer, dumping syndrome, Harley-en-Y History of Any Multi-Drug Resistant Organisms: None Reported Past Surgical History: Bariatric Surgery, Hernia Repair Additional Past Surgical History / Comment(s): gastric [id number] 1994, abdominal hernia with mesh and surgical site had to be drained 3 times post op, BOWEL RESENTION AUG 2021 Past Anesthesia/Blood Transfusion Reactions: No Reported Reaction, Motion Sickness Additional Past Anesthesia/Blood Transfusion Reaction / Comment(s): Pt has never received blood. Past Psychological History: Bipolar Smoking Status: Current every day smoker, Vaper Past Alcohol Use History: Occasional Past Drug Use History: Marijuana - Past Family History Father Family Medical History: Cancer Additional Family Medical History / Comment(s): Father of pancreatic cancer at age 65yrs. Mother Family Medical History: Cancer Additional Family Medical History / Comment(s): Mother of uterine cancer in her 60's. General Exam Limitations: no limitations General appearance: alert, in no apparent distress Head exam: Present: atraumatic, normocephalic, normal inspection Eye exam: Present: normal appearance, PERRL, EOMI. Absent: scleral icterus, conjunctival injection, periorbital swelling Respiratory exam: Present: normal lung sounds bilaterally. Absent: respiratory distress, wheezes, rales, rhonchi, stridor Cardiovascular Exam: Present: regular rate, normal rhythm, normal heart sounds. Absent: systolic murmur, diastolic murmur, rubs, gallop, clicks GI/Abdominal exam: Present: soft, normal bowel sounds. Absent: distended, ten derness, guarding, rebound, rigid Neurological exam: Present: alert, oriented X3, CN II-XII intact Psychiatric exam: Present: normal affect, normal mood Skin exam: Present: warm, dry, intact, normal color. Absent: rash Course Vital Signs 04/14/23 04/14/23 04/14/23 15:03 15:13 16:34 Temperature 98.6 F Pulse Rate 57 L 50 L 50 L Respiratory 20 18 18 Rate Blood Pressure 104/56 126/63 111/63 O2 Sat by Pulse 99 100 100 Oximetry 04/14/23 17:23 Temperature Pulse Rate 55 L Respiratory 18 Rate Blood Pressure 100/72 O2 Sat by Pulse 100 Oximetry Medical Decision Making - Medical Decision Making Was pt. sent in by a medical professional or institution (, PA, PROVIDER ENGAGEMENT EXECUTIVE, urgent c are, hospital, or usp...) When possible be specific @ -No Did you speak to anyone other than the patient for history (EMS, parent, family, police, friend...)? What history was obtained from this source @ -No Did you review nursing and triage notes (agree or disagree)? Why? @ -I reviewed and agree with nursing and triage notes Were old charts reviewed (outside hosp., previous admission, EMS record, old EKG, old radiological studies, urgent care reports/EKG's, usp records)? Report findings @ -No old charts were reviewed Differential Diagnosis (chest pain, altered mental status, abdominal pain women, abdominal pain men, vaginal bleeding, weakness, fever, dyspnea, syncope, headache, dizziness, GI bleed, back pain, seizure, CVA, palpatations, mental health)? @ -Differential Abdominal Pain Women: Appendicitis, Cholecystitis, diverticulosis, ischemic bowel, pancreatitis, hepatitis, UTI, gastroenteritis, AAA, incarcerated hernia, bowel obstruction, constipation, inflammatory bowel, hepatitis, peptic ulcer disease, splenic infarction, perforated viscus, vulvitis, ovarian torsion, PID, kidney stone, placenta abruption, this is not meant to be an all-inclusive list EKG interpreted by me (3pts min.). @ -As above X-rays interpreted by me (1pt min.). @ -Ileus no evidence of obstruction CT interpreted by me (1pt min.). @ -None done U/S interpreted by me (1pt. min.). @ -None done What testing was considered but not performed or refused? (CT, X-rays, U/S, labs)? Why? @ -None What meds were considered but not given or refused? Why? @ -None Did you discuss the management of the patient with other professionals (professionals i.e. , PA, PROVIDER ENGAGEMENT EXECUTIVE, lab, RT, psych nurse, social work faculty member, coffee plantation worker, teacher, airline pilot/first officer, case briefer)? Give summary @ -No Was smoking cessation discussed for >3mins.? @ -No Was critical care preformed (if so, how long)? @ -No Were there social determinants of health that impacted care today? How? (Homelessness, low income, unemployed, alcoholism, drug addiction, transportation, low edu. Level, literacy, decrease access to med. care, senior living, rehab)? @ -No Was there de-escalation of care discussed even if they declined (Discuss DNR or withdrawal of care, Hospice)? DNR status @ -No What co-morbidities impacted this encounter? (DM, HTN, Smoking, COPD, CAD, Cancer, CVA, ARF, Chemo, Hep., AIDS, mental health diagnosis, sleep apnea, m orbid obesity)? @ -None Was patient admitted / discharged? Hospital course, mention meds given and route, prescriptions, significant lab abnormalities, going to OR and other pertinent info. @ Patient visiting for abdominal pain. Abdomen is soft and nontender. Laboratory studies obtained no leukocytosis. 2+ ketones in the urine likely rel ated to dehydration. Patient hydrated and pain treated with improvement. KUB x-ray interpreted I s aw/radiology shows ileus without evidence of obstruction. Patient in stable medical condition with discharge. She will be discharged with MiraLAX for constipation. We discussed return parameters Undiagnosed new problem with uncertain prognosis? @ -No Drug Therapy requiring intensive monitoring for toxicity (Heparin, Nitro, Insulin, Cardizem)? @ -No Were any procedures done? @ -No Diagnosis/symptom? @ -Ileus, constipation Acute, or Chronic, or Acute on Chronic? @ -Acute Uncomplicated (without systemic symptoms) or Complicated (systemic symptoms)? @Uncomplicated Side effects of treatment? @ -No Exacerbation, Progression, or Severe Exacerbation? @ -No Poses a threat to life or bodily function? How? (Chest pain, [place], [place], pneumonia, PE, COPD, DKA, ARF, appy, cholecystitis, CVA, Diverticulitis, Homicidal, Suicidal, threat to staff... and all critical care pts) @ -No Dr. Albrecht is my attending - Lab Data Result diagrams: 04/14/23 15:34 04/14/23 15:34 Lab Results 04/14/23 04/14/23 04/14/23 Range/Units 15:34 15:34 15:34 WBC 3.9 (3.8-10.6) k/uL RBC 4.04 (3.80-5.40) m/uL Hgb 13.4 (11.4-16.0) gm/dL Hct 39.1 (34.0-46.0) % MCV 96.9 (80.0-100.0) fL MCH 33.1 (25.0-35.0) pg MCHC 34.2 (31.0-37.0) g/dL RDW 14.7 (11.5-15.5) % Plt Count 240 (150-450) k/uL MPV 7.5 Neutrophils % 31 % Lymphocytes % 56 % Monocytes % 7 % Eosinophils % 3 % Basophils % 1 % Neutrophils # 1.2 L (1.3-7.7) k/uL Lymphocytes # 2.2 (1.0-4.8) k/uL Monocytes # 0.3 (0-1.0) k/uL Eosinophils # 0.1 (0-0.7) k/uL Basophils # 0.0 (0-0.2) k/uL Sodium 136 L (137-145) mmol/L Potassium 4.2 (3.5-5.1) mmol/L Chloride 96 L (98-107) mmol/L Carbon Dioxide 30 (22-30) mmol/L Anion Gap 10 mmol/L BUN 22 H (7-17) mg/dL Creatinine 0.57 (0.52-1.04) mg/dL Est GFR (CKD-EPI)AfAm >90 (>60 ml/min/1.73 sqM) Est GFR (CKD-EPI)NonAf >90 (>60 ml/min/1.73 sqM) Glucose 88 (74-99) mg/dL Plasma Lactic Acid Que (0.7-2.0) mmol/L Calcium 9.4 (8.4-10.2) mg/dL Total Bilirubin 0.9 (0.2-1.3) mg/dL AST 34 (14-36) U/L ALT 21 (4-34) U/L Alkaline Phosphatase 81 (38-126) U/L Total Protein 7.2 (6.3-8.2) g/dL Albumin 4.4 (3.5-5.0) g/dL Lipase 82 (23-300) U/L Urine Color Dark Yellow Urine Appearance Clear (Clear) Urine pH 6.0 (5.0-8.0) Ur Specific Bowie 1.039 H (1.001-1.035) Urine Protein 1+ H (Negative) Urine Glucose (UA) Negative (Negative) Urine Ketones 2+ H (Negative) Urine Blood Negative (Negative) Urine Nitrite Negative (Negative) Urine Bilirubin 1+ H (Negative) Urine Urobilinogen 8.0 (<2.0) mg/dL Ur Leukocyte Esterase Negative (Negative) Urine RBC <1 (0-5) /hpf Urine WBC 1 (0-5) /hpf Ur Squamous Epith Cells 1 (0-4) /hpf Calcium Oxalate Crystal Few H (None) /hpf Urine Mucus Moderate H (None) /hpf 07/14/23 Range/Units 15:34 WBC (3.8-10.6) k/uL RBC (3.80-5.40) m/uL Hgb (11.4-16.0) gm/dL Hct (34.0-46.0) % MCV (80.0-100.0) fL MCH (25.0-35.0) pg MCHC (31.0-37.0) g/dL RDW (11.5-15.5) % Plt Count (150-450) k/uL MPV Neutrophils % % Lymphocytes % % Monocytes % % Eosinophils % % Basophils % % Neutrophils # (1.3-7.7) k/uL Lymphocytes # (1.0-4.8) k/uL Monocytes # (0-1.0) k/uL Eosinophils # (0-0.7) k/uL Basophils # (0-0.2) k/uL Sodium (137-145) mmol/L Potassium (3.5-5.1) mmol/L Chloride (98-107) mmol/L Carbon Dioxide (22-30) mmol/L Anion Gap mmol/L BUN (7-17) mg/dL Creatinine (0.52-1.04) mg/dL Est GFR (CKD-EPI)AfAm (>60 ml/min/1.73 sqM) Est GFR (CKD-EPI)NonAf (>60 ml/min/1.73 sqM) Glucose (74-99) mg/dL Plasma Lactic Acid Que 1.0 (0.7-2.0) mmol/L Calcium (8.4-10.2) mg/dL Total Bilirubin (0.2-1.3) mg/dL AST (14-36) U/L ALT (4-34) U/L Alkaline Phosphatase (38-126) U/L Total Protein (6.3-8.2) g/dL Albumin (3.5-5.0) g/dL Lipase (23-300) U/L Urine Color Urine Appearance (Clear) Urine pH (5.0-8.0) Ur Specific Bowie (1.001-1.035) Urine Protein (Negative) Urine Glucose (UA) (Negative) Urine Ketones (Negative) Urine Blood (Negative) Urine Nitrite (Negative) Urine Bilirubin (Negative) Urine Urobilinogen (<2.0) mg/dL Ur Leukocyte Esterase (Negative) Urine RBC (0-5) /hpf Urine WBC (0-5) /hpf Ur Squamous Epith Cells (0-4) /hpf Calcium Oxalate Crystal (None) /hpf Urine Mucus (None) /hpf Disposition Clinical Impression: Abdominal pain, Constipation, Ileus Disposition: HOME SELF-CARE Condition: Good Instructions (If sedation given, give patient instructions): Constipation (DC), Abdominal Pain (ED) Additional Instructions: Increase water intake. Take medications as directed. Follow up with primary care provider in 1-2 days. Return to the ED if you experience new, concerning, or worsening symptoms Prescriptions: Dicyclomine [Bentyl] 20 mg PO TID PRN #9 tablet PRN Reason: Pain polyethylene glycoL 3350 [Miralax] 17 gm PO DAILY #3 packet Acetaminophen Tab [Tylenol] 650 mg PO Q4H PRN #30 tab PRN Reason: Pain Ondansetron Odt [Zofran Odt] 4 mg PO Q8HR PRN #10 tab PRN Reason: Nausea Is patient prescribed a controlled substance at d/c from ED?: No Referrals: Kane Holliday MD [Primary Care Provider] - 1-2 days
[2023-04-14 17:24] VITALS: BP 100/72; PULSE 55
== END 2023-04-14 17:44 | disposition home or self-care (01) ==
LOC: EC 14:25
DX: K56.7 Ileus, unspecified (principal); F31.9 Bipolar disorder, unspecified; F17.290 Nicotine dependence, other tobacco product, uncomplicated; F12.90 Cannabis use, unspecified, uncomplicated; Z88.5 Allergy status to narcotic agent; Z79.899 Other long term (current) drug therapy
CPT/HCPCS: 36415; 80053; 83605; 83690; 85025; 81001; 74018; 99284; 96374; 96375; 96361; J2405; J1885

== ENCOUNTER 2025-04-04 18:48 | Emergency (ER) | payer BC, OTHER ==
[2025-04-04 19:48] LABS: Basophils # (A) 0.02 10*3/uL (0.00-0.10); Basophils % (A) 0.3 %; Eosinophils # (A) 0.03 10*3/uL (0.04-0.35); Eosinophils % (A) 0.5 %; HCT 38.6 % (37.2-46.3); HGB 12.5 g/dL (12.0-15.0); Lymphocytes # (A) 0.43 10*3/uL (0.90-5.00); Lymphocytes % (A) 6.8 %; MCH 30.3 pg (27.0-32.0); MCHC 32.4 g/dL (32.0-37.0); MCV 93.5 fL (80.0-97.0); Monocytes # (A) 0.18 10*3/uL (0.20-1.00); Monocytes % (A) 2.8 %; Neutrophils # (A) 5.70 10*3/uL (1.80-7.70); Neutrophils % (A) 89.4 %; Platelet Count 189 10*3/uL (140-440); RBC 4.13 10*6/uL (4.10-5.20); RDW 16.6 % (11.5-14.5); WBC 6.37 10*3/uL (4.50-10.00)
[2025-04-04 20:26] LABS: ALT 20 U/L (4-34); AST 42 U/L (14-36); African American GFR (CKD) >90 (>60 ml/min/1.73 sqM); Albumin 5.1 g/dL (3.5-5.0); Alkaline Phosphatase 95 U/L (38-126); Amylase 53 U/L (30-110); Anion Gap 15 mmol/L; Blood Urea Nitrogen 19 mg/dL (7-17); Calcium 10.6 mg/dL (8.4-10.2); Carbon Dioxide 21 mmol/L (22-30); Chloride 108 mmol/L (98-107); Glucose 184 mg/dL (74-99); Lipase 55 U/L (23-300); Non-African American GFR(CKD) >90 (>60 ml/min/1.73 sqM); Potassium 4.5 mmol/L (3.5-5.1); Sodium 144 mmol/L (137-145); Total Protein 8.1 g/dL (6.3-8.2)
--- NOTE | 2025-04-04 20:33 | ED ---
Abdominal Pain HPI - General Chief Complaint: Abdominal Pain Stated Complaint: Abd pain Time Seen by Provider: 04/04/25 20:29 Source: patient, RN notes reviewed Mode of arrival: wheelchair - History of Present Illness Initial Comments: 59-year-old female with history of multiple abdominal surgeries presenting for abdominal pain x 1 week. States she is experiencing a intermittent, cramping pain in the epigastric abdomen that radiates to the lower abdomen. Admits to nausea but denies vomiting. States she deals with chronic abdominal pain of unknown cause however this flareup has been worse over the past week. Denies fevers, urinary symptoms, change in bowel habits. Last bowel movement was this morning and was normal. Patient does have a history of a bowel resection, gastric bypass, appendectomy, and cholecystectomy. - Related Data Home Medications Medication Instructions Recorded Confirmed Hanny العلي Digestive Enzyme 1 tab PO TID 03/16/23 03/16/23 Supplement Multivitamins, Thera [Multivitamin 1 tab PO DAILY 03/16/23 03/16/23 (formulary)] Previous Rx's Medication Instructions Recorded Acetaminophen Tab [Tylenol] 650 mg PO Q4H PRN #30 tab 04/14/23 Dicyclomine [Bentyl] 20 mg PO TID PRN #9 tablet 04/14/23 Ondansetron Odt [Zofran Odt] 4 mg PO Q8HR PRN #10 tab 04/14/23 polyethylene glycoL 3350 [Miralax] 17 gm PO DAILY #3 packet 04/14/23 Allergies Allergy/AdvReac Type Severity Reaction Status Date / Time hydrocodone [From [place]] Allergy Itching,hiv Verified 04/14/23 15:05 es Review of Systems ROS Statement: Those systems with pertinent positive or pertinent negative responses have been documented in the HPI. ROS Other: All systems not noted in ROS Statement are negative. Past Medical History Past Medical History: GERD/Reflux Additional Past Medical History / Comment(s): HX Gastric ulcer, dumping syndrome, Harley-en-Y History of Any Multi-Drug Resistant Organisms: None Reported Past Surgical History: Bariatric Surgery, Hernia Repair Additional Past Surgical History / Comment(s): gastric [id number] 1994, abdominal hernia with mesh and surgical site had to be drained 3 times post op, BOWEL RESENTION AUG 2021 Past Anesthesia/Blood Transfusion Reactions: No Reported Reaction, Motion Sickness Additional Past Anesthesia/Blood Transfusion Reaction / Comment(s): Pt has never received blood. Past Psychological History: Bipolar Smoking Status: Current every day smoker, Vaper Past Alcohol Use History: Occasional Past Drug Use History: Marijuana - Past Family History Father Family Medical History: Cancer Additional Family Medical History / Comment(s): Father of pancreatic cancer at age 65yrs. Mother Family Medical History: Cancer Additional Family Medical History / Comment(s): Mother of uterine cancer in her 60's. General Exam General appearance: alert, in no apparent distress Head exam: Present: atraumatic, normocephalic, normal inspection Eye exam: Present: normal appearance, PERRL, EOMI. Absent: scleral icterus, conjunctival injection, periorbital swelling ENT exam: Present: normal exam, mucous membranes moist Neck exam: Present: normal inspection. Absent: tenderness, meningismus, lymphadenopathy Respiratory exam: Present: normal lung sounds bilaterally. Absent: respiratory distress, wheezes, rales, rhonchi, stridor Cardiovascular Exam: Present: normal rhythm, bradycardia, normal heart sounds. Absent: systolic murmur, diastolic murmur, rubs, gallop, clicks GI/Abdominal exam: Present: soft, normal bowel sounds. Absent: distended, tenderness, guarding, rebound, rigid Back exam: Absent: CVA tenderness (R), CVA tenderness (L) Neurological exam: Present: alert, oriented X3 Psychiatric exam: Present: normal affect, normal mood Skin exam: Present: warm, dry, intact, normal color. Absent: rash Course Vital Signs 04/04/25 04/05/25 19:07 00:21 Temperature 98.1 F 99.7 F H Pulse Rate 53 L 69 Respiratory 18 17 Rate Blood Pressure 130/73 124/70 O2 Sat by Pulse 100 100 Oximetry Medical Decision Making - Medical Decision Making Was pt. sent in by a medical professional or institution (, PA, EXPEDITION SUPERVISOR, urgent care, hospital, or alf...) When possible be specific @ -No Did you speak to anyone other than the patient for history (EMS, parent, family, police, friend...)? What history was obtained from this source @ -No Did you review nursing and triage notes (agree or disagree)? Why? @ -I reviewed and agree with nursing and triage notes Were old charts reviewed (outside hosp., previous admission, EMS record, old EKG, old radiological studies, urgent care reports/EKG's, alf records)? Report findings @ -No old charts were reviewed Differential Diagnosis (chest pain, altered mental status, abdominal pain women, abdominal pain men, vaginal bleeding, weakness, fever, dyspnea, syncope, headache, dizziness, GI bleed, back pain, seizure, CVA, palpatations, mental health, musculoskeletal)? @ -Differential Abdominal Pain Women: Appendicitis, Cholecystitis, diverticulosis, ischemic bowel, pancreatitis, hepatitis, UTI, gastroenteritis, AAA, incarcerated hernia, bowel obstruction, constipation, inflammatory bowel, hepatitis, peptic ulcer disease, splenic infarction, perforated viscus, vulvitis, ovarian torsion, PID, kidney stone, p lacenta abruption, this is not meant to be an all-inclusive list EKG interpreted by me (3pts min.). @ -As above X-rays interpreted by me (1pt min.). @ -None done CT interpreted by me (1pt min.). @ -CT abdomen pelvis with contrast reveals short segment small bowel to small bowel jejunal intussusception without evidence for obstruction, typically transient U/S interpreted by me (1pt. min.). @ -None done What testing was considered but not performed or refused? (CT, X-rays, U/S, labs)? Why? @ -None What meds were considered but not given or refused? Why? @ -None Did you discuss the management of the patient with other professionals (professionals i.e. , PA, EXPEDITION SUPERVISOR, lab, RT, psych nurse, social worker psychiatric, utilization review rn, teacher, optics technical officer, manager of case)? Give summary @ -I spoke with on-call surgeon Dr. Solano who declines admission as he states patient needs bariatric specialist. Several attempts were made to contact one of patient's previous surgeons Dr. Clayton however unable to be reached. Was smoking cessation discussed for >3mins.? @ -No Was critical care preformed (if so, how long)? @ -No Were there social determinants of health that impacted care today? How? (Homelessness, low income, unemployed, alcoholism, drug addiction, transportation, low edu. Level, literacy, decrease access to med. care, intermediate, rehab)? @ -No Was there de-escalation of care discussed even if they declined (Discuss DNR or withdrawal of care, Hospice)? DNR status @ -No What co-morbidities impacted this encounter? (DM, HTN, Smoking, COPD, CAD, Cancer, CVA, ARF, Chemo, Hep., AIDS, mental health diagnosis, sleep apnea, morbid obesity)? @ -None Was patient admitted / discharged? Hospital course, mention meds given and route, prescriptions, significant lab abnormalities, going to OR and other pertinent info. @ - discharge. 59-year-old female with history of multiple abdominal surgeries and chronic abdominal pain presenting for flareup of pain x 1 week. Vital signs remarkable for bradycardia otherwise within acceptable limits. Abdomen soft and nonsurgical. Provided with IV fluids, Zofran, and GI cocktail. Lab work remarkable for normal white blood cell count of 6, lactic acid 2.1. Urinalysis remarkable for 4+ ketones likely due to dehydration, 16 red blood cells and 22 white blood cells. Urine culture sent. CT abdomen pelvis with contrast reveals short segment small bowel to small bowel jejunal intussusception without evidence for obstruction, typically transient. I spoke with on-call surgeon Dr. Solano who declines admission as he states patient needs bariatric specialist. Several attempts are made to contact one of patient previous surgeons Dr. Clayton however she was unable to be reached. At this point I recommended that patient be transferred to a different facility for surgical consult. Patient refused transfer and states she would like to be discharged. Risks discussed in detail with patient and patient verbalizes understanding. Strict return precautions and follow-up care discussed. Case was discussed with my ED attending Dr. Albrecht Undiagnosed new problem with uncertain prognosis? @ -No Drug Therapy requiring intensive monitoring for toxicity (Heparin, Nitro, Insulin, Cardizem)? @ -No Were any procedures done? @ -No Diagnosis/symptom? @ -Abdominal pain Acute, or Chronic, or Acute on Chronic? @ -Acute on chronic Uncomplicated (without systemic symptoms) or Complicated (systemic symptoms)? @ -Complicated Side effects of treatment? @ -No Exacerbation, Progression, or Severe Exacerbation? @ -No Poses a threat to life or bodily function? How? (Chest pain, USA, CA, pneumonia, PE, COPD, DKA, ARF, appy, cholecystitis, CVA, Diverticulitis, Homicidal, Suic idal, threat to staff... and all critical care pts) @ -Yes - Lab Data Result diagrams: 04/04/25 19:25 04/04/25 19:25 Lab Results 04/04/25 04/04/25 04/04/25 Range/Units 19:25 19:25 19: WBC 6.37 (4.50-10.00) 10*3/uL RBC 4.13 (4.10-5.20) 10*6/uL Hgb 12.5 (12.0-15.0) g/dL Hct 38.6 (37.2-46.3) % MCV 93.5 (80.0-97.0) fL MCH 30.3 (27.0-32.0) pg MCHC 32.4 (32.0-37.0) g/dL Plt Count 189 (140-440) 10*3/uL MPV 11.7 (9.5-12.2) fL Immature Gran % (Auto) 0.2 % Neutrophils % 89.4 % Lymphocytes % 6.8 % Monocytes % 2.8 % Eosinophils % 0.5 % Basophils % 0.3 % Immature Gran # 0.01 (0.00-0.04) 10*3/uL Neutrophils # 5.70 (1.80-7.70) 10*3/uL Lymphocytes # 0.43 L (0.90-5.00) 10*3/uL Monocytes # 0.18 L (0.20-1.00) 10*3/uL Eosinophils # 0.03 L (0.04-0.35) 10*3/uL Basophils # 0.02 (0.00-0.10) 10*3/uL Sodium 144 (137-145) mmol/L Potassium 4.5 (3.5-5.1) mmol/L Chloride 108 H (98-107) mmol/L Carbon Dioxide 21 L (22-30) mmol/L Anion Gap 15 mmol/L BUN 19 H (7-17) mg/dL Creatinine 0.52 (0.52-1.04) mg/dL Est GFR (CKD-EPI)AfAm >90 (>60 ml/min/1.73 sqM) Est GFR (CKD-EPI)NonAf >90 (>60 ml/min/1.73 sqM) Glucose 184 H (74-99) mg/dL Lactic Ac Sepsis Rflx Plasma Lactic Acid Que 2.1 H* (0.7-2.0) mmol/L Calcium 10.6 H (8.4-10.2) mg/dL Total Bilirubin 1.2 (0.2-1.3) mg/dL AST 42 H (14-36) U/L ALT 20 (4-34) U/L Alkaline Phosphatase 95 (38-126) U/L Total Protein 8.1 (6.3-8.2) g/dL Albumin 5.1 H (3.5-5.0) g/dL Amylase 53 (30-110) U/L Lipase 55 (23-300) U/L Urine Color Urine Appearance (Clear) Urine pH (5.0-8.0) Ur Specific [place] (1.001-1.035) Urine Protein (Negative) Urine Glucose (UA) (Negative) Urine Ketones (Negative) Urine Blood (Negative) Urine Nitrite (Negative) Urine Bilirubin (Negative) Urine Urobilinogen (<2.0) mg/dL Ur Leukocyte Esterase (Negative) Urine RBC (0-5) /hpf Urine WBC (0-5) /hpf Ur Squamous Epith Cells (0-4) /hpf Urine Bacteria (None) /hpf Urine Mucus (None) /hpf 04/04/25 04/04/25 04/04/25 Range/Units 20:30 20:53 23:15 WBC (4.50-10.00) 10*3/uL RBC (4.10-5.20) 10*6/uL Hgb (12.0-15.0) g/dL Hct (37.2-46.3) % MCV (80.0-97.0) fL MCH (27.0-32.0) pg MCHC (32.0-37.0) g/dL Plt Count (140-440) 10*3/uL MPV (9.5-12.2) fL Immature Gran % (Auto) % Neutrophils % % Lymphocytes % % Monocytes % % Eosinophils % % Basophils % % Immature Gran # (0.00-0.04) 10*3/uL Neutrophils # (1.80-7.70) 10*3/uL Lymphocytes # (0.90-5.00) 10*3/uL Monocytes # (0.20-1.00) 10*3/uL Eosinophils # (0.04-0.35) 10*3/uL Basophils # (0.00-0.10) 10*3/uL Sodium (137-145) mmol/L Potassium (3.5-5.1) mmol/L Chloride (98-107) mmol/L Carbon Dioxide (22-30) mmol/L Anion Gap mmol/L BUN (7-17) mg/dL Creatinine (0.52-1.04) mg/dL Est GFR (CKD-EPI)AfAm (>60 ml/min/1.73 sqM) Est GFR (CKD-EPI)NonAf (>60 ml/min/1.73 sqM) Glucose (74-99) mg/dL Lactic Ac Sepsis Rflx Y Plasma Lactic Acid Que 1.5 (0.7-2.0) mmol/L Calcium (8.4-10.2) mg/dL Total Bilirubin (0.2-1.3) mg/dL AST (14-36) U/L ALT (4-34) U/L Alkaline Phosphatase (38-126) U/L Total Protein (6.3-8.2) g/dL Albumin (3.5-5.0) g/dL Amylase (30-110) U/L Lipase (23-300) U/L Urine Color Yellow Urine Appearance Clear (Clear) Urine pH 6.0 (5.0-8.0) Ur Specific [place] 1.039 H (1.001-1.035) Urine Protein 1+ H (Negative) Urine Glucose (UA) Negative (Negative) Urine Ketones 4+ H (Negative) Urine Blood Negative (Negative) Urine Nitrite Negative (Negative) Urine Bilirubin Negative (Negative) Urine Urobilinogen 4.0 (<2.0) mg/dL Ur Leukocyte Esterase Large H (Negative) Urine RBC 16 H (0-5) /hpf Urine WBC 22 H (0-5) /hpf Ur Squamous Epith Cells 1 (0-4) /hpf Urine Bacteria Rare H (None) /hpf Urine Mucus Few H (None) /hpf - EKG Data -: EKG Interpreted by Me EKG Comments: EKG reveals sinus bradycardia with occasional PACs. Ventricular rate 52 bpm, MA interval 133, QRS duration 78, QT/QTc 451/431 Disposition Clinical Impression: Epigastric pain Disposition: HOME SELF-CARE Condition: Stable Instructions (If sedation given, give patient instructions): Abdominal Pain (ED ) Additional Instructions: Please return to the Emergency Department if symptoms worsen or any other concerns. Is patient prescribed a controlled substance at d/c from ED?: No Referrals: Kane Holliday MD [Primary Care Provider] - 1-2 days Dariela Clayton MD [STAFF PHYSICIAN] - 1-2 days Time of Disposition: 00:28
[2025-04-04] MEDS: SODIUM CHLORIDE 0.9% 1,000 ML IV STA (20:38)
[2025-04-04] MEDS: ONDANSETRON 4 MG/2 ML VIAL IVP STA (20:38)
[2025-04-04] MEDS: MAG HYDROX/AL HYDROX/SIMETH 30 ML CUP PO PRN (20:41)
[2025-04-04] MEDS: DICYCLOMINE 20 MG TAB PO STA (20:41)
[2025-04-04] MEDS: LIDOCAINE VISCOUS 2% 15 ML CUP PO ONE (20:41)
[2025-04-04 20:57] LABS: Bacteria,Urine Rare /hpf; Bilirubin,Urine Negative (Negative); Blood,Urine Negative (Negative); Color,Urine Yellow; Glucose,Urine (UA) Negative (Negative); Ketones,Urine 4+ (Negative); Leukocyte Esterase,Urine Large (Negative); Mucus,Urine Few /hpf; Nitrite,Urine Negative (Negative); PH, Urine 6.0 (5.0-8.0); Protein,Urine 1+ (Negative); RBC,Urine 16 /hpf (0-5); Specific Gravity,Urine 1.039 (1.001-1.035); Squamous Epithelial Cell,Urine 1 /hpf (0-4); Urobilinogen,Urine 4.0 mg/dL (<2.0); WBC,Urine 22 /hpf (0-5)
--- NOTE | 2025-04-04 21:38 | CT ---
EXAMINATION TYPE: CT abdomen pelvis w con CT DLP: 1203.6 mGycm, Automated exposure control for dose reduction was used. DATE OF EXAM: 04/04/2025 9:24 PM COMPARISON: [facility] radiograph 04/14/2023, CT abdomen and pelvis 07/02/2022 CLINICAL INDICATION:Female, 59 years old with history of abdominal pain; abdominal pain TECHNIQUE: Standard CT of the abdomen and pelvis following the administration of 100 cc of Isovue 3 00 IV contrast material. Coronal and sagittal reformats were performed. FINDINGS: LOWER CHEST: Unremarkable ABDOMEN LIVER: Mildly enlarged measuring 20.1 cm in CC dimension. No focal lesion. GALLBLADDER AND BILE DUCTS: Gallbladder is not visualized and appears to be surgically absent. No ubaldo iary ductal dilatation. PANCREAS: Unremarkable. SPLEEN: Unremarkable. ADRENAL GLANDS: Unremarkable. KIDNEYS AND URETERS: No evidence of hydronephrosis or renal calculus. The kidneys enhance symmetrical ly. Contrast is demonstrated within both collecting systems and proximal ureters on the delayed phase . PELVIS BLADDER: Under distended, limiting evaluation. REPRODUCTIVE: The uterus is surgically absent. ABDOMEN & PELVIS STOMACH AND BOWEL: Postsurgical changes from Harley-en-Y gastric bypass redemonstrated.Scattered hyperd ense material identified within the bowel. Short segment jejunal to jejunal small bowel intussuscepti on (series 202, image 36. Approximately 3.4 cm in length. No focal bowel wall thickening or surroundi ng inflammatory changes identified. No evidence of bowel obstruction. PERITONEUM: No evidence of pneumoperitoneum or free fluid. VASCULATURE: No evidence of aortic aneurysm. MUSCULOSKELETAL: No acute osseous abnormalities. Minimal S-shaped scoliotic curvature of the thoracol umbar spine. Moderate multilevel degenerative disc disease. LYMPH NODES: No evidence for lymphadenopathy. SOFT TISSUE/ABDOMINAL WALL: Postsurgical changes from epigastric ventral hernia repair with mesh. IMPRESSION: 1. Short segment small bowel to small bowel jejunal intussusception without evidence for obstruction . Typically transient. 2. Postsurgical changes from Harley-en-Y gastric bypass. [facility], , 04/04/2025 9:36 PM
[2025-04-05 00:26] VITALS: BP 124/70; PULSE 69; RESP 17; TEMP 99.7
[2025-04-05] MEDS: MORPHINE SULFATE 2 MG/ML SYRINGE IVP ONE (00:56)
== END 2025-04-05 01:56 | disposition home or self-care (01) ==
LOC: EC 18:48
DX: R10.13 Epigastric pain (principal); G89.29 Other chronic pain; F17.290 Nicotine dependence, other tobacco product, uncomplicated; Z88.5 Allergy status to narcotic agent
CPT/HCPCS: 36415; 93005; 80053; 82150; 83605; 83690; 85025; 81001; 74177; 99284; 96374; 96361; 96375; J2405; J2270; Q9967